=== PATIENT | male | born 1940 | race Caucasian/White ===

== ENCOUNTER 2019-12-24 17:42 | Inpatient (IN) | payer MEDICARE, SELFPAY ==
[2019-12-24] VITALS (7 sets, daily range): BP systolic 110–174; BP diastolic 66–102; PULSE 90–103; RESP 16–30; TEMP 36.8; O2SAT 87–97; BMI 25.2; BMI 25.9
--- NOTE | 2019-12-24 | CT_ITS ---
EXAMINATION: CT ANGIOGRAM OF THE CHEST WITH AND WITHOUT CONTRAST (CT PULMONARY ANGIOGRAM FOR PE) CLINICAL INFORMATION: Reason for Exam elevated ddimer, sob COMPARISON: Chest x-ray 12/24/2019 TECHNIQUE: Prior to contrast administration, noncontrast localization images were obtained. Subsequently, multidetector volumetric imaging was performed from the thoracic inlet to below the diaphragms following the administration of 61 mL Omnipaque 350 intravenous contrast. No contrast reaction reported Sagittal, coronal, and MIP oblique sagittal reformatted images were obtained on the CT workstation, uploaded to PACS, and reviewed. This CT examination was performed using dose optimization techniques as appropriate, variously including the following: *Automated exposure control *Adjustment of mA and/or kV according to patient size (this includes techniques or standardized protocols for targeted exams where dose is matched to indication/reason for exam; i.e. extremities or head) *Use of iterative reconstruction technique Total exam dose-length product 358 mGy-cm FINDINGS: QUALITY OF STUDY/CONTRAST BOLUS: Satisfactory. PULMONARY ARTERIES: There is a large volume of pulmonary emboli present. There is a saddle embolus crossing the midline. Thrombus is present extending through the right and left main pulmonary arteries into secondary, tertiary and more peripheral vessels. Largest volume of thrombus in the distal right main pulmonary artery and extending into the right lower lobe. All lobes are involved. THORACIC AORTA: No aneurysm or dissection. LUNG: No focal consolidation, nodules or masses. PLEURA: No pleural effusion or pneumothorax. MEDIASTINUM: Heart size mildly enlarged. No pericardial effusion. Large volume of coronary artery calcifications. Scattered vascular calcifications of the aorta . Small amount of contrast refluxing into the inferior vena cava. No septal bowing. CHEST WALL/AXILLA: No axillary or internal mammary lymphadenopathy. OSSEOUS STRUCTURES: Multiple level thoracoplasty is at the lower thoracic upper lumbar spine. UPPER ABDOMEN: Unremarkable. No reflux of contrast into the hepatic veins to suggest elevated right heart pressures. IMPRESSION: Large volume of bilateral pulmonary emboli. This includes saddle embolus. Small volume of contrast refluxing into the inferior vena cava suggesting mild right heart strain but there is no septal bowing. VTE: positive This critical result was discussed with Dr. Espinoza on 01/03/2020, 11:45 PM and it was ascertained that the content and urgency of the report was understood at the time of direct communication.
--- NOTE | 2019-12-24 | ECG_ITS ---
Test Reason : REPEAT Blood Pressure : / mmHG Vent. Rate : 096 BPM Atrial Rate : 096 BPM P-R Int : 134 ms QRS Dur : 140 ms QT Int : 372 ms P-R-T Axes : 002 -35 -22 degrees QTc Int : 469 ms Sinus rhythm with occasional Premature ventricular complexes Possible Left atrial enlargement Left axis deviation Right bundle branch block Abnormal ECG When compared with ECG of 24-DEC-2019 18:29, Premature ventricular complexes are now Present Referred By: César Espinoza Electronically Signed By:JESSICA BARRETO MD
--- NOTE | 2019-12-24 18:22 | XR_ITS ---
EXAMINATION: XR CHEST CLINICAL INFORMATION: Shortness of breath COMPARISON: PET/CT study 10/19/2016. CT chest 11/10/2014 TECHNIQUE: Frontal portable view of the chest was obtained. 6:49 PM FINDINGS: Asymmetric elevation of left diaphragm compared to right. Linear atelectasis present at the left lung base. No acute consolidating infiltrate. No pleural effusion or pneumothorax. The heart size is normal. There is no pulmonary vascular congestion. IMPRESSION: No acute abnormality of the chest.
--- NOTE | 2019-12-24 18:22 | ECG_ITS ---
Test Reason : SOB Blood Pressure : / mmHG Vent. Rate : 098 BPM Atrial Rate : 098 BPM P-R Int : 126 ms QRS Dur : 140 ms QT Int : 362 ms P-R-T Axes : -21 -33 -26 degrees QTc Int : 462 ms Sinus rhythm with Premature supraventricular complexes Left axis deviation Nonspecific T wave abnormality Right bundle branch block Abnormal ECG No previous ECGs available Referred By: Generic ED Physician Electronically Signed By:JESSICA BARRETO MD
--- NOTE | 2019-12-24 18:56 | PC.NURSE ---
PT ALERT AND ORIENTED X4. SKIN WPD. RESPIRATIONS LABORED; TACHYPNEIC AT APPROX 30-36 BREATHS/ MIN AND SPO2 LOW 80S UPON ARRIVAL TO ED. BREATHING LESS LABORED WITH REST. PLACED ON 3L VIA NC; SPO2 INCREASED TO 94%. LUNGS CTA. PT REPORTS 1.5 WEEKS BLACK STOOL. ALSO REPORTS RECENTLY STARTED TAKING IRON SUPPLEMENTS. ABD SOFT, NON TENDER. DENIES N/V/D. SINUS RHYTHM ON MONITOR. VSS. IV ACCESS OBTAINED. LABS SENT.
[2019-12-24 19:01] LABS: Hemoglobin 12.5 g/dl (14.0-18.0); MANUAL DIFF FLAG SCAN; Mean Corpuscular Hemoglobin 22.4 pg (27.0-33.0); Red Blood Count 5.57 X10*6/uL (4.60-5.80); SCAN SMEAR FLAG 1
[2019-12-24 19:03] LABS: Basophils Percent Auto 0.3 % (0-2); Eosinophils Percent Auto 0.3 % (0-4); Hematocrit 42.4 % (42-52); Imm Gran Abs Auto 0.08 X10*3/uL (0.00-0.03); Imm Gran Pct Auto 0.8 % (0.0-0.4); Mean Corpuscular HGB Conc 29.5 g/dl (31.0-36.0); Mean Corpuscular Volume 76.1 fL (80-98); Mean Platelet Volume 8.9 fL (9.4-12.4); Monocytes Absolute Auto 0.5 X10*3/uL (0.1-1.2); Monocytes Percent Auto 4.6 % (2-11); NRBC Pct Auto 0.2 /100WBC (0.0-0.2); Neutrophils Absolute Auto 8.5 X10*3/uL (2.0-8.3); Platelet Count 242 X10*3/uL (160-400); Red Cell Distribution Width 33.1 % (11.0-16.0); White Blood Count 10.1 X10*3/uL (4.8-10.8)
--- NOTE | 2019-12-24 19:07 | ED.SOB ---
HPI - SOB/Dyspnea General Chief Complaint: Dyspnea Stated Complaint: SOB Time Seen by Provider: 12/24/19 18:37 Source: patient Mode of arrival: EMS History of Present Illness HPI Narrative: 79-year-old male with chief complaint of shortness of breath. Patient states has been shortness of breath for 1-2 days. No chest pain. However has dyspnea on exertion. No nausea no vomiting no diaphoresis. Patient does stay of dark red stools for the past several days. Denies dizziness or syncope no recent cough no recent fevers MD elicited complaint: shortness of breath Exacerbating factors: lying flat and exertion Related Data Home oxygen amount: none Home Medications Medication Instructions Recorded Confirmed azathioprine 1 tab PO BID 12/25/19 12/25/19 famotidine 1 tab PO BID 12/25/19 12/25/19 finasteride 1 tab PO DAILY 12/25/19 12/25/19 glipizide 1 tab PO DAILY 12/25/19 12/25/19 levothyroxine 1 tab PO QAM 12/25/19 12/25/19 lisinopril 1 tab PO DAILY 12/25/19 12/25/19 prednisone 3 tab PO DAILY 12/25/19 12/25/19 pyridostigmine bromide 2 tab PO TID 12/25/19 12/25/19 Allergies Allergy/AdvReac Type Severity Reaction Status Date / Time No Known Allergies Allergy Verified 12/24/19 18:21 [No Known Allergies*] Review of Systems Review of Systems: Yes all other systems are reviewed and are negative Constitutional: Comments: Constitutional : No Weight loss, No Fever, No Chills, No Night Sweats, No Fatigue, No Malaise ENT/Mouth : No Hearing loss, No Ear Pain, No Nasal Congestion, No Sinus Pain, No Hoarseness, No sore throat, No Rhinorrhea, No Swallowing Difficulty Eyes: No Eye Pain, No Swelling, No Redness, No Foreign Body, No Discharge, No Vision Changes Cardiovascular : No Chest Pain, No SOB, No Dyspnea on Exertion, No Orthopnea, No Edema, No Palpitations Respiratory : No Cough, No Sputum, No Wheezing, No Smoke Exposure, positive Dyspnea Gastrointestinal : No Nausea, No Vomiting, No Diarrhea, No Constipation, No abdominal Pain, No Hematochezia, No Melena Genitourinary : no irregular bleeding, No Dysuria, No Urinary Frequency, No Hematuria, No Urinary Incontinence, No Urgency, No Flank Pain, No Urinary Flow Changes, No Hesitancy Musculoskeletal : No joint pain, No Myalgias, No Joint Swelling Skin : No Skin Lesions, No rash Neuro : No Weakness, No Numbness, No Paresthesias, No Loss of Consciousness, No Dizziness, No Headache Psych : No Anxiety/Panic, No Depression, No SI/HI/AH/VH, No Social Issues, Heme/Lymph: No Bruising, No Bleeding,No Lymphadenopathy Endocrine : No Polyuria, No Polydipsia, No Temperature Intolerance [facility] Past Medical History Attestation statement: The following information was validated with the patient. Medical History (Updated 12/25/19 @ 01:44 by Tanisha Butt MD) Anemia Diabetes Hyperlipidemia Hypertension Melanoma Surgical History History of back surgery Previous back surgery Social History Social History Alcohol intake: current Alcohol intake frequency: holidays/special occasions only Smoking Status: Former smoker Smoked in Last 30 Days: No Use of substances other than those prescribed or required for medical reasons: No Advance Directives: No Advance Directives Information Provided: Yes Physical Exam Vital Signs and I&O and Narrative: Vital Signs and I&O: Vital Signs Temp 98.3 F 12/24/19 23:42 Pulse 91 12/24/19 23:42 Resp 16 12/24/19 23:42 BP 165/102 H 12/24/19 23:42 Pulse Ox 95 12/24/19 23:42 Intake & Output 12/24/19 12/24/19 12/25/19 06:59 18:59 06:59 Intake Total 1000 / 1000 Balance 1000 / 1000 Weight 73.028 kg 75 kg Intake: Intake, IV Amoun t 1000 / 1000 0.9 % Sodium C hloride 1,000 ml 1000 / 1000 @ 999 mls/hr I VCONT .Q1H1M [facility] Rx#:[id number] Body Mass Index 25.9 reviewed Const: Other: Appearance: Alert. Oriented X3. No acute distress. Eyes: Pupils equal, round and reactive to light. ENT: Pharynx normal. Neck: Normal inspection. Neck supple. CVS: Normal heart rate and rhythm. Pulses normal. Respiratory: No respiratory distress. Breath sounds normal. no wheezing no rales Abdomen: Soft and nontender. Skin: Skin warm and dry. Normal skin color. Normal skin turgor. Extremities: No lower extremity edema. No lower extremity edema. Neuro: Oriented X 3. No motor deficit. No sensory deficit. rectal: dark black stool, rectum sensation intact rectal tone intact no lacerations Course Course Course Narrative: differential diagnosis includes pulmonary embolism. Acute coronary syndrome, anemia Reevaluation(s) Reevaluation #1: patient was laying down sleeping and pulse ox came down to 88% however as aroused and placed oxygen and patient now at 97% with oxygen nasal cannula Time: 21:02 Time: 22:58 Reevaluation #3: patient re-evaluated in which patient does not have chest pain. However patient does qualify for NSTEMI will start heparin drip pending CTA for PE Time: 23:48 Additional Reevaluation(s): I spoke with radiologist now. Patient with saddle embolism with large burden bilateral possibly mild heart strain I re-evaluated the patient in which maintained his pulse ox while sitting up. Denies chest pain mild shortness of breath at baseline I spoke with the ICU doctor Dr. anderson, new large discussion in regards to tPA. At this point we agreed to give heparin only and no tPA. Patient's vital signs were within normal limits and patient recently had a hospital admission was diagnosed with a diverticulitis with perforation and esophagitis with gastric ulcers. Patient looks well has a coppola mild shortness of breath at baseline these were some of the components of our decision to not give tPA at this point. also recommends to admit patient to intermediate care IMC at 00:[address] Flowers for admission to the floor multiple re-examine were done by me on the patient has been on the floor. Patient was given IV heparin and IV bolus of heparin MDM - SOB/Dyspnea MDM Narrative Medical decision making narrative: 79-year-old diagnosed with saddle embolism. nstemi. Shortness of breath and hypoxia. with a history pulmonary embolism with 3 months of Eliquis recently stopped. Started on IV heparin in conjunction with ICU consultation admitted to the floor Lab Data Attestation: I reviewed the patient's lab results. Result diagrams: 12/24/19 18:27 12/24/19 22:05 Labs: Lab Results 12/24/19 12/24/19 12/24/19 Range/Units 18:27 18:27 18:27 WBC 10.1 (4.8-10.8) X10*3/uL RBC 5.57 (4.60-5.80) X10*6/uL Hgb 12.5 L (14.0-18.0) g/dl Hct 42.4 (42-52) % MCV 76.1 L (80-98) fL MCH 22.4 L (27.0-33.0) pg MCHC 29.5 L (31.0-36.0) g/dl RDW 33.1 H (11.0-16.0) % Plt Count 242 (160-400) X10*3/uL MPV 8.9 L (9.4-12.4) fL Immature Gran % (Auto) 0.8 H (0.0-0.4) % Neut % (Auto) 84.0 H (45-73) % Lymph % (Auto) 10.0 L (20-40) % [place] % (Auto) 4.6 (2-11) % Eos % (Auto) 0.3 (0-4) % Baso % (Auto) 0.3 (0-2) % Lymph # (Auto) 1.0 L (1.2-4.9) X10*3/uL [place] # (Auto) 0.5 (0.1-1.2) X10*3/uL Eos # (Auto) 0.0 (0.0-0.4) X10*3/uL Baso # (Auto) 0.0 (0.0-0.2) X10*3/uL Abs Immat Gran (auto) 0.08 H (0.00-0.03) X10*3/uL Absolute Neuts (auto) 8.5 H (2.0-8.3) X10*3/uL Absolute Nucleated RBC 0.020 H (0.0-0.012) X10*3/uL Nucleated RBC % (auto) 0.2 (0.0-0.2) /100WBC Smear Tech's Comments VERIFIED PT 10.7 L (10.8-13.0) SEC INR 0.9 (0.9-1.1) APTT 29.5 (24.1-38.0) SEC D-Dimer 3384 NG/ML Hold Blue Top SEE NOTE Sodium Cancelled Potassium Cancelled Chloride Cancelled Carbon Dioxide Cancelled Anion Gap Cancelled BUN Cancelled Creatinine Cancelled Estim Creat Clear Calc Cancelled Estimated GFR Cancelled POC Glucose (60-115) mg/dL Random Glucose Cancelled Calcium Cancelled Total Bilirubin Cancelled Direct Bilirubin Cancelled AST Cancelled ALT Cancelled Alkaline Phosphatase Cancelled Troponin I High Sens (<3.5-35.0) ng/L B-Natriuretic Peptide (<100) pg/mL Total Protein Cancelled Albumin Cancelled Lipase Cancelled Urine Color Urine Appearance Urine pH (5.0-8.0) Ur Specific [place] (1.005-1.025) Urine Protein (NEG-TRACE) MG/DL Urine Glucose (UA) (NEG) MG/DL Urine Ketones (NEG) MG/DL Urine Blood (NEG) Urine Nitrite (NEG) Ur Leukocyte Esterase (NEG) Stool Occult Blood (NEG) 12/24/19 12/24/19 12/24/19 Range/Units 18:27 18:53 22:05 WBC (4.8-10.8) X10*3/uL RBC (4.60-5.80) X10*6/uL Hgb (14.0-18.0) g/dl Hct (42-52) % MCV (80-98) fL MCH (27.0-33.0) pg MCHC (31.0-36.0) g/dl RDW (11.0-16.0) % Plt Count (160-400) X10*3/uL MPV (9.4-12.4) fL Immature Gran % (Auto) (0.0-0.4) % Neut % (Auto) (45-73) % Lymph % (Auto) (20-40) % [place] % (Auto) (2-11) % Eos % (Auto) (0-4) % Baso % (Auto) (0-2) % Lymph # (Auto) (1.2-4.9) X10*3/uL [place] # (Auto) (0.1-1.2) X10*3/uL Eos # (Auto) (0.0-0.4) X10*3/uL Baso # (Auto) (0.0-0.2) X10*3/uL Abs Immat Gran (auto) (0.00-0.03) X10*3/uL Absolute Neuts (auto) (2.0-8.3) X10*3/uL Absolute Nucleated RBC (0.0-0.012) X10*3/uL Nucleated RBC % (auto) (0.0-0.2) /100WBC Smear Tech's Comments PT (10.8-13.0) SEC INR (0.9-1.1) APTT (24.1-38.0) SEC D-Dimer NG/ML Hold Blue Top Sodium 141 Potassium 5.3 H Chloride 108 Carbon Dioxide 24 Anion Gap 14 BUN 16 Creatinine 1.10 Estim Creat Clear Calc 50.0 Estimated GFR > 60 POC Glucose (60-115) mg/dL Random Glucose 243 H Calcium 8.5 Total Bilirubin 0.4 Direct Bilirubin 0.2 AST 17 ALT 21 Alkaline Phosphatase 75 Troponin I High Sens 158.0 H (<3.5-35.0) ng/L B-Natriuretic Peptide 1301 H (<100) pg/mL Total Protein 5.4 L Albumin 3.3 L Lipase 14 Urine Color Urine Appearance Urine pH (5.0-8.0) Ur Specific [place] (1.005-1.025) Urine Protein (NEG-TRACE) MG/DL Urine Glucose (UA) (NEG) MG/DL Urine Ketones (NEG) MG/DL Urine Blood (NEG) Urine Nitrite (NEG) Ur Leukocyte Esterase (NEG) Stool Occult Blood NEG (NEG) 12/24/19 12/24/19 12/24/19 Range/Units 22:05 22:08 23:38 WBC (4.8-10.8) X10*3/uL RBC (4.60-5.80) X10*6/uL Hgb (14.0-18.0) g/dl Hct (42-52) % MCV (80-98) fL MCH (27.0-33.0) pg MCHC (31.0-36.0) g/dl RDW (11.0-16.0) % Plt Count (160-400) X10*3/uL MPV (9.4-12.4) fL Immature Gran % (Auto) (0.0-0.4) % Neut % (Auto) (45-73) % Lymph % (Auto) (20-40) % [place] % (Auto) (2-11) % Eos % (Auto) (0-4) % Baso % (Auto) (0-2) % Lymph # (Auto) (1.2-4.9) X10*3/uL [place] # (Auto) (0.1-1.2) X10*3/uL Eos # (Auto) (0.0-0.4) X10*3/uL Baso # (Auto) (0.0-0.2) X10*3/uL Abs Immat Gran (auto) (0.00-0.03) X10*3/uL Absolute Neuts (auto) (2.0-8.3) X10*3/uL Absolute Nucleated RBC (0.0-0.012) X10*3/uL Nucleated RBC % (auto) (0.0-0.2) /100WBC Smear Tech's Comments PT (10.8-13.0) SEC INR (0.9-1.1) APTT (24.1-38.0) SEC D-Dimer NG/ML Hold Blue Top Sodium Potassium Chloride Carbon Dioxide Anion Gap BUN Creatinine Estim Creat Clear Calc Estimated GFR POC Glucose 249 H (60-115) mg/dL Random Glucose Calcium Total Bilirubin Direct Bilirubin AST ALT Alkaline Phosphatase Troponin I High Sens 133.7 H (<3.5-35.0) ng/L B-Natriuretic Peptide (<100) pg/mL Total Protein Albumin Lipase Urine Color YELLOW Urine Appearance CLEAR Urine pH 5.5 (5.0-8.0) Ur Specific [place] >= 1.030 H (1.005-1.025) Urine Protein TRACE (NEG-TRACE) MG/DL Urine Glucose (UA) 500 H (NEG) MG/DL Urine Ketones 15 (NEG) MG/DL Urine Blood NEG (NEG) Urine Nitrite NEG (NEG) Ur Leukocyte Esterase NEG (NEG) Stool Occult Blood (NEG) ECG Data Attestation: I personally reviewed and interpreted this ECG as follows: Interpretation: Rate at 97. Right-sided access. Right bundle branch block. normal p.r. segments 2nd EKG at 19:34. Right bundle branch block. Normal NM intervals. Rate of 96. No STEMI Critical Care Time Critical Care Time Critical Care Time: Yes Total Critical Care Time: 35 Attestation: I tested critical care time spent. patient with hypoxia with less than 90% pulse ox immediately placed patient on oxygen which improved Discharge Plan Discharge Clinical Impression: Hypoxia, Acute saddle pulmonary embolism, Non-ST elevation [place] (NSTEMI) Patient Disposition: Admitted As Inpatient Interventions: Admission Worksheet (ED) Last Done: 12/25/19 02:08 Discharge Date/Time: 12/25/19 02:30
[2019-12-24 19:19] LABS: PLT ABN DIST 1
[2019-12-24 19:28] LABS: INTERNATIONAL NORM RATIO 0.9 (0.9-1.1); Prothrombin Time 10.7 SEC (10.8-13.0)
[2019-12-24 19:29] LABS: B Type Natriuretic Peptide 1301 pg/mL (<100)
[2019-12-24 19:31] LABS: Partial Thromboplastin Time 29.5 SEC (24.1-38.0)
[2019-12-24 19:33] LABS: SLIDE REVIEW VERIFIED
[2019-12-24 19:46] LABS: D Dimer 3384 NG/ML
[2019-12-24 19:50] LABS: OBS Int Ctl Valid YES; OBS1 NEG (NEG)
--- NOTE | 2019-12-24 20:02 | PC.NURSE ---
PATIENT RESTING AND SINUS RHYTHM ON MONITOR WITH OCCASIONAL PVC. TROPONIN ELEVATED AND MD AWARE.
[2019-12-24] MEDS: 0.9 % Sodium Chloride 1,000 ML 999 ML IVCONT (21:03)
[2019-12-24 22:16] LABS: Appearance Urine CLEAR; Color Urine YELLOW; Glucose Urine UA 500 MG/DL (NEG); Leukocyte Esterase Urine NEG (NEG); Nitrite Urine NEG (NEG); PH 5.5 (5.0-8.0); Specific Gravity - Urine >= 1.030 (1.005-1.025); Urine Blood NEG (NEG); Urine Ketones 15 MG/DL (NEG); Urine Protein TRACE MG/DL (NEG-TRACE)
[2019-12-24 22:46] LABS: Alanine Aminotransferase 21 U/L (0-40); Albumin Level 3.3 g/dL (3.5-5.0); Alkaline Phosphatase 75 U/L (39-117); Anion Gap 14 (12-20); Aspartate Amino Transferase 17 U/L (5-37); Bilirubin Direct 0.2 mg/dL (0.0-0.5); Bilirubin Total 0.4 mg/dL (0.0-1.0); Blood Urea Nitrogen 16 mg/dL (9-16); Calcium 8.5 mg/dL (8.4-10.2); Carbon Dioxide 24 mmol/L (22-29); Chloride 108 mmol/L (96-108); Estimated Glomerular Filt Rate > 60; Glucose Random 243 mg/dL (60-115); Lipase 14 U/L (8-78); Potassium 5.3 mmol/l (3.3-5.1); Sodium 141 mmol/L (135-145); Total Protein 5.4 g/dL (6.5-8.0)
[2019-12-24 22:54] LABS: Troponin-I High Sensitivity 133.7 ng/L (<3.5-35.0)
[2019-12-24 23:48] LABS: Glucose, Whole Blood 249 mg/dL (60-115)
[2019-12-24] MEDS: Heparin Sodium,Porcine 5,000 UNIT/ML VIAL 5000 UNIT IVPUSH (23:49)
[2019-12-25] VITALS (11 sets, daily range): BP systolic 136–178; BP diastolic 77–97; PULSE 76–96; RESP 16–22; TEMP 35.9–36.9; O2SAT 90–97
[2019-12-25] MEDS: Heparin Sodium,Porcine/1/2NS 25,000 UNIT/250 ML IV.SOLN 10.22 UNIT IVCONT (00:27)
--- NOTE | 2019-12-25 00:30 | PC.NURSE ---
PATIENT MEDICATED PER EMAR NOTED. HEPARIN DRIP STARTED AND WITNESSED BY MIKE CHAIDEZ RN. PLAN FOR ADMISSION TO HOSPITAL
--- NOTE | 2019-12-25 01:07 | PC.NURSE ---
HOSPITALIST AT BEDSIDE FOR EVALUATION
--- NOTE | 2019-12-25 01:08 | P.HPIM_ITS ---
History of Present Illness Date of Service: 12/25/19 Chief Complaint: SOB 79 y/o male with significant hx of provoked PE in the past, presents today due to worsening SOB for the past 3 weeks. Patient reports that 3 weeks ago started experiencing difficulty breathing which was on and off but since yesterday his condition worsened and now is constant. Patient denies any chest pain, nausea, vomiting, dizziness or fever. Records were reviewed from a previous hospitalization of the patient in [facility] for diverticulitis with perforation which was managed medically and gastritis with an ulcer. During that admission on June of the current year, patient was found to have an incidental PE which was managed with heparin followed with eliquis for a total course of 3 months which patiemt completed successfully. Upon presentaiton now his vitals are found to be stable, 110/66 with mild tachycardia of 103 which now resolved and the BP is 165/90 mmHg currently. Saturating well on nasal cannula 2 liters which drops to 87% when laying flat on bed without O2 supplement but remains stable with the nasal cannula. Troponin of 158 which dropped to 133. BNP of 1301. CTA positive for bilateral PE with saddle embolus and evidence of rigth heart strain without bowing septum. Case was discussed by ED with Chemical Plant Manager environmental field services technician Dr Sutton who recommends to continue with current full dose anticoagulation (Heparin drip) but patient is deemed to be stable to go to medical floors. Decision for admission given. Patient seen and examined at the bedside, laying down in bed in no acute distress. BP stable. saturating well. ROS as above otherwise negative. Physical exam positive for +1 pitting edema of bilateral LE, otherwise negative. PMHX: Hx of provoked PE, gastric ulcer, diverticulitis with perforation, BPH, HTN, Hypothyroidism, Myasthenia gravis? PSx: none Toxic habitsw: NO hx of alcohol abuse, smoking or IVDA Review of Systems Cardiovascular: Cardiovascular: Reports dyspnea Respiratory: Respiratory: Reports dyspnea PMFSH Medical History Anemia Diabetes Hyperlipidemia Hypertension Melanoma Functional capacity: independent ambulation Family history: reviewed and not pertinent Surgical History History of back surgery Previous back surgery Social History Alcohol intake: current Alcohol intake frequency: holidays/special occasions only Smoking Status: Former smoker Smoked in Last 30 Days: No Use of substances other than those prescribed or required for medical reasons: No Advance Directives: No Advance Directives Information Provided: Yes Meds Allergies Allergy/AdvReac Type Severity Reaction Status Date / Time No Known Allergies Allergy Verified 12/24/19 18:21 [No Known Allergies*] Home Medications Medication Instructions Recorded Confirmed Type azathioprine 1 tab PO BID 12/25/19 12/25/19 History famotidine 1 tab PO BID 12/25/19 12/25/19 History finasteride 1 tab PO DAILY 12/25/19 12/25/19 History glipizide 1 tab PO DAILY 12/25/19 12/25/19 History levothyroxine 1 tab PO QAM 12/25/19 12/25/19 History lisinopril 1 tab PO DAILY 12/25/19 12/25/19 History prednisone 3 tab PO DAILY 12/25/19 12/25/19 History pyridostigmine bromide 2 tab PO TID 12/25/19 12/25/19 History Physical Exam Vital Signs and Narrative: Vital Signs: Last Vital Signs Temp 98.3 F 12/24/19 23:42 Pulse 91 12/24/19 23:42 Resp 16 12/24/19 23:42 BP 165/102 H 12/24/19 23:42 Pulse Ox 95 12/24/19 23:42 Body Mass Index 25.9 Const: General: cooperative, healthy appearing and comfortable HENMT: Head: Yes normal to inspection Eyes: General: appearance normal, both eyes and all related structures Neck: Yes normal visual inspection Chest: Chest palpation & inspection: normal inspection of the chest Resp: Effort & Inspection: normal respiratory effort Cardio: Jugular venous distension: no JVD Rate: regular rate Heart sounds: S1 normal heart sound present and S2 normal heart sound present GI: Inspection: Yes normal to inspection Skin: General skin exam: no rashes or lesions noted Extrem: General: Yes edema (+1) Psych: Appearance: grossly normal Results Labs Labs: Laboratory Tests 12/24/19 12/24/19 12/24/19 18:27 18:27 18:27 WBC 10.1 RBC 5.57 Hgb 12.5 L Hct 42.4 MCV 76.1 L MCH 22.4 L MCHC 29.5 L RDW 33.1 H Plt Count 242 MPV 8.9 L Immature Gran % (Auto) 0.8 H Neut % (Auto) 84.0 H Lymph % (Auto) 10.0 L [place] % (Auto) 4.6 Eos % (Auto) 0.3 Baso % (Auto) 0.3 Lymph # (Auto) 1.0 L [place] # (Auto) 0.5 Eos # (Auto) 0.0 Baso # (Auto) 0.0 Abs Immat Gran (auto) 0.08 H Absolute Neuts (auto) 8.5 H Absolute Nucleated RBC 0.020 H Nucleated RBC % (auto) 0.2 Smear Tech's Comments VERIFIED PT 10.7 L INR 0.9 APTT 29.5 D-Dimer 3384 Hold Blue Top SEE NOTE Sodium Cancelled Potassium Cancelled Chloride Cancelled Carbon Dioxide Cancelled Anion Gap Cancelled BUN Cancelled Creatinine Cancelled Estim Creat Clear Calc Cancelled Estimated GFR Cancelled POC Glucose Random Glucose Cancelled Calcium Cancelled Total Bilirubin Cancelled Direct Bilirubin Cancelled AST Cancelled ALT Cancelled Alkaline Phosphatase Cancelled Troponin I High Sens B-Natriuretic Peptide Total Protein Cancelled Albumin Cancelled Lipase Cancelled Urine Color Urine Appearance Urine pH Ur Specific [place] Urine Protein Urine Glucose (UA) Urine Ketones Urine Blood Urine Nitrite Ur Leukocyte Esterase Stool Occult Blood 12/24/19 12/24/19 12/24/19 18:27 18:53 22:05 WBC RBC Hgb Hct MCV MCH MCHC RDW Plt Count MPV Immature Gran % (Auto) Neut % (Auto) Lymph % (Auto) [place] % (Auto) Eos % (Auto) Baso % (Auto) Lymph # (Auto) [place] # (Auto) Eos # (Auto) Baso # (Auto) Abs Immat Gran (auto) Absolute Neuts (auto) Absolute Nucleated RBC Nucleated RBC % (auto) Smear Tech's Comments PT INR APTT D-Dimer Hold Blue Top Sodium 141 Potassium 5.3 H Chloride 108 Carbon Dioxide 24 Anion Gap 14 BUN 16 Creatinine 1.10 Estim Creat Clear Calc 50.0 Estimated GFR > 60 POC Glucose Random Glucose 243 H Calcium 8.5 Total Bilirubin 0.4 Direct Bilirubin 0.2 AST 17 ALT 21 Alkaline Phosphatase 75 Troponin I High Sens 158.0 H B-Natriuretic Peptide 1301 H Total Protein 5.4 L Albumin 3.3 L Lipase 14 Urine Color Urine Appearance Urine pH Ur Specific [place] Urine Protein Urine Glucose (UA) Urine Ketones Urine Blood Urine Nitrite Ur Leukocyte Esterase Stool Occult Blood NEG 12/24/19 12/24/19 12/24/19 22:05 22:08 23:38 WBC RBC Hgb Hct MCV MCH MCHC RDW Plt Count MPV Immature Gran % (Auto) Neut % (Auto) Lymph % (Auto) [place] % (Auto) Eos % (Auto) Baso % (Auto) Lymph # (Auto) [place] # (Auto) Eos # (Auto) Baso # (Auto) Abs Immat Gran (auto) Absolute Neuts (auto) Absolute Nucleated RBC Nucleated RBC % (auto) Smear Tech's Comments PT INR APTT D-Dimer Hold Blue Top Sodium Potassium Chloride Carbon Dioxide Anion Gap BUN Creatinine Estim Creat Clear Calc Estimated GFR POC Glucose 249 H Random Glucose Calcium Total Bilirubin Direct Bilirubin AST ALT Alkaline Phosphatase Troponin I High Sens 133.7 H B-Natriuretic Peptide Total Protein Albumin Lipase Urine Color YELLOW Urine Appearance CLEAR Urine pH 5.5 Ur Specific [place] >= 1.030 H Urine Protein TRACE Urine Glucose (UA) 500 H Urine Ketones 15 Urine Blood NEG Urine Nitrite NEG Ur Leukocyte Esterase NEG Stool Occult Blood Assessment and Plan (1) Acute saddle pulmonary embolism: Status: Acute Hemodynamically stable at present CTA chest shows previously mentioned findings EKG showing RBBB. Evidence of right heart strain without bowing of the septum Continue with Heparin drip traffic monitor specialist IMC Oxygen therapy as needed Follow up 2D Echo in the am Cardiology consult in the am Pulmonology consult in the am Hematology/Oncology consult in the am (2) Non-ST elevation GA (NSTEMI): Status: Acute Elevated troponin likely secondary to demand ischemia given right sided heart strain Troponin decreased from 158-->133. On full dose Heparin traffic monitor specialist Echo in the am Cardiology evaluation in the am (3) Hypertension: Status: Acute Continue with current home BP med as ordered (4) Diabetes: Status: Acute Hold PO hypoglycemic med Insulin as ordered (5) BPH (benign prostatic hyperplasia): Status: Acute continue with finasteride home dose (6) Hypothyroidism: Status: Acute continue with levothyroxine home dose (7) Hyperkalemia: Status: Acute K of 5.3 s/p insulin therapy Follow up BMP for electrolytes in the am (8) Myasthenia gravis: Status: Acute continue with pyridostigmine home dose continue with prednisone home dose (Patient on azathiopine but unknown reason. RA? to confirm in am with PCP)
--- NOTE | 2019-12-25 01:39 | PC.NURSE ---
CALL FLOOR FOR 2ND TIME TO GIVE REPORT AND TOLD BY [employer] OPERATIONS MANAGER, GARY THAT NURSES WERE IN ROOMS. SHE WOULD HAVE THEM CONTACT ME
--- NOTE | 2019-12-25 02:55 | PC.NURSE ---
PT TRANSPORTED TO THE UNIT VIA STRETCHER AND ON HEPARIN DRIP. HEPARIN DRIP RUNNING AT 14U/KG/HR. PT IS ALERT AND ORIENTED X 3, HR IN THE 80'S, SR ON THE MONITOR, RR IS REGULAR BUT HAS GARCIA AND CAME WITH HIS CANE. PT AMBULATED FROM THE STRETCHER TO THE BED AND WAS SOB ON 2L OF O2 VIA NC AND DOES NOT USE O2 AT HOME. PT IS IN BED RESTING, CALL BED PROVIDED, SAFETY EXPLAINED, HIGH FALL RISK PROTOCOL IN PLACE . VSS.
[2019-12-25 04:30] LABS: Glucose, Whole Blood 192 mg/dL (60-115)
[2019-12-25 06:54] LABS: Hemoglobin 11.5 g/dl (14.0-18.0)
[2019-12-25 06:56] LABS: Hematocrit 38.2 % (42-52); Mean Corpuscular HGB Conc 30.1 g/dl (31.0-36.0); Mean Corpuscular Hemoglobin 22.8 pg (27.0-33.0); Mean Corpuscular Volume 75.8 fL (80-98); Platelet Count 218 X10*3/uL (160-400); Red Blood Count 5.04 X10*6/uL (4.60-5.80); White Blood Count 7.2 X10*3/uL (4.8-10.8)
[2019-12-25 07:14] LABS: PTT Heparin Drip 86.8 SEC (53-77.9)
[2019-12-25 07:48] LABS: Anion Gap 15 (12-20); Blood Urea Nitrogen 14 mg/dL (9-16); Calcium 8.5 mg/dL (8.4-10.2); Carbon Dioxide 22 mmol/L (22-29); Chloride 108 mmol/L (96-108); Creatinine Clr Calc Pharmacy 56.2; Estimated Glomerular Filt Rate > 60; Glucose Random 219 mg/dL (60-115); Potassium 4.1 mmol/l (3.3-5.1); Sodium 141 mmol/L (135-145)
[2019-12-25] MEDS: Finasteride 5 MG TABLET PO (07:54)
[2019-12-25] MEDS: predniSONE 5 MG TABLET 15 MG PO (07:54)
[2019-12-25] MEDS: azaTHIOprine 50 MG TABLET PO ×2 (07:54→21:51)
[2019-12-25] MEDS: Levothyroxine Sodium 75 MCG TABLET PO (07:54)
[2019-12-25] MEDS: Famotidine 20 MG TABLET PO ×2 (07:54→21:51)
[2019-12-25 07:59] LABS: Glucose, Whole Blood 214 mg/dL (60-115)
--- NOTE | 2019-12-25 08:36 | P.CONPL_ITS ---
History of Present Illness History of Present Illness Chief complaint: SOB PMF Past Medical History Medical History (Updated 12/27/19 @ 08:59 by Elissa Hall MD) Anemia Diabetes Hyperlipidemia Hypertension Melanoma Myasthenia gravis Functional capacity: independent ambulation Family History Family history: reviewed and not pertinent Surgical History Surgical History (Updated 12/26/19 @ 15:26 by Katie Sams MD) History of back surgery Previous back surgery Social History Social History Household Members: None Housing: House Do you presently have visiting nurse or other home services: No Alcohol intake: current Alcohol intake frequency: holidays/special occasions only Smoking Status: Former smoker Smoked in Last 30 Days: No Patient Interested in Nicotine Replacement: No Patient Given Instructions on How to Stop Smoking: No Second Hand Smoke Exposure: No Use of substances other than those prescribed or required for medical reasons: No Currently Displaying Signs/Symptoms of Drug Intoxication Withdrawal: No Have you been hit, kicked, punched, or otherwise hurt by someone within the past year? If so, by whom?: No Do you feel safe in your current relationship?: No Current Relationship Is there a partner from a previous relationship who is making you feel unsafe now?: No Are you made to feel afraid or neglected: No J[facility] Healthcare Practices: religious Advance Directives: No Advance Directives Information Provided: Yes Do you have thoughts of harming others: None Do you have a plan to hurt others: No Plan Recently lost weight without trying: Unsure service: No Meds Allergies Allergy/AdvReac Type Severity Reaction Status Date / Time No Known Allergies Allergy Verified 12/24/19 18:21 [No Known Allergies*] Home Medications Medication Instructions Recorded Confirmed Type azathioprine 1 tab PO BID 12/25/19 12/25/19 History famotidine 1 tab PO BID 12/25/19 12/25/19 History finasteride 1 tab PO DAILY 12/25/19 12/25/19 History glipizide 1 tab PO DAILY 12/25/19 12/25/19 History levothyroxine 1 tab PO QAM 12/25/19 12/25/19 History lisinopril 1 tab PO DAILY 12/25/19 12/25/19 History prednisone 3 tab PO DAILY 12/25/19 12/25/19 History pyridostigmine bromide 2 tab PO TID 12/25/19 12/25/19 History Physical Exam Vital Signs and I&O and Narrative: Vital Signs and I&O: Vital Signs Temp 97.8 F 12/25/19 08:00 Pulse 94 12/25/19 08:00 Resp 18 12/25/19 08:00 BP 152/90 H 12/25/19 08:00 Pulse Ox 90 L 12/25/19 08:00 Intake & Output 12/24/19 12/25/19 12/25/19 18:59 06:59 18:59 Intake Total 1026.742 / 1026.74 2 42.754 / 42.754 Output Total 0 / 0 Balance 1026.742 / 1026.74 2 42.754 / 42.754 Urine Output (Aver age ml/kg/hr) 0.00 0.00 Weight 161 lb 165 lb 5.547 oz Intake: Intake, Oral [place] unt 0 / 0 Intake, IV Amoun t 1026.742 / 1026.74 2 42.754 / 42.754 0.9 % Sodium C hloride 1,000 ml 1000 / 1000 @ 999 mls/hr I VCONT .Q1H1M [facility] Rx#:[id number] Heparin Sodium ,Porcine/1/2NS 25 26.742 / 26.742 42.754 / 42.754 ,000 unit In 2 50 ml @ Per Protocol IVCON T .Q0M [facility] Rx#: [id number] Output: Output, Urine Am ount 0 / 0 Body Mass Index 25.9 Results Laboratory Findings CBC and BMP: 12/27/19 06:32 12/26/19 05:49 ABG, PT/INR, D-dimer: PT/INR, D-dimer PT 10.7 SEC (10.8-13.0) L 12/24/19 18:27 INR 0.9 (0.9-1.1) 12/24/19 18:27 D-Dimer 3384 NG/ML 12/24/19 18:27 Abnormal lab findings: Abnormal Labs 12/24/19 12/24/19 12/24/19 18:27 18:27 18:27 Hgb 12.5 L Hct MCV 76.1 L MCH 22.4 L MCHC 29.5 L RDW 33.1 H MPV 8.9 L Immature Gran % (Auto) 0.8 H Neut % (Auto) 84.0 H Lymph % (Auto) 10.0 L Lymph # (Auto) 1.0 L Abs Immat Gran (auto) 0.08 H Absolute Neuts (auto) 8.5 H Absolute Nucleated RBC 0.020 H PT 10.7 L PTT (Heparin Protocol) Potassium POC Glucose Random Glucose Troponin I High Sens 158.0 H B-Natriuretic Peptide 1301 H Total Protein Albumin Ur Specific [place] Urine Glucose (UA) 12/24/19 12/24/19 12/24/19 22:05 22:05 22:08 Hgb Hct MCV MCH MCHC RDW MPV Immature Gran % (Auto) Neut % (Auto) Lymph % (Auto) Lymph # (Auto) Abs Immat Gran (auto) Absolute Neuts (auto) Absolute Nucleated RBC PT PTT (Heparin Protocol) Potassium 5.3 H POC Glucose Random Glucose 243 H Troponin I High Sens 133.7 H B-Natriuretic Peptide Total Protein 5.4 L Albumin 3.3 L Ur Specific [place] >= 1.030 H Urine Glucose (UA) 500 H 12/24/19 12/25/19 12/25/19 23:38 04:27 05:47 Hgb 11.5 L Hct 38.2 L MCV 75.8 L MCH 22.8 L MCHC 30.1 L RDW 33.0 H MPV Immature Gran % (Auto) Neut % (Auto) Lymph % (Auto) Lymph # (Auto) Abs Immat Gran (auto) Absolute Neuts (auto) Absolute Nucleated RBC PT PTT (Heparin Protocol) Potassium POC Glucose 249 H 192 H Random Glucose Troponin I High Sens B-Natriuretic Peptide Total Protein Albumin Ur Specific [place] Urine Glucose (UA) 12/25/19 12/25/19 12/25/19 05:47 06:41 07:52 Hgb Hct MCV MCH MCHC RDW MPV Immature Gran % (Auto) Neut % (Auto) Lymph % (Auto) Lymph # (Auto) Abs Immat Gran (auto) Absolute Neuts (auto) Absolute Nucleated RBC PT PTT (Heparin Protocol) 86.8 H Potassium POC Glucose 214 H Random Glucose 219 H Troponin I High Sens B-Natriuretic Peptide Total Protein Albumin Ur Specific [place] Urine Glucose (UA)
--- NOTE | 2019-12-25 09:59 | PM.EVENT ---
Event Note Event Note: this 79 years old very pleasant gentleman was seen by me this morning for pulmonary consult. history reviewed and patient examined. he is still short of breath but comfortable at rest and does not seem to be in any distress. A: Ac. Pulmonary Embolism , Central, Saddle type. Improving on anticoagulation , with IV Heparin . Hemdynemically and Respiratory multani , he is stable , P: cont. Anticogulation with IV Heparin . Cont. O2 2-3 L/mt , to keep O2 sat. above 92 % cont. his regular Meds , complete note is dictated.
--- NOTE | 2019-12-25 10:03 | P.CONPL_ITS ---
History of Present Illness History of Present Illness Consult date: 12/25/19 Chief complaint: SOB Narrative: This 79 years old gentleman very pleasant has had increasing shortness of breath for the last 2-3 weeks. He has felt some pressure in the chest but no definite chest pain. He has had no fever or chills. No cough or expectoration and no wheezing. It started with increased shortness of breath on walking around and yesterday he was short of breath even at rest show presented to the emergency room. Work up in the emergency room included CTA of the chest, which has shown a mass pat central saddle shaped thrombosis in the pulmonary arteries. Patient was hypoxemic which improved with oxygen. hemodynamically he was felt to be stable so he is being managed on the intermediate medical care unit. Of note is the fact that, he has chronic myasthenia gravis and is on prednisone 5 mg 3 tablets a day. In June of this year he was treated at [facility] for acute dive rticulitis and during that admission he had DVT in the lower extremities. He was treated with anticoagulant agent ( Eliquis ) for 3 months and then it was stopped. Past medical history: Patient does not have any pre-existing pulmonary disease. He is being treated for myasthenia gravis for the past many years, hypothyroidism, hypertension, diverticulosis of the colon. He is nonsmoker. Review of Systems Constitutional: Constitutional: Reports as per HPI Eyes: Eyes: Reports no additional eye complaints ENT: Comments: no specific complaints. Cardiovascular: Cardiovascular: Reports no additional cardiovascular complaints Respiratory: Respiratory: Reports as per HPI Gastrointestinal: Gastrointestinal: Reports no additional gastrointestinal complaints Musculoskeletal: Comments: general muscular weakness due to his chronic myasthenia gravis but denies any pain or ache in the extremities. Neurologic: Reports system reviewed and no additional complaints, except as documented Psychiatric: Psychiatric: Reports no additional psychiatric complaints [facility] Past Medical History Medical History (Updated 12/25/19 @ 10:19 by Elissa Hall MD) Anemia Diabetes Hyperlipidemia Hypertension Melanoma Cognitive capacity: reviewed and listed above in HPI Functional capacity: independent ambulation Family History Family history: reviewed and not pertinent Surgical History Surgical History History of back surgery Previous back surgery Social History Social History Alcohol intake: current Alcohol intake frequency: holidays/special occasions only Smoking Status: Former smoker Smoked in Last 30 Days: No Use of substances other than those prescribed or required for medical reasons: No Advance Directives: No Advance Directives Information Provided: Yes Do you have thoughts of harming others: None Do you have a plan to hurt others: No Plan Recently lost weight without trying: No Meds Allergies Allergy/AdvReac Type Severity Reaction Status Date / Time No Known Allergies Allergy Verified 12/24/19 18:21 [No Known Allergies*] Home Medications Medication Instructions Recorded Confirmed Type azathioprine 1 tab PO BID 12/25/19 12/25/19 History famotidine 1 tab PO BID 12/25/19 12/25/19 History finasteride 1 tab PO DAILY 12/25/19 12/25/19 History glipizide 1 tab PO DAILY 12/25/19 12/25/19 History levothyroxine 1 tab PO QAM 12/25/19 12/25/19 History lisinopril 1 tab PO DAILY 12/25/19 12/25/19 History prednisone 3 tab PO DAILY 12/25/19 12/25/19 History pyridostigmine bromide 2 tab PO TID 12/25/19 12/25/19 History Physical Exam Vital Signs and I&O and Narrative: Vital Signs and I&O: Vital Signs Temp 97.8 F 12/25/19 08:00 Pulse 94 12/25/19 08:00 Resp 18 12/25/19 08:00 BP 152/90 H 12/25/19 08:00 Pulse Ox 90 L 12/25/19 08:00 Intake & Output 12/24/19 12/25/19 12/25/19 18:59 06:59 18:59 Intake Total 1026.742 / 1026.74 2 282.754 / 282.754 Output Total 0 / 0 Balance 1026.742 / 1026.74 2 282.754 / 282.754 Urine Output (Aver age ml/kg/hr) 0.00 0.00 Weight 161 lb 165 lb 5.547 oz Intake: Intake, Oral [place] unt 0 / 0 240 / 240 Intake, IV Amoun t 1026.742 / 1026.74 2 42.754 / 42.754 0.9 % Sodium C hloride 1,000 ml 1000 / 1000 @ 999 mls/hr I VCONT .Q1H1M [facility] Rx#:[id number] Heparin Sodium ,Porcine/1/2NS 25 26.742 / 26.742 42.754 / 42.754 ,000 unit In 2 50 ml @ Per Protocol IVCON T .Q0M [facility] Rx#: [id number] Output: Output, Urine Am ount 0 / 0 Other: Breakfast % Eate n 100% Body Mass Index 25.9 Const: Other: he has somewhat puffy face, secondary to chronic steroid use. Not in any acute distress at this time General: cooperative and well developed HENMT: Other: nose and throat normal no acute infection noted. Eyes: General: appearance normal, both eyes and all related structures Neck: Neck: Yes normal visual inspection, Yes no lymphadenopathy, Yes trachea midline and Yes supple Thyroid: Thyroid normal Chest: Chest palpation & inspection: normal inspection of the chest Resp: Effort & Inspection: normal respiratory effort Auscultation: clear to auscultation bilaterally Cardio: Jugular venous distension: no JVD Palpation: normal PMI Rate: regular rate Rhythm: regular rhythm Heart sounds: S1 normal heart sound present and S2 normal heart sound present GI: Other: flat and soft, no palpable mass, no tenderness Back/Spine/Pelvis: Other: normal, no tenderness Skin: General skin exam: no rashes or lesions noted Extrem: Other: there is no pitting edema, no cough tenderness, peripheral pulses normal Psych: Appearance: grossly normal Results Laboratory Findings CBC and BMP: 12/25/19 05:47 12/25/19 05:47 ABG, PT/INR, D-dimer: PT/INR, D-dimer PT 10.7 SEC (10.8-13.0) L 12/24/19 18:27 INR 0.9 (0.9-1.1) 12/24/19 18:27 D-Dimer 3384 NG/ML 12/24/19 18:27 Abnormal lab findings: Abnormal Labs 12/24/19 12/24/19 12/24/19 18:27 18:27 18:27 Hgb 12.5 L Hct MCV 76.1 L MCH 22.4 L MCHC 29.5 L RDW 33.1 H MPV 8.9 L Immature Gran % (Auto) 0.8 H Neut % (Auto) 84.0 H Lymph % (Auto) 10.0 L Lymph # (Auto) 1.0 L Abs Immat Gran (auto) 0.08 H Absolute Neuts (auto) 8.5 H Absolute Nucleated RBC 0.020 H PT 10.7 L PTT (Heparin Protocol) Potassium POC Glucose Random Glucose Troponin I High Sens 158.0 H B-Natriuretic Peptide 1301 H Total Protein Albumin Ur Specific [place] Urine Glucose (UA) 12/24/19 12/24/19 12/24/19 22:05 22:05 22:08 Hgb Hct MCV MCH MCHC RDW MPV Immature Gran % (Auto) Neut % (Auto) Lymph % (Auto) Lymph # (Auto) Abs Immat Gran (auto) Absolute Neuts (auto) Absolute Nucleated RBC PT PTT (Heparin Protocol) Potassium 5.3 H POC Glucose Random Glucose 243 H Troponin I High Sens 133.7 H B-Natriuretic Peptide Total Protein 5.4 L Albumin 3.3 L Ur Specific [place] >= 1.030 H Urine Glucose (UA) 500 H 12/24/19 12/25/19 12/25/19 23:38 04:27 05:47 Hgb 11.5 L Hct 38.2 L MCV 75.8 L MCH 22.8 L MCHC 30.1 L RDW 33.0 H MPV Immature Gran % (Auto) Neut % (Auto) Lymph % (Auto) Lymph # (Auto) Abs Immat Gran (auto) Absolute Neuts (auto) Absolute Nucleated RBC PT PTT (Heparin Protocol) Potassium POC Glucose 249 H 192 H Random Glucose Troponin I High Sens B-Natriuretic Peptide Total Protein Albumin Ur Specific [place] Urine Glucose (UA) 12/25/19 12/25/19 12/25/19 05:47 06:41 07:52 Hgb Hct MCV MCH MCHC RDW MPV Immature Gran % (Auto) Neut % (Auto) Lymph % (Auto) Lymph # (Auto) Abs Immat Gran (auto) Absolute Neuts (auto) Absolute Nucleated RBC PT PTT (Heparin Protocol) 86.8 H Potassium POC Glucose 214 H Random Glucose 219 H Troponin I High Sens B-Natriuretic Peptide Total Protein Albumin Ur Specific [place] Urine Glucose (UA) Assessment and Plan (1) Acute saddle pulmonary embolism: Problem details: patient is hemodynamically and respiratory multani stable at this time. he is oxygenating well with 2 L/minute. plan is to continue active anticoagulation with IV heparin drip. Status: Acute (2) Myasthenia gravis: Problem details: continue his regular medications Status: Acute (3) Hypoxia: Problem details: oxygen 2-3 L/minute to keep O2 sat above 92% Status: Acute
--- NOTE | 2019-12-25 10:06 | P.CDIC_ITS ---
CDI Concurrent Query Service Date: 12/25/19 Documentation Clarification: Please clarify if you are treating a proba ble/suspected/likely or confirmed: Acute saddle pulmonary embolism with acute cor pulmonale Acute saddle pulmonary embolism-yes Please specify if known Provider Response: Other Other Diagnosis: Acute hypoxemic respiratory failure secondary to acute saddle pulmonary embolism. PLEASE DO NOT DELETE/MODIFY EXISTING CONTENT Additional information is needed in order to code to the highest accuracy and appropriate Severity of Illness (SOI). Please clarify the information noted below in your progress notes and discharge summary. Risk Factors/Clinical Indicators/Treatments bilateral pulmonary embolism with saddle embolus evidence of right heart strain. History of PE RR 30 HR 103 pulse ox went down to 88% placed on oxygen now at 97% w oxygen nc. Hypoxia, short of breath, difficulty breathing NSTEMI CDS: Beatriz Steel CCS, CDIS Contact Number: [phone] Please Review the information above and exercise your independent professional judgment in responding to the query. If you concur, pleas document in the PROGRESS NOTES and DISCHARGE SUMMARY. If you do not agree with the query, please document in the query above. THIS QUERY IS PART OF THE PERMANENT MEDICAL RECORD
--- NOTE | 2019-12-25 11:14 | PM.CNCAR ---
History of Present Illness History of Present Illness Date of Consult: December 25, 2019 Requesting physician: Tanisha Butt Chief complaint: SOB Narrative: this is a cardiology consultation regarding pulmonary embolism. It appears that patient has a history of provoked pulmonary embolism in the past. He has a history of hospitalization to [facility] earlier this year with diverticulitis and perforation. That was medically managed. During that admission, he was found to have incidental pulmonary embolism that was treated by IV heparin followed by Eliquis for a course of 3 months or so. Now patient is admitted with complaints of shortness of breath. In this context, he was found to have bilateral pulmonary embolism. Case was apparently discussed with the financial sales manager to recommended full-dose anticoagulation but otherwise stable to be admitted to the medical floor. Patient at this time is not actively short of breath. No anginal-type complaints. Otherwise no prior history of any coronary disease Or myocardial infarction or any othercardiac issues according to him. Review of Systems Review of Systems: cardiac-positive for shortness of breath. Negative for angina. Negative for palpitations, dizzy spells or syncopal episodes. Remainder of the 10 system review is negative. ON LICENSE OF [facility] Past Medical History Medical History Anemia Diabetes Hyperlipidemia Hypertension Melanoma Functional capacity: independent ambulation Family History Family history: reviewed and not pertinent Surgical History Surgical History History of back surgery Previous back surgery Social History Social History Alcohol intake: current Alcohol intake frequency: holidays/special occasions only Smoking Status: Former smoker Smoked in Last 30 Days: No Use of substances other than those prescribed or required for medical reasons: No Advance Directives: No Advance Directives Information Provided: Yes Do you have thoughts of harming others: None Do you have a plan to hurt others: No Plan Recently lost weight without trying: No service: No Meds Allergies Allergy/AdvReac Type Severity Reaction Status Date / Time No Known Allergies Allergy Verified 12/24/19 18:21 [No Known Allergies*] Home Medications Medication Instructions Recorded Confirmed Type azathioprine 1 tab PO BID 12/25/19 12/25/19 History famotidine 1 tab PO BID 12/25/19 12/25/19 History finasteride 1 tab PO DAILY 12/25/19 12/25/19 History glipizide 1 tab PO DAILY 12/25/19 12/25/19 History levothyroxine 1 tab PO QAM 12/25/19 12/25/19 History lisinopril 1 tab PO DAILY 12/25/19 12/25/19 History prednisone 3 tab PO DAILY 12/25/19 12/25/19 History pyridostigmine bromide 2 tab PO TID 12/25/19 12/25/19 History Physical Exam Vital Signs and I&O and Narrative: Vital Signs and I&O: Last Vital Signs Temp 97.8 F 12/25/19 08:00 Pulse 94 12/25/19 08:00 Resp 18 12/25/19 08:00 BP 152/90 H 12/25/19 08:00 Pulse Ox 90 L 12/25/19 08:00 Comfortable, no distress No pallor, icterus or cyanosis HEENT -unremarkable JVD- normal Cardiac- normal heart sounds, no murmurs, gallops or rubs, normal PMI Respiratory-normal breath sounds bilaterally, no crackles, no wheeze Abdomen- soft, nontender Neuro- alert and oriented Lower extremities- no significant edema, warm well perfused Results Labs and Meds Result diagrams: 12/25/19 05:47 12/25/19 05:47 Lab results: Laboratory Tests 12/24/19 12/24/19 12/25/19 18:27 22:05 05:47 Creatinine 0.98 Troponin I High Sens 133.7 H B-Natriuretic Peptide 1301 H Cardiology Testing Echo: pending EKG Interpretation Telemetry: sinus rhythm EKG Comments: EKG with sinus rhythm at 98/Min with right bundle-branch block pattern. Assessment and Plan (1) Acute saddle pulmonary embolism: Status: Acute (2) Non-ST elevation PA (NSTEMI): Status: Acute Based on CT scan, he has large volume pulmonary embolism including a saddle pulmonary embolism. However, hemodynamically appears stable. Continue IV heparin. We will need to put him back on his Eliquis that he was on in the past. Echocardiogram for RV function assessment. Troponin elevation is related to the pulmonary embolism itself And probably RV strain. We will follow up with you.
--- NOTE | 2019-12-25 11:19 | MHC.CM.PN ---
met with pt who lives alone pt states that he has no servceis is still driving home no servceis is dc plan
[2019-12-25 11:37] LABS: Glucose, Whole Blood 288 mg/dL (60-115)
--- NOTE | 2019-12-25 16:26 | P.PNIM_ITS ---
Subjective Subjective Date of Service: 12/25/19 Interval History: admitted with pulmonary embolism -still short of breath. Review of Systems patient still shortness of breath, denies any chest pain or abdominal pain or fever or chills. Physical Exam Vital Signs and I&O and Narrative: Vital Signs and I&O: Vital Signs Temp 97.8 F 12/25/19 15:26 Pulse 91 12/25/19 15:26 Resp 22 H 12/25/19 15:26 BP 144/86 H 12/25/19 15:26 Pulse Ox 91 L 12/25/19 15:26 Intake & Output 12/24/19 12/25/19 12/25/19 18:59 06:59 18:59 Intake Total 1026.742 / 1026.74 2 522.754 / 522.754 Output Total 0 / 0 Balance 1026.742 / 1026.74 2 522.754 / 522.754 Urine Output (Aver age ml/kg/hr) 0.00 0.00 Weight 73.028 kg 75 kg Intake: Intake, Oral Dilley unt 0 / 0 480 / 480 Intake, IV Amoun t 1026.742 / 1026.74 2 42.754 / 42.754 0.9 % Sodium C hloride 1,000 ml 1000 / 1000 @ 999 mls/hr I VCONT .Q1H1M [facility] Rx#:[id number] Heparin Sodium ,Porcine/1/2NS 25 26.742 / 26.742 42.754 / 42.754 ,000 unit In 2 50 ml @ Per Protocol IVCON T .Q0M [facility] Rx#: [id number] Output: Output, Urine Am ount 0 / 0 Other: Breakfast % Eate n 100% Lunch % Eaten 100% Last Bowel Movem ent 12/25/19 Stool Bathroom Stool Color Brown Stool Consistenc y Formed Body Mass Index 25.9 Physical exam: cvs: rrr, [id number] , no murmur res: grossly good air entry, slightly diminshed at bases ,no rhonchii or wheezing abd: no rebound or guarding ,nt, bs present. ext pulses present , no cyanosis neuro: axo3 , nonfocal. Objective Data Current Medications Generic Name Dose Route Start Last Admin Trade Name Freq PRN Reason Stop Dose Admin Azathioprine 50 mg 12/25/19 09:00 12/25/19 07:54 Azathioprine 50 Mg Tablet PO 50 mg BID GOVIND Administration Famotidine 20 mg 12/25/19 09:00 12/25/19 07:54 Famotidine 20 Mg Tablet PO 20 mg BID GOVIND Administration Finasteride 5 mg 12/25/19 09:00 12/25/19 07:54 Finasteride 5 Mg Tablet PO 5 mg DAILY GOVIND Administration Heparin Sodium/Sodium Chloride 25,000 unit in 250 mls @ 0 mls/hr 12/24/19 23:00 12/25/19 07:15 IVCONT 12 units/kg/hr .Q0M [facility] 8.76 mls/hr Titration Protocol Per Protocol Insulin Human Lispro 0 unit 12/25/19 16:30 Insulin Lispro 100 Unit/Ml 3 Ml Vial SUBCUT QIDACHS [facility] Protocol Levothyroxine Sodium 75 mcg 12/25/19 06:30 12/25/19 07:54 Levothyroxine Sodium 75 Mcg Tablet PO 75 mcg DAILY@0630 [facility] Administration Lisinopril 30 mg 12/25/19 09:00 Lisinopril 10 Mg Tablet PO DAILY [facility] Protocol Prednisone 15 mg 12/25/19 09:00 12/25/19 07:54 Prednisone 5 Mg Tablet PO 15 mg DAILY [facility] Administration Pyridostigmine [place] 120 mg 12/25/19 09:00 12/25/19 15:57 Pyridostigmine [place] 60 Mg Tablet PO 120 mg TID [facility] Administration Sodium Chloride 2 ml 12/25/19 08:00 12/25/19 16:14 0.9 % Sodium Chloride Flush 3 Ml Syringe IVFLUSH Not Given QSHIFT [facility] Labs CBC & Chem 7: 12/25/19 05:47 12/25/19 05:47 Labs: Laboratory Results - last 24 hr 12/24/19 12/24/19 12/24/19 18:27 18:27 18:27 MCV 76.1 L MCH 22.4 L MCHC 29.5 L RDW 33.1 H Plt Count 242 MPV 8.9 L Immature Gran % (Auto) 0.8 H Neut % (Auto) 84.0 H Lymph % (Auto) 10.0 L [place] % (Auto) 4.6 Eos % (Auto) 0.3 Baso % (Auto) 0.3 Lymph # (Auto) 1.0 L [place] # (Auto) 0.5 Eos # (Auto) 0.0 Baso # (Auto) 0.0 Abs Immat Gran (auto) 0.08 H Absolute Neuts (auto) 8.5 H Absolute Nucleated RBC 0.020 H Nucleated RBC % (auto) 0.2 Smear Tech's Comments VERIFIED PT 10.7 L INR 0.9 APTT 29.5 PTT (Heparin Protocol) D-Dimer 3384 Hold Blue Top SEE NOTE Anion Gap Cancelled Estim Creat Clear Calc Cancelled Estimated GFR Cancelled POC Glucose Random Glucose Cancelled Calcium Cancelled Total Bilirubin Cancelled Direct Bilirubin Cancelled AST Cancelled ALT Cancelled Alkaline Phosphatase Cancelled Troponin I High Sens B-Natriuretic Peptide Total Protein Cancelled Albumin Cancelled Lipase Cancelled Urine Color Urine Appearance Urine pH Ur Specific [place] Urine Protein Urine Glucose (UA) Urine Ketones Urine Blood Urine Nitrite Ur Leukocyte Esterase Stool Occult Blood 12/24/19 12/24/19 12/24/19 18:27 18:53 22:05 MCV MCH MCHC RDW Plt Count MPV Immature Gran % (Auto) Neut % (Auto) Lymph % (Auto) [place] % (Auto) Eos % (Auto) Baso % (Auto) Lymph # (Auto) [place] # (Auto) Eos # (Auto) Baso # (Auto) Abs Immat Gran (auto) Absolute Neuts (auto) Absolute Nucleated RBC Nucleated RBC % (auto) Smear Tech's Comments PT INR APTT PTT (Heparin Protocol) D-Dimer Hold Blue Top Anion Gap 14 Estim Creat Clear Calc 50.0 Estimated GFR > 60 POC Glucose Random Glucose 243 H Calcium 8.5 Total Bilirubin 0.4 Direct Bilirubin 0.2 AST 17 ALT 21 Alkaline Phosphatase 75 Troponin I High Sens 158.0 H B-Natriuretic Peptide 1301 H Total Protein 5.4 L Albumin 3.3 L Lipase 14 Urine Color Urine Appearance Urine pH Ur Specific [place] Urine Protein Urine Glucose (UA) Urine Ketones Urine Blood Urine Nitrite Ur Leukocyte Esterase Stool Occult Blood NEG 12/24/19 12/24/19 12/24/19 22:05 22:08 23:38 MCV MCH MCHC RDW Plt Count MPV Immature Gran % (Auto) Neut % (Auto) Lymph % (Auto) [place] % (Auto) Eos % (Auto) Baso % (Auto) Lymph # (Auto) [place] # (Auto) Eos # (Auto) Baso # (Auto) Abs Immat Gran (auto) Absolute Neuts (auto) Absolute Nucleated RBC Nucleated RBC % (auto) Smear Tech's Comments PT INR APTT PTT (Heparin Protocol) D-Dimer Hold Blue Top Anion Gap Estim Creat Clear Calc Estimated GFR POC Glucose 249 H Random Glucose Calcium Total Bilirubin Direct Bilirubin AST ALT Alkaline Phosphatase Troponin I High Sens 133.7 H B-Natriuretic Peptide Total Protein Albumin Lipase Urine Color YELLOW Urine Appearance CLEAR Urine pH 5.5 Ur Specific [place] >= 1.030 H Urine Protein TRACE Urine Glucose (UA) 500 H Urine Ketones 15 Urine Blood NEG Urine Nitrite NEG Ur Leukocyte Esterase NEG Stool Occult Blood 12/25/19 12/25/19 12/25/19 04:27 05:47 05:47 MCV 75.8 L MCH 22.8 L MCHC 30.1 L RDW 33.0 H Plt Count 218 MPV Not Reportable Immature Gran % (Auto) Neut % (Auto) Lymph % (Auto) [place] % (Auto) Eos % (Auto) Baso % (Auto) Lymph # (Auto) [place] # (Auto) Eos # (Auto) Baso # (Auto) Abs Immat Gran (auto) Absolute Neuts (auto) Absolute Nucleated RBC 0.000 Nucleated RBC % (auto) 0.0 Smear Tech's Comments PT INR APTT PTT (Heparin Protocol) D-Dimer Hold Blue Top Anion Gap 15 Estim Creat Clear Calc 56.2 Estimated GFR > 60 POC Glucose 192 H Random Glucose 219 H Calcium 8.5 Total Bilirubin Direct Bilirubin AST ALT Alkaline Phosphatase Troponin I High Sens B-Natriuretic Peptide Total Protein Albumin Lipase Urine Color Urine Appearance Urine pH Ur Specific [place] Urine Protein Urine Glucose (UA) Urine Ketones Urine Blood Urine Nitrite Ur Leukocyte Esterase Stool Occult Blood 12/25/19 12/25/19 12/25/19 06:41 07:52 11:31 MCV MCH MCHC RDW Plt Count MPV Immature Gran % (Auto) Neut % (Auto) Lymph % (Auto) [place] % (Auto) Eos % (Auto) Baso % (Auto) Lymph # (Auto) [place] # (Auto) Eos # (Auto) Baso # (Auto) Abs Immat Gran (auto) Absolute Neuts (auto) Absolute Nucleated RBC Nucleated RBC % (auto) Smear Tech's Comments PT INR APTT PTT (Heparin Protocol) 86.8 H D-Dimer Hold Blue Top Anion Gap Estim Creat Clear Calc Estimated GFR POC Glucose 214 H 288 H Random Glucose Calcium Total Bilirubin Direct Bilirubin AST ALT Alkaline Phosphatase Troponin I High Sens B-Natriuretic Peptide Total Protein Albumin Lipase Urine Color Urine Appearance Urine pH Ur Specific [place] Urine Protein Urine Glucose (UA) Urine Ketones Urine Blood Urine Nitrite Ur Leukocyte Esterase Stool Occult Blood 12/25/19 13:30 MCV MCH MCHC RDW Plt Count MPV Immature Gran % (Auto) Neut % (Auto) Lymph % (Auto) [place] % (Auto) Eos % (Auto) Baso % (Auto) Lymph # (Auto) [place] # (Auto) Eos # (Auto) Baso # (Auto) Abs Immat Gran (auto) Absolute Neuts (auto) Absolute Nucleated RBC Nucleated RBC % (auto) Smear Tech's Comments PT INR APTT PTT (Heparin Protocol) 67.0 D D-Dimer Hold Blue Top Anion Gap Estim Creat Clear Calc Estimated GFR POC Glucose Random Glucose Calcium Total Bilirubin Direct Bilirubin AST ALT Alkaline Phosphatase Troponin I High Sens B-Natriuretic Peptide Total Protein Albumin Lipase Urine Color Urine Appearance Urine pH Ur Specific [place] Urine Protein Urine Glucose (UA) Urine Ketones Urine Blood Urine Nitrite Ur Leukocyte Esterase Stool Occult Blood Progress Note: A&P (1) Acute saddle pulmonary embolism: Status: Acute (2) Hypoxia: Problem details: oxygen 2-3 L/minute to keep O2 sat above 92% Status: Acute (3) Diabetes: Status: Acute (4) Hypertension: Status: Acute Assessment and Plan: 1. Acute hypoxemic respiratory failure due to acute saddle pulmonary embolism. Evidence of right heart strain without bowing of the septum ?elevated troponin probably related to above. patient says shortness of breath is slightly better than before. 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 Patient was seen by Cardiology and Pulmonary - recommended to continue above management. Hematology evaluation pending. 2. Hypertension:accepatble range,Continue with lisinopril. 3. Diabetes:: seems in 200's range Hold PO hypoglycemic med, fs with adjusted coverage. 4.BPH (benign prostatic hyperplasia): continue with finasteride. 5.Hypothyroidism: continue with levothyroxine home dose 6. Hyperkalemia:K of 5.3 s/p insulin therapy, resolved . Follow up BMP for electrolytes in the am 7. Myasthenia gravis: stable ,continue pyridostigmine home dose continue with prednisone home dose (5) Hyperkalemia: Problem details: as above . Status: Acute
[2019-12-25 17:06] LABS: Glucose, Whole Blood 284 mg/dL (60-115)
[2019-12-25] MEDS: Insulin Lispro 100 UNIT/ML 3 ML VIAL SUBCUT ×2 (17:31→21:56)
[2019-12-25] MEDS: Flu Vacc QS2020-21(6mos up)/PF 0.5 ML SYRINGE IM (17:36)
[2019-12-25 20:12] LABS: PTT Heparin Drip 62.8 SEC (53-77.9)
[2019-12-25 20:38] LABS: Glucose, Whole Blood 208 mg/dL (60-115)
[2019-12-26] VITALS (14 sets, daily range): BP systolic 130–185; BP diastolic 72–101; PULSE 79–96; RESP 16–22; TEMP 36–36.8; O2SAT 85–100
--- NOTE | 2019-12-26 | US_ITS ---
EXAMINATION: US LOWER EXTREMITY VENOUS, BILATERAL CLINICAL INFORMATION: Pulmonary emboli COMPARISON: None. TECHNIQUE: Doppler spectral analysis and color flow Doppler imaging was performed of both lower extremities. Compression and augmentation maneuvers were performed. FINDINGS: Bilaterally, the common femoral, femoral, popliteal and calf veins were well-identified and normal. They demonstrate normal compressibility and color fill-in. IMPRESSION: No evidence for a lower extremity deep vein thrombosis.
--- NOTE | 2019-12-26 | XR_ITS ---
EXAMINATION: XR CHEST CLINICAL INFORMATION: Shortness of breath COMPARISON: CT angiogram chest 12/24/2019 and chest radiograph 12/24/2019 TECHNIQUE: Frontal view of the chest was obtained. FINDINGS: Heart size is normal. There is no evidence of CHF. The left hemidiaphragm remains mildly elevated with left basilar atelectasis, slightly worse when compared to the prior study. No lung masses or definite pleural effusions are seen. IMPRESSION: Elevated right hemidiaphragm with worsening left basilar atelectasis.
[2019-12-26] MEDS: Morphine Sulfate 2 MG/ML CARTRIDGE 1 MG IVPUSH (01:32)
[2019-12-26] MEDS: 0.9 % Sodium Chloride Flush 3 ML SYRINGE 2 ML IVFLUSH ×2 (02:30→23:57)
--- NOTE | 2019-12-26 02:43 | CA_ITS ---
Transthoracic Echocardiogram Patient (Last, First, Middle): Daren Perez, Gender: Male Date of : 1940 Age: 79 Procedure Date: 12/26/2019 Procedure Type: Transthoracic Echocardiogram Location: [facility] Height: 170.18 cm Weight: 75.01 kg BSA: 1.87 m2 Heart Rate: bpm BP: 170 / 90 mmHg Booth Supervisor: Referring MD: Tanisha Butt MD Symptoms: ELEVATED TROPONIN Study Quality: Technically Difficult ECG Rhythm: Sinus Conclusions: - The left ventricular systolic function is normal. The visually estimated ejection fraction is between 60-65%. - The right ventricle was not well visualized. On selected images, the right ventricle appears moderately dilated. - There is mild to moderate tricuspid valve regurgitation. - The right ventricular systolic pressure is 65 mmHg. Severe pulmonary hypertension is present. Findings Procedure Information Contrast agent, definity, is being given per protocol without apparent complications. Left Ventricle Normal left ventricular cavity size. There is mildly increased left ventricular wall thickness. The left ventricular systolic function is normal. The visually estimated ejection fraction is between 60-65%. Regional wall motion abnormalities can not be excluded due to suboptimal endocardial definition. Diastolic function is indeterminate on the basis of available data. Right Ventricle The right ventricle was not well visualized. On selected images, the right ventricle appears moderately dilated. Atria The left atrium is mildly dilated. The right atrium is normal in size. Aortic Valve The aortic valve was not well visualized. There is no aortic valve stenosis. There is no aortic valve regurgitation. Mitral Valve There is mild mitral annular calcification. There is trace mitral valve regurgitation. There is no mitral valve stenosis. Pulmonic Valve The pulmonic valve was not well visualized. Tricuspid Valve Normal tricuspid valve structure. There is mild to moderate tricuspid valve regurgitation. The right ventricular systolic pressure is 65 mmHg. Severe pulmonary hypertension is present. Great Vessels The aortic annulus, sinuses of valsalva, and asc aorta are normal in size. Venous The inferior vena cava is mildly dilated and collapses greater than 50% with inspiration. Pericardium/Pleural There is no evidence of pericardial effusion. Prior Study Comparison No prior study available for comparison. Measurements 2D Linear Measurements IVSd: 1.33 0.6-0.9/0.6-1.0 cm LVIDd: 4.16 3.9-5.3/4.2-5.9 cm LVIDd Index: 2.22 2.4-3.2/2.2-3.1 cm/m2 LVIDs: 2.62 2.0-3.6 cm LVPWd: 1.34 0.7-1.1 cm Ao Root: 3.40 2.1-3.5 cm LA Diam: 3.90 2.7-3.8/3.0-4.0 cm LAIDs Index: 2.09 1.5-2.3 cm/m2 LV Mass: 256.49 67-162/88-224 g LV Mass Index: 137.16 43-95/49-115 g/m2 LVOT Diam: 2.10 3.0+(-)1.3 cm Mitral Valve MV Pk E: 0.51 MV PK A: 1.04 MV Decel Time: 134.00 E/A: 0.50 PHT: 39.00 MVA PHT: 5.64 Decel [place]: 3.81 Aortic Valve AoV Pk Emery: 1.12 AoV Mn Emery: 0.73 AoV VTI: 0.16 AoV Pk Grad: 5.00 Aov Mn Grad: 3.00 MINOO Cont.VTI: 3.59 LVOT LVOT Pk Emery: 0.77 LVOT Mn Emery: 0.50 LVOT VTI: 0.16 LVOT Pk Grad: 2.00 LVOT Mn Grad: 1.00 LVOT Diam: 2.10 LVOT Area: 3.46 Diastolic Function MV Pk E: 0.51 MV Pk A: 1.04 E/A: 0.50 Tricuspid Valve TR Pk Emery: 3.77 TR Pk Grad: 57.00 RA Press: 15.00 RVSP: 65.00 Great Vessels Aorta Ao Root-2D: 3.40 2.0-3.7 cm Pulmonary Valve PV Pk Emery: 0.67 Peak PV Grad: 2.00 Updated in Other Vendor System with Status of Final Carlos Bobo MD electronically signed on 12/26/2019 5:30:51 PM with status of Final
[2019-12-26] MEDS: Heparin Sodium,Porcine/1/2NS 25,000 UNIT/250 ML IV.SOLN 8.76 UNIT IVCONT (03:52)
[2019-12-26] MEDS: Levothyroxine Sodium 75 MCG TABLET PO (06:46)
[2019-12-26 06:49] LABS: Hemoglobin 11.5 g/dl (14.0-18.0)
[2019-12-26 06:51] LABS: Hematocrit 39.2 % (42-52)
[2019-12-26 07:33] LABS: Anion Gap 13 (12-20); Blood Urea Nitrogen 16 mg/dL (9-16); Calcium 8.7 mg/dL (8.4-10.2); Carbon Dioxide 26 mmol/L (22-29); Chloride 107 mmol/L (96-108); Creatinine Clr Calc Pharmacy 58.5; Estimated Glomerular Filt Rate > 60; Glucose Random 98 mg/dL (60-115); Potassium 4.1 mmol/l (3.3-5.1); Sodium 142 mmol/L (135-145)
[2019-12-26 08:05] LABS: Glucose, Whole Blood 155 mg/dL (60-115)
[2019-12-26] MEDS: azaTHIOprine 50 MG TABLET PO ×2 (08:15→21:35)
[2019-12-26] MEDS: Insulin Lispro 100 UNIT/ML 3 ML VIAL SUBCUT ×4 (08:15→21:34)
[2019-12-26] MEDS: predniSONE 5 MG TABLET 15 MG PO (08:15)
[2019-12-26] MEDS: Finasteride 5 MG TABLET PO (08:15)
[2019-12-26] MEDS: Famotidine 20 MG TABLET PO ×2 (08:15→21:34)
[2019-12-26 08:48] LABS: PTT Heparin Drip 62.6 SEC (53-77.9)
--- NOTE | 2019-12-26 09:44 | P.PNPL_ITS ---
Subjective Subjective Principal diagnosis: patient is feeling better but still remains short of breath. Interval history: admitted with pulmonary embolism -still short of breath. Objective Data Labs CBC & Chem 7: 12/27/19 06:32 12/26/19 05:49 Labs: Laboratory Results - last 24 hr 12/25/19 12/25/19 12/25/19 11:31 13:30 16:56 Hgb Hct PTT (Heparin Protocol) 67.0 D Sodium Potassium Chloride Carbon Dioxide Anion Gap BUN Creatinine Estim Creat Clear Calc Estimated GFR POC Glucose 288 H 284 H Random Glucose Calcium 12/25/19 12/25/19 12/26/19 19:55 20:35 05:49 Hgb 11.5 L Hct 39.2 L PTT (Heparin Protocol) 62.8 Sodium Potassium Chloride Carbon Dioxide Anion Gap BUN Creatinine Estim Creat Clear Calc Estimated GFR POC Glucose 208 H Random Glucose Calcium 12/26/19 12/26/19 12/26/19 05:49 07:51 08:12 Hgb Hct PTT (Heparin Protocol) 62.6 Sodium 142 Potassium 4.1 Chloride 107 Carbon Dioxide 26 Anion Gap 13 BUN 16 Creatinine 0.94 Estim Creat Clear Calc 58.5 Estimated GFR > 60 POC Glucose 155 H Random Glucose 98 D Calcium 8.7 Physical Exam Vital Signs and I&O and Narrative: Vital Signs and I&O: Vital Signs Temp 97.5 F 12/26/19 07:41 Pulse 80 12/26/19 07:41 Resp 22 H 12/26/19 07:41 BP 170/90 H 12/26/19 07:41 Pulse Ox 93 12/26/19 07:41 Intake & Output 12/25/19 12/26/19 12/26/19 18:59 06:59 18:59 Intake Total 522.754 / 823.258 300.504 / 823.258 440 / 440 Output Total 200 / 200 Balance 522.754 / 823.258 300.504 / 823.258 240 / 240 Urine Output (Aver age ml/kg/hr) 0.22 Intake: Intake, Oral Josselin unt 480 / 600 120 / 600 440 / 440 Intake, IV Amoun t 42.754 / 223.258 180.504 / 223.258 Heparin Sodium ,Porcine/1/2NS 25 42.754 / 223.258 180.504 / 223.258 ,000 unit In 2 50 ml @ Per Protocol IVCON T .Q0M [facility] Rx#: [id number] Output: Output, Urine Am ount 200 / 200 Other: Breakfast % Eate n 100% 75% Lunch % Eaten 100% Number of Bowel Movements 1 Last Bowel Movem ent 12/25/19 Stool Bathroom Stool Color Brown Stool Consistenc y Formed Body Mass Index 25.9 Const: Other: appears comfortable, not in any distress he is alert and orientated. HENMT: Other: no nasal congestion and no pharyngitis. Neck: Neck: Yes normal visual inspection, Yes no lymphadenopathy and Yes t rachea midline Thyroid: Thyroid normal Chest: Chest palpation & inspection: normal inspection of the chest Resp: Other: breath sounds are equal on both sides slightly diminished over the lower right base both lungs are clear, no wheezes or rhonchi are hea.rd Cardio: Jugular venous distension: no JVD Palpation: normal PMI Rate: regular rate Rhythm: regular rhythm Extrem: Other: No pitting edema or varicosities No tenderness.
[2019-12-26] MEDS: amLODIPine Besylate 2.5 MG TABLET PO (10:07)
--- NOTE | 2019-12-26 10:36 | PM.PNCARD ---
Subjective Subjective Principal diagnosis: patient is feeling better but still remains short of breath. Interval history: admitted with pulmonary embolism -still short of breath. Review of Systems Review of Systems Cardiac-positive for shortness of breath. No angina. No palpitations, dizzy spells or syncopal episodes. Remainder of the 10 system review is negative. Physical Exam Vital Signs and I&O: Vital Signs Temp Pulse Resp BP Pulse Ox 12/26/19 10:07 79 153/85 H 12/26/19 07:41 97.5 F 80 22 H 170/90 H 93 12/26/19 04:13 96.8 F 80 16 132/78 91 L 12/26/19 04:00 92 12/26/19 00:00 92 12/25/19 23:53 96.6 F L 76 16 136/83 97 12/25/19 20:00 95 12/25/19 19:26 96.9 F 91 19 176/97 H 90 L 12/25/19 16:00 91 L 12/25/19 15:26 97.8 F 91 22 H 144/86 H 91 L 12/25/19 12:00 94 12/25/19 11:38 98.4 F 96 18 162/77 H 94 Comfortable, no distress No pallor, icterus or cyanosis HEENT -unremarkable JVD- normal Cardiac- normal heart sounds, no murmurs, gallops or rubs, normal PMI Respiratory-normal breath sounds bilaterally, no crackles, no wheeze Abdomen- soft, nontender Neuro- alert and oriented Lower extremities- no significant edema, warm well perfused Progress Note: A&P Assessment and plan (1) Acute saddle pulmonary embolism: Status: Acute (2) Non-ST elevation [place] (NSTEMI): Status: Acute Assessment and Plan: Based on CT scan, he has large volume pulmonary embolism including a saddle pulmonary embolism. However, hemodynamically appears stable. Continue IV heparin. We will need to put him back on his Eliquis that he was on in the past. Echocardiogram for RV function assessment. Troponin elevation is related to the pulmonary embolism itself And probably RV strain. We will follow up with you. Fall Risk Details Current Medications: Current Medications Generic Name Dose Route Start Last Admin Trade Name Freq PRN Reason Stop Dose Admin Amlodipine Besylate 2.5 mg 12/26/19 09:30 12/26/19 10:07 Amlodipine Besylate 2.5 Mg Tablet PO 2.5 mg DAILY GOVIND Administration Protocol Azathioprine 50 mg 12/25/19 09:00 12/26/19 08:15 Azathioprine 50 Mg Tablet PO 50 mg BID GOVIND Administration Famotidine 20 mg 12/25/19 09:00 12/26/19 08:15 Famotidine 20 Mg Tablet PO 20 mg BID GOVIND Administration Finasteride 5 mg 12/25/19 09:00 12/26/19 08:15 Finasteride 5 Mg Tablet PO 5 mg DAILY GOVIND Administration Heparin Sodium/Sodium Chloride 25,000 unit in 250 mls @ 0 mls/hr 12/24/19 23:00 12/26/19 03:52 IVCONT 12 units/kg/hr .Q0M GOVIND 8.76 mls/hr Administration Protocol Per Protocol Insulin Human Lispro 0 unit 12/25/19 16:30 12/26/19 08:15 Insulin Lispro 100 Unit/Ml 3 Ml Vial SUBCUT 2 unit QIDACHS [facility] Administration Protocol Levothyroxine Sodium 75 mcg 12/25/19 06:30 12/26/19 06:46 Levothyroxine Sodium 75 Mcg Tablet PO 75 mcg DAILY@0630 GOVIND Administration Lisinopril 30 mg 12/25/19 09:00 Lisinopril 10 Mg Tablet PO DAILY [facility] Protocol Prednisone 15 mg 12/25/19 09:00 12/26/19 08:15 Prednisone 5 Mg Tablet PO 15 mg DAILY GOVIND Administration Pyridostigmine [place] 120 mg 12/25/19 09:00 12/26/19 08:15 Pyridostigmine [place] 60 Mg Tablet PO 120 mg TID GOVIND Administration Sodium Chloride 2 ml 12/25/19 08:00 12/26/19 08:17 0.9 % Sodium Chloride Flush 3 Ml Syringe IVFLUSH Not Given QSHIFT [facility] Time Spent With Patient Time: Total time spent is greater than 50% in coordination of care (as documented) at patient's floor/unit and/or counseling patient: Time with patient: 15 - 24 minutes
[2019-12-26 11:40] LABS: Glucose, Whole Blood 185 mg/dL (60-115)
--- NOTE | 2019-12-26 12:49 | MHC.CM.PN ---
DP Home no services son abena will provide transportation. Anticipate DC Sunday.
--- NOTE | 2019-12-26 15:24 | PM.HEMONCCN ---
Subjective - Subjective Chief complaint: Consult for saddle PE. Patient: new to practice Primary Care Provider: Cornelius Phillips MD HPI - Consult Narrative Reason for consult: saddle PE Narrative: Daren Perez is a pleasant 79 year old gentleman, Review of Systems - Neurologic Reports system reviewed and no additional complaints, except as documented PMF Medical History: Medical History (Last Reviewed 12/25/19 @ 11:17 by Carlos Bobo MD) Anemia Diabetes Hyperlipidemia Hypertension Melanoma Functional capacity: independent ambulation Family history: reviewed and not pertinent Surgical History: Surgical History (Last Reviewed 12/25/19 @ 11:17 by Carlos Bobo MD) History of back surgery Previous back surgery Smoking status: Former smoker Home Medications and Allergies Current Medications: Current Medications Generic Name Dose Route Start Last Admin Trade Name Freq PRN Reason Stop Dose Admin Amlodipine Besylate 2.5 mg 12/26/19 09:30 12/26/19 10:07 Amlodipine Besylate 2.5 Mg Tablet PO 2.5 mg DAILY GOVIND Administration Protocol Azathioprine 50 mg 12/25/19 09:00 12/26/19 08:15 Azathioprine 50 Mg Tablet PO 50 mg BID GOVIND Administration Famotidine 20 mg 12/25/19 09:00 12/26/19 08:15 Famotidine 20 Mg Tablet PO 20 mg BID GOVIND Administration Finasteride 5 mg 12/25/19 09:00 12/26/19 08:15 Finasteride 5 Mg Tablet PO 5 mg DAILY GOVIND Administration Heparin Sodium/Sodium Chloride 25,000 unit in 250 mls @ 0 mls/hr 12/24/19 23:00 12/26/19 03:52 IVCONT 12 units/kg/hr .Q0M GOVIND 8.76 mls/hr Administration Protocol Per Protocol Insulin Human Lispro 0 unit 12/25/19 16:30 12/26/19 12:16 Insulin Lispro 100 Unit/Ml 3 Ml Vial SUBCUT 2 unit QIDACHS GOVIND Administration Protocol Levothyroxine Sodium 75 mcg 12/25/19 06:30 12/26/19 06:46 Levothyroxine Sodium 75 Mcg Tablet PO 75 mcg DAILY@0630 GOVIND Administration Lisinopril 30 mg 12/25/19 09:00 Lisinopril 10 Mg Tablet PO DAILY GOVIND Protocol Prednisone 15 mg 12/25/19 09:00 12/26/19 08:15 Prednisone 5 Mg Tablet PO 15 mg DAILY GOVIND Administration Pyridostigmine [place] 120 mg 12/25/19 09:00 12/26/19 08:15 Pyridostigmine [place] 60 Mg Tablet PO 120 mg TID [facility] Administration Sodium Chloride 2 ml 12/25/19 08:00 12/26/19 08:17 0.9 % Sodium Chloride Flush 3 Ml Syringe IVFLUSH Not Given QSHIFT [facility] Home Medications Medication Instructions Recorded Confirmed Type azathioprine 1 tab PO BID 12/25/19 12/25/19 History famotidine 1 tab PO BID 12/25/19 12/25/19 History finasteride 1 tab PO DAILY 12/25/19 12/25/19 History glipizide 1 tab PO DAILY 12/25/19 12/25/19 History levothyroxine 1 tab PO QAM 12/25/19 12/25/19 History lisinopril 1 tab PO DAILY 12/25/19 12/25/19 History prednisone 3 tab PO DAILY 12/25/19 12/25/19 History pyridostigmine bromide 2 tab PO TID 12/25/19 12/25/19 History Allergies Allergy/AdvReac Type Severity Reaction Status Date / Time No Known Allergies Allergy Verified 12/24/19 18:21 [No Known Allergies*] Physical Exam Vital signs: Vital Signs Temp 98 F 12/26/19 11:45 Pulse 83 12/26/19 11:45 Resp 22 H 12/26/19 11:45 BP 130/72 12/26/19 11:45 Pulse Ox 97 12/26/19 12:00 Intake & Output 12/25/19 12/26/19 12/26/19 18:59 06:59 18:59 Intake Total 522.754 / 823.258 300.504 / 211.705 4357 / 1440 Output Total 800 / 800 Balance 522.754 / 823.258 300.504 / 823.258 640 / 640 Urine Output (Average ml/kg/hr) 0.89 Intake: Intake, Oral Amount 480 / 600 120 / 600 1240 / 1240 Intake, Intraperitoneal Amount 200 / 200 Intake, IV Amount 42.754 / 223.258 180.504 / 223.258 Heparin Sodium,Porcine/1/2NS 25 42.754 / 223.258 180.504 / 223.258 ,000 unit In 250 ml @ Per Protocol IVCONT .Q0M [facility] Rx#: [id number] Output: Output, Urine Amount 800 / 800 Other: Breakfast % Eaten 100% 50% Lunch % Eaten 100% Dinner % Eaten 75% Number of Bowel Movements 1 Last Bowel Movement 12/25/19 Stool Bathroom Stool Color Brown Stool Consistency Formed Weight 75 kg Hem/Onc Consult Result - Labs CBC & Chem 7: 12/26/19 05:49 12/26/19 05:49 Labs: Short CBC 12/26/19 Range/Units 05:49 Hgb 11.5 L (14.0-18.0) g/dl Hct 39.2 L (42-52) % BMP 12/26/19 05:49 Sodium 142 Potassium 4.1 Chloride 107 Carbon Dioxide 26 BUN 16 Creatinine 0.94 Calcium 8.7 Assessment and Plan (1) Acute saddle pulmonary embolism Status: Acute This is a pleasant 79-year-old gentleman who has presented with: (1) Acute saddle pulmonary embolism: Status: Acute (2) Hypoxia: Problem details: oxygen 2-3 L/minute to keep O2 sat above 92% Status: Acute (3) Diabetes: Status: Acute (4) Hypertension: Status: Acute Assessment and Plan: 1. Acute hypoxemic respiratory failure due to acute saddle pulmonary embolism. Evidence of right heart strain without bowing of the septum ?elevated troponin probably related to above. His shortness of breath is slightly better than before. PLAN: 2D echo pending patient monitor Continue with Heparin drip, oxygen, monitor clinically. Patient was seen by Cardiology and Pulmonary - recommended to continue above management.
--- NOTE | 2019-12-26 15:27 | PM.HEMONCCN ---
Subjective - Subjective Primary Care Provider: Cornelius Phillips MD HPI - Consult Narrative Narrative: Daren Perez is a pleasant 79 year old gentleman, with significant hx of provoked PE in the past. He presented yesterday due to worsening SOB for the past 3 weeks. Patient reported that 3 weeks ago started experiencing difficulty breathing. this was intermittent however, over past couple of days, his condition worsened and now is constant. Patient denies any chest pain, nausea, vomiting, dizziness or fever. Patient was previously at [facility] for diverticulitis with perforation which was managed medically and gastritis with an ulcer. During that admission on June of the current year, patient was found to have an incidental PE which was managed with heparin followed with Eliquis for a total course of 3 months which patient completed successfully. Upon presentation now his vitals are found to be stable, 110/66 with mild tachycardia of 103 which now resolved and the BP is 165/90 mmHg currently. He was Saturating well on nasal cannula 2 liters which drops to 87% when laying flat on bed without O2 supplement but remains stable with the nasal cannula. Troponin of 158 which dropped to 133. BNP of 1301. CTA positive for bilateral PE with saddle embolus and evidence of right heart strain without bowing septum. The ICU attending recommended full dose anticoagulation (Heparin drip) but patient was deemed to be stable to go to medical floors. He is actually feeling better. His breathing has improved. Review of Systems - Constitutional Reports fatigue - Eyes Denies double vision - ENT Reports system reviewed and no additional complaints, except as documented - Cardiovascular Reports chest pain, Reports shortness of breath with activity, Reports shortness of breath when lying down - Respiratory Reports cough - Gastrointestinal Denies abdominal pain, Denies diarrhea - Musculoskeletal Denies stiffness - Integumentary/Breasts Skin/Breast: Denies breast swelling, Denies change in skin color - Neurologic Reports system reviewed and no additional complaints, except as documented - Psychiatric Denies abnormal sleep pattern - Endocrine Denies cold intolerance - Hematologic/Lymphatic Denies easy bleeding PMFSH Medical History: Medical History (Last Reviewed 12/27/19 @ 17:59 by Juan Sutton MD) Anemia BPH (benign prostatic hyperplasia) Diabetes Hyperkalemia Hyperlipidemia Hypertension Hypothyroidism Melanoma Myasthenia gravis Myasthenia gravis Functional capacity: independent ambulation Family history: reviewed and not pertinent Surgical History: Surgical History (Last Reviewed 12/27/19 @ 17:59 by Juan Sutton MD) History of back surgery Previous back surgery Smoking status: Former smoker Home Medications and Allergies Current Medications: Current Medications Generic Name Dose Route Start Last Admin Trade Name [place] PRN Reason Stop Dose Admin Amlodipine Besylate 2.5 mg 12/26/19 09:30 12/26/19 10:07 Amlodipine Besylate 2.5 Mg Tablet PO 2.5 mg DAILY GOVIND Administration Protocol Azathioprine 50 mg 12/25/19 09:00 12/26/19 08:15 Azathioprine 50 Mg Tablet PO 50 mg BID GOVIND Administration Famotidine 20 mg 12/25/19 09:00 12/26/19 08:15 Famotidine 20 Mg Tablet PO 20 mg BID GOVIND Administration Finasteride 5 mg 12/25/19 09:00 12/26/19 08:15 Finasteride 5 Mg Tablet PO 5 mg DAILY GOVIND Administration Heparin Sodium/Sodium Chloride 25,000 unit in 250 mls @ 0 mls/hr 12/24/19 23:00 12/26/19 03:52 IVCONT 12 units/kg/hr .Q0M GOVIND 8.76 mls/hr Administration Protocol Per Protocol Insulin Human Lispro 0 unit 12/25/19 16:30 12/26/19 12:16 Insulin Lispro 100 Unit/Ml 3 Ml Vial SUBCUT 2 unit QIDACHS [facility] Administration Protocol Levothyroxine Sodium 75 mcg 12/25/19 06:30 12/26/19 06:46 Levothyroxine Sodium 75 Mcg Tablet PO 75 mcg DAILY@0630 GOVIND Administration Lisinopril 30 mg 12/25/19 09:00 Lisinopril 10 Mg Tablet PO DAILY [facility] Protocol Prednisone 15 mg 12/25/19 09:00 12/26/19 08:15 Prednisone 5 Mg Tablet PO 15 mg DAILY GOVIND Administration Pyridostigmine [place] 120 mg 12/25/19 09:00 12/26/19 08:15 Pyridostigmine [place] 60 Mg Tablet PO 120 mg TID GOVIND Administration Sodium Chloride 2 ml 12/25/19 08:00 12/26/19 08:17 0.9 % Sodium Chloride Flush 3 Ml Syringe IVFLUSH Not Given QSHIFT [facility] Home Medications Medication Instructions Recorded Confirmed Type azathioprine 1 tab PO BID 12/25/19 12/25/19 History famotidine 1 tab PO BID 12/25/19 12/25/19 History finasteride 1 tab PO DAILY 12/25/19 12/25/19 History glipizide 1 tab PO DAILY 12/25/19 12/25/19 History levothyroxine 1 tab PO QAM 12/25/19 12/25/19 History lisinopril 1 tab PO DAILY 12/25/19 12/25/19 History prednisone 3 tab PO DAILY 12/25/19 12/25/19 History pyridostigmine bromide 2 tab PO TID 12/25/19 12/25/19 History Allergies Allergy/AdvReac Type Severity Reaction Status Date / Time No Known Allergies Allergy Verified 12/24/19 18:21 [No Known Allergies*] Physical Exam Vital signs: Vital Signs Temp 98 F 12/26/19 11:45 Pulse 83 12/26/19 11:45 Resp 22 H 12/26/19 11:45 BP 130/72 12/26/19 11:45 Pulse Ox 97 12/26/19 12:00 Intake & Output 12/25/19 12/26/19 12/26/19 18:59 06:59 18:59 Intake Total 522.754 / 823.258 300.504 / 156.594 6589 / 1440 Output Total 800 / 800 Balance 522.754 / 823.258 300.504 / 823.258 640 / 640 Urine Output (Average ml/kg/hr) 0.89 Intake: Intake, Oral Amount 480 / 600 120 / 600 1240 / 1240 Intake, Intraperitoneal Amount 200 / 200 Intake, IV Amount 42.754 / 223.258 180.504 / 223.258 Heparin Sodium,Porcine/1/2NS 25 42.754 / 223.258 180.504 / 223.258 ,000 unit In 250 ml @ Per Protocol IVCONT .Q0M [facility] Rx#: [id number] Output: Output, Urine Amount 800 / 800 Other: Breakfast % Eaten 100% 50% Lunch % Eaten 100% Dinner % Eaten 75% Number of Bowel Movements 1 Last Bowel Movement 12/25/19 Stool Bathroom Stool Color Brown Stool Consistency Formed Weight 75 kg - Constitutional Present: mild distress - Routine HEENT Exam Head: Present: normocephalic ENT: Present: mucous membranes moist, mucous membranes dry - Routine Neck Exam Present: supple. Absent: meningismus - Routine Respiratory Exam Present: decreased breath sounds - Routine Cardiovascular Exam Cardiovascular: Present: RRR, S1, S2 - Routine Abdominal Exam Present: soft, nontender - Routine Rectal Exam Patient deferred: digital exam - Routine Extremities Exam Present: nontender - Routine Back/Spine/Pelvis Exam Back/Spine: Present: full ROM - Routine Psychiatric Exam Present: normal mood Hem/Onc Consult Result - Labs CBC & Chem 7: 12/27/19 06:32 12/27/19 18:10 Labs: Short CBC 12/26/19 Range/Units 05:49 Hgb 11.5 L (14.0-18.0) g/dl Hct 39.2 L (42-52) % BMP 12/26/19 05:49 Sodium 142 Potassium 4.1 Chloride 107 Carbon Dioxide 26 BUN 16 Creatinine 0.94 Calcium 8.7 Assessment and Plan (1) Acute saddle pulmonary embolism Status: Acute (2) Acute saddle pulmonary embolism Status: Acute This is a pleasant 79-year-old gentleman with recent diagnosis of a saddle PE. He actually has a previous history of a pulmonary embolism, for which he was on Eliquis. He is now maintained on IV heparin. His breathing is better and so is his O2 sat. PLAN: Would continue on the IV heparin over the next 24-48 hours. Once he stabilizes will switch him over to the Eliquis. Will check an ultrasound of his lower extremities to look for the source of a PE. thank you for this consult, CC:
[2019-12-26 16:43] LABS: Glucose, Whole Blood 228 mg/dL (60-115)
--- NOTE | 2019-12-26 16:44 | PM.IMPN ---
Subjective Subjective Date of Service: 12/26/19 Interval History: Acute respiratory failure secondary to acute pulm embolism Physical Exam Vital Signs and I&O and Narrative: Vital Signs and I&O: Vital Signs Temp 98 F 12/26/19 11:45 Pulse 85 12/26/19 15:43 Resp 20 12/26/19 15:43 BP 179/101 H 12/26/19 15:43 Pulse Ox 97 12/26/19 15:43 Intake & Output 12/25/19 12/26/19 12/26/19 18:59 06:59 18:59 Intake Total 522.754 / 823.258 300.504 / 526.739 3208 / 1440 Output Total 800 / 800 Balance 522.754 / 823.258 300.504 / 823.258 640 / 640 Urine Output (Aver age ml/kg/hr) 0.89 Intake: Intake, Oral [place] unt 480 / 600 120 / 600 1240 / 1240 Intake, Intraper itoneal Amount 200 / 200 Intake, IV Amoun t 42.754 / 223.258 180.504 / 223.258 Heparin Sodium ,Porcine/1/2NS 25 42.754 / 223.258 180.504 / 223.258 ,000 unit In 2 50 ml @ Per Protocol IVCON T .Q0M [facility] Rx#: [id number] Output: Output, Urine Am ount 800 / 800 Other: Breakfast % Eate n 100% 50% Lunch % Eaten 100% Dinner % Eaten 75% Number of Bowel Movements 1 Last Bowel Movem ent 12/25/19 Stool Bathroom Stool Color Brown Stool Consistenc y Formed Body Mass Index 25.9 Objective Data Current Medications Generic Name Dose Route Start Last Admin Trade Name Freq PRN Reason Stop Dose Admin Amlodipine Besylate 2.5 mg 12/26/19 09:30 12/26/19 10:07 Amlodipine Besylate 2.5 Mg Tablet PO 2.5 mg DAILY GOVIND Administration Protocol Azathioprine 50 mg 12/25/19 09:00 12/26/19 08:15 Azathioprine 50 Mg Tablet PO 50 mg BID GOVIND Administration Famotidine 20 mg 12/25/19 09:00 12/26/19 08:15 Famotidine 20 Mg Tablet PO 20 mg BID GOVIND Administration Finasteride 5 mg 12/25/19 09:00 12/26/19 08:15 Finasteride 5 Mg Tablet PO 5 mg DAILY [facility] Administration Heparin Sodium/Sodium Chloride 25,000 unit in 250 mls @ 0 mls/hr 12/24/19 23:00 12/26/19 03:52 IVCONT 12 units/kg/hr .Q0M GOVIND 8.76 mls/hr Administration Protocol Per Protocol Insulin Human Lispro 0 unit 12/25/19 16:30 12/26/19 12:16 Insulin Lispro 100 Unit/Ml 3 Ml Vial SUBCUT 2 unit QIDACHS [facility] Administration Protocol Levothyroxine Sodium 75 mcg 12/25/19 06:30 12/26/19 06:46 Levothyroxine Sodium 75 Mcg Tablet PO 75 mcg DAILY@0630 [facility] Administration Lisinopril 30 mg 12/25/19 09:00 Lisinopril 10 Mg Tablet PO DAILY [facility] Protocol Prednisone 15 mg 12/25/19 09:00 12/26/19 08:15 Prednisone 5 Mg Tablet PO 15 mg DAILY [facility] Administration Pyridostigmine [place] 120 mg 12/25/19 09:00 12/26/19 08:15 Pyridostigmine [place] 60 Mg Tablet PO 120 mg TID [facility] Administration Sodium Chloride 2 ml 12/25/19 08:00 12/26/19 08:17 0.9 % Sodium Chloride Flush 3 Ml Syringe IVFLUSH Not Given QSHIFT [facility] Labs CBC & Chem 7: 12/26/19 05:49 12/26/19 05:49 Labs: Laboratory Results - last 24 hr 12/25/19 12/25/19 12/25/19 16:56 19:55 20:35 PTT (Heparin Protocol) 62.8 Anion Gap Estim Creat Clear Calc Estimated GFR POC Glucose 284 H 208 H Random Glucose Calcium 12/26/19 12/26/19 12/26/19 05:49 07:51 08:12 PTT (Heparin Protocol) 62.6 Anion Gap 13 Estim Creat Clear Calc 58.5 Estimated GFR > 60 POC Glucose 155 H Random Glucose 98 D Calcium 8.7 12/26/19 12/26/19 11:26 16:38 PTT (Heparin Protocol) Anion Gap Estim Creat Clear Calc Estimated GFR POC Glucose 185 H 228 H Random Glucose Calcium Progress Note: A&P (1) Acute saddle pulmonary embolism: Status: Acute (2) Hypoxia: Status: Acute (3) Myasthenia gravis: Problem details: continue his regular medications Status: Acute (4) Acute saddle pulmonary embolism: Status: Acute (5) Diabetes: Status: Acute (6) Hypertension: Status: Acute (7) Hyperkalemia: Problem details: as above . Status: Acute Assessment and Plan: 1. Acute hypoxemic respiratory failure due to acute saddle pulmonary embolism. Evidence of right heart strain without bowing of the septum ?elevated troponin probably related to above. patient says shortness of breath is slightly better than before. Plan: 2D echo pending, venous dupplex added gambling monitor Continue with Heparin drip, oxygen, monitor clinically. Patient was seen by Cardiology and Pulmonary - recommended to continue above management. Hematology evaluation pending. 2. Hypertension:accepatble range,Continue with lisinopril. 3. Diabetes:: seems in 200's range Hold PO hypoglycemic med, fs with adjusted coverage. 4.BPH (benign prostatic hyperplasia): continue with finasteride. 5.Hypothyroidism: continue with levothyroxine home dose 6. Hyperkalemia:K of 5.3 s/p insulin therapy, resolved . Follow up BMP for electrolytes in the am 7. Myasthenia gravis: stable ,continue pyridostigmine home dose continue with prednisone home dose
[2019-12-26 17:15] LABS: Pt Ventilation O2% 100%
[2019-12-26 17:23] LABS: ABG PCO2 47 mmhg (32-45); pH ABG 7.33 (7.35-7.45)
[2019-12-26 17:24] LABS: Blood Gas Serial # 5396; HCO3 ABG 24 mmol/l (22-26); Oxygen Saturation ABG 98.6 %; PO2 ABG 145 mmhg (83-108)
--- NOTE | 2019-12-26 18:06 | P.CONCC_ITS ---
History of Present Illness Data of Consult Service Date: 12/26/19 Requesting physician: Silvia Allan Primary Care Provider: Cornelius Phillips MD HPI Reason for consult: status post saddle emboli/ worsening hypoxia 79-year-old former smoker 40 years ago presents with shortness of breath noted on CT scan to have large bilateral mainstem pulmonary emboli but with normal blood pressure and hemodynamics and elected therefore for heparin and today noted that he had increased work of breathing oxygen saturations dropped placed on 100% non-rebreather and blood gas is indicating a pCO2 of 47 and a PO2 of 145 and is not in distress but it he is somewhat tachypneic not yet using accessory muscles has no visible neck vein distension has adequate bilateral carotid upstrokes with systolic pressure of 170 no adventitious sounds and bedside echocardiogram demonstrating mild concentric left ventricular hypertrophy with normal left ventricular ejection fraction but right ventricular dilatation but there is preserved right ventricular contractility of the free wall and tricuspid regurgitant velocity is less than 3 m so were not dealing with significant pulmonary hypertension background history of myasthenia gravis and he is on maintenance prednisone and Imuran but no fever and no significant white count or left shift he is not neutropenic etc. And chest x-ray just shows left lower lobe atelectasis with some volume loss on the left side and a relatively unchanged compared to 24 hours earlier and I changed him to a nasal high-flow so beginning at 40 liters/minute to ease some of the work of breathing and will get a repeat blood gas in 2 hours and I a spoke with him about notifying if his work of breathing seem to increase and we placed him on continuous pulse oximetry background myasthenia gravis on pyridostigmine at 120 mg 3 times a day along with his immunosuppressive therapy and with a pCO2 of 47 if his work of breathing were to increase he abdomen think he would meet the work demand because of the myasthenia so the next step of course would have to be intubation and he would then need to be transferred down to the ICU as long as he maintains his hemodynamics at this point I would rather not switch him from the heparin on which he is therapeutic but certainly if if we come to the necessity for invasive ventilatory support we probably would have to make the decision to hold his heparin allow his PTT at least to fall below 40-45 seconds before initiating tPA Review of Systems Review of Systems: he was claiming that he did not feel the work of breathing being excessive and was denying chest discomfort or a sense of near syncope and for all intents and purposes 10 point review of systems otherwise was negative Neurologic: Reports system reviewed and no additional complaints, except as documented PMFSH Past Medical History Medical History Anemia Diabetes Hyperlipidemia Hypertension Melanoma Myasthenia gravis Functional capacity: independent ambulation Family History Family history: reviewed and not pertinent Surgical History Surgical History History of back surgery Previous back surgery Social History Social History Household Members: None Housing: House Do you presently have visiting nurse or other home services: No Alcohol intake: current Alcohol intake frequency: holidays/special occasions only Smoking Status: Former smoker Smoked in Last 30 Days: No Patient Interested in Nicotine Replacement: No Patient Given Instructions on How to Stop Smoking: No Second Hand Smoke Exposure: No Use of substances other than those prescribed or required for medical reasons: No Currently Displaying Signs/Symptoms of Drug Intoxication Withdrawal: No Have you been hit, kicked, punched, or otherwise hurt by someone within the past year? If so, by whom?: No Do you feel safe in your current relationship?: No Current Relationship Is there a partner from a previous relationship who is making you feel unsafe now?: No Are you made to feel afraid or neglected: No [facility] Practices: nondenominational Advance Directives: No Advance Directives Information Provided: Yes Do you have thoughts of harming others: None Do you have a plan to hurt others: No Plan Recently lost weight without trying: Unsure service: No Meds Allergies Allergy/AdvReac Type Severity Reaction Status Date / Time No Known Allergies Allergy Verified 12/24/19 18:21 [No Known Allergies*] Home Medications Medication Instructions Recorded Confirmed Type azathioprine 1 tab PO BID 12/25/19 12/25/19 History famotidine 1 tab PO BID 12/25/19 12/25/19 History finasteride 1 tab PO DAILY 12/25/19 12/25/19 History glipizide 1 tab PO DAILY 12/25/19 12/25/19 History levothyroxine 1 tab PO QAM 12/25/19 12/25/19 History lisinopril 1 tab PO DAILY 12/25/19 12/25/19 History prednisone 3 tab PO DAILY 12/25/19 12/25/19 History pyridostigmine bromide 2 tab PO TID 12/25/19 12/25/19 History Physical Exam Vital Signs and I&O and Narrative: Vital Signs and I&O: Vital Signs Temp 98 F 12/26/19 11:45 Pulse 85 12/26/19 15:43 Resp 20 12/26/19 17:50 BP 179/101 H 12/26/19 15:43 Pulse Ox 97 12/26/19 15:43 Intake & Output 12/25/19 12/26/19 12/26/19 18:59 06:59 18:59 Intake Total 522.754 / 823.258 300.504 / 555.261 5180 / 1440 Output Total 800 / 800 Balance 522.754 / 823.258 300.504 / 823.258 640 / 640 Urine Output (Aver age ml/kg/hr) 0.89 Intake: Intake, Oral Josselin unt 480 / 600 120 / 600 1240 / 1240 Intake, Intraper itoneal Amount 200 / 200 Intake, IV Amoun t 42.754 / 223.258 180.504 / 223.258 Heparin Sodium ,Porcine/1/2NS 25 42.754 / 223.258 180.504 / 223.258 ,000 unit In 2 50 ml @ Per Protocol IVCON T .Q0M [facility] Rx#: [id number] Output: Output, Urine Am ount 800 / 800 Other: Breakfast % Eate n 100% 50% Lunch % Eaten 100% Dinner % Eaten 75% Number of Bowel Movements 1 Last Bowel Movem ent 12/25/19 Stool Bathroom Stool Color Brown Stool Consistenc y Formed Body Mass Index 25.9 by physical exam he was awake alert and oriented and was just mildly tachypneic but on 100% non-rebreather he was not using accessory muscles but the there was some evidence of increased work bedside echo showed dilated right ventricle but there was right ventricular anterior or free wall function and there was no evidence of a reverse Bernheim affect in other words no evidence of compression of the interventricular septum and his LV function showed mild concentric hypertrophy but otherwise normal and no primary valve or pericardial disease he has good blood pressures and anywhere between 140 and 170 systolic with good bilateral carotid upstrokes abdominal exam was benign and he had good peripheral color with no cyanosis no livedo no edema EKG with right bundle branch block reflecting the acute right heartburn Results Labs CBC & Chem 7: 12/27/19 06:32 12/26/19 05:49 Labs: Short CBC 12/26/19 Range/Units 05:49 Hgb 11.5 L (14.0-18.0) g/dl Hct 39.2 L (42-52) % BMP 12/26/19 05:49 Sodium 142 Potassium 4.1 Chloride 107 Carbon Dioxide 26 BUN 16 Creatinine 0.94 Calcium 8.7 Assessment and Plan (1) Pulmonary hypertension: Status: Acute (2) Hypoxia: Problem details: O2 by nasal canula, use High Flow, as needed to keep O2 sat above 92 % Status: Acute (3) Acute saddle pulmonary embolism: Status: Acute he was changed to high-flow nasal cannula at 40 liters/minute which made his work of breathing seem even easier with decreased respiratory rate and an effort and subjective improvement in comfort and his venous blood gas and oxygen saturations were excellent implying good cardiac output and his pCO2 is in the high 40s remained at baseline and they were to be followed every 2 hours through the night to assure that he did not fatigue the plan is if pCO2 were to climb or respiratory effort increase the concern was the ability to meet the work demand of breathing because of myasthenia in which case we would bring him down probably for intubation by but at which time we probably would change our therapy to thrombolytics therapy with tPA and and stopping the heparin 1st but as long as he remains comfortable and hopefully will progress in the right direction he will remain on the heparin (4) BPH (benign prostatic hyperplasia): Status: Acute (5) Hypothyroidism: Status: Acute (6) Hyperkalemia: Problem details: as above . Status: Acute (7) Acute saddle pulmonary embolism: Status: Acute (8) Diabetes: Status: Acute (9) Hypertension: Status: Acute
--- NOTE | 2019-12-26 18:08 | PM.IMPN ---
Subjective Subjective Date of Service: 12/26/19 Interval History: acute respiratory failure secondary to saddle pulmonary embolism. Review of Systems Patient was maintaining saturation on 4-5liters until today late afternoon started to desaturate on in 5 L oxygen and subsequently put on non-rebreather mask, patient says he was having short of breath. denies any chest pain or abdominal pain or cough or phlegm or any blurry vision or leg pains . Physical Exam Vital Signs and I&O and Narrative: Vital Signs and I&O: Vital Signs Temp 98 F 12/26/19 11:45 Pulse 85 12/26/19 15:43 Resp 20 12/26/19 17:50 BP 179/101 H 12/26/19 15:43 Pulse Ox 97 12/26/19 15:43 Intake & Output 12/25/19 12/26/19 12/26/19 18:59 06:59 18:59 Intake Total 522.754 / 823.258 300.504 / 738.950 3891 / 1440 Output Total 800 / 800 Balance 522.754 / 823.258 300.504 / 823.258 640 / 640 Urine Output (Aver age ml/kg/hr) 0.89 Intake: Intake, Oral Mcdaniel unt 480 / 600 120 / 600 1240 / 1240 Intake, Intraper itoneal Amount 200 / 200 Intake, IV Amoun t 42.754 / 223.258 180.504 / 223.258 Heparin Sodium ,Porcine/1/2NS 25 42.754 / 223.258 180.504 / 223.258 ,000 unit In 2 50 ml @ Per Protocol IVCON T .Q0M [facility] Rx#: [id number] Output: Output, Urine Am ount 800 / 800 Other: Breakfast % Eate n 100% 50% Lunch % Eaten 100% Dinner % Eaten 75% Number of Bowel Movements 1 Last Bowel Movem ent 12/25/19 Stool Bathroom Stool Color Brown Stool Consistenc y Formed Body Mass Index 25.9 Physio: Heent : neck supple. cvs: rrr, [id number] , no murmur res: grossly fair entry, slightly diminished on left side, no rales or wheezing abd: no rebound or guarding ,nt, bs present. ext :pulses present , no cyanosis neuro: axo3 , nonfocal. Objective Data Current Medications Generic Name Dose Route Start Last Admin Trade Name Airam PRN Reason Stop Dose Admin Amlodipine Besylate 2.5 mg 12/26/19 09:30 12/26/19 10:07 Amlodipine Besylate 2.5 Mg Tablet PO 2.5 mg DAILY [facility] Administration Protocol Azathioprine 50 mg 12/25/19 09:00 12/26/19 08:15 Azathioprine 50 Mg Tablet PO 50 mg BID GOVIND Administration Famotidine 20 mg 12/25/19 09:00 12/26/19 08:15 Famotidine 20 Mg Tablet PO 20 mg BID GOVIND Administration Finasteride 5 mg 12/25/19 09:00 12/26/19 08:15 Finasteride 5 Mg Tablet PO 5 mg DAILY [facility] Administration Heparin Sodium/Sodium Chloride 25,000 unit in 250 mls @ 0 mls/hr 12/24/19 23:00 12/26/19 03:52 IVCONT 12 units/kg/hr .Q0M GOVIND 8.76 mls/hr Administration Protocol Per Protocol Insulin Human Lispro 0 unit 12/25/19 16:30 12/26/19 17:50 Insulin Lispro 100 Unit/Ml 3 Ml Vial SUBCUT 4 unit QIDACHS [facility] Administration Protocol Levothyroxine Sodium 75 mcg 12/25/19 06:30 12/26/19 06:46 Levothyroxine Sodium 75 Mcg Tablet PO 75 mcg DAILY@0630 [facility] Administration Lisinopril 30 mg 12/25/19 09:00 Lisinopril 10 Mg Tablet PO DAILY [facility] Protocol Pantoprazole Sodium 40 mg 12/26/19 18:00 Pantoprazole Sodium 40 Mg/10 Ml Vial IVPUSH DAILY@0630 [facility] Prednisone 15 mg 12/25/19 09:00 12/26/19 08:15 Prednisone 5 Mg Tablet PO 15 mg DAILY [facility] Administration Pyridostigmine [place] 120 mg 12/25/19 09:00 12/26/19 17:40 Pyridostigmine [place] 60 Mg Tablet PO 120 mg TID [facility] Administration Sodium Chloride 2 ml 12/25/19 08:00 12/26/19 17:44 0.9 % Sodium Chloride Flush 3 Ml Syringe IVFLUSH Not Given QSHIFT [facility] Labs CBC & Chem 7: 12/26/19 05:49 12/26/19 05:49 Labs: Laboratory Results - last 24 hr 12/25/19 12/25/19 12/26/19 19:55 20:35 05:49 PTT (Heparin Protocol) 62.8 ABG pH ABG pCO2 ABG pO2 ABG HCO3 ABG O2 Saturation ABG Base Excess Oxygen Given Anion Gap 13 Estim Creat Clear Calc 58.5 Estimated GFR > 60 POC Glucose 208 H Random Glucose 98 D Calcium 8.7 12/26/19 12/26/19 12/26/19 07:51 08:12 11:26 PTT (Heparin Protocol) 62.6 ABG pH ABG pCO2 ABG pO2 ABG HCO3 ABG O2 Saturation ABG Base Excess Oxygen Given Anion Gap Estim Creat Clear Calc Estimated GFR POC Glucose 155 H 185 H Random Glucose Calcium 12/26/19 12/26/19 16:38 17:05 PTT (Heparin Protocol) ABG pH 7.33 L ABG pCO2 47 H ABG pO2 145 H ABG HCO3 24 ABG O2 Saturation 98.6 ABG Base Excess -2.0 Oxygen Given 100% Anion Gap Estim Creat Clear Calc Estimated GFR POC Glucose 228 H Random Glucose Calcium Progress Note: A&P (1) Acute saddle pulmonary embolism: Status: Acute (2) Myasthenia gravis: Problem details: continue his regular medications Status: Acute (3) Acute saddle pulmonary embolism: Status: Acute (4) Hypoxia: Status: Acute (5) Diabetes: Status: Acute (6) Hypertension: Status: Acute (7) Hyperkalemia: Problem details: as above . Status: Acute Assessment and Plan: 1. Acute hypoxemic respiratory failure due to acute saddle pulmonary embolism. Evidence of right heart strain without bowing of the septum ?elevated troponin probably related to above. patient says shortness of breath progressively getting worse, patient was placed on non-rebreather now. Plan: 2D echo pending , also venous duplex added monitor and storage bin tender discussed with Cardiology, Pulmonary : initially this morning plan was to continue oxygen, IV heparin drip, subsequently in the afternoon patient was becoming more hypoxic and ICU has seen the patient and ABG chest x-ray and COVID added. In addition bedside echo was done by the ICU: As per the ICU physician - does not found significant right-sided strain heart at bedside echo. above labs were reviewed with ICU- currently ICU is recommending continue monitoring patient on the telemetry res since his oxygen saturations are maintained non-rebreather as well as patient is slightly better shortness of breath multani. in addition ICU also recommended to give 1 time dose of dexamethasone since patient is on chronically steroids therapy because of myasthenia gravis. 2. Hypertension:accepatble range,Continue with lisinopril. 3. Diabetes:: seems slightly improving Hold PO hypoglycemic med, fs with adjusted coverage. 4.BPH (benign prostatic hyperplasia): continue with finasteride. 5.Hypothyroidism: continue with levothyroxine. 6. Hyperkalemia:K of 5.3 s/p insulin therapy, resolved . Follow up BMP for electrolytes in the am. 7. Myasthenia gravis: stable ,continue pyridostigmine home dose continue with prednisone. 8. Gi Prophylaxis/ hx of gastric ulcer : Added PPI. as per ICU they will continue to monitor the patient on the floor if further desaturation patient will be transferred to ICU for further management. Also ICU did not recommend patient transfer at present neither to ICU nor to outside facility.
[2019-12-26] MEDS: dexAMETHasone sod phosphate 4 MG/ML VIAL 6 MG IVPUSH (18:26)
[2019-12-26] MEDS: Pantoprazole Sodium 40 MG/10 ML VIAL IVPUSH (18:26)
[2019-12-26 18:57] LABS: SARS COV2 PCR INHOUSE NEGATIVE (Negative)
[2019-12-26 20:53] LABS: Pt Ventilation O2% 70%
[2019-12-26 20:54] LABS: Glucose, Whole Blood 237 mg/dL (60-115)
[2019-12-26 20:57] LABS: ABG PCO2 51 mmhg (32-45); Base Excess ABG 1.1; HCO3 ABG 27 mmol/l (22-26); Oxygen Saturation ABG 98.3 %; PO2 ABG 130 mmhg (83-108); pH ABG 7.35 (7.35-7.45)
--- NOTE | 2019-12-26 22:58 | PC.NURSE ---
today afternoon pt required oxygen supply via nonrebrether. pt was evaluated by senior network security engineer . Oxygen supply via high flow 70% /40 liters. pt is tolerating high flow well. ABG gases done 2 x since 1700 . Pt is benig f/u by senior network security engineer. Next abg gases at 23:00
[2019-12-26 23:25] LABS: PCO2 VBG 48 mmhg; pH VBG 7.37 (7.32-7.43)
[2019-12-26 23:26] LABS: Base Excess VBG 1.6 mmol/L; HCO3 VBG 27 mmol/L; Oxygen Saturation VBG 96.9 %; PO2 VBG 93 mmhg
[2019-12-26 23:27] LABS: Blood Gas Serial # 5396
[2019-12-27] VITALS (11 sets, daily range): BP systolic 146–158; BP diastolic 77–94; PULSE 75–92; RESP 18–22; TEMP 36.6–36.8; O2SAT 96–99
[2019-12-27 02:27] LABS: pH VBG 7.37 (7.32-7.43)
[2019-12-27 02:28] LABS: Base Excess VBG 0.5 mmol/L; HCO3 VBG 26 mmol/L; PCO2 VBG 47 mmhg; PO2 VBG 126 mmhg
[2019-12-27 02:29] LABS: Oxygen Saturation VBG 98.2 %
[2019-12-27] MEDS: Heparin Sodium,Porcine/1/2NS 25,000 UNIT/250 ML IV.SOLN 8.76 UNIT IVCONT (02:41)
--- NOTE | 2019-12-27 03:31 | PC.NURSE ---
Blood transfusion not needed for this patient at this time. It was verified with DR Allan. Blood bank was called and notified that RBS's are not needed for this patient.
[2019-12-27] MEDS: Pantoprazole Sodium 40 MG/10 ML VIAL IVPUSH (05:51)
[2019-12-27] MEDS: Levothyroxine Sodium 75 MCG TABLET PO (05:51)
[2019-12-27 07:29] LABS: Glucose, Whole Blood 149 mg/dL (60-115)
[2019-12-27 07:32] LABS: Hematocrit 35.4 % (42-52); Hemoglobin 10.5 g/dl (14.0-18.0)
[2019-12-27] MEDS: 0.9 % Sodium Chloride Flush 3 ML SYRINGE 2 ML IVFLUSH ×2 (07:44→16:56)
[2019-12-27 07:48] LABS: PTT Heparin Drip 55.3 SEC (53-77.9)
[2019-12-27] MEDS: Famotidine 20 MG TABLET PO (09:56)
[2019-12-27] MEDS: amLODIPine Besylate 2.5 MG TABLET PO (09:56)
[2019-12-27] MEDS: predniSONE 5 MG TABLET 15 MG PO (09:57)
[2019-12-27] MEDS: azaTHIOprine 50 MG TABLET PO (09:58)
[2019-12-27] MEDS: Finasteride 5 MG TABLET PO (09:58)
--- NOTE | 2019-12-27 10:18 | PM.PNPUL ---
Subjective Subjective Principal diagnosis: Pulmonary Embolism Interval history: this gentleman admitted to with acute pulmonary embolism with massive load, and saddle embolus. has been on IV heparin oxygen supplementation was quite stable up until yesterday and felt to be improving slowly. since yesterday his oxygen requirement has increased requiring high-flow O2 administration. he still does not complain of any chest pain except for mild pressure on taking a deep breath. 10 point review of systems indicates that most of his symptoms are related to shortness of breath and oxygen requirement. he denies any other significant problems at this time except for general weakness as usual, which is mainly due to his chronic myasthenia gravis. Objective Data Labs CBC & Chem 7: 12/27/19 06:32 12/26/19 05:49 Labs: Laboratory Results - last 24 hr 12/26/19 12/26/19 12/26/19 11:26 16:38 17:05 Hgb Hct PTT (Heparin Protocol) ABG pH 7.33 L ABG pCO2 47 H ABG pO2 145 H ABG HCO3 24 ABG O2 Saturation 98.6 ABG Base Excess -2.0 VBG pH VBG pCO2 VBG Oxygen Liters/Min VBG pO2 VBG HCO3 VBG O2 Saturation VBG Base Excess Oxygen Given 100% POC Glucose 185 H 228 H Coronavirus (PCR) Blood Type Antibody Screen Antibody Identification Antigen Identification Crossmatch 12/26/19 12/26/19 12/26/19 17:15 17:33 20:24 Hgb Hct PTT (Heparin Protocol) ABG pH 7.35 ABG pCO2 51 H ABG pO2 130 H ABG HCO3 27 H ABG O2 Saturation 98.3 ABG Base Excess 1.1 VBG pH VBG pCO2 VBG Oxygen Liters/Min VBG pO2 VBG HCO3 VBG O2 Saturation VBG Base Excess Oxygen Given 70% POC Glucose Coronavirus (PCR) NEGATIVE Blood Type O Positive Antibody Screen POSITIVE Antibody Identification Anti-K Antigen Identification K Antigen - NEGATIVE Crossmatch See Detail 12/26/19 12/26/19 12/27/19 20:50 23:14 02:14 Hgb Hct PTT (Heparin Protocol) ABG pH ABG pCO2 ABG pO2 ABG HCO3 ABG O2 Saturation ABG Base Excess VBG pH 7.37 7.37 VBG pCO2 48 47 VBG Oxygen Liters/Min Not Reportable TNP VBG pO2 93 126 VBG HCO3 27 26 VBG O2 Saturation 96.9 98.2 VBG Base Excess 1.6 0.5 Oxygen Given POC Glucose 237 H Coronavirus (PCR) Blood Type Antibody Screen Antibody Identification Antigen Identification Crossmatch 12/27/19 12/27/19 12/27/19 06:27 06:32 06:32 Hgb 10.5 L Hct 35.4 L PTT (Heparin Protocol) 55.3 ABG pH ABG pCO2 ABG pO2 ABG HCO3 ABG O2 Saturation ABG Base Excess VBG pH Cancelled VBG pCO2 Cancelled VBG Oxygen Liters/Min Cancelled VBG pO2 Cancelled VBG HCO3 Cancelled VBG O2 Saturation Cancelled VBG Base Excess Cancelled Oxygen Given POC Glucose Coronavirus (PCR) Blood Type Antibody Screen Antibody Identification Antigen Identification Crossmatch 12/27/19 07:19 Hgb Hct PTT (Heparin Protocol) ABG pH ABG pCO2 ABG pO2 ABG HCO3 ABG O2 Saturation ABG Base Excess VBG pH VBG pCO2 VBG Oxygen Liters/Min VBG pO2 VBG HCO3 VBG O2 Saturation VBG Base Excess Oxygen Given POC Glucose 149 H Coronavirus (PCR) Blood Type Antibody Screen Antibody Identification Antigen Identification Crossmatch Physical Exam Vital Signs: Vital Signs: Vital Signs Temp Pulse Resp BP Pulse Ox 12/27/19 07:09 98 F 75 20 150/87 H 98 12/27/19 03:56 98.2 F 78 19 146/91 H 12/27/19 03:48 18 12/27/19 00:18 20 12/26/19 23:49 98.0 F 79 20 146/99 H 98 12/26/19 20:16 20 12/26/19 19:35 98.2 F 89 22 H 185/99 H 100 12/26/19 17:50 20 12/26/19 15:43 85 20 179/101 H 97 12/26/19 12:00 97 12/26/19 11:45 98 F 83 22 H 130/72 97 Body Mass Index 25.9 Const: Other: patient is conscious alert and conversing well, he has his chronic puffiness due to steroids,. he is aware of the fact that his oxygen requirement is gone up. he is aware of the fact that he may need to be transferred to a tertiary care center for embolectomy. HENMT: Other: not remarkable Neck: Neck: Yes normal visual inspection, Yes no lymphadenopathy and Yes trachea midline Chest: Other: he has slightly increased AP diameter, no chest wall deformity no tenderness. Resp: Other: has equal breath sounds on both sides, slightly diminished over the basilar areas. no crepitations or wheezes are heard Cardio: Jugular venous distension: no JVD Rate: regular rate Rhythm: regular rhythm Heart sounds: S1 normal heart sound present and S2 normal heart sound present GI: Other: flat soft nontender no palpable mass. Extrem: Other: no edema or varicosities peripheral pulses normal
[2019-12-27 11:53] LABS: Glucose, Whole Blood 270 mg/dL (60-115)
--- NOTE | 2019-12-27 11:58 | P.PNCA_ITS ---
Subjective Subjective Principal diagnosis: Pulmonary Embolism Interval history: Seen regarding pulmonary embolism and shortness of breath. He states that he still feeling short of breath. No anginal-type symptoms. Review of Systems Review of Systems Cardiac positive for shortness of breath. No angina. No palpitations, leg swelling or syncopal episodes. Respiratory positive for shortness of breath. R emainder of the 10 system review is negative. Physical Exam Vital Signs: Vital Signs Temp Pulse Resp BP Pulse Ox 12/27/19 11:32 20 12/27/19 11:15 97.9 F 88 20 150/94 H 98 12/27/19 07:09 98 F 75 20 150/87 H 98 12/27/19 03:56 98.2 F 78 19 146/91 H 12/27/19 03:48 18 12/27/19 00:18 20 12/26/19 23:49 98.0 F 79 20 146/99 H 98 12/26/19 20:16 20 12/26/19 19:35 98.2 F 89 22 H 185/99 H 100 12/26/19 17:50 20 12/26/19 15:43 85 20 179/101 H 97 12/26/19 12:00 97 Comfortable, not in acute distress No pallor, icterus or cyanosis HEENT -unremarkable JVD- normal Cardiac- normal heart sounds, no murmurs, gallops or rubs, normal PMI Respiratory-normal breath sounds bilaterally, no crackles, no wheeze Abdomen- soft, nontender Neuro- alert and oriented Lower extremities- no significant edema, warm well perfused Progress Note: A&P Assessment and plan (1) Acute saddle pulmonary embolism: Status: Acute (2) Non-ST elevation PA (NSTEMI): Status: Acute Assessment and Plan: Based on CT scan, he has large volume pulmonary embolism including a saddle pulmonary embolism. He has continuing shortness of breath and increasing oxygen requirements. Consider transfer to a tertiary care center for further management including possibly mechanical thrombectomy. Fall Risk Details Current Medications: Current Medications Generic Name Dose Route Start Last Admin Trade Name Freq PRN Reason Stop Dose Admin Amlodipine Besylate 2.5 mg 12/26/19 09:30 12/27/19 09:56 Amlodipine Besylate 2.5 Mg Tablet PO 2.5 mg DAILY GOVIND Administration Protocol Azathioprine 50 mg 12/25/19 09:00 12/27/19 09:58 Azathioprine 50 Mg Tablet PO 50 mg BID GOVIND Administration Famotidine 20 mg 12/25/19 09:00 12/27/19 09:56 Famotidine 20 Mg Tablet PO 20 mg BID GOVIND Administration Finasteride 5 mg 12/25/19 09:00 12/27/19 09:58 Finasteride 5 Mg Tablet PO 5 mg DAILY GOVIND Administration Heparin Sodium/Sodium Chloride 25,000 unit in 250 mls @ 0 mls/hr 12/24/19 23:00 12/27/19 02:41 IVCONT 12 units/kg/hr .Q0M GOVIND 8.76 mls/hr Administration Protocol Per Protocol Insulin Human Lispro 0 unit 12/25/19 16:30 12/27/19 07:44 Insulin Lispro 100 Unit/Ml 3 Ml Vial SUBCUT Not Given QIDACHS [facility] Protocol Levothyroxine Sodium 75 mcg 12/25/19 06:30 12/27/19 05:51 Levothyroxine Sodium 75 Mcg Tablet PO 75 mcg DAILY@0630 GOVIND Administration Lisinopril 30 mg 12/25/19 09:00 Lisinopril 10 Mg Tablet PO DAILY [facility] Protocol Pantoprazole Sodium 40 mg 12/26/19 18:00 12/27/19 05:51 Pantoprazole Sodium 40 Mg/10 Ml Vial IVPUSH 40 mg DAILY@0630 GOVIND Administration Prednisone 15 mg 12/25/19 09:00 12/27/19 09:57 Prednisone 5 Mg Tablet PO 15 mg DAILY GOVIND Administration Pyridostigmine [place] 120 mg 12/25/19 09:00 12/27/19 09:58 Pyridostigmine [place] 60 Mg Tablet PO 120 mg TID GOVIND Administration Sodium Chloride 2 ml 12/25/19 08:00 12/27/19 07:44 0.9 % Sodium Chloride Flush 3 Ml Syringe IVFLUSH 2 ml QSHIFT [facility] Administration Time Spent With Patient Time: Total time spent is greater than 50% in coordination of care (as docu mented) at patient's floor/unit and/or counseling patient: Time with patient: 25 - 35 minutes
[2019-12-27] MEDS: Insulin Lispro 100 UNIT/ML 3 ML VIAL SUBCUT ×2 (12:01→16:56)
--- NOTE | 2019-12-27 12:59 | PM.IMPN ---
Subjective Subjective Date of Service: 12/27/19 Interval History: acute hypoxemic respiratory failure secondary to saddle pulmonary embolism Review of Systems patient denies any chest pain, still short of breath but says that with high-flow is feeling more ease, denies any abdominal pain or nausea or vomiting or weakness or numbness or fever. Physical Exam Vital Signs: Vital Signs: Vital Signs Temp Pulse Resp BP Pulse Ox 12/27/19 11:32 20 12/27/19 11:15 97.9 F 88 20 150/94 H 98 12/27/19 07:09 98 F 75 20 150/87 H 98 12/27/19 03:56 98.2 F 78 19 146/91 H 12/27/19 03:48 18 12/27/19 00:18 20 12/26/19 23:49 98.0 F 79 20 146/99 H 98 12/26/19 20:16 20 12/26/19 19:35 98.2 F 89 22 H 185/99 H 100 12/26/19 17:50 20 12/26/19 15:43 85 20 179/101 H 97 Body Mass Index 25.9 Physio: Seems short of breath but slightly better than yesterday Heent : neck supple. no JVD cvs: [id number], [id number] res: grossly fair entry, slightly diminished on left side, no rales or wheezing abd: no rebound or guarding ,nt, bs present. ext :pulses present , no cyanosis neuro: axo3 , nonfocal. Objective Data Current Medications Generic Name Dose Route Start Last Admin Trade Name Airam PRN Reason Stop Dose Admin Amlodipine Besylate 2.5 mg 12/26/19 09:30 12/27/19 09:56 Amlodipine Besylate 2.5 Mg Tablet PO 2.5 mg DAILY GOVIND Administration Protocol Azathioprine 50 mg 12/25/19 09:00 12/27/19 09:58 Azathioprine 50 Mg Tablet PO 50 mg BID GOVIND Administration Famotidine 20 mg 12/25/19 09:00 12/27/19 09:56 Famotidine 20 Mg Tablet PO 20 mg BID GOVIND Administration Finasteride 5 mg 12/25/19 09:00 12/27/19 09:58 Finasteride 5 Mg Tablet PO 5 mg DAILY GOVIND Administration Heparin Sodium/Sodium Chloride 25,000 unit in 250 mls @ 0 mls/hr 12/24/19 23:00 12/27/19 02:41 IVCONT 12 units/kg/hr .Q0M GOVIND 8.76 mls/hr Administration Protocol Per Protocol Insulin Human Lispro 0 unit 12/25/19 16:30 12/27/19 12:01 Insulin Lispro 100 Unit/Ml 3 Ml Vial SUBCUT 6 unit QIDACHS [facility] Administration Protocol Levothyroxine Sodium 75 mcg 12/25/19 06:30 12/27/19 05:51 Levothyroxine Sodium 75 Mcg Tablet PO 75 mcg DAILY@0630 [facility] Administration Lisinopril 30 mg 12/25/19 09:00 Lisinopril 10 Mg Tablet PO DAILY [facility] Protocol Pantoprazole Sodium 40 mg 12/26/19 18:00 12/27/19 05:51 Pantoprazole Sodium 40 Mg/10 Ml Vial IVPUSH 40 mg DAILY@0630 [facility] Administration Prednisone 15 mg 12/25/19 09:00 12/27/19 09:57 Prednisone 5 Mg Tablet PO 15 mg DAILY [facility] Administration Pyridostigmine Palisade 120 mg 12/25/19 09:00 12/27/19 09:58 Pyridostigmine Palisade 60 Mg Tablet PO 120 mg TID [facility] Administration Sodium Chloride 2 ml 12/25/19 08:00 12/27/19 07:44 0.9 % Sodium Chloride Flush 3 Ml Syringe IVFLUSH 2 ml QSHIFT [facility] Administration Labs CBC & Chem 7: 12/27/19 06:32 12/26/19 05:49 Labs: Laboratory Results - last 24 hr 12/26/19 12/26/19 12/26/19 16:38 17:05 17:15 PTT (Heparin Protocol) ABG pH 7.33 L ABG pCO2 47 H ABG pO2 145 H ABG HCO3 24 ABG O2 Saturation 98.6 ABG Base Excess -2.0 VBG pH VBG pCO2 VBG Oxygen Liters/Min VBG pO2 VBG HCO3 VBG O2 Saturation VBG Base Excess Oxygen Given 100% POC Glucose 228 H Coronavirus (PCR) NEGATIVE Blood Type Antibody Screen Antibody Identification Antigen Identification Crossmatch 12/26/19 12/26/19 12/26/19 17:33 20:24 20:50 PTT (Heparin Protocol) ABG pH 7.35 ABG pCO2 51 H ABG pO2 130 H ABG HCO3 27 H ABG O2 Saturation 98.3 ABG Base Excess 1.1 VBG pH VBG pCO2 VBG Oxygen Liters/Min VBG pO2 VBG HCO3 VBG O2 Saturation VBG Base Excess Oxygen Given 70% POC Glucose 237 H Coronavirus (PCR) Blood Type O Positive Antibody Screen POSITIVE Antibody Identification Anti-K Antigen Identification K Antigen - NEGATIVE Crossmatch See Detail 12/26/19 12/27/19 12/27/19 23:14 02:14 06:27 PTT (Heparin Protocol) ABG pH ABG pCO2 ABG pO2 ABG HCO3 ABG O2 Saturation ABG Base Excess VBG pH 7.37 7.37 Cancelled VBG pCO2 48 47 Cancelled VBG Oxygen Liters/Min Not Reportable TNP Cancelled VBG pO2 93 126 Cancelled VBG HCO3 27 26 Cancelled VBG O2 Saturation 96.9 98.2 Cancelled VBG Base Excess 1.6 0.5 Cancelled Oxygen Given POC Glucose Coronavirus (PCR) Blood Type Antibody Screen Antibody Identification Antigen Identification Crossmatch 12/27/19 12/27/19 12/27/19 06:32 07:19 11:45 PTT (Heparin Protocol) 55.3 ABG pH ABG pCO2 ABG pO2 ABG HCO3 ABG O2 Saturation ABG Base Excess VBG pH VBG pCO2 VBG Oxygen Liters/Min VBG pO2 VBG HCO3 VBG O2 Saturation VBG Base Excess Oxygen Given POC Glucose 149 H 270 H Coronavirus (PCR) Blood Type Antibody Screen Antibody Identification Antigen Identification Crossmatch Progress Note: A&P (1) Hypoxia: Problem details: O2 by nasal canula, use High Flow, as needed to keep O2 sat above 92 % Status: Acute (2) Acute saddle pulmonary embolism: Status: Acute (3) Myasthenia gravis: Problem details: continue his regular medications Status: Acute (4) Acute saddle pulmonary embolism: Status: Acute (5) Diabetes: Status: Acute (6) Hypertension: Status: Acute (7) Hyperkalemia: Problem details: as above . Status: Acute Assessment and Plan: 1. Acute hypoxemic respiratory failure due to acute saddle pulmonary embolism. Evidence of right heart strain without bowing of the septum ?elevated troponin probably related to above. patient says shortness of breath progressively getting worse, patient was placed on non-rebreather now. Plan: 2D echo : - The left ventricular systolic function is normal. The visually estimated ejection fraction is between 60-65%. - The right ventricle was not well visualized. On selected images, the right ventricle appears moderately dilated. - There is mild to moderate tricuspid valve regurgitation. - The right ventricular systolic pressure is 65 mmHg. Severe pulmonary hypertension is present. venous duplex b/l ext neg case discussed with ICU, Cardiology , pulm: if patient condition worsen patient is to go to ICU as well as we will plan if patient able to transfer to [facility] , called placed for both hospital -[facility] acacepted the patient they will call back for transfer -they are waiting for bed availability , call placed to ICU unit of [facility]. 2. Hypertension:accepatble range,Continue with lisinopril. 3. Diabetes:: seems slightly improving Hold PO hypoglycemic med, fs with adjusted coverage. 4.BPH (benign prostatic hyperplasia): continue with finasteride. 5.Hypothyroidism: continue with levothyroxine. 6. Hyperkalemia:K of 5.3 s/p insulin therapy, resolved . Follow up BMP for electrolytes in the am. 7. Myasthenia gravis: stable ,continue pyridostigmine home dose continue with prednisone. 8. Gi Prophylaxis/ hx of gastric ulcer : Added PPI. as per ICU they will continue to monitor the patient on the floor if further desaturation patient will be transferred to ICU for further management. Also ICU did not recommend patient transfer at present neither to ICU nor to outside facility.
[2019-12-27 16:27] LABS: Glucose, Whole Blood 356 mg/dL (60-115)
[2019-12-27 17:03] LABS: HCO3 VBG 29 mmol/L; PCO2 VBG 54 mmhg; PO2 VBG 32 mmhg; pH VBG 7.35 (7.32-7.43)
[2019-12-27 17:04] LABS: Base Excess VBG 2.5 mmol/L; Blood Gas Serial # 5414
--- NOTE | 2019-12-27 18:23 | P.PNCC_ITS ---
Critical Care Event Note Summary Code activated: Yes Narrative: This I followed up on 2 or 3 occasions today and ordered a venous blood gas to be done when I saw him the 2nd time because in the morning he looked very comfortable no tachypnea and all his numbers through the night were excellent with stable pCO2 in the high 40s unchanged with excellent venous oxygen saturation implying preserved cardiac output on the monitor he had 1 short nonsustained run of V-tach he claimed he was fe eling comfortable but slightly more tachypneic and repeat gas showed a drop in his venous oxygen saturation albeit from a peripheral blood at 60% implying a drop in cardiac output which concerned me and the pCO2 climbed to 54 at potentially indicating worsened space and that could mean that were not accomplishing with the heparin what we need and therefore spoke with the hospitalist and he made some calls and apparently patient was accepted to 2 tertiary care centers bed availability was established I spoke to the transfer center myself patient has preserve blood pressure in the 140s preserved oxygen saturation and as well and as stable as he can be on heparin and will be transported tonight case had a high probability of a clinically significant, sudden, or life threatening deterioration of this patient's condition which required my full and direct attention, intervention and personal management. Critical Care Time (minutes): 30
--- NOTE | 2019-12-27 18:33 | P.DS_ITS ---
DS: Providers Provider Date of admission: 12/25/19 01:51 Primary care physician: Cornelius Phillips MD Consults: 12/25/19 02:43 Consult to Hematology / Oncology Routine Consulting Provider: [facility] Oncology/Hematology Reason for consultation: umprovoked PE Has provider been notified: No Consult to Physician Routine Consulting Provider: [facility] Cardiovascular Services Reason for consultation: PE Has provider been notified: No Consult to Pulmonology Routine Consulting Provider: [facility] Pulmonology Services Reason for consultation: unprovoked PE Has provider been notified: No 12/26/19 17:41 Consult to Critical Care Stat Consulting Provider: Juan Sutton Reason for consultation: acute respiratory failure /saddle pulm embolism Has provider been notified: Yes DS: Diagnosis Discharge Diagnosis (1) Hypoxia: Status: Acute Problem details: O2 by nasal canula, use High Flow, as needed to keep O2 sat above 92 % (2) Acute saddle pulmonary embolism: Status: Acute (3) Myasthenia gravis: Status: Acute Problem details: continue his regular medications (4) Acute saddle pulmonary embolism: Status: Acute (5) Diabetes: Status: Acute (6) Hypertension: Status: Acute (7) Hyperkalemia: Status: Acute Problem details: as above . DS: Summary Hospital Course Hospital Course: HPI:79 y/o male with significant hx of provoked PE in the past, presents today due to worsening SOB for the past 3 weeks. Patient reports that 3 weeks ago started experiencing difficulty breathing which was on and off but since yesterday his condition worsened and now is constant. Patient denies any chest pain, nausea, vomiting, dizziness or fever. Records were reviewed from a previous hospitalization of the patient in [facility] for diverticulitis with perforation which was managed medically and gastritis with an ulcer. During that admission on June of the current year, patient was found to have an incidental PE which was managed with heparin followed with eliquis for a total course of 3 months which patiemt completed successfully. Upon presentaiton now his vitals are found to be stable, 110/66 with mild tachycardia of 103 which now resolved and the BP is 165/90 mmHg currently. Saturating well o n nasal cannula 2 liters which drops to 87% when laying flat on bed without O2 supplement but remains stable with the nasal cannula. Troponin of 158 which dropped to 133. BNP of 1301. CTA positive for bilateral PE with saddle embolus and evidence of rigth heart strain without bowing septum. Case was discussed by ED with [employer] operations coordinator Dr Sutton who recommends to continue with current full dose anticoagulation (Heparin drip) but patient is deemed to be stable to go to medical floors. Decision for admission given. Patient seen and examined at the bedside, laying down in bed in no acute d istress. BP stable. saturating well. ROS as above otherwise negative. Physical exam positive for +1 pitting edema of bilateral LE, otherwise negative. 1. Acute hypoxemic respiratory failure due to acute saddle pulmonary embolism. Evidence of right heart strain without bowing of the septum ?elevated troponin probably related to above. patient says shortness of breath progressively getting worse, patient was placed on non-rebreather now. Plan: 2D echo : - The left ventricular systolic function is normal. The visually estimated ejection fraction is between 60-65%. - The right ventricle was not well visualized. On selected images, the right ventricle appears moderately dilated. - There is mild to moderate tricuspid valve regurgitation. - The right ventricular systolic pressure is 65 mmHg. Severe pulmonary hypertension is present. venous duplex b/l ext neg Patient initially started with supportive care -IV heparin, oxygen -subsequen tly patient started to desaturate last evening and placed on 50% oxygen and high-flow 35 L -patient says that he slightly he has that short of breath multani but still has short of breath- subsequently case was discussed with ICU, Cardiology and Pulmonary -recommended to transfer the patient for further catheter-related thrombolysis. case discussed with Dr. donnelly from [facility]: patient accepted there and subsequently plan to transfer patient there. 2. Hypertension: continue amlodipine, hold lisinopril for now . 3. Diabetes:: seems slightly improving in 200 -300's range. Hold PO hypoglycemic med, fs with adjusted coverage. 4.BPH (benign prostatic hyperplasia): continue with finasteride. 5.Hypothyroidism: continue with levothyroxine. 6. Hyperkalemia:K of 5.3 s/p insulin therapy, resolved . Follow up BMP for electrolytes in the am. 7. Myasthenia gravis: stable ,continue pyridostigmine home dose continue with prednisone. Time Spent with Patient Time attestation: Total time spent providing and/or coordinating discharge services: Physical Exam Vital Signs: Vital Signs: Vital Signs Temp Pulse Resp BP Pulse Ox 12/27/19 16:09 22 H 12/27/19 16:00 22 H 12/27/19 15:27 97.9 F 82 20 147/77 H 98 12/27/19 11:32 20 12/27/19 11:15 97.9 F 88 20 150/94 H 98 12/27/19 07:09 98 F 75 20 150/87 H 98 12/27/19 03:56 98.2 F 78 19 146/91 H 12/27/19 03:48 18 12/27/19 00:18 20 12/26/19 23:49 98.0 F 79 20 146/99 H 98 12/26/19 20:16 20 12/26/19 19:35 98.2 F 89 22 H 185/99 H 100 Body Mass Index 25.9 Physio: Seems short of breath but slightly better than yesterday Heent : neck supple. no JVD cvs: rrr, [id number] res: grossly fair entry, slightly diminished on left side, no rales or wheezing abd: no rebound or guarding ,nt, bs present. ext :pulses present , no cyanosis neuro: axo3 , nonfocal. DS: Data Data Completed and Pending Labs on day of discharge: Labs from last 24 hours 12/27/19 12/27/19 12/27/19 18:10 16:52 16:21 Hgb Hct PTT (Heparin Protocol) ABG pH ABG pCO2 ABG pO2 ABG HCO3 ABG O2 Saturation ABG Base Excess VBG pH 7.35 VBG pCO2 54 VBG Oxygen Liters/Min TNP VBG pO2 32 VBG HCO3 29 VBG O2 Saturation 60.0 VBG Base Excess 2.5 Oxygen Given Sodium Pending Potassium Pending Chloride Pending Carbon Dioxide Pending Anion Gap Pending BUN Pending Creatinine Pending Estim Creat Clear Calc Pending Estimated GFR Pending POC Glucose 356 H* Random Glucose Pending Calcium Pending Coronavirus (PCR) Blood Type Antibody Screen Antibody Identification Antigen Identification Crossmatch 12/27/19 12/27/19 12/27/19 11:45 07:19 06:32 Hgb 10.5 L Hct 35.4 L PTT (Heparin Protocol) ABG pH ABG pCO2 ABG pO2 ABG HCO3 ABG O2 Saturation ABG Base Excess VBG pH VBG pCO2 VBG Oxygen Liters/Min VBG pO2 VBG HCO3 VBG O2 Saturation VBG Base Excess Oxygen Given Sodium Potassium Chloride Carbon Dioxide Anion Gap BUN Creatinine Estim Creat Clear Calc Estimated GFR POC Glucose 270 H 149 H Random Glucose Calcium Coronavirus (PCR) Blood Type Antibody Screen Antibody Identification Antigen Identification Crossmatch 12/27/19 12/27/19 12/27/19 06:32 06:27 02:14 Hgb Hct PTT (Heparin Protocol) 55.3 ABG pH ABG pCO2 ABG pO2 ABG HCO3 ABG O2 Saturation ABG Base Excess VBG pH Cancelled 7.37 VBG pCO2 Cancelled 47 VBG Oxygen Liters/Min Cancelled TNP VBG pO2 Cancelled 126 VBG HCO3 Cancelled 26 VBG O2 Saturation Cancelled 98.2 VBG Base Excess Cancelled 0.5 Oxygen Given Sodium Potassium Chloride Carbon Dioxide Anion Gap BUN Creatinine Estim Creat Clear Calc Estimated GFR POC Glucose Random Glucose Calcium Coronavirus (PCR) Blood Type Antibody Screen Antibody Identification Antigen Identification Crossmatch 12/26/19 12/26/19 12/26/19 23:14 20:50 20:24 Hgb Hct PTT (Heparin Protocol) ABG pH 7.35 ABG pCO2 51 H ABG pO2 130 H ABG HCO3 27 H ABG O2 Saturation 98.3 ABG Base Excess 1.1 VBG pH 7.37 VBG pCO2 48 VBG Oxygen Liters/Min Not Reportable VBG pO2 93 VBG HCO3 27 VBG O2 Saturation 96.9 VBG Base Excess 1.6 Oxygen Given 70% Sodium Potassium Chloride Carbon Dioxide Anion Gap BUN Creatinine Estim Creat Clear Calc Estimated GFR POC Glucose 237 H Random Glucose Calcium Coronavirus (PCR) Blood Type Antibody Screen Antibody Identification Antigen Identification Crossmatch 12/26/19 12/26/19 17:33 17:15 Hgb Hct PTT (Heparin Protocol) ABG pH ABG pCO2 ABG pO2 ABG HCO3 ABG O2 Saturation ABG Base Excess VBG pH VBG pCO2 VBG Oxygen Liters/Min VBG pO2 VBG HCO3 VBG O2 Saturation VBG Base Excess Oxygen Given Sodium Potassium Chloride Carbon Dioxide Anion Gap BUN Creatinine Estim Creat Clear Calc Estimated GFR POC Glucose Random Glucose Calcium Coronavirus (PCR) NEGATIVE Blood Type O Positive Antibody Screen POSITIVE Antibody Identification Anti-K Antigen Identification K Antigen - NEGATIVE Crossmatch See Detail Discharge Plan Discharge Patient Disposition: Xfer [facility] Referrals: Cornelius Phillips MD [Primary Care Provider] - Discharge Medications: New amlodipine 2.5 mg Tablet 2.5 mg PO DAILY Qty: 0 RF: 0 heparin(porcine) in 0.45% NaCl 25,000 unit/250 mL Parenteral Solution 25,000 unit continuous IV infusion .Q0M Qty: 0 RF: 0 insulin lispro [Humalog U-100 Insulin] 100 unit/mL Solution See Protocol unit subcut QIDACHS Qty: 0 RF: 0 Continued glipizide 10 mg tablet extended release 24hr 1 tab PO DAILY RF: 0 prednisone 5 mg tablet 3 tab PO DAILY RF: 0 azathioprine 50 mg tablet 1 tab PO BID RF: 0 levothyroxine 75 mcg tablet 1 tab PO QAM RF: 0 famotidine 20 mg tablet 1 tab PO BID RF: 0 pyridostigmine bromide 60 mg tablet 2 tab PO TID RF: 0 finasteride 5 mg tablet 1 tab PO DAILY RF: 0 Held lisinopril 30 mg tablet 1 tab PO DAILY RF: 0 Hold Instructions: Resume on 12/29/19. Discharge Orders: Discharge Order (Routine); Ordered 12/27/19 Ordered By: Silvia Allan Diet: advance to your usual diet and diabetic diet Activity on Discharge: As tolerated Visit Report Forms: Patient Portal Discharge page Care Plan Goals: patient has pulmonary embolism with acute hypoxemic respiratory failure patient will need catheter related thrombolysis for that reason getting transferred to [facility] Health Concerns: as above. Plan of Treatment: As above.
[2019-12-27 19:01] LABS: Base Excess VBG 0.8 mmol/L; HCO3 VBG 29 mmol/L; Oxygen Saturation VBG 59.9 %; PCO2 VBG 63 mmhg; PO2 VBG 35 mmhg; pH VBG 7.28 (7.32-7.43)
[2019-12-27 19:02] LABS: Blood Gas Serial # 5414
[2019-12-27 19:16] LABS: Anion Gap 11 (12-20); Blood Urea Nitrogen 14 mg/dL (9-16); Calcium 8.6 mg/dL (8.4-10.2); Carbon Dioxide 28 mmol/L (22-29); Chloride 103 mmol/L (96-108); Creatinine Clr Calc Pharmacy 49.1; Estimated Glomerular Filt Rate > 60; Glucose Random 304 mg/dL (60-115); Potassium 4.4 mmol/l (3.3-5.1); Sodium 138 mmol/L (135-145)
== END 2019-12-27 20:30 | disposition short-term general hospital (02) | DRG 175 ==
LOC: HO.ED 12-25 00:40 → HO.IMC 12-25 01:57
PROVIDERS: Internal Medicine; Physician Assistant; Admitting Provider Internal Medicine; Emergency Provider Emergency Medicine; PCP Internal Medicine; Visit Provider Internal Medicine Cardiovascular Disease
DX: I26.92 Saddle embolus of pulmonary artery without acute cor pulmonale (principal); I21.4 Non-ST elevation (NSTEMI) myocardial infarction; Z86.711 Personal history of pulmonary embolism; E11.9 Type 2 diabetes mellitus without complications; E78.5 Hyperlipidemia, unspecified; I10 Essential (primary) hypertension; D64.9 Anemia, unspecified; N40.0 Benign prostatic hyperplasia without lower urinary tract symptoms; G70.00 Myasthenia gravis without (acute) exacerbation; E03.9 Hypothyroidism, unspecified; Z20.828 Contact with and (suspected) exposure to other viral communicable diseases; Z87.891 Personal history of nicotine dependence; Z79.52 Long term (current) use of systemic steroids; Z79.84 Long term (current) use of oral hypoglycemic drugs; Z79.890 Hormone replacement therapy; Z79.899 Other long term (current) drug therapy
CPT/HCPCS: 11104; 36415; 36600; 71045; 71275; 80048; 80076; 81003; 82272; 82803; 82947; 83690; 83880; 84484; 85014; 85018; 85025; 85027; 85379; 85610; 85730; 86850; 86870; 86900; 86901; 86902; 86905; 86920; 86922; 87635; 90686; 93005; 93306; 93970; 96361; 96374; 99285; 99291; J1100; J2270; Q9957

== ENCOUNTER 2020-01-28 07:28 | Outpatient (REF) | payer MEDICARE, SELFPAY | END 2020-01-28 07:29 | disposition home or self-care (01) | LOC: HO.MDS 07:28 | PROVIDERS: PCP Internal Medicine; Visit Provider Psychiatry & Neurology Neurology | DX: G70.00 Myasthenia gravis without (acute) exacerbation (principal) | CPT/HCPCS: 96365; 96366; J1572 ==

== ENCOUNTER 2020-03-18 07:55 | Outpatient (REF) | payer MEDICARE, SELFPAY | END 2020-03-18 07:56 | disposition home or self-care (01) | LOC: HO.MDS 07:55 | PROVIDERS: PCP Internal Medicine; Visit Provider Psychiatry & Neurology Neurology | DX: G70.00 Myasthenia gravis without (acute) exacerbation (principal) | CPT/HCPCS: 96365; 96366; J1572 ==

== ENCOUNTER 2020-04-06 08:46 | Outpatient (REF) | payer MEDICARE, SELFPAY ==
[2020-04-06 10:08] LABS: MANUAL DIFF FLAG NO
[2020-04-06 10:15] LABS: Basophils Percent Auto 0.5 % (0-2); Eosinophils Percent Auto 0.3 % (0-4); Hematocrit 41.6 % (42-52); Hemoglobin 12.8 g/dl (14.0-18.0); Imm Gran Abs Auto 0.02 X10*3/uL (0.00-0.03); Imm Gran Pct Auto 0.3 % (0.0-0.4); Lymphocytes Absolute Auto 1.1 X10*3/uL (1.2-4.9); Lymphocytes Percent Auto 16.6 % (20-40); Mean Corpuscular HGB Conc 30.8 g/dl (31.0-36.0); Mean Corpuscular Volume 94.3 fL (80-98); Mean Platelet Volume 9.7 fL (9.4-12.4); Monocytes Absolute Auto 0.7 X10*3/uL (0.1-1.2); Monocytes Percent Auto 11.5 % (2-11); Neutrophils Absolute Auto 4.6 X10*3/uL (2.0-8.3); Neutrophils Percent Auto 70.8 % (45-73); Platelet Count 249 X10*3/uL (160-400); Red Blood Count 4.41 X10*6/uL (4.60-5.80); Red Cell Distribution Width 18.4 % (11.0-16.0); White Blood Count 6.5 X10*3/uL (4.8-10.8)
[2020-04-06 10:37] LABS: Estimated Average Glucose 140 mg/dL; Hemoglobin A1c % 6.5 %
[2020-04-06 10:43] LABS: Glucose Urine UA NEG (NEG); Leukocyte Esterase Urine NEG (NEG); Nitrite Urine NEG (NEG); PH 5.5 (5.0-8.0); Specific Gravity - Urine >= 1.030 (1.005-1.025); Urine Blood NEG (NEG); Urine Ketones 5 MG/DL (NEG); Urine Protein NEG (NEG-TRACE)
[2020-04-06 10:46] LABS: Appearance Urine HAZY; Color Urine YELLOW
[2020-04-06 10:54] LABS: Creatinine Urine 251.94 mg/dL; Microalbum/Creatinine Ratio Ur 14.2 ug/mg cr
[2020-04-06 11:01] LABS: Alanine Aminotransferase 11 U/L (0-40); Albumin Level 3.8 g/dL (3.5-5.0); Alkaline Phosphatase 63 U/L (39-117); Anion Gap 14 (12-20); Aspartate Amino Transferase 16 U/L (5-37); Bilirubin Total 0.7 mg/dL (0.0-1.0); Blood Urea Nitrogen 16 mg/dL (9-16); Calcium 9.6 mg/dL (8.4-10.2); Carbon Dioxide 29 mmol/L (22-29); Chloride 102 mmol/L (96-108); Cholesterol 140 mg/dL; Estimated Glomerular Filt Rate > 60; Glucose Fasting 77 mg/dL (60-99); HDL Cholesterol 68 mg/dL; Iron 35 mcg/dL (45-160); LDL Cholesterol Calculated 62 mg/dl; Percent Iron Saturation 10 % (15-50); Potassium 4.5 mmol/l (3.3-5.1); Sodium 140 mmol/L (135-145); Total Iron Binding Capacity 338 mcg/dL (228-428); Total Protein 6.7 g/dL (6.5-8.0); Triglycerides 51 mg/dL; Unsaturated Iron Binding 303 ug/dL
[2020-04-06 11:06] LABS: WBC Urine 0 /HPF (0-4)
[2020-04-06 11:07] LABS: RBC Urine 0 /HPF (0); Squamous Epithelial Cell Urine TRACE /LPF
[2020-04-06 11:22] LABS: Free T4 (Free Thyroxine) 1.23 ng/dL (0.71-1.85); Thyroid Stimulating Hormone 4.77 uIU/mL (0.32-4.0); Vitamin D 25-OH Total 63.4 ng/mL (>30)
[2020-04-06 11:35] LABS: Folate > 20.0 ng/mL (> or = 4.0); Vitamin B12 262 pg/mL (200-900)
== END 2020-04-06 08:47 | disposition home or self-care (01) ==
LOC: HO.10HDL 08:46
PROVIDERS: Visit Provider Internal Medicine
DX: I10 Essential (primary) hypertension (principal); E11.9 Type 2 diabetes mellitus without complications; E78.5 Hyperlipidemia, unspecified; E03.9 Hypothyroidism, unspecified; D64.9 Anemia, unspecified; G70.00 Myasthenia gravis without (acute) exacerbation; K92.1 Melena; N40.1 Benign prostatic hyperplasia with lower urinary tract symptoms; R35.0 Frequency of micturition; E55.9 Vitamin D deficiency, unspecified
CPT/HCPCS: 36415; 80053; 80061; 81001; 82043; 82306; 82607; 82746; 83036; 83540; 84439; 84443; 85025

== ENCOUNTER → 2020-04-26 13:29 | Outpatient (BNVA) | payer MEDICARE, SELFPAY | PROVIDERS: PCP Internal Medicine; Visit Provider Hospitalist | DX: I26.02 Saddle embolus of pulmonary artery with acute cor pulmonale (principal); R06.00 Dyspnea, unspecified | CPT/HCPCS: 99202 ==

== ENCOUNTER 2020-05-26 08:38 | Outpatient (REF) | payer MEDICARE, SELFPAY | END 2020-05-26 08:39 | disposition home or self-care (01) | LOC: HO.MDS 08:38 | PROVIDERS: PCP Internal Medicine; Visit Provider Psychiatry & Neurology Neurology | DX: G70.00 Myasthenia gravis without (acute) exacerbation (principal) | CPT/HCPCS: 96365; 96366; J1572 ==

== ENCOUNTER 2020-07-06 08:14 | Outpatient (REF) | payer MEDICARE, SELFPAY ==
[2020-07-06 10:12] LABS: MANUAL DIFF FLAG NO
[2020-07-06 10:20] LABS: Basophils Absolute Auto 0.1 X10*3/uL (0.0-0.2); Basophils Percent Auto 0.8 % (0-2); Eosinophils Percent Auto 0.5 % (0-4); Hemoglobin 13.7 g/dl (14.0-18.0); Imm Gran Abs Auto 0.03 X10*3/uL (0.00-0.03); Imm Gran Pct Auto 0.5 % (0.0-0.4); Lymphocytes Absolute Auto 1.2 X10*3/uL (1.2-4.9); Lymphocytes Percent Auto 19.5 % (20-40); Mean Corpuscular HGB Conc 31.1 g/dl (31.0-36.0); Mean Corpuscular Hemoglobin 30.8 pg (27.0-33.0); Mean Corpuscular Volume 98.9 fL (80-98); Mean Platelet Volume 9.8 fL (9.4-12.4); Monocytes Absolute Auto 0.7 X10*3/uL (0.1-1.2); Neutrophils Absolute Auto 4.1 X10*3/uL (2.0-8.3); Neutrophils Percent Auto 67.7 % (45-73); Platelet Count 290 X10*3/uL (160-400); Red Blood Count 4.45 X10*6/uL (4.60-5.80); Red Cell Distribution Width 16.6 % (11.0-16.0)
[2020-07-06 10:21] LABS: Glucose Urine UA NEG (NEG); Leukocyte Esterase Urine NEG (NEG); Nitrite Urine NEG (NEG); Specific Gravity - Urine 1.025 (1.005-1.025); Urine Blood NEG (NEG); Urine Ketones NEG (NEG); Urine Protein NEG (NEG-TRACE)
[2020-07-06 10:23] LABS: Appearance Urine CLEAR; Color Urine YELLOW
[2020-07-06 10:37] LABS: Alanine Aminotransferase 16 U/L (0-40); Albumin Level 4.1 g/dL (3.5-5.0); Alkaline Phosphatase 59 U/L (39-117); Anion Gap 14 (12-20); Aspartate Amino Transferase 19 U/L (5-37); Bilirubin Total 0.9 mg/dL (0.0-1.0); Blood Urea Nitrogen 18 mg/dL (9-16); Calcium 9.8 mg/dL (8.4-10.2); Carbon Dioxide 31 mmol/L (22-29); Chloride 103 mmol/L (96-108); Cholesterol 153 mg/dL; Estimated Glomerular Filt Rate > 60; Glucose Fasting 88 mg/dL (60-99); HDL Cholesterol 73 mg/dL; LDL Cholesterol Calculated 61 mg/dl; Potassium 4.5 mmol/L (3.3-5.1); Sodium 143 mmol/L (135-145); Total Protein 6.6 g/dL (6.5-8.0); Triglycerides 97 mg/dL
[2020-07-06 11:00] LABS: Free T4 (Free Thyroxine) 1.04 ng/dL (0.71-1.85); Thyroid Stimulating Hormone 4.74 uIU/mL (0.32-4.0)
[2020-07-06 12:26] LABS: Creatinine Urine 157.64 mg/dL; Microalbum/Creatinine Ratio Ur 13.3 ug/mg cr
== END 2020-07-06 08:15 | disposition home or self-care (01) ==
LOC: HO.10HDL 08:14
PROVIDERS: Visit Provider Internal Medicine
DX: E03.9 Hypothyroidism, unspecified (principal); E78.00 Pure hypercholesterolemia, unspecified; E55.9 Vitamin D deficiency, unspecified; E11.9 Type 2 diabetes mellitus without complications; I10 Essential (primary) hypertension; D64.9 Anemia, unspecified
CPT/HCPCS: 36415; 80053; 80061; 81003; 82043; 82306; 84439; 84443; 85025

== ENCOUNTER 2020-08-26 07:38 | Outpatient (REF) | payer MEDICARE, SELFPAY | END 2020-08-26 07:39 | disposition home or self-care (01) | LOC: HO.MDS 07:38 | PROVIDERS: PCP Internal Medicine; Visit Provider Psychiatry & Neurology Neurology | DX: G70.00 Myasthenia gravis without (acute) exacerbation (principal) | CPT/HCPCS: 96365; 96366; J1572 ==

== ENCOUNTER 2020-10-12 11:14 | Outpatient (REF) | payer MEDICARE, SELFPAY ==
--- NOTE | 2020-10-12 11:19 | ECG_ITS ---
Test Reason : PREOP Blood Pressure : / mmHG Vent. Rate : 077 BPM Atrial Rate : 077 BPM P-R Int : 134 ms QRS Dur : 148 ms QT Int : 410 ms P-R-T Axes : -05 -30 024 degrees QTc Int : 463 ms Normal sinus rhythm with sinus arrhythmia Left axis deviation Right bundle branch block Abnormal ECG When compared with ECG of 24-DEC-2019 19:34, T wave inversion no longer evident in Inferior leads T wave inversion no longer evident in Anterior leads Referred By: Cornelius Phillips Electronically Signed By:JUAN MIGUEL SIMMONS
[2020-10-12 12:09] LABS: MANUAL DIFF FLAG NO
[2020-10-12 12:11] LABS: Basophils Absolute Auto 0.1 X10*3/uL (0.0-0.2); Basophils Percent Auto 0.6 % (0-2); Eosinophils Percent Auto 0.5 % (0-4); Hematocrit 43.8 % (42-52); Hemoglobin 13.9 g/dl (14.0-18.0); Imm Gran Abs Auto 0.03 X10*3/uL (0.00-0.03); Imm Gran Pct Auto 0.4 % (0.0-0.4); Lymphocytes Absolute Auto 0.9 X10*3/uL (1.2-4.9); Mean Corpuscular HGB Conc 31.7 g/dl (31.0-36.0); Mean Corpuscular Hemoglobin 31.7 pg (27.0-33.0); Mean Corpuscular Volume 99.8 fL (80-98); Mean Platelet Volume 9.5 fL (9.4-12.4); Monocytes Absolute Auto 0.6 X10*3/uL (0.1-1.2); Monocytes Percent Auto 7.5 % (2-11); Neutrophils Absolute Auto 6.9 X10*3/uL (2.0-8.3); Platelet Count 284 X10*3/uL (160-400); Red Blood Count 4.39 X10*6/uL (4.60-5.80); Red Cell Distribution Width 14.6 % (11.0-16.0); White Blood Count 8.5 X10*3/uL (4.8-10.8)
[2020-10-12 12:29] LABS: Estimated Average Glucose 134 mg/dL; Hemoglobin A1c % 6.3 %
[2020-10-12 12:31] LABS: Alanine Aminotransferase 14 U/L (0-40); Albumin Level 4.2 g/dL (3.5-5.0); Alkaline Phosphatase 94 U/L (39-117); Anion Gap 13 (12-20); Aspartate Amino Transferase 18 U/L (5-37); Bilirubin Total 0.4 mg/dL (0.0-1.0); Blood Urea Nitrogen 16 mg/dL (9-16); Calcium 10.3 mg/dL (8.4-10.2); Carbon Dioxide 31 mmol/L (22-29); Chloride 105 mmol/L (96-108); Estimated Glomerular Filt Rate 59; Glucose Random 133 mg/dL (60-115); Potassium 5.1 mmol/L (3.3-5.1); Sodium 144 mmol/L (135-145); Total Protein 6.9 g/dL (6.5-8.0)
[2020-10-12 12:53] LABS: Free T4 (Free Thyroxine) 1.25 ng/dL (0.71-1.85); Thyroid Stimulating Hormone 2.87 uIU/mL (0.32-4.0)
[2020-10-12 12:58] LABS: Glucose Urine UA NEG (NEG); Leukocyte Esterase Urine NEG (NEG); Nitrite Urine NEG (NEG); Specific Gravity - Urine >= 1.030 (1.005-1.025); Urine Blood NEG (NEG); Urine Ketones 5 MG/DL (NEG); Urine Protein NEG (NEG-TRACE)
[2020-10-12 13:01] LABS: Appearance Urine CLEAR; Color Urine YELLOW
[2020-10-12 13:35] LABS: Creatinine Urine 172.41 mg/dL; Microalbum/Creatinine Ratio Ur 16.8 ug/mg cr
== END 2020-10-12 11:15 | disposition home or self-care (01) ==
LOC: HO.LAB 11:14
PROVIDERS: PCP Internal Medicine; Visit Provider Internal Medicine
DX: Z01.818 Encounter for other preprocedural examination (principal); I26.02 Saddle embolus of pulmonary artery with acute cor pulmonale; I21.4 Non-ST elevation (NSTEMI) myocardial infarction; I10 Essential (primary) hypertension; E03.9 Hypothyroidism, unspecified; E78.00 Pure hypercholesterolemia, unspecified; E11.9 Type 2 diabetes mellitus without complications; E55.9 Vitamin D deficiency, unspecified
CPT/HCPCS: 36415; 80053; 81003; 82043; 82306; 83036; 84439; 84443; 85025; 93005

== ENCOUNTER 2021-01-31 08:22 | Outpatient (REF) | payer MEDICARE, SELFPAY ==
[2021-01-31 10:21] LABS: MANUAL DIFF FLAG NO
[2021-01-31 10:26] LABS: Basophils Percent Auto 0.6 % (0-2); Eosinophils Percent Auto 0.2 % (0-4); Hematocrit 41.5 % (42.0-52.0); Hemoglobin 13.2 g/dl (14.0-18.0); Imm Gran Abs Auto 0.08 X10*3/uL (0.00-0.03); Imm Gran Pct Auto 1.6 % (0.0-0.4); Lymphocytes Percent Auto 19.1 % (20-40); Mean Corpuscular HGB Conc 31.8 g/dl (31.0-36.0); Mean Corpuscular Hemoglobin 31.4 pg (27.0-33.0); Mean Corpuscular Volume 98.8 fL (80.0-98.0); Mean Platelet Volume 9.6 fL (9.4-12.4); Monocytes Absolute Auto 0.5 X10*3/uL (0.1-1.2); Monocytes Percent Auto 9.1 % (2-11); Neutrophils Absolute Auto 3.5 x10*3/uL (2.0-8.3); Neutrophils Percent Auto 69.4 % (45-73); Platelet Count 293 X10*3/uL (160-400); Red Cell Distribution Width 15.9 % (11.0-16.0); White Blood Count 5.1 X10*3/uL (4.8-10.8)
[2021-01-31 11:14] LABS: Alanine Aminotransferase 16 U/L (0-40); Albumin Level 3.5 g/dL (3.5-5.0); Alkaline Phosphatase 87 U/L (39-117); Anion Gap 10 (12-20); Aspartate Amino Transferase 14 U/L (5-37); Bilirubin Total 0.4 mg/dL (0.0-1.0); Blood Urea Nitrogen 13 mg/dL (9-16); Carbon Dioxide 30 mmol/L (22-29); Chloride 107 mmol/L (96-108); Cholesterol 178 mg/dL; Estimated Glomerular Filt Rate > 60; Glucose Fasting 175 mg/dL (60-99); HDL Cholesterol 68 mg/dL; LDL Cholesterol Calculated 97 mg/dl; Potassium 4.8 mmol/L (3.3-5.1); Sodium 142 mmol/L (135-145); Total Protein 5.6 g/dL (6.5-8.0); Triglycerides 68 mg/dL
== END 2021-01-31 08:23 | disposition home or self-care (01) ==
LOC: HO.10HDL 08:22
PROVIDERS: Visit Provider Internal Medicine
DX: I10 Essential (primary) hypertension (principal); D64.9 Anemia, unspecified; E11.9 Type 2 diabetes mellitus without complications; E78.00 Pure hypercholesterolemia, unspecified
CPT/HCPCS: 36415; 80053; 80061; 85025

== ENCOUNTER 2021-05-16 08:15 | Outpatient (REF) | payer MEDICARE, SELFPAY ==
[2021-05-16 10:06] LABS: MANUAL DIFF FLAG NO
[2021-05-16 10:14] LABS: Appearance Urine CLEAR; Color Urine YELLOW; Glucose Urine UA NEG (NEG); Leukocyte Esterase Urine NEG (NEG); Nitrite Urine NEG (NEG); PH 5.5 (5.0-8.0); Urine Blood NEG (NEG); Urine Ketones NEG (NEG); Urine Protein NEG (NEG-TRACE)
[2021-05-16 10:15] LABS: Basophils Percent Auto 0.8 % (0-2); Eosinophils Percent Auto 0.6 % (0-4); Hematocrit 43.6 % (42.0-52.0); Hemoglobin 13.7 g/dl (14.0-18.0); Imm Gran Abs Auto 0.02 X10*3/uL (0.00-0.03); Imm Gran Pct Auto 0.4 % (0.0-0.4); Lymphocytes Absolute Auto 1.2 X10*3/uL (1.2-4.9); Lymphocytes Percent Auto 22.4 % (20-40); Mean Corpuscular HGB Conc 31.4 g/dl (31.0-36.0); Mean Corpuscular Hemoglobin 31.6 pg (27.0-33.0); Mean Corpuscular Volume 100.5 fL (80.0-98.0); Mean Platelet Volume 10.4 fL (9.4-12.4); Monocytes Absolute Auto 0.6 X10*3/uL (0.1-1.2); Monocytes Percent Auto 11.9 % (2-11); Neutrophils Absolute Auto 3.4 x10*3/uL (2.0-8.3); Neutrophils Percent Auto 63.9 % (45-73); Platelet Count 251 X10*3/uL (160-400); Red Blood Count 4.34 X10*6/uL (4.60-5.80); White Blood Count 5.3 X10*3/uL (4.8-10.8)
[2021-05-16 10:29] LABS: Alanine Aminotransferase 13 U/L (0-40); Albumin Level 4.1 g/dL (3.5-5.0); Alkaline Phosphatase 61 U/L (39-117); Anion Gap 11 (12-20); Aspartate Amino Transferase 17 U/L (5-37); Bilirubin Total 0.5 mg/dL (0.0-1.0); Blood Urea Nitrogen 15 mg/dL (9-16); Carbon Dioxide 29 mmol/L (22-29); Chloride 105 mmol/L (96-108); Cholesterol 161 mg/dL; Estimated Glomerular Filt Rate > 60; Glucose Fasting 113 mg/dL (60-99); HDL Cholesterol 66 mg/dL; LDL Cholesterol Calculated 77 mg/dl; Potassium 4.8 mmol/L (3.3-5.1); Sodium 140 mmol/L (135-145); Total Protein 6.5 g/dL (6.5-8.0); Triglycerides 90 mg/dL
[2021-05-16 10:49] LABS: TSH reflex Free T4 7.53 uIU/mL (0.32-4.0); Vitamin D 25-OH Total 66.3 ng/mL (>30)
[2021-05-16 11:00] LABS: Creatinine Urine 50.97 mg/dL; Microalbum/Creatinine Ratio Ur 13.7 ug/mg cr
[2021-05-16 11:11] LABS: Estimated Average Glucose 146 mg/dL; Hemoglobin A1c % 6.7 %
[2021-05-16 11:59] LABS: Free T4 (Free Thyroxine) 1.04 ng/dL (0.71-1.85)
== END 2021-05-16 08:16 | disposition home or self-care (01) ==
LOC: HO.10HDL 08:15
PROVIDERS: Visit Provider Internal Medicine
DX: I10 Essential (primary) hypertension (principal); E78.00 Pure hypercholesterolemia, unspecified; E55.9 Vitamin D deficiency, unspecified; E11.9 Type 2 diabetes mellitus without complications
CPT/HCPCS: 36415; 80053; 80061; 81003; 82043; 82306; 83036; 84439; 84443; 85025

== ENCOUNTER 2021-09-05 08:35 | Outpatient (REF) | payer MEDICARE, SELFPAY ==
[2021-09-05 10:18] LABS: MANUAL DIFF FLAG NO
[2021-09-05 10:39] LABS: Basophils Absolute Auto 0.1 X10*3/uL (0.0-0.2); Eosinophils Absolute Auto 0.1 X10*3/uL (0.0-0.4); Eosinophils Percent Auto 1.9 % (0-4); Hematocrit 43.2 % (42.0-52.0); Hemoglobin 13.6 g/dl (14.0-18.0); Imm Gran Abs Auto 0.02 X10*3/uL (0.00-0.03); Imm Gran Pct Auto 0.4 % (0.0-0.4); Lymphocytes Absolute Auto 1.3 X10*3/uL (1.2-4.9); Lymphocytes Percent Auto 23.8 % (20-40); Mean Corpuscular HGB Conc 31.5 g/dl (31.0-36.0); Mean Corpuscular Hemoglobin 31.7 pg (27.0-33.0); Mean Corpuscular Volume 100.7 fL (80.0-98.0); Mean Platelet Volume 10.6 fL (9.4-12.4); Monocytes Absolute Auto 0.6 X10*3/uL (0.1-1.2); Monocytes Percent Auto 11.2 % (2-11); Neutrophils Absolute Auto 3.2 x10*3/uL (2.0-8.3); Neutrophils Percent Auto 61.7 % (45-73); Platelet Count 246 X10*3/uL (160-400); Red Blood Count 4.29 X10*6/uL (4.60-5.80); Red Cell Distribution Width 14.6 % (11.0-16.0); White Blood Count 5.3 X10*3/uL (4.8-10.8)
[2021-09-05 10:42] LABS: Estimated Average Glucose 123 mg/dL; Hemoglobin A1c % 5.9 %
[2021-09-05 10:55] LABS: Alanine Aminotransferase 11 U/L (0-40); Albumin Level 4.3 g/dL (3.5-5.0); Alkaline Phosphatase 66 U/L (39-117); Anion Gap 11 (12-20); Aspartate Amino Transferase 17 U/L (5-37); Bilirubin Total 0.7 mg/dL (0.0-1.0); Blood Urea Nitrogen 13 mg/dL (9-16); Calcium 9.6 mg/dL (8.4-10.2); Carbon Dioxide 29 mmol/L (22-29); Chloride 106 mmol/L (96-108); Cholesterol 145 mg/dL; Estimated Glomerular Filt Rate > 60; Glucose Fasting 107 mg/dL (60-99); HDL Cholesterol 69 mg/dL; LDL Cholesterol Calculated 61 mg/dl; Potassium 4.9 mmol/L (3.3-5.1); Sodium 141 mmol/L (135-145); Total Protein 6.7 g/dL (6.5-8.0); Triglycerides 78 mg/dL
[2021-09-05 11:23] LABS: Creatinine Urine 96.61 mg/dL; Microalbum/Creatinine Ratio Ur 23.8 ug/mg cr
[2021-09-05 11:24] LABS: Free T4 (Free Thyroxine) 1.13 ng/dL (0.71-1.85); Vitamin D 25-OH Total 76.1 ng/mL (>30)
[2021-09-05 11:45] LABS: Folate 19.5 ng/mL (> or = 4.0); Vitamin B12 646 pg/mL (200-900)
== END 2021-09-05 08:36 | disposition home or self-care (01) ==
LOC: HO.10HDL 08:35
PROVIDERS: Visit Provider Internal Medicine
DX: I10 Essential (primary) hypertension (principal); E11.9 Type 2 diabetes mellitus without complications; E55.9 Vitamin D deficiency, unspecified; E53.8 Deficiency of other specified B group vitamins; E03.9 Hypothyroidism, unspecified; E78.00 Pure hypercholesterolemia, unspecified
CPT/HCPCS: 36415; 80053; 80061; 82043; 82306; 82607; 82746; 83036; 84439; 84443; 85025

== ENCOUNTER 2022-01-09 08:37 | Outpatient (REF) | payer MEDICARE, SELFPAY ==
[2022-01-09 10:33] LABS: MANUAL DIFF FLAG NO
[2022-01-09 10:50] LABS: Basophils Percent Auto 0.6 % (0-2); Eosinophils Absolute Auto 0.1 X10*3/uL (0.0-0.4); Hematocrit 43.8 % (42.0-52.0); Hemoglobin 14.1 g/dl (14.0-18.0); Imm Gran Abs Auto 0.03 X10*3/uL (0.00-0.03); Imm Gran Pct Auto 0.4 % (0.0-0.4); Lymphocytes Percent Auto 14.3 % (20-40); Mean Corpuscular HGB Conc 32.2 g/dl (31.0-36.0); Mean Corpuscular Hemoglobin 32.6 pg (27.0-33.0); Mean Corpuscular Volume 101.4 fL (80.0-98.0); Mean Platelet Volume 10.5 fL (9.4-12.4); Monocytes Percent Auto 13.6 % (2-11); Neutrophils Absolute Auto 5.1 x10*3/uL (2.0-8.3); Neutrophils Percent Auto 70.1 % (45-73); Platelet Count 240 X10*3/uL (160-400); Red Blood Count 4.32 X10*6/uL (4.60-5.80); Red Cell Distribution Width 15.5 % (11.0-16.0); White Blood Count 7.2 X10*3/uL (4.8-10.8)
[2022-01-09 10:53] LABS: Appearance Urine Clear; Color Urine Yellow; Glucose Urine UA Negative (Negative); Leukocyte Esterase Urine Negative (Negative); Nitrite Urine Negative (Negative); Specific Gravity - Urine 1.015 (1.005-1.025); Urine Blood Negative (Negative); Urine Ketones Negative (Negative); Urine Protein Negative (Neg-Trace)
[2022-01-09 11:05] LABS: Estimated Average Glucose 120 mg/dL; Hemoglobin A1c % 5.8 %
[2022-01-09 11:20] LABS: Alanine Aminotransferase 10 U/L (0-40); Albumin Level 4.1 g/dL (3.5-5.0); Alkaline Phosphatase 59 U/L (39-117); Anion Gap 15 (12-20); Aspartate Amino Transferase 16 U/L (5-37); Bilirubin Total 1.1 mg/dL (0.0-1.0); Blood Urea Nitrogen 12 mg/dL (9-16); Calcium 9.9 mg/dL (8.4-10.2); Carbon Dioxide 30 mmol/L (22-29); Chloride 101 mmol/L (96-108); Cholesterol 147 mg/dL; Estimated Glomerular Filt Rate > 60; Glucose Fasting 116 mg/dL (60-99); HDL Cholesterol 67 mg/dL; LDL Cholesterol Calculated 66 mg/dl; Potassium 4.9 mmol/L (3.3-5.1); Sodium 141 mmol/L (135-145); Total Protein 6.6 g/dL (6.5-8.0); Triglycerides 70 mg/dL
[2022-01-09 11:25] LABS: Free T4 (Free Thyroxine) 1.14 ng/dL (0.71-1.85); Thyroid Stimulating Hormone 4.77 uIU/mL (0.32-4.0); Vitamin D 25-OH Total 60.6 ng/mL (>30)
[2022-01-09 12:26] LABS: Creatinine Urine 85.61 mg/dL; Microalbum/Creatinine Ratio Ur 24.5 ug/mg cr
[2022-01-09 14:46] LABS: Folate 14.2 ng/mL (> or = 4.0); Vitamin B12 424 pg/mL (200-900)
== END 2022-01-09 08:38 | disposition home or self-care (01) ==
LOC: HO.10HDL 08:37
PROVIDERS: Visit Provider Internal Medicine
DX: I10 Essential (primary) hypertension (principal); E78.00 Pure hypercholesterolemia, unspecified; E53.8 Deficiency of other specified B group vitamins; E03.9 Hypothyroidism, unspecified; E55.9 Vitamin D deficiency, unspecified; E11.9 Type 2 diabetes mellitus without complications
CPT/HCPCS: 36415; 80053; 80061; 81003; 82043; 82306; 82607; 82746; 83036; 84439; 84443; 85025

== ENCOUNTER 2022-05-16 09:40 | Outpatient (REF) | payer MEDICARE, SELFPAY ==
[2022-05-16 11:26] LABS: MANUAL DIFF FLAG NO
[2022-05-16 11:39] LABS: Basophils Absolute Auto 0.1 X10*3/uL (0.0-0.2); Basophils Percent Auto 0.7 % (0-2); Eosinophils Absolute Auto 0.1 X10*3/uL (0.0-0.4); Eosinophils Percent Auto 1.2 % (0-4); Hematocrit 45.3 % (42.0-52.0); Hemoglobin 14.3 g/dl (14.0-18.0); Imm Gran Abs Auto 0.02 X10*3/uL (0.00-0.03); Imm Gran Pct Auto 0.3 % (0.0-0.4); Lymphocytes Absolute Auto 1.2 X10*3/uL (1.2-4.9); Lymphocytes Percent Auto 18.2 % (20-40); Mean Corpuscular HGB Conc 31.6 g/dl (31.0-36.0); Mean Corpuscular Hemoglobin 31.2 pg (27.0-33.0); Mean Corpuscular Volume 98.7 fL (80.0-98.0); Monocytes Absolute Auto 0.7 X10*3/uL (0.1-1.2); Monocytes Percent Auto 9.9 % (2-11); Neutrophils Absolute Auto 4.7 x10*3/uL (2.0-8.3); Neutrophils Percent Auto 69.7 % (45-73); Platelet Count 240 X10*3/uL (160-400); Red Blood Count 4.59 X10*6/uL (4.60-5.80); Red Cell Distribution Width 14.6 % (11.0-16.0); White Blood Count 6.8 X10*3/uL (4.8-10.8)
[2022-05-16 12:20] LABS: Estimated Average Glucose 123 mg/dL; Hemoglobin A1C 150.7858 umol/L; Hemoglobin A1c % 5.9 %
[2022-05-16 13:25] LABS: Alanine Aminotransferase 12 U/L (0-40); Albumin Level 4.1 g/dL (3.5-5.0); Alkaline Phosphatase 67 U/L (39-117); Anion Gap 15 (12-20); Aspartate Amino Transferase 18 U/L (5-37); Bilirubin Total 0.8 mg/dL (0.0-1.0); Blood Urea Nitrogen 15 mg/dL (9-16); Calcium 9.6 mg/dL (8.4-10.2); Carbon Dioxide 28 mmol/L (22-29); Chloride 103 mmol/L (96-108); Cholesterol 165 mg/dL; Estimated Glomerular Filt Rate > 60; Glucose Fasting 87 mg/dL (60-99); HDL Cholesterol 69 mg/dL; LDL Cholesterol Calculated 77 mg/dl; Potassium 4.4 mmol/L (3.3-5.1); Sodium 142 mmol/L (135-145); Total Protein 6.7 g/dL (6.5-8.0); Triglycerides 98 mg/dL
[2022-05-16 13:32] LABS: Appearance Urine Clear; Color Urine Yellow; Glucose Urine UA Negative (Negative); Leukocyte Esterase Urine Negative (Negative); Nitrite Urine Negative (Negative); PH 5.5 (5.0-9.0); Urine Blood Negative (Negative); Urine Ketones Trace mg/dL (Negative); Urine Protein Negative (Neg-Trace)
[2022-05-16 13:40] LABS: Free T4 (Free Thyroxine) 1.22 ng/dL (0.71-1.85)
[2022-05-16 14:05] LABS: Creatinine Urine 174.96 mg/dL; Microalbum/Creatinine Ratio Ur 26.2 ug/mg cr
== END 2022-05-16 09:41 | disposition home or self-care (01) ==
LOC: HO.10HDL 09:40
PROVIDERS: Visit Provider Internal Medicine
DX: E11.9 Type 2 diabetes mellitus without complications (principal); I10 Essential (primary) hypertension; E78.00 Pure hypercholesterolemia, unspecified; E03.9 Hypothyroidism, unspecified; R30.0 Dysuria
CPT/HCPCS: 36415; 80053; 80061; 81003; 82043; 83036; 84439; 84443; 85025

== ENCOUNTER 2022-05-25 16:00 | Emergency (ER) | payer MEDICARE, SELFPAY ==
[2022-05-25 16:15] VITALS: BP 178/83; PULSE 73; RESP 18; TEMP 36.7; O2SAT 95; BMI 29.2
--- NOTE | 2022-05-25 16:16 | ED_ITS ---
HPI - Dental/Oral General Chief complaint: Dental/Oral <Telma Elaine CNP - Last Filed: 05/25/22 16:20> Stated complaint: dental ext 3/2 bleeding today on blood thinners <Telma Elaine CNP - Last Filed: 05/25/22 16:20> Time Seen by Provider: 05/25/22 20:05 <Telma Elaine CNP - Last Filed: 05/25/22 16:20> Related Data Home medications: Home Medications Medication Instructions Recorded Confirmed azathioprine 50 mg tablet 1 tab PO BID 12/25/19 05/17/22 prednisone 5 mg tablet 1 tab PO BID 12/25/19 05/17/22 cyanocobalamin (vitamin B-12) 100 100 mcg PO DAILY 02/23/21 05/17/22 mcg tablet ferrous sulfate 325 mg (65 mg 325 mg PO DAILY 02/23/21 05/17/22 iron) tablet Previous Rx's Medication Instructions Recorded flash glucose scanning reader #1 ea 01/27/20 ([employer] Hollie [address] [place]) blood-glucose meter (Accu-Chek #1 ea 02/10/20 Kezia Plus Meter) lancets (Accu-Chek Fastclix Lancet #100 ea 02/10/20 Drum) apixaban 5 mg tablet (Eliquis) 5 mg PO BID #180 tabs 11/01/21 sitagliptin phosphate 100 mg 100 mg PO DAILY #90 tabs 01/27/22 tablet (Januvia) metformin 500 mg tablet,extended 1,000 mg PO BID #2 tabs 02/01/22 release 24 hr glipizide 10 mg tablet, extended 10 mg PO DAILY #90 tabs 02/10/22 release 24 hr blood sugar diagnostic (Accu-Chek 1 strip miscellaneous DAILY #50 02/23/22 Kezia Plus test strips) strips famotidine 20 mg tablet 20 mg PO DAILY 90 days #90 tabs 02/23/22 lisinopril 30 mg tablet 30 mg PO DAILY #90 tabs 02/23/22 metformin 500 mg tablet,extended 2,000 mg PO DAILY 90 days #360 tabs 04/27/22 release 24 hr blood sugar diagnostic (Contour #100 ea 05/01/22 Next Test Strips) levothyroxine 75 mcg tablet 75 mcg PO QAM #90 tabs 05/05/22 simvastatin 10 mg tablet 10 mg PO BEDTIME #90 tabs 05/05/22 <Telma Elaine CNP - Last Filed: 05/25/22 16:20> Allergies/adverse reactions: Allergies Allergy/AdvReac Type Severity Reaction Status Date / Time No Known Allergies Allergy Verified 05/17/22 11:12 [No Known Allergies*] <Telma Elaine CNP - Last Filed: 05/25/22 16:20> [facility] Past Medical History Attestation statement: The following information was validated with the patient. <TRISTAN Zhu - Last Filed: 05/25/22 21:54> Source: old records reviewed and nursing notes reviewed <TRISTAN Zhu - Last Filed: 05/25/22 21:54> Medical History: Medical History Acute massive pulmonary embolism Acute respiratory failure with hypoxia Anemia Benign essential hypertension Benign prostatic hyperplasia with urinary frequency BPH (benign prostatic hyperplasia) Compression fracture of L5 vertebra Diabetes mellitus Dyspnea Hyperkalemia Hypothyroidism Lumbar degenerative disc disease Melanoma Myasthenia gravis Ocular myasthenia gravis Pulmonary emboli Pure hypercholesterolemia Rib fracture Vitamin D deficiency <Telma Elaine CNP - Last Filed: 05/25/22 16:20> Surgical History: Surgical History History of back surgery History of colonoscopy History of kyphoplasty Hx of decompressive lumbar laminectomy Previous back surgery Status post surgical removal of malignant neoplasm of skin <Telma Elaine CNP - Last Filed: 05/25/22 16:20> Family History Family History: Family History Father Medical history unknown Mother Cancer <Telma Elaine CNP - Last Filed: 05/25/22 16:20> Social History Social History: Social History Household Members: None Housing: House Do you presently have visiting nurse or other home services: No Alcohol intake: current Alcohol intake frequency: holidays/special occasions only Patient Tobacco Use Status: Former Tobacco user e-Cigarette/Vaping Use: Never Used Second Hand Smoke Exposure: Yes Advance Directives: No Advance Directives Information Provided: No service: No Current occupational status: retired Cognitive needs: No Hearing needs: No Vision needs: Yes <Telma ElaineJIM - Last Filed: 05/25/22 16:20> Physical Exam Vital Signs: Vital Signs: Last Vital Signs Temp 98.1 F 05/25/22 16:15 Pulse 73 05/25/22 16:15 Resp 18 05/25/22 16:15 BP 178/83 H 05/25/22 16:15 Pulse Ox 95 05/25/22 16:15 O2 Del Method 05/25/22 16:15 BMI result Body Mass Index 29.2 <Telma ElaineJIM - Last Filed: 05/25/22 16:20> Vital Signs: Last Vital Signs Temp 98.1 F 05/25/22 16:15 Pulse 73 05/25/22 16:15 Resp 18 05/25/22 16:15 BP 178/83 H 05/25/22 16:15 Pulse Ox 95 05/25/22 16:15 O2 Del Method 05/25/22 16:15 BMI result Body Mass Index 29.2 vss <TRISTAN Zhu - Last Filed: 05/25/22 21:54> Appearance: Alert.? Oriented X3.? No acute distress.? Patient is speaking in full sentences controlling secretions well Head: Normocephalic, atraumatic, no step-offs or deformities Eyes: Pupils equal, round and reactive to light.? ENT: Pharynx normal.? Poor dentition throughout. Left upper gum where premolar would be with dry blood however no active bleeding. Neck: Normal inspection.? Neck supple.? CVS: Normal heart rate and rhythm.? Pulses normal.? Respiratory: No respiratory distress.? Breath sounds normal.? Abdomen: Soft and nontender.? Skin: Skin warm and dry.? Normal skin color.? Normal skin turgor.? Extremities: No lower extremity edema.? No calf ttp. 5/5 strength to bilateral upper and lower extremities Back: No midline tenderness, no C-spine tenderness, full range of motion, no CVA tenderness bilaterally Neuro: Oriented X 3.? No motor deficit.? No sensory deficit. CN 2-12 intact <TRISTAN Zhu - Last Filed: 05/25/22 21:54> Course Course Course Narrative: This is an RME: Additional HPI, ROS, PE not included below will be de ferred to primary provider. Patient underwent dental extraction left upper molar on 05/18/2022. Reports 1300 today, began experiencing bleeding today, states he is anticoagulated with Eliquis due to history of PE. Previously was not having any issues with bleeding. Reports some associated pain. He placed tea bags to the extraction site without any coagulation. Plan: labs, placed gauze to site. placed back in waiting room pending bed availability <Telma Elaine CNP - Last Filed: 05/25/22 16:20> Reevaluation(s) Reevaluation #1: CBC with no acute findings. Chemistry with elevated potassium 5.6, Lokelma ordered, repeat BMP also ordered. There is no dental bleeding no need to give TXA any other medications at this time. Advised to apply T-max of the area, discussed this case with my attending tells me to apply warm tea bags and to skip dose of Eliquis for tonight. After repeat BMP with down trending potassium patient can be discharged home Patient denies any chest pain or shortness of breath at this time. <TRISTAN Zhu - Last Filed: 05/25/22 21:54> Time: 21:25 <TRISTAN Zhu - Last Filed: 05/25/22 21:54> Reevaluation #2: Patient was given low, however he is refusing repeat laboratory studies. Advised him to follow-up with his PCP. Educated patient on diagnosis and treatment plan, answered all question, patient verbalizes understanding. At this time patient will be discharged home, advised to return with new or worsening symptoms. Educated on worrisome signs and symptoms and when to return. At this time I feel comfortable discharge home. <TRISTAN Zhu Last Filed: 05/25/22 21:54> Time: 21:52 <TRISTAN Zhu - Last Filed: 05/25/22 21:54> Medications Administered Discontinued Medications Generic Name Dose Route Start Last Admin Trade Name Freq PRN Reason Stop Dose Admin Sodium Zirconium Cyclosilicate 10 gm 05/25/22 20:06 05/25/22 20:38 Sodium Zirconium Cyclosilicate 10 Gm Powd.Pack PO 05/25/22 20:07 10 gm ONCE ONE Administration <Telma Tripp JIM Elaine - Last Filed: 05/25/22 16:20> Medications Administered Discontinued Medications Generic Name Dose Route Start Last Admin Trade Name Freq PRN Reason Stop Dose Admin Sodium Zirconium Cyclosilicate 10 gm 05/25/22 20:06 05/25/22 20:38 Sodium Zirconium Cyclosilicate 10 Gm Powd.Pack PO 05/25/22 20:07 10 gm ONCE ONE Administration <TRISTAN Zhu - Last Filed: 05/25/22 21:54> Medical Decision Making Medical Decision Making [facility] Narrative: 2100 82-year-old male presents with bleeding left upper gum a status post tooth extraction a week ago, on Eliquis. Tells me bleeding has stopped since he has been here however still wants it evaluated. Physical exam with Pharynx normal.? Poor dentition throughout. Left upper gum where premolar would be with dry blood however no active bleeding. Patient hemodynamically stable Likely bleeding from gums status post tooth excision due to trauma from eating. No signs of acute bleeding at this time. Unlikely acute blood loss anemia. Plan at this time basic labs. <TRISTAN Zhu - Last Filed: 05/25/22 21:54> Differential Diagnosis Differential Diagnoses: The differential diagnosis associated with the presentation includes <TRISTAN Zhu - Last Filed: 05/25/22 21:54> Likely bleeding from gums status post tooth excision due to trauma from eating. No signs of acute bleeding at this time. Unlikely acute blood loss anemia. <TRISTAN Zhu - Last Filed: 05/25/22 21:54> Admission/Observation Consideration of admission/observation: Escalation of care including admission/observation considered <TRISTAN Zhu Last Filed: 05/25/22 21:54> Unlikely <TRISTAN Zhu Last Filed: 05/25/22 21:54> Lab Data [facility] Lab Attestation statement: I reviewed the patient's lab results. <Aubree Bermudez PA - Last Filed: 05/25/22 21:54> Result Diagrams: 05/25/22 17:23 05/25/22 18:39 <Telma Elaine CNP - Last Filed: 05/25/22 16:20> Labs: Lab Results 05/25/22 05/25/22 05/25/22 Range/Units 17:23 17:23 18:39 WBC 8.1 (4.8-10.8) X10*3/uL RBC 4.45 L (4.60-5.80) X10*6/uL Hgb 14.1 (14.0-18.0) g/dl Hct 44.5 (42.0-52.0) % MCV 100.0 H (80.0-98.0) fL MCH 31.7 (27.0-33.0) pg MCHC 31.7 (31.0-36.0) g/dl RDW 14.5 (11.0-16.0) % Plt Count 235 (160-400) X10*3/uL MPV 9.9 (9.4-12.4) fL Immature Gran % (Auto) 0.4 (0.0-0.4) % Neut % (Auto) 80.8 H (45-73) % Lymph % (Auto) 11.9 L (20-40) % [place] % (Auto) 6.3 (2-11) % Eos % (Auto) 0.1 (0-4) % Baso % (Auto) 0.5 (0-2) % Lymph # (Auto) 1.0 L (1.2-4.9) X10*3/uL [place] # (Auto) 0.5 (0.1-1.2) X10*3/uL Eos # (Auto) 0.0 (0.0-0.4) X10*3/uL Baso # (Auto) 0.0 (0.0-0.2) X10*3/uL Abs Immat Gran (auto) 0.03 (0.00-0.03) X10*3/uL Absolute Neuts (auto) 6.5 (2.0-8.3) x10*3/uL Absolute Nucleated RBC 0.000 (0.0-0.012) X10*3/uL Nucleated RBC % (auto) 0.0 (0.0-0.2) /100WBC PT 12.7 (10.0-13.1) SEC INR 1.1 (0.9-1.1) Sodium 143 (135-145) mmol/L Potassium 5.6 H D (3.3-5.1) mmol/L Chloride 106 (96-108) mmol/L Carbon Dioxide 29 (22-29) mmol/L Anion Gap 19 (12-20) BUN 17 H (9-16) mg/dL Creatinine 1.03 (0.5-1.4) mg/dL Estim Creat Clear Calc 51.0 Estimated GFR > 60 Random Glucose 113 (60-115) mg/dL Calcium 10.0 (8.4-10.2) mg/dL Total Bilirubin 0.6 (0.0-1.0) mg/dL AST 16 (5-37) U/L ALT 10 (0-40) U/L Alkaline Phosphatase 68 (39-117) U/L Total Protein 6.4 L (6.5-8.0) g/dL Albumin 4.1 (3.5-5.0) g/dL <Telma Elaine CNP - Last Filed: 05/25/22 16:20> Lab Results 05/25/22 05/25/22 05/25/22 Range/Units 17:23 17:23 18:39 WBC 8.1 (4.8-10.8) X10*3/uL RBC 4.45 L (4.60-5.80) X10*6/uL Hgb 14.1 (14.0-18.0) g/dl Hct 44.5 (42.0-52.0) % MCV 100.0 H (80.0-98.0) fL MCH 31.7 (27.0-33.0) pg MCHC 31.7 (31.0-36.0) g/dl RDW 14.5 (11.0-16.0) % Plt Count 235 (160-400) X10*3/uL MPV 9.9 (9.4-12.4) fL Immature Gran % (Auto) 0.4 (0.0-0.4) % Neut % (Auto) 80.8 H (45-73) % Lymph % (Auto) 11.9 L (20-40) % [place] % (Auto) 6.3 (2-11) % Eos % (Auto) 0.1 (0-4) % Baso % (Auto) 0.5 (0-2) % Lymph # (Auto) 1.0 L (1.2-4.9) X10*3/uL [place] # (Auto) 0.5 (0.1-1.2) X10*3/uL Eos # (Auto) 0.0 (0.0-0.4) X10*3/uL Baso # (Auto) 0.0 (0.0-0.2) X10*3/uL Abs Immat Gran (auto) 0.03 (0.00-0.03) X10*3/uL Absolute Neuts (auto) 6.5 (2.0-8.3) x10*3/uL Absolute Nucleated RBC 0.000 (0.0-0.012) X10*3/uL Nucleated RBC % (auto) 0.0 (0.0-0.2) /100WBC PT 12.7 (10.0-13.1) SEC INR 1.1 (0.9-1.1) Sodium 143 (135-145) mmol/L Potassium 5.6 H D (3.3-5.1) mmol/L Chloride 106 (96-108) mmol/L Carbon Dioxide 29 (22-29) mmol/L Anion Gap 19 (12-20) BUN 17 H (9-16) mg/dL Creatinine 1.03 (0.5-1.4) mg/dL Estim Creat Clear Calc 51.0 Estimated GFR > 60 Random Glucose 113 (60-115) mg/dL Calcium 10.0 (8.4-10.2) mg/dL Total Bilirubin 0.6 (0.0-1.0) mg/dL AST 16 (5-37) U/L ALT 10 (0-40) U/L Alkaline Phosphatase 68 (39-117) U/L Total Protein 6.4 L (6.5-8.0) g/dL Albumin 4.1 (3.5-5.0) g/dL <Susanita Bermudez, PA - Last Filed: 05/25/22 21:54> Core Measures AMI core measures followed: Yes <TRISTAN Zhu - Last Filed: 05/25/22 21:54> Measure exclusions: not indicated <TRISTAN Zhu - Last Filed: 05/25/22 21:54> Critical Care Time Critical Care Time Critical Care Time: No <TRISTAN Zhu - Last Filed: 05/25/22 21:54> Discharge Plan Discharge Clinical Impression: Bleeding gums, Acute hyperkalemia <Telma Elaine CNP - Last Filed: 05/25/22 16:20> Patient Disposition: Elopement <Telma Elaine CNP - Last Filed: 05/25/22 16:20> Additional Instructions: Take your medications as prescribed. If you were prescribed antibiotics today, it is important that you take your medication to their entirety, do not skip any doses, do not finish them early. Follow-up with your primary care provider this week. Return to the emergency department with new or worsening symptoms. Such as fevers, chills, chest pain, shortness of breath, nausea, vomiting, dizziness, headache, vision changes, lethargy In case of emergency call 911 Please skip your Eliquis dose for tonight. Apply warm tea bags to the affected area. If bleeding starts up again and you cannot get it under control please report to the emergency department immediately. Your potassium was noted to be elevated here in the department you were given a medication called eLo, please follow-up with your PCP for repeat potassium within the next day or 2. <Telma Elaine CNP - Last Filed: 05/25/22 16:20> Prescriptions: No Action (DME) [employer] Hollie 2 [place] Misc See Rx Instructions .ROUTE .MEDSUPPLY Qty: 1 0RF Rx Instructions: As directed (DME) blood-glucose meter [Accu-Chek Kezia Plus Meter] Misc See Rx Instructions .ROUTE .MEDSUPPLY Qty: 1 0RF Rx Instructions: to check blood sugars twice a day - Dx Code: E11.9 (DME) lancets [Accu-Chek Fastclix Lancet Drum] [facility] See Rx Instructions .ROUTE .MEDSUPPLY Qty: 100 12RF Rx Instructions: to check blood sugars twice a day - Dx Code: E11.9 Eliquis 5 mg tablet 5 mg PO BID Qty: 180 1RF Januvia 100 mg tablet 100 mg PO DAILY Qty: 90 5RF metformin 500 mg tablet extended release 24 hr 1,000 mg PO BID Qty: 2 0RF glipizide 10 mg tablet extended release 24hr 10 mg PO DAILY Qty: 90 3RF famotidine 20 mg tablet 20 mg PO DAILY 90 Days Qty: 90 1RF lisinopril 30 mg tablet 30 mg PO DAILY Qty: 90 3RF Accu-Chek Kezia Plus test strp Strip 1 strip miscellaneous DAILY Qty: 50 12RF metformin 500 mg tablet extended release 24 hr 2,000 mg PO DAILY 90 Days Qty: 360 3RF (DME) Contour Next Test Strips Strip See Rx Instructions .Route Qty: 100 5RF Rx Instructions: As directed once a day levothyroxine 75 mcg tablet 75 mcg PO QAM Qty: 90 0RF simvastatin 10 mg tablet 10 mg PO BEDTIME Qty: 90 0RF prednisone 5 mg tablet 1 tab PO BID azathioprine 50 mg tablet 1 tab PO BID cyanocobalamin (vitamin B-12) 100 mcg Tablet 100 mcg PO DAILY ferrous sulfate 325 mg (65 mg iron) Tablet 325 mg PO DAILY <Telma Elaine CNP - Last Filed: 05/25/22 16:20> Referrals: Cornelius Phillips MD [Primary Care Provider] - 2 days <Telma Elaine CNP - Last Filed: 05/25/22 16:20> Stand Alone Forms: Work/School Release <Telma Elaine CNP - Last Filed: 05/25/22 16:20> Interventions: ED Discharge Assessment Last Done: 05/25/22 21:42 <Telma Elaine CNP - Last Filed: 05/25/22 16:20>
[2022-05-25 17:28] LABS: MANUAL DIFF FLAG NO
[2022-05-25 17:33] LABS: Basophils Percent Auto 0.5 % (0-2); Eosinophils Percent Auto 0.1 % (0-4); Hematocrit 44.5 % (42.0-52.0); Hemoglobin 14.1 g/dl (14.0-18.0); Imm Gran Abs Auto 0.03 X10*3/uL (0.00-0.03); Imm Gran Pct Auto 0.4 % (0.0-0.4); Lymphocytes Percent Auto 11.9 % (20-40); Mean Corpuscular HGB Conc 31.7 g/dl (31.0-36.0); Mean Corpuscular Hemoglobin 31.7 pg (27.0-33.0); Mean Platelet Volume 9.9 fL (9.4-12.4); Monocytes Absolute Auto 0.5 X10*3/uL (0.1-1.2); Monocytes Percent Auto 6.3 % (2-11); Neutrophils Absolute Auto 6.5 x10*3/uL (2.0-8.3); Neutrophils Percent Auto 80.8 % (45-73); Platelet Count 235 X10*3/uL (160-400); Red Blood Count 4.45 X10*6/uL (4.60-5.80); Red Cell Distribution Width 14.5 % (11.0-16.0); White Blood Count 8.1 X10*3/uL (4.8-10.8)
[2022-05-25 17:36] LABS: INTERNATIONAL NORM RATIO 1.1 (0.9-1.1); Prothrombin Time 12.7 SEC (10.0-13.1)
[2022-05-25 18:47] LABS: Anion Gap 19 (12-20)
[2022-05-25 19:11] LABS: Alanine Aminotransferase 10 U/L (0-40); Albumin Level 4.1 g/dL (3.5-5.0); Alkaline Phosphatase 68 U/L (39-117); Aspartate Amino Transferase 16 U/L (5-37); Bilirubin Total 0.6 mg/dL (0.0-1.0); Blood Urea Nitrogen 17 mg/dL (9-16); Carbon Dioxide 29 mmol/L (22-29); Chloride 106 mmol/L (96-108); Estimated Glomerular Filt Rate > 60; Glucose Random 113 mg/dL (60-115); Potassium 5.6 mmol/L (3.3-5.1); Sodium 143 mmol/L (135-145); Total Protein 6.4 g/dL (6.5-8.0)
[2022-05-25] MEDS: Sodium Zirconium Cyclosilicate 10 GM POWD.PACK PO (20:38)
--- NOTE | 2022-05-25 21:41 | PC.NURSE ---
refusing to have labs done states he is not staying went to talk with provider when returned pt had eloped
== END 2022-05-25 21:50 | disposition left against medical advice (07) ==
PROVIDERS: Nurse Practitioner Family; Emergency Provider Internal Medicine; PCP Internal Medicine
DX: E23.2 Diabetes insipidus (principal); K06.8 Other specified disorders of gingiva and edentulous alveolar ridge; Z87.891 Personal history of nicotine dependence; Z79.84 Long term (current) use of oral hypoglycemic drugs; Z79.899 Other long term (current) drug therapy
CPT/HCPCS: 36415; 80053; 85025; 85610; 99282; 99283

== ENCOUNTER → 2022-06-14 11:08 | Outpatient (BNVA) | payer MEDICARE, SELFPAY | PROVIDERS: PCP Internal Medicine; Visit Provider Urology | DX: N40.1 Benign prostatic hyperplasia with lower urinary tract symptoms (principal); R35.0 Frequency of micturition; R31.29 Other microscopic hematuria | CPT/HCPCS: 51798; 99202 ==

== ENCOUNTER 2022-07-13 10:31 | Outpatient (REF) | payer MEDICARE, SELFPAY ==
--- NOTE | ~2022-07-13 | US_ITS ---
EXAMINATION: US RETROPERITONEAL LIMITED (RENAL ONLY) CLINICAL INFORMATION: Benign prostatic hypertrophy. Microscopic hematuria. COMPARISON: None available. TECHNIQUE: Real-time imaging of the kidneys. FINDINGS: RIGHT KIDNEY: 11.4 x 5.3 x 5.1 cm (SAG x AP x TRV). The kidney is normal in size, contour, and echogenicity. Renal cortical thickness is normal. No calculi or focal parenchymal lesions. No hydronephrosis. LEFT KIDNEY: 12.2 x 6.0 x 4.6 cm (SAG x AP x TRV). The kidney is normal in size, contour, and echogenicity. Renal cortical thickness is normal. No renal calculi or hydronephrosis. Upper pole benign appearing 1.4 cm cyst. US/US renal BI IMPRESSION: Benign-appearing left renal cyst. Followup imaging is not routinely recommended for benign appearing cysts.
== END 2022-07-13 10:32 | disposition home or self-care (01) ==
LOC: HO.HMGCX 10:31
PROVIDERS: PCP Internal Medicine; Visit Provider Urology
DX: R31.29 Other microscopic hematuria (principal); R35.0 Frequency of micturition; N40.0 Benign prostatic hyperplasia without lower urinary tract symptoms
CPT/HCPCS: 76775

== ENCOUNTER 2022-07-24 08:29 | Outpatient (REF) | payer MEDICARE, SELFPAY ==
[2022-07-28 19:02] LABS: PSA, Ultra Sensitive 2.76 ng/mL
== END 2022-07-24 08:30 | disposition home or self-care (01) ==
LOC: HO.10HDL 08:29
PROVIDERS: Visit Provider Urology
DX: Z12.5 Encounter for screening for malignant neoplasm of prostate (principal); N40.0 Benign prostatic hyperplasia without lower urinary tract symptoms
CPT/HCPCS: 36415; 84153

== ENCOUNTER → 2022-07-27 13:32 | Outpatient (BNVA) | payer MEDICARE, SELFPAY | PROVIDERS: PCP Internal Medicine; Visit Provider Urology | DX: N40.1 Benign prostatic hyperplasia with lower urinary tract symptoms (principal); R35.0 Frequency of micturition; R31.29 Other microscopic hematuria; N32.81 Overactive bladder | CPT/HCPCS: 52000; 99212 ==

== ENCOUNTER 2022-09-27 15:33 | Outpatient (AMB) | payer MEDICARE, SELFPAY ==
--- NOTE | 2022-09-27 13:00 | A.OFFVIS_ITS ---
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 09/27/22-- Co-morbidity: Diabetes mellitus. AUA symptom score: 12. Prostate exam 06/14/22: moderately enlarged. The patient was seen on follow up on 07/27/22. He had w/u for microscopic hematuria. Cystoscopy findings from 07/27/22--bladder wall thickening with moderate trabeculation and cellule changes, enlargement of prostate. No suspicious bladder lesions visualized. He was started on Toviaz 4 mg for OAB symptoms. States improvement in nocturia symptoms with Toviaz 4 mg. Renal US results reviewed--07/13/22-- noting left kidney simple cyst and no renal calculi. Evaluation today UA: blood: trace, leukocytes: negative. Bladder scan PVR: 64 mL. Plan: Continue Toviaz 4 mg. Follow-up after 6 months. [facility] Medical History Acute massive pulmonary embolism Acute respiratory failure with hypoxia Anemia Benign essential hypertension Benign prostatic hyperplasia with urinary frequency BPH (benign prostatic hyperplasia) Compression fracture of L5 vertebra Diabetes mellitus Dyspnea Hyperkalemia Hypothyroidism Lumbar degenerative disc disease Melanoma Myasthenia gravis Ocular myasthenia gravis Pulmonary emboli Pure hypercholesterolemia Rib fracture Vitamin D deficiency Surgical History History of back surgery History of colonoscopy History of kyphoplasty Hx of decompressive lumbar laminectomy Previous back surgery Status post surgical removal of malignant neoplasm of skin Family History Father Medical history unknown Mother Cancer Social History Household Members: None Housing: House Do you presently have visiting nurse or other home services: No Alcohol intake: current Alcohol intake frequency: holidays/special occasions only Patient Tobacco Use Status: Former Tobacco user e-Cigarette/Vaping Use: Never Used Second Hand Smoke Exposure: Yes service: No Current occupational status: retired Cognitive needs: No Hearing needs: No Vision needs: Yes Review of Systems Const Reports no additional complaints Eyes Reports no additional complaints ENT Denies neck pain Card Denies leg edema Resp Denies cough GI Denies constipation Musc Reports no additional complaints and Denies neck pain Skin/Breast Denies rash and Denies unusual bruising Neuro Reports no additional complaints Psych Reports no additional complaints Endo Reports no additional complaints Kush/Lymph Reports no additional complaints Aller/Immun Reports no additional complaints Physical Exam Const General: healthy appearing, no acute distress and well developed Orientation/consciousness: patient oriented x3 HEENT Head: Yes normocephalic and Yes atraumatic Eyes Conjunctivae: conjunctivae normal Neck Neck: Yes normal visual inspection Chest Chest palpation & inspection: normal inspection of the chest Resp Effort & Inspection: normal respiratory effort Cardio Rate: regular rate GI Inspection: Yes normal to inspection Skin General skin exam: no rashes or lesions noted Neuro General: patient oriented x3 Psych Appearance: grossly normal Affect: normal affect Office Procedures Post Void Residual Post Residual Void Post Void Residual (PVR): 64 [id number]-Xfaw Void Residual by ultrasound Results AMB Urinalysis, Automated UA Leukoctes 0 Aditya/uL Last Edit by QIANA Bob on 09/27/22 15:52 UA Nitrite Negative Last Edit by QIANA Bob on 09/27/22 15:52 UA Urobilinogen 0.2 mg/dL Last Edit by QIANA Bob on 09/27/22 15:5 2 UA Protein 0 mg/dL Last Edit by QIANA Bob on 09/27/22 15:52 UA pH 6.0 Last Edit by QIANA Bob on 09/27/22 15:52 UA Blood 10 Chuck/uL Last Edit by Yuliana Jimenez QIANA on 09/27/22 15:52 UA Specific Concepcion 1.025 Last Edit by Yuliana Jimenez GREGORIOA on 09/27/22 15: 52 UA Ketone Negative Last Edit by Yuliana Jimenez GREGORIOA on 09/27/22 15:52 UA Bilirubin 0 mg/dL Last Edit by Yuliana ValdezGREGORIO coyleA on 09/27/22 15:52 UA Glucose 0 mg/dL Last Edit by Yuliana Adanapril GREGORIOA on 09/27/22 15:52 Results Reviewed Results Reviewed: Laboratory Last Values Urine pH (Auto) 6.0 09/27/22 15:51 Specific Concepcion (Auto) 1.025 09/27/22 15:51 Urine Protein (Auto) 0 mg/dL 09/27/22 15:51 Glucose (UA)(Auto) 0 mg/dL 09/27/22 15:51 Urine Ketones (Auto) Negative 09/27/22 15:51 Urine Blood (Auto) 10 Chcuk/uL 09/27/22 15:51 Urine Nitrite (Auto) Negative 09/27/22 15:51 Urine Bilirubin (Auto) 0 mg/dL 09/27/22 15:51 Urine Urobilinogen (Auto) 0.2 mg/dL 09/27/22 15:51 Leukocyte Esterase (Auto) 0 Aditya/uL 09/27/22 15:51 Date of Service: 07/13/22 EXAMINATION: US RETROPERITONEAL LIMITED (RENAL ONLY) CLINICAL INFORMATION: Benign prostatic hypertrophy. Microscopic hematuria. COMPARISON: None available. TECHNIQUE: Real-time imaging of the kidneys. FINDINGS: RIGHT KIDNEY: 11.4 x 5.3 x 5.1 cm (SAG x AP x TRV). The kidney is normal in size, contour, and echogenicity. Renal cortical thickness is normal. No calculi or focal parenchymal lesions. No hydronephrosis. LEFT KIDNEY: 12.2 x 6.0 x 4.6 cm (SAG x AP x TRV). The kidney is normal in size, contour, and echogenicity. Renal cortical thickness is normal. No renal calculi or hydronephrosis. Upper pole benign appearing 1.4 cm cyst. IMPRESSION: Benign-appearing left renal cyst. Followup imaging is not routinely recommended for benign appearing cysts. Assessment & Plan Assessment & Plan (1) Benign prostatic hyperplasia with urinary frequency: Code(s): N40.1 - Benign prostatic hyperplasia with lower urinary tract symptoms; R35.0 - Frequency of micturition (2) Microscopic hematuria: Code(s): R31.29 - Other microscopic hematuria (3) BPH (benign prostatic hyperplasia): Code(s): N40.0 - Benign prostatic hyperplasia without lower urinary tract symptoms (4) OAB (overactive bladder): Code(s): N32.81 - Overactive bladder Plan Continue Toviaz 4 mg. Follow-up after 6 months. Orders: Orders AMB Urinalysis Automated Today Z13.9 - Encounter for screening, unspecified AMB Post Void Residual by ultrasound Today N39.8 - Other specified disorders of urinary system Patient Instructions: The patient had an opportunity to ask questions regarding treatment plan. All questions were answered. Imaging, Laboratory studies and physical exam results were discussed and reviewed in detail. No major barriers to understanding were identified. The patient expressed understanding and agreement with the above treatment plan. The patient is aware they should contact our office by phone for worsening of their current condition or the appearance of new symptoms. Compliance is encouraged with any medications and followup testing that is ordered. It is a privilege to be allowed the opportunity to participate in the urologic care of your patient. If you have any questions or concerns regarding treatment for the above conditions please do not hesitate to contact me. The office telephone contact is [phone]. This note is constructed in part using voice recognition software. While every effort has been made to ensure accuracy detail maker and fitter errors may have been included. Yours sincerely, Litzy Feldman MD Coding Level of Care Code Est Pt Level 3 (09620) Diagnoses Benign prostatic hyperplasia with urinary frequency N40.1; R35.0 Microscopic hematuria R31.29 BPH (benign prostatic hyperplasia) N40.0 OAB (overactive bladder) N32.81 CPT Codes Post Residual Void - PVR CPT Code: 84278-Enrb Void Residual by ultrasound ([id number])
== END 2022-09-27 15:59 | disposition home or self-care (01) ==
PROVIDERS: Visit Provider Urology
DX: N40.1 Benign prostatic hyperplasia with lower urinary tract symptoms (principal); R35.0 Frequency of micturition; R31.29 Other microscopic hematuria; N40.0 Benign prostatic hyperplasia without lower urinary tract symptoms; N32.81 Overactive bladder
CPT/HCPCS: 99213

== ENCOUNTER → 2022-09-27 15:33 | Outpatient (BNVA) | payer MEDICARE, SELFPAY | PROVIDERS: Visit Provider Urology | DX: N40.1 Benign prostatic hyperplasia with lower urinary tract symptoms (principal); R35.0 Frequency of micturition; R31.29 Other microscopic hematuria; N32.81 Overactive bladder | CPT/HCPCS: 51798; 99212 ==

== ENCOUNTER 2023-01-23 08:52 | Outpatient (REF) | payer MEDICARE, SELFPAY ==
[2023-01-23 10:40] LABS: MANUAL DIFF FLAG NO
[2023-01-23 10:52] LABS: Basophils Absolute Auto 0.1 X10*3/uL (0.0-0.2); Basophils Percent Auto 1.6 % (0-2); Eosinophils Absolute Auto 0.1 X10*3/uL (0.0-0.4); Eosinophils Percent Auto 1.6 % (0-4); Imm Gran Abs Auto 0.01 X10*3/uL (0.00-0.03); Imm Gran Pct Auto 0.2 % (0.0-0.4); Lymphocytes Percent Auto 20.5 % (20-40); Mean Corpuscular HGB Conc 31.8 g/dl (31.0-36.0); Mean Corpuscular Hemoglobin 31.7 pg (27.0-33.0); Mean Corpuscular Volume 99.5 fL (80.0-98.0); Mean Platelet Volume 10.6 fL (9.4-12.4); Monocytes Absolute Auto 0.6 X10*3/uL (0.1-1.2); Monocytes Percent Auto 11.8 % (2-11); Neutrophils Absolute Auto 3.3 x10*3/uL (2.0-8.3); Neutrophils Percent Auto 64.3 % (45-73); Platelet Count 209 X10*3/uL (160-400); Red Blood Count 4.42 X10*6/uL (4.60-5.80); Red Cell Distribution Width 13.7 % (11.0-16.0); White Blood Count 5.1 X10*3/uL (4.8-10.8)
[2023-01-23 10:54] LABS: Appearance Urine Clear; Color Urine Yellow; Glucose Urine UA Negative (Negative); Leukocyte Esterase Urine Negative (Negative); Nitrite Urine Negative (Negative); PH 5.5 (5.0-9.0); Specific Gravity - Urine 1.015 (1.005-1.025); Urine Blood Negative (Negative); Urine Ketones Negative (Negative); Urine Protein Negative (Neg-Trace)
[2023-01-23 11:01] LABS: Estimated Average Glucose 103 mg/dL; Hemoglobin A1c % 5.2 % (<6.0)
[2023-01-23 11:07] LABS: Alanine Aminotransferase 9 U/L (0-40); Alkaline Phosphatase 56 U/L (39-117); Anion Gap 11 (12-20); Aspartate Amino Transferase 16 U/L (5-37); Bilirubin Total 0.6 mg/dL (0.0-1.0); Blood Urea Nitrogen 14 mg/dL (9-16); Calcium 9.5 mg/dL (8.4-10.2); Carbon Dioxide 28 mmol/L (22-29); Chloride 107 mmol/L (96-108); Cholesterol 117 mg/dL (<200); Estimated Glomerular Filt Rate > 60; Glucose Fasting 82 mg/dL (60-99); HDL Cholesterol 55 mg/dL (>40); LDL Cholesterol Calculated 52 mg/dL (<100); Potassium 4.3 mmol/L (3.3-5.1); Sodium 142 mmol/L (135-145); Total Protein 6.5 g/dL (6.5-8.0); Triglycerides 52 mg/dL (<150)
[2023-01-23 11:25] LABS: Free T4 (Free Thyroxine) 1.03 ng/dL (0.71-1.85); Thyroid Stimulating Hormone 5.52 uIU/mL (0.32-4.0); Vitamin D 25-OH Total 54.4 ng/mL (>30)
[2023-01-23 12:09] LABS: Creatinine Urine 87.83 mg/dL; Microalbum/Creatinine Ratio Ur 7.9 ug/mg cr (<30)
== END 2023-01-23 08:53 | disposition home or self-care (01) ==
LOC: HO.10HDL 08:52
PROVIDERS: Visit Provider Internal Medicine
DX: E78.00 Pure hypercholesterolemia, unspecified (principal); E11.9 Type 2 diabetes mellitus without complications; E03.9 Hypothyroidism, unspecified; E55.9 Vitamin D deficiency, unspecified; I10 Essential (primary) hypertension; R30.0 Dysuria
CPT/HCPCS: 36415; 80053; 80061; 81003; 82043; 82306; 82570; 83036; 84439; 84443; 85025

== ENCOUNTER 2023-01-25 11:41 | Outpatient (AMB) | payer MEDICARE, SELFPAY ==
[2023-01-25 11:43] VITALS: BP 132/68; PULSE 82; O2SAT 95; BMI 27.8
--- NOTE | 2023-01-25 11:43 | MHC.PC.OV ---
Vital Signs 01/25/23 11:43 Height 5 ft 5 in Weight 167 lb BMI 27.8 BP 132/68 Blood Pressure Location Lt brachial Position Sitting Pulse 82 Pulse Source Pulse Oximeter Pulse Oximetry (%) 95 Oxygen Delivery Method Room Air Intake Visit Reasons: F/U saddle embolism, CAD, hyperlipidemia, DM, Newspaper Subscription Solicitor Required: No Accompanied by: Self / Same As Patient Allergies No Known Allergies [No Known Allergies*] Allergy (Verified 01/25/23 12:13) Medication List - Last Reconciled 01/25/23 by Corneluis Phillips MD apixaban (Eliquis) 5 mg PO BID azathioprine 1 tab PO BID blood sugar diagnostic (Accu-Chek Kezia Plus test strips) 1 strip miscellaneous DAILY blood sugar diagnostic (Contour Next Test Strips) As directed once a day blood-glucose meter (Accu-Chek Kezia Plus Meter) to check blood sugars twice a day - Dx Code: E11.9 cyanocobalamin (vitamin B-12) 100 mcg PO DAILY famotidine 20 mg PO DAILY 90 days ferrous sulfate 325 mg PO DAILY fesoterodine ER 4 mg PO DAILY flash glucose scanning reader (Evident.ioyle Hollie 2 Mullan) As directed glipizide ER 10 mg PO DAILY lancets (Accu-Chek Fastclix Lancet Drum) to check blood sugars twice a day - Dx Code: E11.9 levothyroxine 75 mcg PO QAM lisinopril 30 mg PO DAILY metformin ER 2,000 mg (4 x 500 mg) PO DAILY 90 days prednisone 7.5 mg PO DAILY pyridostigmine bromide mg PO simvastatin 10 mg PO BEDTIME sitagliptin phosphate (Januvia) 100 mg PO DAILY Tobacco use date assessed: 01/25/23 Fall risk assessment: No Falls in past year Last assessed Fall Risk: 01/25/23 Dental Screening Dental Screen Date: 01/25/23 Did you have a dental visit in the last 12 months?: Yes Did you have a dental problem in the last 6 months where you did not have access to dental care?: No Was dental information given to patient?: Patient has dentist HPI F/U saddle embolism, CAD, hyperlipidemia, DM, HPI Details Patient comes in today for his follow up visit States that he feels okay He denies any headaches or dizziness Denies any chest pains, no SOB No nausea/vomiting, no abdominal pain States that he still has stool incontinence at times and these often occur when he is urinating; also has stool urgency and he has to parikh to the bathroom whenever he feels the urge to go or he will not make it in time He has urinary incontinence as well - states that he often just leaks and sometimes is not even aware that he is leaking or urinating Has been wearing adult diapers for the past couple of years now as a result due to his frequent accidents Adds that he's had a recurrent rash over his left inguinal area lately; states that the rash is not itchy or painful but would like to get something to help clear this up Had his follow up labs done a couple of days ago - to discuss his results [facility] Medical History Compression fracture of L5 vertebra Rib fracture Dyspnea Pulmonary emboli Benign prostatic hyperplasia with urinary frequency Lumbar degenerative disc disease Ocular myasthenia gravis Diabetes mellitus Benign essential hypertension Vitamin D deficiency Pure hypercholesterolemia Acute respiratory failure with hypoxia Acute massive pulmonary embolism Myasthenia gravis Hyperkalemia Hypothyroidism BPH (benign prostatic hyperplasia) Anemia Melanoma Surgical History History of colonoscopy Status post surgical removal of malignant neoplasm of skin History of kyphoplasty Hx of decompressive lumbar laminectomy History of back surgery Previous back surgery Family History Father Medical history unknown Mother Cancer Social History Household Members: None Housing: House Do you presently have visiting nurse or other home services: No Alcohol intake: current Alcohol intake frequency: holidays/special occasions only Patient Tobacco Use Status: Former Tobacco user e-Cigarette/Vaping Use: Never Used Second Hand Smoke Exposure: Yes service: No Current occupational status: retired Cognitive needs: No Hearing needs: No Vision needs: Yes Questionnaire PHQ-9 Over the last 2 weeks, how often have you been bothered by any of the following problems? 1. Little interest or pleasure in doing things: not at all 2. Feeling down, depressed, or hopeless: not at all 3. Trouble falling or staying asleep, or sleeping too much: not at all 4. Feeling tired or having little energy: not at all 5. Poor appetite or overeating: not at all 6. Feeling bad about yourself - or that you are a failure or have let yourself or your family down: not at all 7. Trouble concentrating on things, such as reading the newspaper or watching television: not at all 8. Moving or speaking so slowly that other people could have noticed. Or the opposite - being so fidgety or restless that you have been moving around a lot more than usual: not at all 9. Thoughts that you would be better off or of hurting yourself in some way: not at all Total score: 0 Depression Screening Interpretation: Negative Depression Screening Done: Yes [id number] - PHQ-9 Billing: Yes Source: Developed by Drs. Fredi Miranda, Ayaka Villeda, Andrea Hurley and colleagues, with an educational ten from [employer]. Thrive Questionnaire Date Thrive assessed: 01/25/23 I am a: Patient What is your living situation today?: I have a steady place to live Within the past 12 months, did the food you bought not last and you didn't have the money to get more?: Never true Within the past 12 months, did you worry whether your food would run out before you got money to buy more?: Never true Do you have trouble paying for medicines?: No Do you have trouble getting transportation to medical appointments?: No Do you have trouble paying your heating and electricity bill?: No Do you have trouble taking care of your child, family member or friend?: No Do you have trouble with day-to-day activities such as bathing, preparing meals, shopping, managing finances, etc.?: No Are you currently unemployed and looking for a job?: No Are you interested in more education?: No Please select the resources that you would like help with: None Currently or been in a relationship where the following occur: no concerns reported AUDIT C Alcohol Use Questionnaire (AUDIT-C) 1. How often do you have a drink containing alcohol?: Never 3. How often do you have six or more drinks on one occasion?: Never Total Score: 0 Score Reviewed/Action Taken: Yes SHAWN-7 AMB Questionnaire SHAWN-7 Date SHAWN - 7 assessed: 01/25/23 Feeling nervous, anxious, or on edge: 0 = Not at all Not being able to stop or control worryin = Not at all Worrying too much about different things: 0 = Not at all Trouble relaxin = Not at all Being so restless that it is hard to sit still: 0 = Not at all Becoming easily annoyed or irritable: 0 = Not at all Feeling afraid as if something awful might happen: 0 = Not at all Total SHAWN-7 score (0-4 normal; 5-9 mild; 10-14 moderate; 15-21 severe): 0 Source: Developed by Drs. Fredi Miranda, Ayaka Villeda, Andrea Hurley and colleagues, with an educational ten from [employer]. Review of Systems Const Denies chills, Reports fatigue, Denies fever(s) and Denies headache(s) ENT Denies dysphagia, Denies dizziness, Denies otalgia, Denies headache(s), Denies odynophagia and Denies sore throat Card Denies chest pain, Denies palpitations and Denies dyspnea Resp Denies cough and Denies dyspnea GI Denies abdominal pain, Denies constipation, Denies dysphagia, Denies heartburn, Reports fecal incontinence (at times, usually occurs when he is urinating), Denies diarrhea, Denies nausea, Denies odynophagia and Denies vomiting Denies dysuria, Denies nocturia and Reports urinary incontinence (see HPI) Musc Reports back pain (over the lower back - chronic) Neuro Denies dizziness and Denies headache(s) Endo Reports fatigue and Denies palpitations Physical exam (Primary Care) Vital Signs: Last Vital Signs Pulse 82 01/25/23 11:43 BP 132/68 01/25/23 11:43 Pulse Ox 95 01/25/23 11:43 Oxygen Delivery Method Room Air 01/25/23 11:43 BMI result Body Mass Index 27.8 Tobacco/Smoking Status: Tobacco use Status Tobacco use date assessed 01/25/23 01/25/23 11:46 Patient Tobacco Use Status Former Tobacco user 01/25/23 11:46 e-Cigarette/Vaping Use Never Used 01/25/23 11:46 PHQ-9: PHQ-9 Score PHQ-9: Total score 0 01/25/23 22:59 Depression Screening Interpretation: Negative Thrive Assessment: Date of Thrive Assessment Date Thrive assessed 01/25/23 01/25/23 11:46 Currently or been in a relationship where the following occur: no concerns reported Const General: no acute distress and alert HENMT Ears: TM's normal bilaterally and EAC's normal Throat: Yes posterior oropharynx normal and Yes tonsils normal (no TP congestion noted) Neck Neck: Yes no lymphadenopathy and Yes supple Resp Auscultation: clear to auscultation bilaterally, no rales and no wheezes Cardio Rate: regular rate Rhythm: regular rhythm Heart sounds: no murmurs GI Palpation (GI): Soft to palpation and nontender Auscultation: normal bowel sounds Back/Spine/Pelvis Thoracic/Lumbar Spine: lumbar spinal tenderness (chronic) Skin Other: (+) patchy erythematous rash over the left inguinal area Extrem General: Yes no clubbing, cyanosis or edema Results Reviewed Results Reviewed: Laboratory Tests 01/23/23 09:00 WBC 5.1 Hgb 14.0 Hct 44.0 Plt Count 209 Sodium 142 Potassium 4.3 D Creatinine 0.99 Estimated GFR > 60 Fasting Glucose 82 Hemoglobin A1c % 5.2 Calcium 9.5 AST 16 ALT 9 Triglycerides 52 Cholesterol 117 LDL Cholesterol, Calc 52 HDL Cholesterol 55 25-OH Vitamin D Total 54.4 TSH 5.52 H Free T4 1.03 Ur Specific [place] 1.015 Urine Protein Negative Urine Glucose (UA) Negative Urine Blood Negative Microalb/Creat Ratio 7.9 Assessment and Plan Assessment & Plan (1) Non-ST elevation [place] (NSTEMI): Code(s): I21.4 - Non-ST elevation (NSTEMI) myocardial infarction Plan: NSTEMI occurred mostly in conjunction with his pulmonary embolism and hypoxia about 2 to 3 years ago; has NO prior Hx of CAD Patient has not had any chest pains or increased SOB since Continue Apixaban 5 mg BID Follow up with cardiology as scheduled (2) Pulmonary emboli: Comment: Chest CT done in December 2019 revealed a large volume of bilateral pulmonary emboli, including saddle embolus Patient also had a subacute PE of the right lower lobe that was seen on routine chest CT back in June 2019 Code(s): I26.99 - Other pulmonary embolism without acute cor pulmonale Qualifiers: Acute cor pulmonale presence: with acute cor pulmonale Chronicity: chronic Pulmonary embolism type: saddle Qualified Code(s): I26.02 - Saddle embolus of pulmonary artery with acute cor pulmonale Plan: Continue Eliquis 5 mg BID - patient will require lifelong anticoagulation Follow up with hematology as scheduled (3) Pure hypercholesterolemia: Code(s): E78.00 - Pure hypercholesterolemia, unspecified Plan: Results of his labs done a couple of days ago reviewed and discussed with patient Reinforced low cholesterol diet Continue Simvastatin 10 mg QD Will recheck his labs and fasting lipids in 4 months for follow up (4) Diabetes mellitus: Code(s): E11.9 - Type 2 diabetes mellitus without complications Qualifiers: Diabetes mellitus complication status: without complication Diabetes mellitus penitentiary insulin use: without veterinarian poultry use Diabetes mellitus type: type 2 Qualified Code(s): E11.9 - Type 2 diabetes mellitus without complications Plan: HgbA1c was at 5.2% on his labs done a couple of days ago (was at 5.9% a few months ago) - goal is <7.0% Reinforced diabetic diet Continue Pioglitazone 30 mg once a day, Metformin ER 500 mg 4 tablets once a day, Januvia 100 mg once a day and Glipizide ER 10 mg once a day (5) Benign essential hypertension: Code(s): I10 - Essential (primary) hypertension Plan: Reinforced low sodium diet - goal is systolic BP of at least 140 to 150 mm or less Continue Lisinopril 30 mg QD (6) Hypothyroidism: Code(s): E03.9 - Hypothyroidism, unspecified Qualifiers: Hypothyroidism type: acquired Qualified Code(s): E03.9 - Hypothyroidism, unspecified Plan: TSH was again slightly elevated but free T4 level remains normal; patient remains clinically euthyroid Continue Levothyroxine 75 mcg QD Will continue to monitor his TFTs regularly (7) Compression fracture of L5 vertebra: Comment: S/P L5 kyphoplasty by Dr. Mark in October 2020 Code(s): S32.050A - Wedge compression fracture of fifth lumbar vertebra, initial encounter for closed fracture Qualifiers: Encounter type: sequela Qualified Code(s): S32.050S - Wedge compression fracture of fifth lumbar vertebra, sequela Plan: States that he has been doing well lately and has no significant issues with his lower back since his kyphoplasty in the summer Reinforced activity and weight-lifting restrictions (8) Lumbar degenerative disc disease: Code(s): M51.36 - Other intervertebral disc degeneration, lumbar region Plan: S/P left L4-L5 decompression by Dr. Mark in October 2020 Reinforced activity and weight lifting restrictions Continue Gabapentin 600 mg TID Follow up with neurosurgery as scheduled (9) Ocular myasthenia gravis: Code(s): G70.00 - Myasthenia gravis without (acute) exacerbation Plan: Continue Pyridostigmine 60 mg 2 tablets 3 times a day, Azathioprine 50 mg BID and Prednisone 5 mg 2 tablets once a day Follow-up with Neurology as scheduled (10) Vitamin D deficiency: Code(s): E55.9 - Vitamin D deficiency, unspecified Plan: Continue Vitamin D3 1000 units QD (11) Benign prostatic hyperplasia with urinary frequency: Code(s): N40.1 - Benign prostatic hyperplasia with lower urinary tract symptoms; R35.0 - Frequency of micturition Plan: Used to take Finasteride 5 mg QD and Tamsulosin 0.4 mg QD but patient self-discontinued these at some point and is now only taking OTC Super Beta Prostate daily Cystoscopy done back in July 2022 revealed (+) bladder wall thickening with moderate trabeculation and cellular changes and enlargement of prostate but no suspicious bladder lesions visualized Follow up with urology as scheduled (12) Urinary incontinence: Code(s): R32 - Unspecified urinary incontinence Qualifiers: Urinary Incontinence type: urinary incontinence without sensory awareness Qualified Code(s): N39.42 - Incontinence without sensory awareness Plan: Appears to have both stress and urge incontinence and also has no awareness of his incontinence at times Has been wearing adult diapers for a while now Was started on Toviaz 4 mg QD by urology a few months ago and this is reportedly helping somewhat with his symptoms Follow up with urology as scheduled (13) Intertrigo: Code(s): L30.4 - Erythema intertrigo Plan: Will start him on Nystatin powder [id number] units/gm TID (14) Overweight (BMI 25.0-29.9): Code(s): E66.3 - Overweight Plan: Reinforced diet; exercise and weight loss are unrealistic in this patient due to his multiple physical issues and comorbidities Plan Follow up in 4 months Orders: Orders Microalbumin, Random (w Creat) 4 Months E11.9 - Type 2 diabetes mellitus without complications Complete Blood Count Auto Diff 4 Months I10 - Essential (primary) hypertension Comprehensive [place]. Panel Fast 4 Months E78.00 - Pure hypercholesterolemia, unspecified Lipid Panel 4 Months E78.00 - Pure hypercholesterolemia, unspecified Hemoglobin A1c 4 Months E11.9 - Type 2 diabetes mellitus without complications UA CC w/rflx Micro + Cult 4 Months R30.0 - Dysuria Free T4 (Free Thyroxine) 4 Months E03.9 - Hypothyroidism, unspecified Thyroid Stimulating Hormone 4 Months E03.9 - Hypothyroidism, unspecified Vitamin D 25-OH Total 4 Months E55.9 - Vitamin D deficiency, unspecified Vitamin B12 and Folate 4 Months E53.8 - Deficiency of other specified B group vitamins Medications: New nystatin 1 appl topical TID 10 days 60 grams 3RF L30.4 - Erythema intertrigo Coding Level of Care Code Est Pt Level 4 (31620) Diagnoses Non-ST elevation [place] (NSTEMI) I21.4 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 I26.02 Acute cor pulmonale presence: with acute cor pulmonale Chronicity: chronic Pulmonary embolism type: saddle Pure hypercholesterolemia E78.00 Type 2 diabetes mellitus without complication, without long-term current use of insulin E11.9 Diabetes mellitus complication status: without complication Diabetes mellitus penitentiary insulin use: without veterinarian poultry use Diabetes mellitus type: type 2 Benign essential hypertension I10 Acquired hypothyroidism E03.9 Hypothyroidism type: acquired Compression fracture of L5 vertebra, sequela S32.050S Encounter type: sequela Lumbar degenerative disc disease M51.36 Ocular myasthenia gravis G70.00 Vitamin D deficiency E55.9 Benign prostatic hyperplasia with urinary frequency N40.1; R35.0 Urinary incontinence without sensory awareness N39.42 Urinary Incontinence type: urinary incontinence without sensory awareness Intertrigo L30.4 Overweight (BMI 25.0-29.9) E66.3
== END 2023-01-25 12:38 | disposition home or self-care (01) ==
PROVIDERS: PCP Internal Medicine; Visit Provider Internal Medicine
DX: E11.9 Type 2 diabetes mellitus without complications (principal); I26.02 Saddle embolus of pulmonary artery with acute cor pulmonale; G70.00 Myasthenia gravis without (acute) exacerbation; I25.2 Old myocardial infarction; E78.00 Pure hypercholesterolemia, unspecified; I10 Essential (primary) hypertension; E03.9 Hypothyroidism, unspecified; S32.050S Wedge compression fracture of fifth lumbar vertebra, sequela; M51.36 Other intervertebral disc degeneration, lumbar region; E55.9 Vitamin D deficiency, unspecified; N40.1 Benign prostatic hyperplasia with lower urinary tract symptoms; R35.0 Frequency of micturition
CPT/HCPCS: 99214

== ENCOUNTER 2023-05-19 10:09 | Outpatient (AMB) | payer MEDICARE, SELFPAY ==
[2023-05-19 10:16] VITALS: BP 150/70; PULSE 78; TEMP 37; O2SAT 97; BMI 28.2
--- NOTE | 2023-05-19 10:16 | MHC.OFFWIV ---
Intake Vital Signs 05/19/23 10:16 Height 5 ft 5 in Weight 169 lb 6 oz BMI 28.2 BP 150/70 H Blood Pressure Location Rt brachial Position Sitting Pulse 78 Pulse Source Pulse Oximeter Temp 98.6 F Temp Source Oral Pulse Oximetry (%) 97 Oxygen Delivery Method Room Air Intake Visit Reasons: EP Lump on groin Intake Note: Pt is here today for lump on groin area, pt noticed it a wk ago Patient Tobacco Use Status: Former Tobacco user Allergies No Known Allergies [No Known Allergies*] Allergy (Verified 05/19/23 10:16) Do you need a note to return to daycare/school/sports/work: No HPI HPI Comments History of Present Illness Details This is an 82-year-old male with a past medical history of hypertension, pulmonary emboli currently maintained on Eliquis, BPH, hypothyroidism and [id number] diabetes presenting for evaluation a hard lesion that he found in his groin when applying a topical medication for an inguinal rash. Patient states that he noted at no less than 1 week ago. Patient states the lesion is not itchy, painful and there is no discharge from the lesion. [facility] Medical History Compression fracture of L5 vertebra Rib fracture Dyspnea Pulmonary emboli Benign prostatic hyperplasia with urinary frequency Lumbar degenerative disc disease Ocular myasthenia gravis Diabetes mellitus Benign essential hypertension Vitamin D deficiency Pure hypercholesterolemia Acute respiratory failure with hypoxia Acute massive pulmonary embolism Myasthenia gravis Hyperkalemia Hypothyroidism BPH (benign prostatic hyperplasia) Anemia Melanoma Surgical History History of colonoscopy Status post surgical removal of malignant neoplasm of skin History of kyphoplasty Hx of decompressive lumbar laminectomy History of back surgery Previous back surgery Family History Father Medical history unknown Mother Cancer Social History Household Members: None Housing: House Do you presently have visiting nurse or other home services: No Alcohol intake: current Alcohol intake frequency: holidays/special occasions only Patient Tobacco Use Status: Former Tobacco user e-Cigarette/Vaping Use: Never Used Second Hand Smoke Exposure: Yes service: No Current occupational status: retired Cognitive needs: No Hearing needs: No Vision needs: Yes Review of Systems Const All systems reviewed & are unremarkable except as noted in HPI and below GI Reports no additional complaints Skin/Breast Reports lesions (left inguinal region) Neuro Reports no additional complaints Psych Reports no additional complaints Physical Exam Vital Signs: Last Vital Signs Temp 98.6 F 05/19/23 10:16 Pulse 78 05/19/23 10:16 BP 150/70 H 05/19/23 10:16 Pulse Ox 97 05/19/23 10:16 Oxygen Delivery Method Room Air 05/19/23 10:16 BMI result Body Mass Index 28.2 Const General: cooperative, healthy appearing, comfortable, no acute distress, well developed, alert and awake Nutritional Appearance: average body habitus Orientation/consciousness: patient oriented x3 Limitations: no limitations GI Inspection: Yes normal to inspection Palpation (GI): Soft to palpation, nontender, no guarding and Other GI palpation findings present (no evidence of inguinal hernia bilaterally) Male General Exam: Yes normal external exam, No inguinal lymphadenopathy and No tenderness Skin Other: there is a 1cm hard, fixed, flesh colored lesion in the left inguinal region without fluctuance, induration or discharge Lesions: lesion noted (adjacent to left aspect of the scrotum) Neuro General: patient oriented x3 Psych Appearance: grossly normal Mental Status: mental status grossly normal Insight: Good insight present (Psych) Judgement: Good judgement present (Psych) Assessment & Plan Assessment & Plan (1) Sebaceous cyst: Comment: This lesion is most likely consistent with a sebaceous cyst. There is no clinical indication for incision/excision at this time. A picture of the lesion was taken on the patient's cell phone and the patient will show this picture to his primary care provider who he sees in 2 weeks to see if the lesion has evolved. Patient will watch for any evolvement of this lesion or development of any pain. Code(s): L72.3 - Sebaceous cyst Plan: No further treatment is warranted at this time. Patient will follow up with his primary care provider as discussed. Coding Level of Care Code Est Pt Level 3 (11305) Diagnoses Sebaceous cyst L72.3 Time Spent (min) 20
== END 2023-05-19 11:40 | disposition home or self-care (01) ==
PROVIDERS: PCP Internal Medicine; Visit Provider Physician Assistant
DX: L72.3 Sebaceous cyst (principal)
CPT/HCPCS: 99213

== ENCOUNTER 2023-05-29 15:28 | Outpatient (AMB) | payer MEDICARE, SELFPAY ==
--- NOTE | 2023-05-29 15:47 | AM.OFFWIN_ITS ---
Intake Vital Signs 05/29/23 15:48 Height 5 ft 5 in BP 118/60 Blood Pressure Location Rt brachial Position Sitting Pulse 67 Pulse Source Pulse Oximeter Temp 98.5 F Temp Source Oral Pulse Oximetry (%) 99 Oxygen Delivery Method Room Air Intake Visit Reasons: EP groin cyst Intake Note: pt was seen on 05/19/23 for a cyst in his groin that has now burst and pt says it adames and is painful Patient Tobacco Use Status: Former Tobacco user Allergies No Known Allergies [No Known Allergies*] Allergy (Verified 05/29/23 16:25) Medication List - Last Reconciled 05/29/23 by Aolnzo Robert, PLASTIC FIXTURE BUILDER apixaban (Eliquis) 5 mg PO BID azathioprine 50 mg PO BID blood sugar diagnostic (Accu-Chek Kezia Plus test strips) 1 strip miscellaneous DAILY blood sugar diagnostic (Contour Next Test Strips) As directed once a day blood-glucose meter (Accu-Chek Kezia Plus Meter) to check blood sugars twice a day - Dx Code: E11.9 cyanocobalamin (vitamin B-12) 100 mcg PO DAILY doxycycline hyclate 100 mg PO BID famotidine 20 mg PO DAILY 90 days ferrous sulfate 325 mg PO DAILY fesoterodine ER 4 mg PO DAILY flash glucose scanning reader (FreeStyle Hollie 2 [place]) As directed glipizide ER 10 mg PO DAILY lancets (Accu-Chek Fastclix Lancet Drum) to check blood sugars twice a day - Dx Code: E11.9 levothyroxine 75 mcg PO QAM lisinopril 30 mg PO DAILY metformin ER 2,000 mg (4 x 500 mg) PO DAILY 90 days pyridostigmine bromide mg PO simvastatin 10 mg PO BEDTIME sitagliptin phosphate (Januvia) 100 mg PO DAILY HPI HPI Comments History of Present Illness Details Patient is an 83-year-old male in today for a sick visit. Patient states that he has a small cyst in his right groin area that ruptured earlier today, releasing drainage. Patient states that the area is tender. Denies fever, chest pain, shortness a breath, lethargy, numbness. On inspection patient has ruptured cyst of left groin on the upper scrotum. Some tenderness on palpations. Scant clear drainage. No erythema. Appears to be healing well. [facility] Medical History Compression fracture of L5 vertebra Rib fracture Dyspnea Pulmonary emboli Benign prostatic hyperplasia with urinary frequency Lumbar degenerative disc disease Ocular myasthenia gravis Diabetes mellitus Benign essential hypertension Vitamin D deficiency Pure hypercholesterolemia Acute respiratory failure with hypoxia Acute massive pulmonary embolism Myasthenia gravis Hyperkalemia Hypothyroidism BPH (benign prostatic hyperplasia) Anemia Melanoma Surgical History History of colonoscopy Status post surgical removal of malignant neoplasm of skin History of kyphoplasty Hx of decompressive lumbar laminectomy History of back surgery Previous back surgery Family History Father Medical history unknown Mother Cancer Social History Household Members: None Housing: House Do you presently have visiting nurse or other home services: No Alcohol intake: current Alcohol intake frequency: holidays/special occasions only Patient Tobacco Use Status: Former Tobacco user e-Cigarette/Vaping Use: Never Used Second Hand Smoke Exposure: Yes service: No Current occupational status: retired Cognitive needs: No Hearing needs: No Vision needs: Yes Review of Systems Const All systems reviewed & are unremarkable except as noted in HPI and below Musc Denies numbness Skin/Breast Reports other (Patient states he has cyst.) Neuro Denies numbness Physical Exam Vital Signs: Last Vital Signs Temp 98.5 F 05/29/23 15:48 Pulse 67 05/29/23 15:48 BP 118/60 05/29/23 15:48 Pulse Ox 99 05/29/23 15:48 Oxygen Delivery Method Room Air 05/29/23 15:48 Vital signs reviewed stable. Const Other: Appearance: Alert.? Oriented X3.? No acute distress.? Head: Normocephalic, atraumatic. CVS: Normal heart rate and rhythm.? Pulses normal.? Respiratory: No respiratory distress.? Breath sounds normal.? Skin: Ruptured cysts of left groin/scrotom. Likely sebaceous. Clear drainage. + tender on palpations. No erythema. Neuro: Oriented X 3.? No motor deficit.? No sensory deficit. CN 2-12 intact Cyst was cleaned in office. Assessment & Plan Assessment & Plan (1) Sebaceous cyst: Comment: Ruptured prior to appointment. Patient will be given doxycycline to be taken as directed. Patient has been educated on side effects of these medications. Code(s): L72.3 - Sebaceous cyst Plan: Take your medications as prescribed. If you were prescribed antibiotics today, it is important that you take your medication to their entirety, do not skip any doses, do not finish them early. Follow-up with your primary care provider this week. Return to the emergency department with new or worsening symptoms. Such as fevers, chills, chest pain, shortness of breath, nausea, vomiting, dizziness, headache, vision changes, lethargy In case of emergency call 911 Plan Follow-up with PCP Coding Level of Care Code Est Pt Level 3 (88748) Diagnoses Sebaceous cyst L72.3 Time Spent (min) 21
[2023-05-29 15:48] VITALS: BP 118/60; PULSE 67; TEMP 36.9; O2SAT 99
== END 2023-05-29 16:49 | disposition home or self-care (01) ==
PROVIDERS: PCP Internal Medicine; Visit Provider Nurse Practitioner Primary Care
DX: L72.3 Sebaceous cyst (principal)
CPT/HCPCS: 99213

== ENCOUNTER 2023-06-11 10:45 | Outpatient (REF) | payer MEDICARE, SELFPAY ==
[2023-06-11 13:53] LABS: Appearance Urine Clear; Color Urine Dark Yellow; Glucose Urine UA Negative (Negative); Leukocyte Esterase Urine Negative (Negative); Nitrite Urine Negative (Negative); Specific Gravity - Urine 1.025 (1.005-1.025); Urine Blood Negative (Negative); Urine Ketones Trace mg/dL (Negative); Urine Protein Trace mg/dL (Neg-Trace)
[2023-06-11 13:55] LABS: MANUAL DIFF FLAG NO
[2023-06-11 14:10] LABS: Basophils Absolute Auto 0.1 X10*3/uL (0.0-0.2); Basophils Percent Auto 0.8 % (0-2); Eosinophils Absolute Auto 0.1 X10*3/uL (0.0-0.4); Eosinophils Percent Auto 0.9 % (0-4); Hemoglobin 14.5 g/dl (14.0-18.0); Imm Gran Abs Auto 0.02 X10*3/uL (0.00-0.03); Imm Gran Pct Auto 0.3 % (0.0-0.4); Lymphocytes Absolute Auto 1.2 X10*3/uL (1.2-4.9); Lymphocytes Percent Auto 15.3 % (20-40); Mean Corpuscular HGB Conc 31.5 g/dl (31.0-36.0); Mean Corpuscular Hemoglobin 31.3 pg (27.0-33.0); Mean Corpuscular Volume 99.4 fL (80.0-98.0); Mean Platelet Volume 10.5 fL (9.4-12.4); Monocytes Absolute Auto 0.8 X10*3/uL (0.1-1.2); Monocytes Percent Auto 9.8 % (2-11); Neutrophils Absolute Auto 5.6 x10*3/uL (2.0-8.3); Neutrophils Percent Auto 72.9 % (45-73); Platelet Count 220 X10*3/uL (160-400); Red Blood Count 4.63 X10*6/uL (4.60-5.80); Red Cell Distribution Width 13.5 % (11.0-16.0); White Blood Count 7.7 X10*3/uL (4.8-10.8)
[2023-06-11 14:44] LABS: Creatinine Urine 234.19 mg/dL; Microalbum/Creatinine Ratio Ur 21.3 ug/mg cr (<30)
[2023-06-11 14:55] LABS: Estimated Average Glucose 105 mg/dL; Hemoglobin A1c % 5.3 % (<6.0)
[2023-06-11 14:57] LABS: Alanine Aminotransferase 10 U/L (0-40); Albumin Level 4.3 g/dL (3.5-5.0); Alkaline Phosphatase 63 U/L (39-117); Anion Gap 12 (12-20); Aspartate Amino Transferase 19 U/L (5-37); Bilirubin Total 0.6 mg/dL (0.0-1.0); Blood Urea Nitrogen 16 mg/dL (9-16); Calcium 9.9 mg/dL (8.4-10.2); Carbon Dioxide 28 mmol/L (22-29); Chloride 106 mmol/L (96-108); Cholesterol 144 mg/dL (<200); Estimated Glomerular Filt Rate > 60; Glucose Fasting 92 mg/dL (60-99); HDL Cholesterol 59 mg/dL (>40); LDL Cholesterol Calculated 69 mg/dL (<100); Potassium 4.4 mmol/L (3.3-5.1); Sodium 142 mmol/L (135-145); Triglycerides 81 mg/dL (<150)
[2023-06-11 15:01] LABS: Free T4 (Free Thyroxine) 1.14 ng/dL (0.71-1.85); Thyroid Stimulating Hormone 5.01 uIU/mL (0.32-4.0); Vitamin D 25-OH Total 53.8 ng/mL (>30)
[2023-06-11 15:18] LABS: Folate 14.4 ng/mL (> or = 4.0); Vitamin B12 750 pg/mL (200-900)
== END 2023-06-11 10:46 | disposition home or self-care (01) ==
LOC: HO.10HDL 10:45
PROVIDERS: Visit Provider Internal Medicine
DX: E11.9 Type 2 diabetes mellitus without complications (principal); E55.9 Vitamin D deficiency, unspecified; E53.8 Deficiency of other specified B group vitamins; R30.0 Dysuria; E03.9 Hypothyroidism, unspecified; E78.00 Pure hypercholesterolemia, unspecified; I10 Essential (primary) hypertension
CPT/HCPCS: 36415; 80053; 80061; 81003; 82043; 82306; 82570; 82607; 82746; 83036; 84439; 84443; 85025

== ENCOUNTER 2023-06-12 14:15 | Outpatient (AMB) | payer MEDICARE, SELFPAY ==
--- NOTE | 2023-06-12 14:16 | A.OFFPC_ITS ---
Vital Signs 06/12/23 14:18 Height 5 ft 4 in Weight 169 lb 6 oz BMI 29.1 BP 140/66 H Blood Pressure Location Lt brachial Position Sitting Pulse 79 Pulse Source Pulse Oximeter Pulse Oximetry (%) 96 Oxygen Delivery Method Room Air Intake Visit Reasons: walk in f/u Intake Note: Patient is here to follow up on Sebaceous cyst on groin area. High Density Finishing Operator Required: No Kitchen Operator: Present Accompanied by: Sister Allergies No Known Allergies [No Known Allergies*] Allergy (Verified 06/12/23 14:52) Medication List - Last Reconciled 06/12/23 by Cornelius Phillips MD apixaban (Eliquis) 5 mg PO BID azathioprine 50 mg PO BID blood sugar diagnostic (Accu-Chek Kezia Plus test strips) 1 strip miscellaneous DAILY blood sugar diagnostic (Contour Next Test Strips) As directed once a day blood-glucose meter (Accu-Chek Kezia Plus Meter) to check blood sugars twice a day - Dx Code: E11.9 cyanocobalamin (vitamin B-12) 100 mcg PO DAILY famotidine 20 mg PO DAILY 90 days ferrous sulfate 325 mg PO DAILY fesoterodine ER 4 mg PO DAILY flash glucose scanning reader (FreeStyle Hollie 2 [place]) As directed glipizide ER 10 mg PO DAILY lancets (Accu-Chek Fastclix Lancet Drum) to check blood sugars twice a day - Dx Code: E11.9 levothyroxine 75 mcg PO QAM lisinopril 30 mg PO DAILY metformin ER 2,000 mg (4 x 500 mg) PO DAILY 90 days pyridostigmine bromide mg PO simvastatin 10 mg PO BEDTIME sitagliptin phosphate (Januvia) 100 mg PO DAILY Tobacco use date assessed: 06/12/23 Fall risk assessment: No Falls in past year Last assessed Fall Risk: 06/12/23 Dental Screening Dental Screen Date: 06/12/23 Did you have a dental visit in the last 12 months?: No Did you have a dental problem in the last 6 months where you did not have access to dental care?: No Was dental information given to patient?: No HPI walk in f/u HPI Details Patient comes in today for his follow up visit States that he currently feels okay He went to the walk-in clinic a couple of weeks ago for a cyst in his groin area that he's had for a few weeks and it reportedly ruptured earlier that day, prompting him to go to the walk-in to get it checked He was started on oral Doxycycline and instructed to follow up with his PCP shortly Patient states that the ruptured cyst, which was likely a cutaneous abscess, has improved a lot with the oral Abx that he was prescribed and now only has minimal residual drainage - is wondering if he needs any more Abx at this time Adds that he's had a raised lesion at the middle of his back that has been present for a while now and thinks that he sees some blood from the lesion lately He denies any headaches or dizziness; denies any fever Denies any chest pains, no SOB No nausea/vomiting, no abdominal pain States that he still has stool incontinence at times and these tend to occur when he is urinating; he also has stool urgency and he has to parikh to the bathroom whenever he feels the urge to go or he will not make it in time He has urinary incontinence as well - states that he often just leaks and sometimes is not even aware that he is leaking or urinating Has been wearing adult diapers for the past couple of years now as a result due to his frequent accidents He has been seeing [facility] for his urinary issues but is now requesting for a referral to [facility] in [place] instead He had his follow up labs done yesterday - to discuss his results [facility] Medical History Compression fracture of L5 vertebra Rib fracture Dyspnea Pulmonary emboli Benign prostatic hyperplasia with urinary frequency Lumbar degenerative disc disease Ocular myasthenia gravis Diabetes mellitus Benign essential hypertension Vitamin D deficiency Pure hypercholesterolemia Acute respiratory failure with hypoxia Acute massive pulmonary embolism Myasthenia gravis Hyperkalemia Hypothyroidism BPH (benign prostatic hyperplasia) Anemia Melanoma Surgical History History of colonoscopy Status post surgical removal of malignant neoplasm of skin History of kyphoplasty Hx of decompressive lumbar laminectomy History of back surgery Previous back surgery Family History Father Medical history unknown Mother Cancer Social History Household Members: None Housing: House Do you presently have visiting nurse or other home services: No Alcohol intake: current Alcohol intake frequency: holidays/special occasions only Patient Tobacco Use Status: Former Tobacco user e-Cigarette/Vaping Use: Never Used Second Hand Smoke Exposure: Yes service: No Current occupational status: retired Cognitive needs: No Hearing needs: No Vision needs: Yes Questionnaire PHQ-9 Over the last 2 weeks, how often have you been bothered by any of the following problems? 1. Little interest or pleasure in doing things: not at all 2. Feeling down, depressed, or hopeless: not at all 3. Trouble falling or staying asleep, or sleeping too much: not at all 4. Feeling tired or having little energy: not at all 5. Poor appetite or overeating: not at all 6. Feeling bad about yourself - or that you are a failure or have let yourself or your family down: not at all 7. Trouble concentrating on things, such as reading the newspaper or watching television: not at all 8. Moving or speaking so slowly that other people could have noticed. Or the opposite - being so fidgety or restless that you have been moving around a lot more than usual: not at all 9. Thoughts that you would be better off or of hurting yourself in some way: not at all Total score: 0 Depression Screening Interpretation: Negative Depression Screening Done: Yes 15961 - PHQ-9 Billing: Yes Source: Developed by Drs. Fredi Miranda, Ayaka Villeda, Andrea Hurley and colleagues, with an educational ten from [employer]. Thrive Questionnaire Date Thrive assessed: 06/12/23 I am a: Patient What is your living situation today?: I have a steady place to live Within the past 12 months, did the food you bought not last and you didn't have the money to get more?: Never true Within the past 12 months, did you worry whether your food would run out before you got money to buy more?: Never true Do you have trouble paying for medicines?: No Do you have trouble getting transportation to medical appointments?: No Do you have trouble paying your heating and electricity bill?: No Do you have trouble taking care of your child, family member or friend?: No Do you have trouble with day-to-day activities such as bathing, preparing meals, shopping, managing finances, etc.?: No Are you currently unemployed and looking for a job?: No Are you interested in more education?: No Currently or been in a relationship where the following occur: no concerns reported THRIVE Score: 0 AUDIT C Alcohol Use Questionnaire (AUDIT-C) 1. How often do you have a drink containing alcohol?: Never 3. How often do you have six or more drinks on one occasion?: Never Total Score: 0 Score Reviewed/Action Taken: Yes SHAWN-7 AMB Questionnaire SHAWN-7 Date SHAWN - 7 assessed: 06/12/23 Feeling nervous, anxious, or on edge: 0 = Not at all Not being able to stop or control worryin = Not at all Worrying too much about different things: 0 = Not at all Trouble relaxin = Not at all Being so restless that it is hard to sit still: 0 = Not at all Becoming easily annoyed or irritable: 0 = Not at all Feeling afraid as if something awful might happen: 0 = Not at all Total SHAWN-7 score (0-4 normal; 5-9 mild; 10-14 moderate; 15-21 severe): 0 Source: Developed by Drs. Fredi Miranda, Ayaka Villeda, Andrea Hurley and colleagues, with an educational ten from [employer]. Review of Systems Const Denies chills, Reports fatigue, Denies fever(s) and Denies headache(s) ENT Denies dysphagia, Denies dizziness, Denies otalgia, Denies headache(s), Denies neck pain, Denies odynophagia and Denies sore throat Card Denies chest pain, Denies palpitations and Denies dyspnea Resp Denies cough and Denies dyspnea GI Denies abdominal pain, Denies constipation, Denies dysphagia, Denies heartburn, Reports fecal incontinence (at times, usually occurs when he is urinating), Denies diarrhea, Denies nausea, Denies odynophagia and Denies vomiting Denies dysuria, Denies nocturia, Denies urinary frequency and Reports urinary in continence (see HPI) Musc Reports back pain (over the lower back - chronic) and Denies neck pain Skin/Breast Details: (+) residual ruptured abscess over the right inguinal area; (+) slightly bleeding lesion on the back Denies rash Neuro Denies dizziness and Denies headache(s) Endo Reports fatigue and Denies palpitations Physical exam (Primary Care) Vital Signs: Last Vital Signs Pulse 79 06/12/23 14:18 BP 140/66 H 06/12/23 14:18 Pulse Ox 96 06/12/23 14:18 Oxygen Delivery Method Room Air 06/12/23 14:18 BMI result Body Mass Index 29.1 Tobacco/Smoking Status: Tobacco use Status Tobacco use date assessed 06/12/23 06/12/23 14:26 Patient Tobacco Use Status Former Tobacco user 06/12/23 14:26 e-Cigarette/Vaping Use Never Used 06/12/23 14:26 PHQ-9: PHQ-9 Score PHQ-9: Total score 0 06/12/23 14:52 Depression Screening Interpretation: Negative Thrive Assessment: Date of Thrive Assessment Date Thrive assessed 06/12/23 06/12/23 14:26 Currently or been in a relationship where the following occur: no concerns reported Const General: no acute distress and alert HENMT Ears: TM's normal bilaterally and EAC's normal Throat: Yes posterior oropharynx normal and Yes tonsils normal (no TP congestion noted) Neck Neck: Yes no lymphadenopathy and Yes supple Thyroid: Thyroid normal Resp Auscultation: clear to auscultation bilaterally, no rales and no wheezes Cardio Rate: regular rate Rhythm: regular rhythm Heart sounds: no murmurs GI Palpation (GI): Soft to palpation and nontender Auscultation: normal bowel sounds General: Yes no CVA tenderness Back/Spine/Pelvis Back: no CVA tenderness Thoracic/Lumbar Spine: lumbar spinal tenderness (chronic) Skin Other: (+) resolving ruptured abscess over the right inguinal area, with minimal residual serous drainage noted; (+) raised lesion on the middle of the back, with some bleeding noted from the edge of the lesion Extrem General: Yes no clubbing, cyanosis or edema Results Reviewed Results Reviewed: Laboratory Tests 06/11/23 10:50 WBC 7.7 Hgb 14.5 Hct 46.0 Plt Count 220 Sodium 142 Potassium 4.4 Creatinine 1.02 Estimated GFR > 60 Fasting Glucose 92 Hemoglobin A1c % 5.3 Calcium 9.9 AST 19 ALT 10 Triglycerides 81 Cholesterol 144 LDL Cholesterol, Calc 69 HDL Cholesterol 59 Vitamin B12 750 25-OH Vitamin D Total 53.8 TSH 5.01 H Free T4 1.14 Ur Specific [place] 1.025 Urine Protein Trace Urine Glucose (UA) Negative Urine Blood Negative Urine Nitrite Negative Ur Leukocyte Esterase Negative Microalb/Creat Ratio 21.3 Assessment and Plan Assessment & Plan (1) Non-ST elevation [place] (NSTEMI): Code(s): I21.4 - Non-ST elevation (NSTEMI) myocardial infarction Plan: NSTEMI occurred mostly in conjunction with his pulmonary embolism and hypoxia about 2 to 3 years ago; has NO prior Hx of CAD Patient has not had any chest pains or increased SOB since Continue Apixaban 5 mg BID Follow up with cardiology as scheduled (2) Pulmonary emboli: Comment: Chest CT done in December 2019 revealed a large volume of bilateral pulmonary emboli, including saddle embolus Patient also had a subacute PE of the right lower lobe that was seen on routine chest CT back in June 2019 Code(s): I26.99 - Other pulmonary embolism without acute cor pulmonale Qualifiers: Acute cor pulmonale presence: with acute cor pulmonale Chronicity: chronic Pulmonary embolism type: saddle Qualified Code(s): I26.02 - Saddle embolus of pulmonary artery with acute cor pulmonale Plan: Continue Eliquis 5 mg BID - patient will require lifelong anticoagulation Follow up with hematology as scheduled (3) Pure hypercholesterolemia: Code(s): E78.00 - Pure hypercholesterolemia, unspecified Plan: Results of his labs done yesterday reviewed and discussed with patient Reinforced low cholesterol diet Continue Simvastatin 10 mg QD Will recheck his labs and fasting lipids in 4 months for follow up (4) Diabetes mellitus: Code(s): E11.9 - Type 2 diabetes mellitus without complications Qualifiers: Diabetes mellitus complication status: without complication Diabetes mellitus termite renewal inspector insulin use: without custodial use Diabetes mellitus type: type 2 Qualified Code(s): E11.9 - Type 2 diabetes mellitus without complications Plan: HgbA1c was at 5.3% on his labs done yesterday (was at 5.2% a few months ago) - goal is <7.0% Reinforced diabetic diet Continue Pioglitazone 30 mg once a day, Metformin ER 500 mg 4 tablets once a day, Januvia 100 mg once a day and Glipizide ER 10 mg once a day Will consider stopping his Glipizide at his next visit if his HgbA1c remains unchanged in the low 5.0% range (5) Benign essential hypertension: Code(s): I10 - Essential (primary) hypertension Plan: Reinforced low sodium diet - goal is systolic BP of at least 140 to 150 mm or less Continue Lisinopril 30 mg QD (6) Hypothyroidism: Code(s): E03.9 - Hypothyroidism, unspecified Qualifiers: Hypothyroidism type: acquired Qualified Code(s): E03.9 - Hypothyroidism, unspecified Plan: TSH was again slightly elevated but free T4 level remains normal; patient remains clinically euthyroid Continue Levothyroxine 75 mcg QD Will continue to monitor his TFTs regularly (7) Cutaneous abscess of groin: Code(s): L02.214 - Cutaneous abscess of groin Plan: S/P Abx Tx - resolving Have advised patient to just continue with daily wound care until the lesion dries up completely Reassured him that he does not need any further Abx at this time (8) Skin lesion of back: Code(s): L98.9 - Disorder of the skin and subcutaneous tissue, unspecified Plan: Per request, will refer him to dermatology for further evaluation and management (9) Compression fracture of L5 vertebra: Comment: S/P L5 kyphoplasty by Dr. Mark in October 2020 Code(s): S32.050A - Wedge compression fracture of fifth lumbar vertebra, initial encounter for closed fracture Qualifiers: Encounter type: sequela Qualified Code(s): S32.050S - Wedge compression fracture of fifth lumbar vertebra, sequela Plan: States that he has been doing well lately and has no significant issues with his lower back since his kyphoplasty in the summer Reinforced activity and weight-lifting restrictions (10) Lumbar degenerative disc disease: Code(s): M51.36 - Other intervertebral disc degeneration, lumbar region Plan: S/P left L4-L5 decompression by Dr. Mark in October 2020 Reinforced activity and weight lifting restrictions Continue Gabapentin 600 mg TID Follow up with neurosurgery as scheduled (11) Ocular myasthenia gravis: Code(s): G70.00 - Myasthenia gravis without (acute) exacerbation Plan: Continue Pyridostigmine 60 mg 2 tablets 3 times a day, Azathioprine 50 mg BID and Prednisone 5 mg 2 tablets once a day Follow-up with Neurology as scheduled (12) Vitamin D deficiency: Code(s): E55.9 - Vitamin D deficiency, unspecified Plan: Continue Vitamin D3 1000 units QD (13) Benign prostatic hyperplasia with urinary frequency: Code(s): N40.1 - Benign prostatic hyperplasia with lower urinary tract symptoms; R35.0 - Frequency of micturition Plan: Used to take Finasteride 5 mg QD and Tamsulosin 0.4 mg QD but patient self- discontinued these at some point and is now only taking OTC Super Beta Prostate daily Cystoscopy done back in July 2022 revealed (+) bladder wall thickening with moderate trabeculation and cellular changes and enlargement of prostate but no suspicious bladder lesions visualized He was seeing urology here at [facility] but is now requesting for a referral to [facility] in [place] instead - referral done (14) Urinary incontinence: Code(s): R32 - Unspecified urinary incontinence Qualifiers: Urinary Incontinence type: urinary incontinence without sensory awareness Qualified Code(s): N39.42 - Incontinence without sensory awareness Plan: Appears to have both stress and urge incontinence and also has no awareness of his incontinence at times Has been wearing adult diapers for a while now Continue Toviaz 4 mg QD Follow up with urology as scheduled (15) Overweight (BMI 25.0-29.9): Code(s): E66.3 - Overweight Plan: Reinforced diet; exercise and weight loss are unrealistic in this patient due to his multiple physical issues and comorbidities Plan Follow up in 4 months Orders: Orders Complete Blood Count Auto Diff 4 Months D64.9 - Anemia, unspecified Comprehensive [place]. Panel Fast 4 Months E78.00 - Pure hypercholesterolemia, unspecified Hemoglobin A1c 4 Months E11.9 - Type 2 diabetes mellitus without complications TSH reflex Free T4 4 Months E78.00 - Pure hypercholesterolemia, unspecified UA CC w/rflx Micro + Cult 4 Months R30.0 - Dysuria Lipid Panel 4 Months E78.00 - Pure hypercholesterolemia, unspecified Microalbumin, Random (w Creat) 4 Months E11.9 - Type 2 diabetes mellitus without complications Vitamin D 25-OH Total 4 Months E55.9 - Vitamin D deficiency, unspecified Referrals Urology Referral R35.0 - Frequency of micturition, R32 - Unspecified urinary incontinence Dermatology Referral L98.9 - Disorder of the skin and subcutaneous tissue, unspecified Coding Level of Care Code Est Pt Level 4 (77986) Diagnoses Non-ST elevation [place] (NSTEMI) I21.4 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 I26.02 Acute cor pulmonale presence: with acute cor pulmonale Chronicity: chronic Pulmonary embolism type: saddle Pure hypercholesterolemia E78.00 Type 2 diabetes mellitus without complication, without long-term current use of insulin E11.9 Diabetes mellitus complication status: without complication Diabetes mellitus termite renewal inspector insulin use: without termite renewal inspector use Diabetes mellitus type: type 2 Benign essential hypertension I10 Acquired hypothyroidism E03.9 Hypothyroidism type: acquired Cutaneous abscess of groin L02.214 Skin lesion of back L98.9 Compression fracture of L5 vertebra, sequela S32.050S Encounter type: sequela Lumbar degenerative disc disease M51.36 Ocular myasthenia gravis G70.00 Vitamin D deficiency E55.9 Benign prostatic hyperplasia with urinary frequency N40.1; R35.0 Urinary incontinence without sensory awareness N39.42 Urinary Incontinence type: urinary incontinence without sensory awareness Overweight (BMI 25.0-29.9) E66.3
[2023-06-12 14:18] VITALS: BP 140/66; PULSE 79; O2SAT 96; BMI 29.1
== END 2023-06-12 15:19 | disposition home or self-care (01) ==
PROVIDERS: PCP Internal Medicine; Visit Provider Internal Medicine
DX: I25.2 Old myocardial infarction (principal); I26.02 Saddle embolus of pulmonary artery with acute cor pulmonale; E11.9 Type 2 diabetes mellitus without complications; G70.00 Myasthenia gravis without (acute) exacerbation; E78.00 Pure hypercholesterolemia, unspecified; I10 Essential (primary) hypertension; E03.9 Hypothyroidism, unspecified; L02.214 Cutaneous abscess of groin; L98.9 Disorder of the skin and subcutaneous tissue, unspecified; S32.050S Wedge compression fracture of fifth lumbar vertebra, sequela; M51.36 Other intervertebral disc degeneration, lumbar region; E55.9 Vitamin D deficiency, unspecified
CPT/HCPCS: 99214

== ENCOUNTER 2023-09-10 08:07 | Outpatient (REF) | payer MEDICARE, SELFPAY ==
[2023-09-10 11:07] LABS: Appearance Urine Clear; Color Urine Yellow; Glucose Urine UA Negative (Negative); Leukocyte Esterase Urine Negative (Negative); MANUAL DIFF FLAG NO; Nitrite Urine Negative (Negative); PH 5.5 (5.0-9.0); Urine Blood Negative (Negative); Urine Ketones Negative (Negative); Urine Protein Negative (Neg-Trace)
[2023-09-10 11:08] LABS: Basophils Absolute Auto 0.1 X10*3/uL (0.0-0.2); Basophils Percent Auto 1.1 % (0-2); Eosinophils Absolute Auto 0.1 X10*3/uL (0.0-0.4); Eosinophils Percent Auto 1.7 % (0-4); Hemoglobin 14.9 g/dl (14.0-18.0); Imm Gran Abs Auto 0.03 X10*3/uL (0.00-0.03); Imm Gran Pct Auto 0.4 % (0.0-0.4); Lymphocytes Absolute Auto 1.4 X10*3/uL (1.2-4.9); Lymphocytes Percent Auto 19.8 % (20-40); Mean Corpuscular HGB Conc 33.1 g/dl (31.0-36.0); Mean Corpuscular Hemoglobin 32.3 pg (27.0-33.0); Mean Corpuscular Volume 97.4 fL (80.0-98.0); Mean Platelet Volume 10.4 fL (9.4-12.4); Monocytes Absolute Auto 0.8 X10*3/uL (0.1-1.2); Neutrophils Absolute Auto 4.7 x10*3/uL (2.0-8.3); Platelet Count 205 X10*3/uL (160-400); Red Blood Count 4.62 X10*6/uL (4.60-5.80); Red Cell Distribution Width 13.9 % (11.0-16.0); White Blood Count 7.1 X10*3/uL (4.8-10.8)
[2023-09-10 11:22] LABS: Estimated Average Glucose 126 mg/dL
[2023-09-10 11:29] LABS: Alanine Aminotransferase 11 U/L (0-40); Albumin Level 4.2 g/dL (3.5-5.0); Alkaline Phosphatase 74 U/L (39-117); Anion Gap 15 (12-20); Aspartate Amino Transferase 17 U/L (5-37); Bilirubin Total 0.7 mg/dL (0.0-1.0); Blood Urea Nitrogen 17 mg/dL (9-16); Calcium 9.8 mg/dL (8.4-10.2); Carbon Dioxide 29 mmol/L (22-29); Chloride 103 mmol/L (96-108); Cholesterol 133 mg/dL (<200); Estimated Glomerular Filt Rate > 60; Glucose Fasting 144 mg/dL (60-99); HDL Cholesterol 63 mg/dL (>40); LDL Cholesterol Calculated 55 mg/dL (<100); Potassium 4.5 mmol/L (3.3-5.1); Sodium 142 mmol/L (135-145); Total Protein 6.9 g/dL (6.5-8.0); Triglycerides 75 mg/dL (<150)
[2023-09-10 11:46] LABS: TSH reflex Free T4 7.96 uIU/mL (0.32-4.0); Vitamin D 25-OH Total 67.6 ng/mL (>30)
[2023-09-10 11:49] LABS: Microalbum/Creatinine Ratio Ur 18.4 ug/mg cr (<30)
[2023-09-10 15:54] LABS: Free T4 (Free Thyroxine) 0.98 ng/dL (0.71-1.85)
== END 2023-09-10 08:08 | disposition home or self-care (01) ==
LOC: HO.10HDL 08:07
PROVIDERS: Visit Provider Internal Medicine
DX: D64.9 Anemia, unspecified (principal); E78.00 Pure hypercholesterolemia, unspecified; E11.9 Type 2 diabetes mellitus without complications; E55.9 Vitamin D deficiency, unspecified; R30.0 Dysuria
CPT/HCPCS: 36415; 80053; 80061; 81003; 82043; 82306; 82570; 83036; 84439; 84443; 85025

== ENCOUNTER 2023-10-09 15:01 | Outpatient (AMB) | payer MEDICARE, SELFPAY ==
[2023-10-09 15:02] VITALS: BP 140/68; PULSE 71; O2SAT 98; BMI 27.5
--- NOTE | 2023-10-09 15:02 | MHC.PC.OV ---
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: No Allergies No Known Allergies [No Known Allergies*] Allergy (Verified 10/09/23 15:24) Medication List - Last Reconciled 10/09/23 by Cornelius Phillips MD apixaban (Eliquis) 5 mg PO BID azathioprine 50 mg PO BID blood sugar diagnostic (Accu-Chek Kezia Plus test strips) 1 strip miscellaneous DAILY blood sugar diagnostic (Contour Next Test Strips) As directed once a day blood-glucose meter (Accu-Chek Kezia Plus Meter) to check blood sugars twice a day - Dx Code: E11.9 cyanocobalamin (vitamin B-12) 100 mcg PO DAILY famotidine 20 mg PO DAILY 90 days ferrous sulfate 325 mg PO DAILY fesoterodine ER 4 mg PO DAILY flash glucose scanning reader (Aunt Kitchen Hollie [address] [place]) As directed glipizide ER 10 mg PO DAILY lancets (Accu-Chek Fastclix Lancet Drum) to check blood sugars twice a day - Dx Code: E11.9 levothyroxine 75 mcg PO QAM lisinopril 30 mg PO DAILY metformin ER 2,000 mg (4 x 500 mg) PO DAILY 90 days pyridostigmine bromide mg PO simvastatin 10 mg PO BEDTIME sitagliptin phosphate (Januvia) 100 mg PO DAILY Tobacco use date assessed: 06/12/23 Fall risk assessment: No Falls in past year Last assessed Fall Risk: 10/09/23 Dental Screening Dental Screen Date: 06/12/23 HPI 4 Month F/U-see comments HPI Details Patient comes in today for his follow up visit States that he feels okay except for his increasing low back pain and right hip pain, which he states have gotten worse over the past couple of weeks He requested for an MRI of his lumbar spine to be ordered last week and is currently still waiting to get this scheduled He denies any recent injury or trauma to his lower back and right hip He denies any headaches or dizziness Denies any chest pains, no increased SOB No nausea/vomiting, no abdominal pain No change in bowel habits noted He had his follow up labs done last month - to discuss his results [facility] Medical History Compression fracture of L5 vertebra Rib fracture Dyspnea Pulmonary emboli Benign prostatic hyperplasia with urinary frequency Lumbar degenerative disc disease Ocular myasthenia gravis Diabetes mellitus Benign essential hypertension Vitamin D deficiency Pure hypercholesterolemia Acute respiratory failure with hypoxia Acute massive pulmonary embolism Myasthenia gravis Hyperkalemia Hypothyroidism BPH (benign prostatic hyperplasia) Anemia Melanoma Surgical History History of colonoscopy Status post surgical removal of malignant neoplasm of skin History of kyphoplasty Hx of decompressive lumbar laminectomy History of back surgery Previous back surgery Family History Father Medical history unknown Mother Cancer Social History Household Members: None Housing: House Do you presently have visiting nurse or other home services: No Alcohol intake: current Alcohol intake frequency: holidays/special occasions only Patient Tobacco Use Status: Former Tobacco user e-Cigarette/Vaping Use: Never Used Second Hand Smoke Exposure: Yes service: No Current occupational status: retired Cognitive needs: No Hearing needs: No Vision needs: Yes Questionnaire Thrive Questionnaire Date Thrive assessed: 06/12/23 AUDIT C Alcohol Use Questionnaire (AUDIT-C) 1. How often do you have a drink containing alcohol?: Never 3. How often do you have six or more drinks on one occasion?: Never Total Score: 0 Score Reviewed/Action Taken: Yes SHAWN-7 AMB Questionnaire SHAWN-7 Date SHAWN - 7 assessed: 06/12/23 Source: Developed by Drs. Fredi Miranda, Ayaka Villeda, Andrea Hurley and colleagues, with an educational ten from [employer]. Review of Systems Const Denies chills, Reports fatigue, Denies fever(s) and Denies headache(s) ENT Denies dysphagia, Denies dizziness, Denies otalgia, Denies headache(s), Denies neck pain, Denies odynophagia and Denies sore throat Card Denies chest pain, Denies palpitations and Denies dyspnea Resp Denies cough and Denies dyspnea GI Denies abdominal pain, Denies constipation, Denies dysphagia, Denies heartburn, Reports fecal incontinence (at times, usually occurs when he is urinating), Denies diarrhea, Denies nausea, Denies odynophagia and Denies vomiting Denies dysuria, Denies nocturia, Denies urinary frequency and Reports urinary incontinence (see HPI) Musc Reports back pain (over the lower back - chronic; increasing lately), Reports arthralgias (in the right hip) and Denies neck pain Skin/Breast Denies rash Neuro Denies dizziness and Denies headache(s) Endo Reports fatigue and Denies palpitations Physical exam (Primary Care) Vital Signs: Last Vital Signs Pulse 71 10/09/23 15:02 BP 140/68 H 10/09/23 15:02 Pulse Ox 98 10/09/23 15:02 Oxygen Delivery Method Room Air 10/09/23 15:02 BMI result Body Mass Index 27.5 Tobacco/Smoking Status: Tobacco use Status Tobacco use date assessed 06/12/23 10/09/23 15:03 Patient Tobacco Use Status Former Tobacco user 10/09/23 15:03 e-Cigarette/Vaping Use Never Used 10/09/23 15:03 Thrive Assessment: Date of Thrive Assessment Date Thrive assessed 06/12/23 10/09/23 15:03 Const General: no acute distress and alert HENMT Ears: TM's normal bilaterally and EAC's normal Throat: Yes posterior oropharynx normal and Yes tonsils normal (no TP congestion noted) Neck Neck: Yes no lymphadenopathy and Yes supple Thyroid: Thyroid normal Resp Auscultation: clear to auscultation bilaterally, no rales and no wheezes Cardio Rate: regular rate Rhythm: regular rhythm Heart sounds: no murmurs GI Palpation (GI): Soft to palpation and nontender Auscultation: normal bowel sounds General: Yes no CVA tenderness Back/Spine/Pelvis Back: no CVA tenderness Thoracic/Lumbar Spine: lumbar spinal tenderness (chronic) Skin Rashes: no rashes Extrem General: Yes no clubbing, cyanosis or edema Results Reviewed Results Reviewed: Laboratory Tests 09/10/23 08:10 WBC 7.1 Hgb 14.9 Hct 45.0 Plt Count 205 Sodium 142 Potassium 4.5 Creatinine 1.10 Estimated GFR > 60 Fasting Glucose 144 H Hemoglobin A1c % 6.0 Calcium 9.8 AST 17 ALT 11 Triglycerides 75 Cholesterol 133 LDL Cholesterol, Calc 55 HDL Cholesterol 63 25-OH Vitamin D Total 67.6 TSH 7.96 H Free T4 0.98 Ur Specific [place] 1.020 Urine Protein Negative Urine Glucose (UA) Negative Urine Blood Negative Urine Nitrite Negative Ur Leukocyte Esterase Negative Microalb/Creat Ratio 18.4 Assessment and Plan Assessment & Plan (1) Non-ST elevation GA (NSTEMI): Code(s): I21.4 - Non-ST elevation (NSTEMI) myocardial infarction Plan: NSTEMI occurred mostly in conjunction with his pulmonary embolism and hypoxia back in December 2019; he had NO prior Hx of CAD Patient has not had any chest pains or increased SOB since Continue Apixaban 5 mg BID Follow up with cardiology as scheduled (2) Pulmonary emboli: Comment: Chest CT done in December 2019 revealed a large volume of bilateral pulmonary emboli, including saddle embolus Patient also had a subacute PE of the right lower lobe that was seen on routine chest CT back in June 2019 Code(s): I26.99 - Other pulmonary embolism without acute cor pulmonale Qualifiers: Pulmonary embolism type: saddle Chronicity: chronic Acute cor pulmonale presence: with acute cor pulmonale Qualified Code(s): I26.02 - Saddle embolus of pulmonary artery with acute cor pulmonale Plan: Continue Eliquis 5 mg BID - patient will require lifelong anticoagulation Follow up with hematology as scheduled (3) Pure hypercholesterolemia: Code(s): E78.00 - Pure hypercholesterolemia, unspecified Plan: Results of his labs done last month reviewed and discussed with patient Reinforced low cholesterol diet Continue Simvastatin 10 mg QD Will recheck his labs and fasting lipids in 4 months for follow up (4) Diabetes mellitus: Code(s): E11.9 - Type 2 diabetes mellitus without complications Qualifiers: Diabetes mellitus type: type 2 Diabetes mellitus extermination inspector insulin use: without prison use Diabetes mellitus complication status: without complication Qualified Code(s): E11.9 - Type 2 diabetes mellitus without complications Plan: HgbA1c was at 6.0% on his labs done last month (was at 5.3% a few months ago) - goal is <7.0% Reinforced diabetic diet Continue Metformin ER 500 mg 4 tablets once a day, Januvia 100 mg once a day and Glipizide ER 10 mg QD (5) Benign essential hypertension: Code(s): I10 - Essential (primary) hypertension Plan: Reinforced low sodium diet - goal is systolic BP of at least 140 to 150 mm or less Continue Lisinopril 30 mg QD (6) Hypothyroidism: Code(s): E03.9 - Hypothyroidism, unspecified Qualifiers: Hypothyroidism type: acquired Qualified Code(s): E03.9 - Hypothyroidism, unspecified Plan: TSH was again elevated but free T4 level remains normal; patient remains clinically euthyroid Continue Levothyroxine 75 mcg QD Will continue to monitor his TFTs regularly (7) Compression fracture of L5 vertebra: Comment: S/P L5 kyphoplasty by Dr. Mark in October 2020 Code(s): S32.050A - Wedge compression fracture of fifth lumbar vertebra, initial encounter for closed fracture Qualifiers: Encounter type: sequela Qualified Code(s): S32.050S - Wedge compression fracture of fifth lumbar vertebra, sequela Plan: S/P kyphoplasty in the summer with Dr. Mark Reinforced activity and weight-lifting restrictions States that he has been experiencing increasing/worsening pain over his lower back lately A repeat MRI of the lumbar spine was ordered for further evaluation last week and he is currently still awaiting scheduling of his MRI Patient is advised that he may need to go back to see Dr. Mark but we will wait and see how his MRI comes out first (8) Lumbar degenerative disc disease: Code(s): M51.36 - Other intervertebral disc degeneration, lumbar region Plan: S/P left L4-L5 decompression by Dr. Mark in October 2020 Reinforced activity and weight lifting restrictions Continue Gabapentin 600 mg TID A repeat MRI of the lumbar spine was ordered for further evaluation last week and he is currently still awaiting scheduling of his MRI (9) Ocular myasthenia gravis: Code(s): G70.00 - Myasthenia gravis without (acute) exacerbation Plan: Continue Pyridostigmine 60 mg 2 tablets 3 times a day, Azathioprine 50 mg BID and Prednisone 5 mg 2 tablets once a day Follow-up with Neurology as scheduled (10) Vitamin D deficiency: Code(s): E55.9 - Vitamin D deficiency, unspecified Plan: Continue Vitamin D3 1000 units QD (11) Benign prostatic hyperplasia with urinary frequency: Code(s): N40.1 - Benign prostatic hyperplasia with lower urinary tract symptoms; R35.0 - Frequency of micturition Plan: Patient used to take Finasteride 5 mg QD and Tamsulosin 0.4 mg QD but he self-discontinued these at some point and is now only taking OTC Super Beta Prostate daily Cystoscopy done back in July 2022 revealed (+) bladder wall thickening with moderate trabeculation and cellular changes and enlargement of prostate but no suspicious bladder lesions visualized He was seeing urology here at [facility] but requested for a referral to [facility] in [place] at his last visit in May 2023 - he has not yet been seen by Urology (12) Urinary incontinence: Code(s): R32 - Unspecified urinary incontinence Qualifiers: Urinary Incontinence type: urinary incontinence without sensory awareness Qualified Code(s): N39.42 - Incontinence without sensory awareness Plan: Appears to have both stress and urge incontinence and also has no awareness of his incontinence at times Has been wearing adult diapers for a while now Continue Toviaz 4 mg QD Follow up with urology as scheduled (13) Overweight (BMI 25.0-29.9): Code(s): E66.3 - Overweight Plan: Reinforced diet; exercise and weight loss are unrealistic in this patient due to his multiple physical issues and comorbidities Plan Follow up in 4 months Orders: Orders Complete Blood Count Auto Diff 4 Months D64.9 - Anemia, unspecified Comprehensive [place]. Panel Fast 4 Months E78.00 - Pure hypercholesterolemia, unspecified Lipid Panel 4 Months E78.00 - Pure hypercholesterolemia, unspecified Thyroid Stimulating Hormone 4 Months E03.9 - Hypothyroidism, unspecified UA CC w/rflx Micro + Cult 02/09/24 R30.0 - Dysuria Vitamin D 25-OH Total 02/09/24 E55.9 - Vitamin D deficiency, unspecified Free T4 (Free Thyroxine) 4 Months E03.9 - Hypothyroidism, unspecified Hemoglobin A1c 02/09/24 E11.9 - Type 2 diabetes mellitus without complications Microalbumin, Random (w Creat) 02/09/24 E11.9 - Type 2 diabetes mellitus without complications Coding Level of Care Code Est Pt Level 4 (40159) Complex EM visit Add On G2211 Diagnoses Non-ST elevation GA (NSTEMI) I21.4 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 I26.02 Pulmonary embolism type: saddle Chronicity: chronic Acute cor pulmonale presence: with acute cor pulmonale Pure hypercholesterolemia E78.00 Type 2 diabetes mellitus without complication, without long-term current use of insulin E11.9 Diabetes mellitus type: type 2 Diabetes mellitus extermination inspector insulin use: without extermination inspector use Diabetes mellitus complication status: without complication Benign essential hypertension I10 Acquired hypothyroidism E03.9 Hypothyroidism type: acquired Compression fracture of L5 vertebra, sequela S32.050S Encounter type: sequela Lumbar degenerative disc disease M51.36 Ocular myasthenia gravis G70.00 Vitamin D deficiency E55.9 Benign prostatic hyperplasia with urinary frequency N40.1; R35.0 Urinary incontinence without sensory awareness N39.42 Urinary Incontinence type: urinary incontinence without sensory awareness Overweight (BMI 25.0-29.9) E66.3
== END 2023-10-09 15:40 | disposition home or self-care (01) ==
PROVIDERS: PCP Internal Medicine; Visit Provider Internal Medicine
DX: I25.2 Old myocardial infarction (principal); I26.02 Saddle embolus of pulmonary artery with acute cor pulmonale; G70.00 Myasthenia gravis without (acute) exacerbation; E11.9 Type 2 diabetes mellitus without complications; E78.00 Pure hypercholesterolemia, unspecified; I10 Essential (primary) hypertension; E03.9 Hypothyroidism, unspecified; S32.050S Wedge compression fracture of fifth lumbar vertebra, sequela; M51.36 Other intervertebral disc degeneration, lumbar region; E55.9 Vitamin D deficiency, unspecified; N40.1 Benign prostatic hyperplasia with lower urinary tract symptoms; R35.0 Frequency of micturition; N39.42 Incontinence without sensory awareness
CPT/HCPCS: 99214; G2211

== ENCOUNTER 2024-02-12 08:15 | Outpatient (REF) | payer MEDICARE, SELFPAY ==
[2024-02-12 10:46] LABS: Appearance Urine Clear; Color Urine Yellow; Glucose Urine UA Negative (Negative); Leukocyte Esterase Urine Negative (Negative); Nitrite Urine Negative (Negative); PH 5.5 (5.0-9.0); Specific Gravity - Urine >= 1.030 (1.005-1.025); Urine Blood Negative (Negative); Urine Ketones 15 mg/dL (Negative); Urine Protein Trace mg/dL (Neg-Trace)
[2024-02-12 10:49] LABS: MANUAL DIFF FLAG NO
[2024-02-12 10:53] LABS: Basophils Absolute Auto 0.1 X10*3/uL (0.0-0.2); Basophils Percent Auto 1.2 % (0-2); Eosinophils Absolute Auto 0.1 X10*3/uL (0.0-0.4); Eosinophils Percent Auto 1.8 % (0-4); Hematocrit 44.7 % (42.0-52.0); Hemoglobin 14.6 g/dl (14.0-18.0); Imm Gran Abs Auto 0.02 X10*3/uL (0.00-0.03); Imm Gran Pct Auto 0.3 % (0.0-0.4); Lymphocytes Absolute Auto 1.2 X10*3/uL (1.2-4.9); Lymphocytes Percent Auto 19.1 % (20-40); Mean Corpuscular HGB Conc 32.7 g/dl (31.0-36.0); Mean Corpuscular Hemoglobin 31.9 pg (27.0-33.0); Mean Corpuscular Volume 97.6 fL (80.0-98.0); Mean Platelet Volume 10.5 fL (9.4-12.4); Monocytes Absolute Auto 0.6 X10*3/uL (0.1-1.2); Monocytes Percent Auto 10.3 % (2-11); Neutrophils Percent Auto 67.3 % (45-73); Platelet Count 226 X10*3/uL (160-400); Red Blood Count 4.58 X10*6/uL (4.60-5.80); Red Cell Distribution Width 13.2 % (11.0-16.0)
[2024-02-12 11:03] LABS: Estimated Average Glucose 111 mg/dL; Hemoglobin A1C 135.2715 umol/L; Hemoglobin A1c % 5.5 % (<6.0); Total Hemoglobin (HGBA1C) 3662.5261 umol/L
[2024-02-12 11:20] LABS: Alanine Aminotransferase 14 U/L (0-40); Albumin Level 4.1 g/dL (3.5-5.0); Alkaline Phosphatase 71 U/L (39-117); Anion Gap 13 (12-20); Aspartate Amino Transferase 26 U/L (5-37); Bilirubin Total 0.6 mg/dL (0.0-1.0); Blood Urea Nitrogen 15 mg/dL (9-16); Calcium 9.8 mg/dL (8.4-10.2); Carbon Dioxide 26 mmol/L (22-29); Chloride 103 mmol/L (96-108); Cholesterol 119 mg/dL (<200); Estimated Glomerular Filt Rate 54; Glucose Fasting 79 mg/dL (60-99); HDL Cholesterol 55 mg/dL (>40); LDL Cholesterol Calculated 49 mg/dL (<100); Potassium 4.2 mmol/L (3.3-5.1); Sodium 138 mmol/L (135-145); Total Protein 6.8 g/dL (6.5-8.0); Triglycerides 79 mg/dL (<150)
[2024-02-12 11:26] LABS: Free T4 (Free Thyroxine) 1.22 ng/dL (0.71-1.85); Thyroid Stimulating Hormone 7.05 uIU/mL (0.32-4.0); Vitamin D 25-OH Total 62.7 ng/mL (>30)
[2024-02-12 12:02] LABS: Creatinine Urine 425.82 mg/dL
== END 2024-02-12 08:16 | disposition home or self-care (01) ==
LOC: HO.10HDL 08:15
PROVIDERS: Visit Provider Internal Medicine
DX: D64.9 Anemia, unspecified (principal); E55.9 Vitamin D deficiency, unspecified; E11.9 Type 2 diabetes mellitus without complications; E78.00 Pure hypercholesterolemia, unspecified; E03.9 Hypothyroidism, unspecified; R30.0 Dysuria
CPT/HCPCS: 36415; 80053; 80061; 81003; 82043; 82306; 82570; 83036; 84439; 84443; 85025

== ENCOUNTER 2024-02-13 11:04 | Outpatient (AMB) | payer MEDICARE, SELFPAY ==
[2024-02-13 11:06] VITALS: BP 110/64; PULSE 103; O2SAT 92; BMI 27.9
--- NOTE | 2024-02-13 11:06 | MHC.PC.OV ---
Vital Signs 02/13/24 11:06 Height 5 ft 4.5 in Weight 165 lb 2 oz BMI 27.9 BP 110/64 Blood Pressure Location Lt brachial Position Sitting Pulse 103 H Pulse Source Pulse Oximeter Pulse Oximetry (%) 92 Oxygen Delivery Method Room Air Intake Visit Reasons: 4 Month F/U Dish Up Person Required: No Accompanied by: Self / Same As Patient Allergies No Known Allergies [No Known Allergies*] Allergy (Verified 02/13/24 12:01) Medication List - Last Reconciled 02/13/24 by Cornelius Phillips MD apixaban (Eliquis) 5 mg PO BID azathioprine 50 mg PO BID blood sugar diagnostic (Accu-Chek Kezia Plus test strips) 1 strip miscellaneous DAILY blood sugar diagnostic (Contour Next Test Strips) As directed once a day blood-glucose meter (Accu-Chek Kezia Plus Meter) to check blood sugars twice a day - Dx Code: E11.9 cyanocobalamin (vitamin B-12) 100 mcg PO DAILY famotidine 20 mg PO DAILY 90 days ferrous sulfate 325 mg PO DAILY fesoterodine ER 4 mg PO DAILY flash glucose scanning reader (Orthopaedic Synergyyle Hollie 2 [place]) As directed glipizide ER 10 mg PO DAILY lancets (Accu-Chek Fastclix Lancet Drum) to check blood sugars twice a day - Dx Code: E11.9 levothyroxine 75 mcg PO QAM lidocaine 5% 1 patch topical DAILY lisinopril 30 mg PO DAILY metformin ER 2,000 mg (4 x 500 mg) PO DAILY 90 days pyridostigmine bromide mg PO simvastatin 10 mg PO BEDTIME sitagliptin phosphate (Januvia) 100 mg PO DAILY Tobacco use date assessed: 02/13/24 Fall risk assessment: 1 Fall in past year Last assessed Fall Risk: 02/13/24 Dental Screening Dental Screen Date: 02/13/24 Did you have a dental visit in the last 12 months?: No Did you have a dental problem in the last 6 months where you did not have access to dental care?: No Was dental information given to patient?: No HPI 4 Month F/U HPI Details Patient comes in today for his follow up visit States that he feels okay He denies any headaches or dizziness Denies any chest pains, no increased SOB No nausea/vomiting, no abdominal pain No change in bowel habits noted Still has increased low back pain but he states that this has subsided somewhat compared to a few months ago He was eventually seen by Dr. Anderson for neurosurgery consultation and he recommended against any surgical intervention due to his age and his comorbidities, which increase his surgical risks significantly He had his follow up labs done yesterday - to discuss his results [facility] Medical History Compression fracture of L5 vertebra Rib fracture Dyspnea Pulmonary emboli Benign prostatic hyperplasia with urinary frequency Lumbar degenerative disc disease Ocular myasthenia gravis Diabetes mellitus Benign essential hypertension Vitamin D deficiency Pure hypercholesterolemia Acute respiratory failure with hypoxia Acute massive pulmonary embolism Myasthenia gravis Hyperkalemia Hypothyroidism BPH (benign prostatic hyperplasia) Anemia Melanoma Surgical History History of colonoscopy Status post surgical removal of malignant neoplasm of skin History of kyphoplasty Hx of decompressive lumbar laminectomy History of back surgery Previous back surgery Family History Father Medical history unknown Mother Cancer Social History Household Members: None Housing: House Do you presently have visiting nurse or other home services: No Alcohol intake: current Alcohol intake frequency: holidays/special occasions only Patient Tobacco Use Status: Former Tobacco user e-Cigarette/Vaping Use: Never Used Second Hand Smoke Exposure: Yes service: No Current occupational status: retired Cognitive needs: No Hearing needs: No Vision needs: Yes Questionnaire PHQ-9 Over the last 2 weeks, how often have you been bothered by any of the following problems? 1. Little interest or pleasure in doing things: not at all 2. Feeling down, depressed, or hopeless: not at all 3. Trouble falling or staying asleep, or sleeping too much: not at all 4. Feeling tired or having little energy: not at all 5. Poor appetite or overeating: not at all 6. Feeling bad about yourself - or that you are a failure or have let yourself or your family down: not at all 7. Trouble concentrating on things, such as reading the newspaper or watching television: not at all 8. Moving or speaking so slowly that other people could have noticed. Or the opposite - being so fidgety or restless that you have been moving around a lot more than usual: not at all 9. Thoughts that you would be better off or of hurting yourself in some way: not at all Total score: 0 Depression Screening Interpretation: Negative Depression Screening Done: Yes 80030 - PHQ-9 Billing: Yes Source: Developed by Drs. Fredi Miranda, Ayaka Villeda, Andrea Hurley and colleagues, with an educational ten from [employer]. Thrive Questionnaire Date Thrive assessed: 02/13/24 I am a: Patient What is your living situation today?: I have a steady place to live Within the past 12 months, did the food you bought not last and you didn't have the money to get more?: Never true Within the past 12 months, did you worry whether your food would run out before you got money to buy more?: Never true Do you have trouble paying for medicines?: No Do you have trouble getting transportation to medical appointments?: No Do you have trouble paying your heating and electricity bill?: No Do you have trouble taking care of your child, family member or friend?: No Do you have trouble with day-to-day activities such as bathing, preparing meals, shopping, managing finances, etc.?: No Are you currently unemployed and looking for a job?: No Are you interested in more education?: No Please select the resources that you would like help with: None Currently or been in a relationship where the following occur: No concerns reported THRIVE Score: 0 AUDIT C Alcohol Use Questionnaire (AUDIT-C) 1. How often do you have a drink containing alcohol?: Never 3. How often do you have six or more drinks on one occasion?: Never Total Score: 0 Score Reviewed/Action Taken: Yes SHAWN-7 AMB Questionnaire SHAWN-7 Date SHAWN - 7 assessed: 02/13/24 Feeling nervous, anxious, or on edge: 0 = Not at all Not being able to stop or control worryin = Not at all Worrying too much about different things: 0 = Not at all Trouble relaxin = Not at all Being so restless that it is hard to sit still: 0 = Not at all Becoming easily annoyed or irritable: 0 = Not at all Feeling afraid as if something awful might happen: 0 = Not at all Total SHAWN-7 score (0-4 normal; 5-9 mild; 10-14 moderate; 15-21 severe): 0 Source: Developed by Drs. Fredi Miranda, Ayaka Villeda, Andrea Hurley and colleagues, with an educational ten from [employer]. Review of Systems Const Denies chills, Reports fatigue, Denies fever(s) and Denies headache(s) ENT Denies dysphagia, Denies dizziness, Denies otalgia, Denies headache(s), Denies neck pain, Denies odynophagia and Denies sore throat Card Denies chest pain, Denies palpitations and Denies dyspnea Resp Denies chest congestion, Denies cough and Denies dyspnea GI Denies abdominal pain, Denies constipation, Denies dysphagia, Denies heartburn, Reports fecal incontinence (at times, usually occurs when he is urinating), Denies diarrhea, Denies nausea, Denies odynophagia and Denies vomiting Denies dysuria, Denies nocturia, Denies urinary frequency and Reports urinary incontinence (at times) Musc Reports back pain (over the lower back - chronic; increasing lately), Reports arthralgias (in the right hip) and Denies neck pain Skin/Breast Denies rash Neuro Denies dizziness and Denies headache(s) Endo Reports fatigue and Denies palpitations Physical exam (Primary Care) Vital Signs: Last Vital Signs Pulse 103 H 02/13/24 11:06 BP 110/64 02/13/24 11:06 Pulse Ox 92 02/13/24 11:06 Oxygen Delivery Method Room Air 02/13/24 11:06 BMI result Body Mass Index 27.9 Tobacco/Smoking Status: Tobacco use Status Tobacco use date assessed 02/13/24 02/13/24 11:08 Patient Tobacco Use Status Former Tobacco user 02/13/24 11:08 e-Cigarette/Vaping Use Never Used 02/13/24 11:08 PHQ-9: PHQ-9 Score PHQ-9: Total score 0 02/13/24 12:20 Depression Screening Interpretation: Negative Thrive Assessment: Date of Thrive Assessment Date Thrive assessed 02/13/24 02/13/24 11:08 Currently or been in a relationship where the following occur: No concerns reported Const General: no acute distress and alert HENMT Ears: TM's normal bilaterally and EAC's normal Throat: Yes posterior oropharynx normal and Yes tonsils normal (no TP congestion noted) Neck Neck: Yes no lymphadenopathy and Yes supple Thyroid: Thyroid normal Resp Auscultation: clear to auscultation bilaterally, no rales and no wheezes Cardio Rate: regular rate Rhythm: regular rhythm Heart sounds: no murmurs GI Palpation (GI): Soft to palpation and nontender Auscultation: normal bowel sounds General: Yes no CVA tenderness Back/Spine/Pelvis Back: no CVA tenderness Thoracic/Lumbar Spine: lumbar spinal tenderness (chronic) Skin Rashes: no rashes Extrem General: Yes no clubbing, cyanosis or edema Immunizations Boostrix Tdap 2.5 Lf unit-8 mcg-5 Lf/0.5 mL intramuscular syringe Performing Provider: Cornelius Phillips MD [place] [facility] [place] [facility] Administered by: QIANA Serna on 02/13/24 12:19 Dose Route Admin Location Dispensed Lot Number Expiration Date NDC Clinical Nursing Instructor 0.5 mL IM Left Deltoid 0.5 mL [id number] 12/14/24 [id number] [employer] VIS Given Date VIS Provided VIS Publication Date 02/13/24 Single Vaccine 20 Eligibility Eligibility Date Funding Source Not [facility] Eligible 02/13/24 Private Results Reviewed Results Reviewed: Laboratory Tests 02/12/24 08:20 WBC 6.0 Hgb 14.6 Hct 44.7 Plt Count 226 Sodium 138 Potassium 4.2 Creatinine 1.28 Estimated GFR 54 Fasting Glucose 79 Hemoglobin A1c % 5.5 Calcium 9.8 AST 26 ALT 14 Triglycerides 79 Cholesterol 119 LDL Cholesterol, Calc 49 HDL Cholesterol 55 25-OH Vitamin D Total 62.7 TSH 7.05 H Free T4 1.22 Ur Specific [place] >= 1.030 H Urine Protein Trace Urine Glucose (UA) Negative Urine Blood Negative Urine Nitrite Negative Ur Leukocyte Esterase Negative Microalb/Creat Ratio 14.0 Coding Level of Care Code Est Pt Level 4 (78519) Complex EM visit Add On G2211 Diagnoses Non-ST elevation MD (NSTEMI) I21.4 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 I26.02 Acute cor pulmonale presence: with acute cor pulmonale Chronicity: chronic Pulmonary embolism type: saddle Pure hypercholesterolemia E78.00 Type 2 diabetes mellitus without complication, without long-term current use of insulin E11.9 Diabetes mellitus complication status: without complication Diabetes mellitus manager intermediate insulin use: without manager intermediate use Diabetes mellitus type: type 2 Benign essential hypertension I10 Acquired hypothyroidism E03.9 Hypothyroidism type: acquired Compression fracture of L5 vertebra, sequela S32.050S Encounter type: sequela Degeneration of intervertebral disc of lumbar region with discogenic back pain M51.360 Disc-related pain type: discogenic back pain only Ocular myasthenia gravis G70.00 Vitamin D deficiency E55.9 Benign prostatic hyperplasia with urinary frequency N40.1; R35.0 Urinary frequency R35.0 Overweight (BMI 25.0-29.9) E66.3 Additional Codes PHQ-9 - 51261 - PHQ-9 Billing: Yes ([id number]) Assessment & Plan Assessment & Plan (1) Non-ST elevation MD (NSTEMI): Code(s): I21.4 - Non-ST elevation (NSTEMI) myocardial infarction Category: Medical Plan: Patient's NSTEMI occurred mostly in conjunction with his pulmonary embolism and hypoxia back in December 2019; he had NO prior Hx of CAD Patient has not had any chest pains or increased SOB since Continue Apixaban 5 mg BID Follow up with cardiology as scheduled (2) Pulmonary emboli: Comment: Chest CT done in December 2019 revealed a large volume of bilateral pulmonary emboli, including saddle embolus Patient also had a subacute PE of the right lower lobe that was seen on routine chest CT back in June 2019 Code(s): I26.99 - Other pulmonary embolism without acute cor pulmonale Category: Medical Qualifiers: Acute cor pulmonale presence: with acute cor pulmonale Chronicity: chronic Pulmonary embolism type: saddle Qualified Code(s): I26.02 - Saddle embolus of pulmonary artery with acute cor pulmonale Plan: Continue Eliquis 5 mg BID - patient will require lifelong anticoagulation Follow up with hematology as scheduled (3) Pure hypercholesterolemia: Code(s): E78.00 - Pure hypercholesterolemia, unspecified Category: Medical Plan: Results of his labs done yesterday reviewed and discussed with patient Reinforced low cholesterol diet Continue Simvastatin 10 mg QD Will recheck his labs and fasting lipids in 4 months for follow up (4) Diabetes mellitus: Code(s): E11.9 - Type 2 diabetes mellitus without complications Category: Medical Qualifiers: Diabetes mellitus complication status: without complication Diabetes mellitus manager intermediate insulin use: without manager intermediate use Diabetes mellitus type: type 2 Qualified Code(s): E11.9 - Type 2 diabetes mellitus without complications Plan: HgbA1c was at 5.5% on his labs done yesterday (was at 6.0% a few months ago) - goal is <7.0% Reinforced diabetic diet Continue Metformin ER 500 mg 4 tablets (2000 mg) once a day, Januvia 100 mg once a day and Glipizide ER 10 mg QD (5) Benign essential hypertension: Code(s): I10 - Essential (primary) hypertension Category: Medical Plan: Reinforced low sodium diet - goal is systolic BP of at least 140 to 150 mm or less Continue Lisinopril 30 mg QD (6) Hypothyroidism: Code(s): E03.9 - Hypothyroidism, unspecified Category: Medical Qualifiers: Hypothyroidism type: acquired Qualified Code(s): E03.9 - Hypothyroidism, unspecified Plan: His TSH level was again elevated but free T4 level remains normal on his recent labs; patient remains clinically euthyroid Continue Levothyroxine 75 mcg QD Will continue to monitor his TFTs regularly (7) Compression fracture of L5 vertebra: Comment: S/P L5 kyphoplasty by Dr. Mark in October 2020 Code(s): S32.050A - Wedge compression fracture of fifth lumbar vertebra, initial encounter for closed fracture Category: Medical Qualifiers: Encounter type: sequela Qualified Code(s): S32.050S - Wedge compression fracture of fifth lumbar vertebra, sequela Plan: S/P kyphoplasty in the summer of [address] Mark Repeat MRI of the lumbar spine done back in September 2023 revealed (+) chronic compression fractures with vertebroplasty seen diffusely throughout the visualized lower thoracic and lumbar spine. Grade 1 anterolisthesis of L4 over L5 was noted. At L4-L5, a concentric disc bulge with moderate to severe canal stenosis and severe bilateral foraminal narrowing is noted. At the remaining levels, canal stenosis is mild/mild to moderate with concentric disc bulges and multilevel foraminal narrowing noted as well He was referred to and seen by Dr. Anderson for neurosurgery consultation and was advised againt surgery at all costs due to his increased risks and was recommended only conservative management (8) Lumbar degenerative disc disease: Code(s): M51.36 - Other intervertebral disc degeneration, lumbar region Category: Medical Qualifiers: Disc-related pain type: discogenic back pain only Qualified Code(s): M51.360 - Other intervertebral disc degeneration, lumbar region with discogenic back pain only Plan: S/P left L4-L5 decompression by Dr. Mark in October 2020 He was recently seen by Neurosurgery and was advised against surgical intervention and recommended to continue with conservative management alone Reinforced activity and weight lifting restrictions Continue Gabapentin 600 mg TID (9) Ocular myasthenia gravis: Code(s): G70.00 - Myasthenia gravis without (acute) exacerbation Category: Medical Plan: Continue Pyridostigmine 60 mg 2 tablets 3 times a day, Azathioprine 50 mg BID and Prednisone 5 mg 2 tablets once a day Follow-up with Neurology as scheduled (10) Vitamin D deficiency: Code(s): E55.9 - Vitamin D deficiency, unspecified Category: Medical Plan: Continue Vitamin D3 1000 units QD (11) Benign prostatic hyperplasia with urinary frequency: Code(s): N40.1 - Benign prostatic hyperplasia with lower urinary tract symptoms; R35.0 - Frequency of micturition Category: Medical Plan: Patient used to take Finasteride 5 mg QD and Tamsulosin 0.4 mg QD but he self-discontinued these at some point and is now only taking OTC Super Beta Prostate daily Cystoscopy done back in July 2022 revealed (+) bladder wall thickening with moderate trabeculation and cellular changes and enlargement of prostate but no suspicious bladder lesions visualized He [place] [facility] [place] for a referral to [facility] in [place] at his last visit in May 2023 - he is now seeing Urology regularly every few months (12) Urinary frequency: Code(s): R35.0 - Frequency of micturition Category: Medical Plan: He appears to have both stress and urge incontinence and also has no awareness of his incontinence at times Has been wearing adult diapers for a while now Continue Toviaz 4 mg QD Follow up with urology as scheduled (13) Overweight (BMI 25.0-29.9): Code(s): E66.3 - Overweight Category: Medical Plan: Reinforced diet; exercise and weight loss are unrealistic in this patient due to his multiple physical issues and unsteadiness and comorbidities Plan Tdap booster given today Patient is advised to check with his pharmacist about his other vaccines, including his high-dose flu vaccine, COVID booster, Prevnar-20, Shingrix and RSV vaccines Follow up in 4 months Orders: [facility] Panel Fast 4 Months E78.00 - Pure hypercholesterolemia, unspecified Free T4 (Free Thyroxine) 4 Months E03.9 - Hypothyroidism, unspecified Lipid Panel 4 Months E78.00 - Pure hypercholesterolemia, unspecified Hemoglobin A1c 4 Months E11.9 - Type 2 diabetes mellitus without complications Complete Blood Count Auto Diff 4 Months D64.9 - Anemia, unspecified Microalbumin, Random (w Creat) 4 Months E11.9 - Type 2 diabetes mellitus without complications Thyroid Stimulating Hormone 4 Months E03.9 - Hypothyroidism, unspecified UA CC w/rflx Micro + Cult 4 Months R30.0 - Dysuria Vitamin D 25-OH Total 4 Months E55.9 - Vitamin D deficiency, unspecified TDaP Immunization 02/13/24 Z23 - Encounter for immunization
== END 2024-02-13 12:18 | disposition home or self-care (01) ==
PROVIDERS: PCP Internal Medicine; Visit Provider Internal Medicine
DX: E11.9 Type 2 diabetes mellitus without complications (principal); I21.4 Non-ST elevation (NSTEMI) myocardial infarction; I26.02 Saddle embolus of pulmonary artery with acute cor pulmonale; G70.00 Myasthenia gravis without (acute) exacerbation; E78.00 Pure hypercholesterolemia, unspecified; I10 Essential (primary) hypertension; E03.9 Hypothyroidism, unspecified; S32.050S Wedge compression fracture of fifth lumbar vertebra, sequela; M51.360 Other intervertebral disc degeneration, lumbar region with discogenic back pain only; E55.9 Vitamin D deficiency, unspecified; N40.1 Benign prostatic hyperplasia with lower urinary tract symptoms; R35.0 Frequency of micturition

== ENCOUNTER → 2024-02-13 11:04 | Outpatient (BNVA) | payer MEDICARE, SELFPAY | PROVIDERS: PCP Internal Medicine; Visit Provider Internal Medicine | DX: I21.4 Non-ST elevation (NSTEMI) myocardial infarction (principal); Z23 Encounter for immunization; I26.02 Saddle embolus of pulmonary artery with acute cor pulmonale; E78.00 Pure hypercholesterolemia, unspecified; E11.9 Type 2 diabetes mellitus without complications; I10 Essential (primary) hypertension; E03.9 Hypothyroidism, unspecified; M51.360 Other intervertebral disc degeneration, lumbar region with discogenic back pain only; G47.00 Insomnia, unspecified; E55.9 Vitamin D deficiency, unspecified; N40.1 Benign prostatic hyperplasia with lower urinary tract symptoms; R35.0 Frequency of micturition; E66.3 Overweight; S32.050S Wedge compression fracture of fifth lumbar vertebra, sequela | CPT/HCPCS: 90471; 90715; 96127; 99212 ==

== ENCOUNTER 2024-06-16 08:17 | Outpatient (REF) | payer MEDICARE, SELFPAY ==
[2024-06-16 11:02] LABS: MANUAL DIFF FLAG NO
[2024-06-16 11:16] LABS: Basophils Percent Auto 0.5 % (0-2); Eosinophils Absolute Auto 0.1 X10*3/uL (0.0-0.4); Eosinophils Percent Auto 1.4 % (0-4); Hematocrit 41.6 % (42.0-52.0); Hemoglobin 13.2 g/dl (14.0-18.0); Imm Gran Abs Auto 0.02 X10*3/uL (0.00-0.03); Imm Gran Pct Auto 0.3 % (0.0-0.4); Lymphocytes Absolute Auto 1.3 X10*3/uL (1.2-4.9); Lymphocytes Percent Auto 16.1 % (20-40); Mean Corpuscular HGB Conc 31.7 g/dl (31.0-36.0); Mean Corpuscular Hemoglobin 30.8 pg (27.0-33.0); Mean Corpuscular Volume 97.2 fL (80.0-98.0); Mean Platelet Volume 10.4 fL (9.4-12.4); Monocytes Absolute Auto 0.8 X10*3/uL (0.1-1.2); Monocytes Percent Auto 10.1 % (2-11); Neutrophils Absolute Auto 5.7 x10*3/uL (2.0-8.3); Neutrophils Percent Auto 71.6 % (45-73); Platelet Count 209 X10*3/uL (160-400); Red Blood Count 4.28 X10*6/uL (4.60-5.80); Red Cell Distribution Width 15.1 % (11.0-16.0)
[2024-06-16 11:28] LABS: Appearance Urine Clear; Color Urine Yellow; Glucose Urine UA Negative (Negative); Leukocyte Esterase Urine Negative (Negative); Nitrite Urine Negative (Negative); PH 5.5 (5.0-9.0); Specific Gravity - Urine 1.015 (1.005-1.025); Urine Blood Negative (Negative); Urine Ketones Negative (Negative); Urine Protein Negative (Neg-Trace)
[2024-06-16 11:52] LABS: Alanine Aminotransferase 7 U/L (0-40); Albumin Level 3.9 g/dL (3.5-5.0); Alkaline Phosphatase 67 U/L (39-117); Anion Gap 12 (12-20); Aspartate Amino Transferase 19 U/L (5-37); Bilirubin Total 0.5 mg/dL (0.0-1.0); Blood Urea Nitrogen 19 mg/dL (9-16); Calcium 9.5 mg/dL (8.4-10.2); Carbon Dioxide 28 mmol/L (22-29); Chloride 106 mmol/L (96-108); Cholesterol 139 mg/dL (<200); Estimated Glomerular Filt Rate > 60; Free T4 (Free Thyroxine) 1.11 ng/dL (0.71-1.85); Glucose Fasting 64 mg/dL (60-99); HDL Cholesterol 56 mg/dL (>40); LDL Cholesterol Calculated 70 mg/dL (<100); Potassium 4.4 mmol/L (3.3-5.1); Sodium 142 mmol/L (135-145); Thyroid Stimulating Hormone 5.24 uIU/mL (0.32-4.0); Total Protein 6.6 g/dL (6.5-8.0); Triglycerides 68 mg/dL (<150); Vitamin D 25-OH Total 66.9 ng/mL (>30)
[2024-06-16 12:00] LABS: Estimated Average Glucose 117 mg/dL; Hemoglobin A1C 136.0057 umol/L; Hemoglobin A1c % 5.7 % (<6.0)
[2024-06-16 12:12] LABS: Creatinine Urine 63.57 mg/dL; Microalbum/Creatinine Ratio Ur 12.5 ug/mg cr (<30)
== END 2024-06-16 08:18 | disposition home or self-care (01) ==
LOC: HO.10HDL 08:17
PROVIDERS: Visit Provider Internal Medicine
DX: E78.00 Pure hypercholesterolemia, unspecified (principal); E11.9 Type 2 diabetes mellitus without complications; E03.9 Hypothyroidism, unspecified; E55.9 Vitamin D deficiency, unspecified; D64.9 Anemia, unspecified; R30.0 Dysuria
CPT/HCPCS: 36415; 80053; 80061; 81003; 82043; 82306; 82570; 83036; 84439; 84443; 85025

== ENCOUNTER 2024-06-18 10:01 | Outpatient (AMB) | payer MEDICARE, SELFPAY ==
[2024-06-18 10:02] VITALS: BP 110/62; PULSE 86; O2SAT 99; BMI 28.6
--- NOTE | 2024-06-18 10:02 | MHC.PC.OV ---
Vital Signs 06/18/24 10:02 Height 5 ft 4.5 in Weight 169 lb BMI 28.6 BP 110/62 Blood Pressure Location Lt brachial Position Sitting Pulse 86 Pulse Source Pulse Oximeter Pulse Oximetry (%) 99 Oxygen Delivery Method Room Air Intake Visit Reasons: CAD, hyperlipidemia, DM, HTN, hypothyroidism, OAB Ladle Operator Required: No Accompanied by: Self / Same As Patient Allergies No Known Allergies [No Known Allergies*] Allergy (Verified 06/18/24 10:30) Medication List - Last Reconciled 06/18/24 by Cornelius Phillips MD apixaban (Eliquis) 5 mg PO BID azathioprine 50 mg PO BID blood sugar diagnostic (Accu-Chek Kezia Plus test strips) 1 strip miscellaneous DAILY blood sugar diagnostic (Contour Next Test Strips) As directed once a day blood-glucose meter (Accu-Chek Kezia Plus Meter) to check blood sugars twice a day - Dx Code: E11.9 cyanocobalamin (vitamin B-12) 100 mcg PO DAILY famotidine 20 mg PO DAILY 90 days ferrous sulfate 325 mg PO DAILY fesoterodine ER 4 mg PO DAILY flash glucose scanning reader (Akohayle Hollie 2 Murdock) As directed glipizide ER 10 mg PO DAILY lancets (Accu-Chek Fastclix Lancet Drum) to check blood sugars twice a day - Dx Code: E11.9 levothyroxine 75 mcg PO QAM lidocaine 5% 1 patch topical DAILY lisinopril 30 mg PO DAILY metformin ER 2,000 mg (4 x 500 mg) PO DAILY 90 days pyridostigmine bromide mg PO simvastatin 10 mg PO BEDTIME sitagliptin phosphate (Januvia) 100 mg PO DAILY Tobacco use date assessed: 06/18/24 Fall risk assessment: No Falls in past year Last assessed Fall Risk: 06/18/24 Dental Screening Dental Screen Date: 06/18/24 Did you have a dental visit in the last 12 months?: No Did you have a dental problem in the last 6 months where you did not have access to dental care?: No Was dental information given to patient?: No HPI CAD, hyperlipidemia, DM, HTN, hypothyroidism, OAB HPI Details Patient comes in today for his follow up visit States that he feels okay He denies any headaches or dizziness Denies any chest pains, no increased SOB No nausea/vomiting, no abdominal pain No change in bowel habits noted He still has recurrent low back pain but he states that these have been manageable mostly lately He has been recommended against any surgical intervention by neurosurgery (Dr. Anderson) due to his age and his comorbidities He had his follow up labs done a few days ago - to discuss his results [facility] Medical History Compression fracture of L5 vertebra Rib fracture Dyspnea Pulmonary emboli Benign prostatic hyperplasia with urinary frequency Lumbar degenerative disc disease Ocular myasthenia gravis Diabetes mellitus Benign essential hypertension Vitamin D deficiency Pure hypercholesterolemia Acute respiratory failure with hypoxia Acute massive pulmonary embolism Myasthenia gravis Hyperkalemia Hypothyroidism BPH (benign prostatic hyperplasia) Anemia Melanoma Surgical History History of colonoscopy Status post surgical removal of malignant neoplasm of skin History of kyphoplasty Hx of decompressive lumbar laminectomy History of back surgery Previous back surgery Family History Father Medical history unknown Mother Cancer Social History Household Members: None Housing: House Do you presently have visiting nurse or other home services: No Alcohol intake: current Alcohol intake frequency: holidays/special occasions only Patient Tobacco Use Status: Former Tobacco user e-Cigarette/Vaping Use: Never Used Second Hand Smoke Exposure: Yes service: No Current occupational status: retired Cognitive needs: No Hearing needs: No Vision needs: Yes Questionnaire PHQ-9 Over the last 2 weeks, how often have you been bothered by any of the following problems? 1. Little interest or pleasure in doing things: not at all 2. Feeling down, depressed, or hopeless: not at all 3. Trouble falling or staying asleep, or sleeping too much: not at all 4. Feeling tired or having little energy: not at all 5. Poor appetite or overeating: not at all 6. Feeling bad about yourself - or that you are a failure or have let yourself or your family down: not at all 7. Trouble concentrating on things, such as reading the newspaper or watching television: not at all 8. Moving or speaking so slowly that other people could have noticed. Or the opposite - being so fidgety or restless that you have been moving around a lot more than usual: not at all 9. Thoughts that you would be better off or of hurting yourself in some way: not at all Total score: 0 Depression Screening Interpretation: Negative Depression Screening Done: Yes 74658 - PHQ-9 Billing: Yes Source: Developed by Drs. Fredi Miranda, Ayaka Villeda, Andrea Hurley and colleagues, with an educational ten from [employer]. Thrive Questionnaire Date Thrive assessed: 06/18/24 I am a: Patient What is your living situation today?: I have a steady place to live Within the past 12 months, did the food you bought not last and you didn't have the money to get more?: Never true Within the past 12 months, did you worry whether your food would run out before you got money to buy more?: Never true Do you have trouble paying for medicines?: No Do you have trouble getting transportation to medical appointments?: No Do you have trouble paying your heating and electricity bill?: No Do you have trouble taking care of your child, family member or friend?: No Do you have trouble with day-to-day activities such as bathing, preparing meals, shopping, managing finances, etc.?: No Are you currently unemployed and looking for a job?: No Are you interested in more education?: No Please select the resources that you would like help with: None Currently or been in a relationship where the following occur: No concerns reported THRIVE Score: 0 AUDIT C Alcohol Use Questionnaire (AUDIT-C) 1. How often do you have a drink containing alcohol?: Never 3. How often do you have six or more drinks on one occasion?: Never Total Score: 0 Score Reviewed/Action Taken: Yes SHAWN-7 AMB Questionnaire SHAWN-7 Date SHAWN - 7 assessed: 06/18/24 Feeling nervous, anxious, or on edge: 0 = Not at all Not being able to stop or control worryin = Not at all Worrying too much about different things: 0 = Not at all Trouble relaxin = Not at all Being so restless that it is hard to sit still: 0 = Not at all Becoming easily annoyed or irritable: 0 = Not at all Feeling afraid as if something awful might happen: 0 = Not at all Total SHAWN-7 score (0-4 normal; 5-9 mild; 10-14 moderate; 15-21 severe): 0 Source: Developed by Drs. Fredi Miranda, Ayaka Villeda, Andrea Hurley and colleagues, with an educational ten from [employer]. Review of Systems Const Denies chills, Reports fatigue, Denies fever(s) and Denies headache(s) ENT Denies dysphagia, Denies dizziness, Denies otalgia, Denies headache(s), Denies neck pain, Denies odynophagia and Denies sore throat Card Denies chest pain, Denies palpitations and Denies dyspnea Resp Denies chest congestion, Denies cough and Denies dyspnea GI Denies abdominal pain, Denies constipation, Denies dysphagia, Denies heartburn, Reports fecal incontinence (at times, usually occurs when he is urinating), Denies diarrhea, Denies nausea, Denies odynophagia and Denies vomiting Denies dysuria, Denies nocturia, Denies urinary frequency and Reports urinary incontinence (at times) Musc Reports back pain (over the lower back - chronic; increasing lately), Reports arthralgias (in the right hip) and Denies neck pain Skin/Breast Denies rash Neuro Denies dizziness and Denies headache(s) Endo Reports fatigue and Denies palpitations Physical exam (Primary Care) Vital Signs: Last Vital Signs Pulse 86 06/18/24 10:02 BP 110/62 06/18/24 10:02 Pulse Ox 99 06/18/24 10:02 Oxygen Delivery Method Room Air 06/18/24 10:02 BMI result Body Mass Index 28.6 Tobacco/Smoking Status: Tobacco use Status Tobacco use date assessed 06/18/24 06/18/24 10:11 Patient Tobacco Use Status Former Tobacco user 06/18/24 10:11 e-Cigarette/Vaping Use Never Used 06/18/24 10:11 PHQ-9: PHQ-9 Score PHQ-9: Total score 0 06/18/24 10:11 Depression Screening Interpretation: Negative Thrive Assessment: Date of Thrive Assessment Date Thrive assessed 06/18/24 06/18/24 10:11 Currently or been in a relationship where the following occur: No concerns reported Const General: no acute distress and alert HENMT Ears: TM's normal bilaterally and EAC's normal Throat: Yes posterior oropharynx normal and Yes tonsils normal (no TP congestion noted) Neck Neck: Yes supple and No lymphadenopathy Thyroid: Thyroid normal Resp Auscultation: clear to auscultation bilaterally, no rales and no wheezes Cardio Rate: regular rate Rhythm: regular rhythm Heart sounds: no murmurs GI Palpation (GI): Soft to palpation and nontender Auscultation: normal bowel sounds General: Yes no CVA tenderness Back/Spine/Pelvis Back: no CVA tenderness Thoracic/Lumbar Spine: lumbar spinal tenderness (chronic) Skin Rashes: no rashes Extrem General: Yes no clubbing, cyanosis or edema Results Reviewed Results Reviewed: Laboratory Tests 06/11/23 06/16/24 10:50 08:20 WBC 8.0 Hgb 13.2 L Hct 41.6 L Plt Count 209 Sodium 142 Potassium 4.4 Creatinine 1.06 Estimated GFR > 60 Fasting Glucose 64 Hemoglobin A1c % 5.7 Calcium 9.5 AST 19 ALT 7 Triglycerides 68 Cholesterol 139 LDL Cholesterol, Calc 70 HDL Cholesterol 56 Vitamin B12 750 Folate 14.4 25-OH Vitamin D Total 66.9 TSH 5.24 H Free T4 1.11 Ur Specific [place] 1.015 Urine Protein Negative Urine Glucose (UA) Negative Urine Blood Negative Urine Nitrite Negative Ur Leukocyte Esterase Negative Microalb/Creat Ratio 12.5 Coding Level of Care Code Est Pt Level 4 (56675) Complex EM visit Add On G2211 Diagnoses Non-ST elevation [place] (NSTEMI) I21.4 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 I26.02 Pulmonary embolism type: saddle Chronicity: chronic Acute cor pulmonale presence: with acute cor pulmonale Pure hypercholesterolemia E78.00 Type 2 diabetes mellitus without complication, without long-term current use of insulin E11.9 Diabetes mellitus type: type 2 Diabetes mellitus terminal gauger supervisor insulin use: without terminal gauger supervisor use Diabetes mellitus complication status: without complication Benign essential hypertension I10 Acquired hypothyroidism E03.9 Hypothyroidism type: acquired Compression fracture of L5 vertebra, sequela S32.050S Encounter type: sequela Degeneration of intervertebral disc of lumbar region with discogenic back pain M51.360 Disc-related pain type: discogenic back pain only Ocular myasthenia gravis G70.00 Vitamin D deficiency E55.9 Benign prostatic hyperplasia with urinary frequency N40.1; R35.0 Urinary frequency R35.0 Overweight (BMI 25.0-29.9) E66.3 Additional Codes PHQ-9 - 86846 - PHQ-9 Billing: Yes ([id number]) Assessment & Plan Assessment & Plan (1) Non-ST elevation [place] (NSTEMI): Code(s): I21.4 - Non-ST elevation (NSTEMI) myocardial infarction Category: Medical Plan: Patient's NSTEMI occurred mostly in conjunction with his pulmonary embolism and hypoxia back in December 2019; he had NO prior Hx of CAD Patient has not had any chest pains or increased SOB since Continue Apixaban 5 mg BID Echocardiogram done on 12/26/2019 revealed normal left ventricular systolic function, with the visually estimated ejection fraction between 60-65%. The right ventricle was not well visualized but appears moderately dilated on selected images. There is mild to moderate tricuspid valve regurgitation and the right ventricular systolic pressure is 65 mmHg. Severe pulmonary hypertension is present (2) Pulmonary emboli: Comment: Chest CT done in December 2019 revealed a large volume of bilateral pulmonary emboli, including saddle embolus Patient also had a subacute PE of the right lower lobe that was seen on routine chest CT back in June 2019 Code(s): I26.99 - Other pulmonary embolism without acute cor pulmonale Category: Medical Qualifiers: Pulmonary embolism type: saddle Chronicity: chronic Acute cor pulmonale presence: with acute cor pulmonale Qualified Code(s): I26.02 - Saddle embolus of pulmonary artery with acute cor pulmonale Plan: Continue Eliquis 5 mg BID - patient will require lifelong anticoagulation Follow up with hematology as scheduled (3) Pure hypercholesterolemia: Code(s): E78.00 - Pure hypercholesterolemia, unspecified Category: Medical Plan: Results of his labs done a few days ago reviewed and discussed with patient Reinforced low cholesterol diet Continue Simvastatin 10 mg QD Will recheck his labs and fasting lipids in 4 months for follow up (4) Diabetes mellitus: Code(s): E11.9 - Type 2 diabetes mellitus without complications Category: Medical Qualifiers: Diabetes mellitus type: type 2 Diabetes mellitus terminal gauger supervisor insulin use: without terminal gauger supervisor use Diabetes mellitus complication status: without complication Qualified Code(s): E11.9 - Type 2 diabetes mellitus without complications Plan: HgbA1c was at 5.7% on his labs done a few days ago (was at 5.5% a few months ago) - goal is <7.0% Reinforced diabetic diet Continue Metformin ER 500 mg 4 tablets (2000 mg) once a day, Januvia 100 mg once a day and Glipizide ER 10 mg QD (5) Benign essential hypertension: Code(s): I10 - Essential (primary) hypertension Category: Medical Plan: Reinforced low sodium diet - goal is systolic BP of at least 140 to 150 mm or less Continue Lisinopril 30 mg QD (6) Hypothyroidism: Code(s): E03.9 - Hypothyroidism, unspecified Category: Medical Qualifiers: Hypothyroidism type: acquired Qualified Code(s): E03.9 - Hypothyroidism, unspecified Plan: His TSH level was again slightly elevated but free T4 level remains normal on his recent labs; patient remains clinically euthyroid Continue Levothyroxine 75 mcg QD Will continue to monitor his TFTs regularly (7) Compression fracture of L5 vertebra: Comment: S/P L5 kyphoplasty by Dr. Mark in October 2020 Code(s): S32.050A - Wedge compression fracture of fifth lumbar vertebra, initial encounter for closed fracture Category: Medical Qualifiers: Encounter type: sequela Qualified Code(s): S32.050S - Wedge compression fracture of fifth lumbar vertebra, sequela Plan: S/P kyphoplasty in the summer of [address] Mark Repeat MRI of the lumbar spine done back in September 2023 revealed (+) chronic compression fractures with vertebroplasty seen diffusely throughout the visualized lower thoracic and lumbar spine. Grade 1 anterolisthesis of L4 over L5 was noted. At L4-L5, a concentric disc bulge with moderate to severe canal stenosis and severe bilateral foraminal narrowing is noted. At the remaining levels, canal stenosis is mild/mild to moderate with concentric disc bulges and multilevel foraminal narrowing noted as well He was referred to and seen by Dr. Anderson for neurosurgery consultation and was advised againt surgery at all costs due to his increased risks and was recommended to only pursue conservative management (8) Lumbar degenerative disc disease: Code(s): M51.36 - Other intervertebral disc degeneration, lumbar region Category: Medical Qualifiers: Disc-related pain type: discogenic back pain only Qualified Code(s): M51.360 - Other intervertebral disc degeneration, lumbar region with discogenic back pain only Plan: S/P left L4-L5 decompression by Dr. Mark in October 2020 He was recently seen by Neurosurgery and was advised against surgical intervention and recommended to continue with conservative management alone Reinforced activity and weight lifting restrictions Continue Gabapentin 600 mg TID (9) Ocular myasthenia gravis: Code(s): G70.00 - Myasthenia gravis without (acute) exacerbation Category: Medical Plan: Continue Pyridostigmine 60 mg 2 tablets 3 times a day, Azathioprine 50 mg BID and Prednisone 5 mg 2 tablets once a day Follow-up with Neurology as scheduled (10) Vitamin D deficiency: Code(s): E55.9 - Vitamin D deficiency, unspecified Category: Medical Plan: Continue Vitamin D3 1000 units QD (11) Benign prostatic hyperplasia with urinary frequency: Code(s): N40.1 - Benign prostatic hyperplasia with lower urinary tract symptoms; R35.0 - Frequency of micturition Category: Medical Plan: Patient used to take Finasteride 5 mg QD and Tamsulosin 0.4 mg QD but he self-discontinued these at some point and is now only taking OTC Super Beta Prostate daily Cystoscopy done back in July 2022 revealed (+) bladder wall thickening with moderate trabeculation and cellular changes and enlargement of prostate but no suspicious bladder lesions visualized He was seeing urology here at [facility] but requested for a referral to [facility] in [place] at his last visit in May 2023 - he is now seeing Urology regularly every few months (12) Urinary frequency: Code(s): R35.0 - Frequency of micturition Category: Medical Plan: He appears to have both stress and urge incontinence and also has no awareness of his incontinence at times Has been wearing adult diapers for a while now Continue Toviaz 4 mg QD Follow up with urology as scheduled (13) Overweight (BMI 25.0-29.9): Code(s): E66.3 - Overweight Category: Medical Plan: Reinforced diet; exercise and weight loss are unrealistic in this patient due to his multiple physical issues and unsteadiness and comorbidities Plan Follow up in 4 months Orders: Orders Thyroid Stimulating Hormone 4 Months E03.9 - Hypothyroidism, unspecified Free T4 (Free Thyroxine) 4 Months E03.9 - Hypothyroidism, unspecified Complete Blood Count Auto Diff 4 Months D64.9 - Anemia, unspecified Comprehensive [place]. Panel Fast 4 Months E78.00 - Pure hypercholesterolemia, unspecified Vitamin B12 and Folate 4 Months E53.8 - Deficiency of other specified B group vitamins Vitamin D 25-OH Total 4 Months E55.9 - Vitamin D deficiency, unspecified Lipid Panel 4 Months E78.00 - Pure hypercholesterolemia, unspecified Hemoglobin A1c 4 Months E11.9 - Type 2 diabetes mellitus without complications Microalbumin, Random (w Creat) 4 Months E11.9 - Type 2 diabetes mellitus without complications UA CC w/rflx Micro + Cult 4 Months R30.0 - Dysuria
--- OUTSIDE RECORDS SUMMARY | 2024-06-18 11:30 | XMS_ITS | Clinical Summary ---
Author Organization [facility] ity Address [address] [place] [address] Care Team Providers Care Salesperson Burial Plots Name Role Phone Cornelius Phillips MD Primary Care Provider Social History Tobacco Use Types Packs/Day Years Used Date Smoking Tobacco: Never Assessed Sex and Gender Information Value Date Recorded Sex Assigned at Not on file Legal Sex Male 1:27 AM EST Gender Identity Not on file Sexual Orientation Not on file Plan of Treatment Health Maintenance Due Date Last Done Comments DTaP,Tdap,and Td Vaccines (1 - Tdap) 05/23/1959 Pneumococcal Vaccine: 50+ Ye ars (1 of 1 - PCV) 05/23/1989 Zoster Vaccines (1 of 2) 05/23/1989 RSV Immunization Adult Patie nts (1 - 1-dose 75+ series) 05/23/2014 COVID-19 Vaccine (2023-2 5 season) 2023 Influenza Vaccine (Season Ended) 2024 HIB Vaccines Aged Out No longer eligi ble based on patient's age to complete this topic HPV Vaccines Aged Out No longer eligi ble based on patient's age to complete this topic Hepatitis A Vaccines Aged Out No long er eligible based on patient's age to complete this topic Hepatitis B Vaccines Aged Out No long er eligible based on patient's age to complete this topic IPV Vaccines Aged Out No longer eligi ble based on patient's age to complete this topic MMR Vaccines Aged Out No longer eligi ble based on patient's age to complete this topic Meningococcal ACWY Vaccine Aged Out N o longer eligible based on patient's age to complete this topic Meningococcal B Vacine Aged Out No lo nger eligible based on patient's age to complete this topic RSV Immunization Patients Un bentley 20 months Aged Out No longer eligible b ased on patient's age to complete this topic Varicella Vaccines Aged Out No longer eligible based on patient's age to complete this topic Advance Directives Documents on File Type Date Recorded Patient Cloth Mender Expl anation Health Care Decision (hx) 06/20/2017 AD ALEXANDER DIRECTIVE Health Care Decision (hx) 06/20/2017 AD ALEXANDER DIRECTIVE Health Care Decision (hx) 06/20/2017 AD ALEXANDER DIRECTIVE Health Care Decision (hx) 06/20/2017 AD ALEXANDER DIRECTIVE Health Care Decision (hx) 06/20/2017 AD ALEXANDER DIRECTIVE Health Care Decision (hx) 06/20/2017 AD ALEXANDER DIRECTIVE Health Care Decision (hx) 04/04/2013 AD ALEXANDER DIRECTIVE Health Care Decision (hx) 04/04/2013 AD ALEXANDER DIRECTIVE Health Care Decision (hx) 04/04/2013 AD ALEXANDER DIRECTIVE Health Care Decision (hx) 03/25/2013 AD ALEXANDER DIRECTIVE Health Care Decision (hx) 03/25/2013 AD ALEXANDER DIRECTIVE Health Care Decision (hx) 03/25/2013 AD ALEXANDER DIRECTIVE Care Teams Salesperson Burial Plots Relationship Specialty Start Date End Date Cornelius Phillips MD [address] [place] [address] [address] [place], [place] PCP - General Internal Medicine 11/29/16
== END 2024-06-18 10:51 | disposition home or self-care (01) ==
LOC: HO.HMCH 10:01
PROVIDERS: PCP Internal Medicine; Visit Provider Internal Medicine
DX: E11.9 Type 2 diabetes mellitus without complications (principal); I26.02 Saddle embolus of pulmonary artery with acute cor pulmonale; G70.00 Myasthenia gravis without (acute) exacerbation; I25.2 Old myocardial infarction; E78.00 Pure hypercholesterolemia, unspecified; I10 Essential (primary) hypertension; E03.9 Hypothyroidism, unspecified; S32.050S Wedge compression fracture of fifth lumbar vertebra, sequela; M51.360 Other intervertebral disc degeneration, lumbar region with discogenic back pain only; E55.9 Vitamin D deficiency, unspecified; N40.1 Benign prostatic hyperplasia with lower urinary tract symptoms; R35.0 Frequency of micturition

== ENCOUNTER → 2024-06-18 10:01 | Outpatient (BNVA) | payer MEDICARE, SELFPAY | PROVIDERS: PCP Internal Medicine; Visit Provider Internal Medicine | DX: I21.4 Non-ST elevation (NSTEMI) myocardial infarction (principal); I26.02 Saddle embolus of pulmonary artery with acute cor pulmonale; E78.00 Pure hypercholesterolemia, unspecified; E11.9 Type 2 diabetes mellitus without complications; E03.9 Hypothyroidism, unspecified; I10 Essential (primary) hypertension; S32.050S Wedge compression fracture of fifth lumbar vertebra, sequela; M51.360 Other intervertebral disc degeneration, lumbar region with discogenic back pain only; G47.00 Insomnia, unspecified; E55.9 Vitamin D deficiency, unspecified; N40.1 Benign prostatic hyperplasia with lower urinary tract symptoms; R35.0 Frequency of micturition; E66.3 Overweight; Z68.28 Body mass index [BMI] 28.0-28.9, adult; Z71.3 Dietary counseling and surveillance | CPT/HCPCS: 96127; 99212 ==

== ENCOUNTER 2024-10-22 08:13 | Outpatient (REF) | payer MEDICARE, SELFPAY ==
[2024-10-22 11:15] LABS: MANUAL DIFF FLAG NO
[2024-10-22 11:29] LABS: Appearance Urine Clear; Glucose Urine UA Negative (Negative); PH 5.0 (5.0-9.0); Specific Gravity - Urine 1.020 (1.005-1.025)
[2024-10-22 11:30] LABS: Hematocrit 41.4 % (42.0-52.0); Hemoglobin 13.4 g/dl (14.0-18.0); Imm Gran Abs Auto 0.03 X10*3/uL (0.00-0.03); Imm Gran Pct Auto 0.4 % (0.0-0.4); Lymphocytes Absolute Auto 1.0 X10*3/uL (1.2-4.9); Mean Corpuscular HGB Conc 32.4 g/dl (31.0-36.0); Mean Corpuscular Hemoglobin 31.3 pg (27.0-33.0); Mean Corpuscular Volume 96.7 fL (80.0-98.0); NRBC Abs Auto 0.000 X10*3/uL (0.0-0.012); NRBC Pct Auto 0.0 /100WBC (0.0-0.2); Platelet Count 220 X10*3/uL (160-400); Red Blood Count 4.28 X10*6/uL (4.60-5.80); White Blood Count 6.7 X10*3/uL (4.8-10.8)
[2024-10-22 11:36] LABS: Hemoglobin A1C 133.3960 umol/L; Total Hemoglobin (HGBA1C) 3507.2336 umol/L
[2024-10-22 12:12] LABS: Alanine Aminotransferase 13 U/L (0-40); Albumin Level 4.2 g/dL (3.5-5.0); Alkaline Phosphatase 64 U/L (39-117); Anion Gap 9 (12-20); Aspartate Amino Transferase 21 U/L (5-37); Blood Urea Nitrogen 18 mg/dL (9-16); Calcium 9.8 mg/dL (8.4-10.2); Carbon Dioxide 29 mmol/L (22-29); Chloride 109 mmol/L (96-108); Cholesterol 136 mg/dL (<200); Estimated Glomerular Filt Rate 60; HDL Cholesterol 54 mg/dL (>40); Potassium 4.5 mmol/L (3.3-5.1); Sodium 142 mmol/L (135-145); Total Protein 6.8 g/dL (6.5-8.0); Triglycerides 87 mg/dL (<150)
[2024-10-22 12:14] LABS: Free T4 (Free Thyroxine) 1.03 ng/dL (0.71-1.85); Thyroid Stimulating Hormone 5.26 uIU/mL (0.32-4.0)
[2024-10-22 12:27] LABS: Microalbum/Creatinine Ratio Ur 8.8 ug/mg cr (<30)
[2024-10-22 12:37] LABS: Folate 14.3 ng/mL (> or = 4.0); Vitamin B12 487 pg/mL (200-900)
== END 2024-10-22 08:14 | disposition home or self-care (01) ==
LOC: HO.10HDL 08:13
PROVIDERS: Visit Provider Internal Medicine
DX: E53.8 Deficiency of other specified B group vitamins (principal); E11.9 Type 2 diabetes mellitus without complications; E03.8 Other specified hypothyroidism; R30.0 Dysuria; E78.00 Pure hypercholesterolemia, unspecified; E55.9 Vitamin D deficiency, unspecified; D64.9 Anemia, unspecified
CPT/HCPCS: 36415; 80053; 80061; 81003; 82043; 82306; 82570; 82607; 82746; 83036; 84439; 84443; 85025

== ENCOUNTER 2024-10-23 11:30 | Outpatient (AMB) | payer MEDICARE, SELFPAY ==
--- NOTE | 2024-10-23 11:32 | MHC.PC.OV ---
Vital Signs 10/23/24 11:35 Height 5 ft 4.5 in Weight 166 lb 4 oz BMI 28.1 BP 100/60 Blood Pressure Location Lt brachial Position Sitting Pulse 84 Pulse Source Pulse Oximeter Temp 97.1 F Temp Source Temporal Artery Scan Pulse Oximetry (%) 98 Oxygen Delivery Method Room Air Intake Visit Reasons: 4mth f/u Intake Note: Patient is here to follow up on DM, HTN, Hypothyroidism. Battery Vent Plug Inserter Required: No Cream Separator Operator: Not Required per policy Accompanied by: Self / Same As Patient Allergies No Known Allergies (No Known Allergies*) Allergy (Verified 10/23/24 12:03) Medication List - Last Reconciled 10/23/24 by Cornelius Phillips MD apixaban (Eliquis) 5 mg PO BID azathioprine 50 mg PO BID blood sugar diagnostic (Accu-Chek Kezia Plus test strips) 1 strip miscellaneous DAILY blood sugar diagnostic (Contour Next Test Strips) As directed once a day blood-glucose meter (Accu-Chek Kezia Plus Meter) to check blood sugars twice a day - Dx Code: E11.9 cyanocobalamin (vitamin B-12) 100 mcg PO DAILY famotidine 20 mg PO DAILY 90 days ferrous sulfate 325 mg PO DAILY fesoterodine ER 4 mg PO DAILY flash glucose scanning reader (Cover Hollie 2 [place]) As directed glipizide ER 10 mg PO DAILY lancets (Accu-Chek Fastclix Lancet Drum) to check blood sugars twice a day - Dx Code: E11.9 levothyroxine 75 mcg PO QAM lidocaine 5% 1 patch topical DAILY lisinopril 30 mg PO DAILY metformin ER 2,000 mg (4 x 500 mg) PO DAILY 90 days pyridostigmine bromide mg PO simvastatin 10 mg PO BEDTIME sitagliptin phosphate (Januvia) 100 mg PO DAILY Tobacco use date assessed: 10/23/24 Fall risk assessment: No Falls in past year Last assessed Fall Risk: 10/23/24 Dental Screening Dental Screen Date: 06/18/24 HPI 4mth f/u HPI Details Patient comes in today for his follow-up visit States that he feels okay He denies any headaches or dizziness Denies any chest pains, no increased shortness of breath No nausea/vomiting, no abdominal pain No change in bowel habits noted He had his follow-up labs done yesterday - to discuss his results [facility] Medical History Compression fracture of L5 vertebra Rib fracture Dyspnea Pulmonary emboli Benign prostatic hyperplasia with urinary frequency Lumbar degenerative disc disease Ocular myasthenia gravis Diabetes mellitus Benign essential hypertension Vitamin D deficiency Pure hypercholesterolemia Acute respiratory failure with hypoxia Acute massive pulmonary embolism Myasthenia gravis Hyperkalemia Hypothyroidism BPH (benign prostatic hyperplasia) Anemia Melanoma Surgical History History of colonoscopy Status post surgical removal of malignant neoplasm of skin History of kyphoplasty Hx of decompressive lumbar laminectomy History of back surgery Previous back surgery Family History Father Medical history unknown Mother Cancer Social History Household Members: None Housing: House Do you presently have visiting nurse or other home services: No Alcohol intake: current Alcohol intake frequency: holidays/special occasions only Patient Tobacco Use Status: Former Tobacco user e-Cigarette/Vaping Use: Never Used Second Hand Smoke Exposure: Yes service: No Current occupational status: retired Cognitive needs: No Hearing needs: No Vision needs: Yes Questionnaire PHQ-9 Over the last 2 weeks, how often have you been bothered by any of the following problems? 1. Little interest or pleasure in doing things: not at all 2. Feeling down, depressed, or hopeless: not at all 3. Trouble falling or staying asleep, or sleeping too much: not at all 4. Feeling tired or having little energy: several days 5. Poor appetite or overeating: several days 6. Feeling bad about yourself - or that you are a failure or have let yourself or your family down: several days 7. Trouble concentrating on things, such as reading the newspaper or watching television: not at all 8. Moving or speaking so slowly that other people could have noticed. Or the opposite - being so fidgety or restless that you have been moving around a lot more than usual: not at all 9. Thoughts that you would be better off or of hurting yourself in some way: not at all Total score: 3 Depression Screening Interpretation: Positive Depression Screening Follow-up: Follow-up Visit Requested Depression Screening Done: Yes [id number] - PHQ-9 Billing: Yes Source: Developed by Drs. Fredi Miranda, Ayaka Villeda, Andrea Hurley and colleagues, with an educational ten from [employer]. Thrive Questionnaire Date Thrive assessed: 06/18/24 I am a: Patient What is your living situation today?: I have a steady place to live Within the past 12 months, did the food you bought not last and you didn't have the money to get more?: Never true Within the past 12 months, did you worry whether your food would run out before you got money to buy more?: Never true Do you have trouble paying for medicines?: No Do you have trouble getting transportation to medical appointments?: No Do you have trouble paying your heating and electricity bill?: No Do you have trouble taking care of your child, family member or friend?: No Do you have trouble with day-to-day activities such as bathing, preparing meals, shopping, managing finances, etc.?: Yes Are you currently unemployed and looking for a job?: Yes Are you interested in more education?: No Please select the resources that you would like help with: None Currently or been in a relationship where the following occur: No concerns reported THRIVE Score: 0 AUDIT C Alcohol Use Questionnaire (AUDIT-C) 1. How often do you have a drink containing alcohol?: Never Total Score: 0 Score Reviewed/Action Taken: Yes SHAWN-7 AMB Questionnaire SHAWN-7 Date SHAWN - 7 assessed: 06/18/24 Feeling nervous, anxious, or on edge: 0 = Not at all Not being able to stop or control worryin = Not at all Worrying too much about different things: 0 = Not at all Trouble relaxin = Not at all Being so restless that it is hard to sit still: 0 = Not at all Becoming easily annoyed or irritable: 0 = Not at all Feeling afraid as if something awful might happen: 0 = Not at all Total SHAWN-7 score (0-4 normal; 5-9 mild; 10-14 moderate; 15-21 severe): 0 Source: Developed by Ayaka Scruggs Kurt Kroenke and colleagues, with an educational ten from [employer]. Review of Systems Const Denies chills, Reports fatigue, Denies fever(s) and Denies headache(s) ENT Denies dysphagia, Denies dizziness, Denies otalgia, Denies headache(s), Denies neck pain, Denies odynophagia and Denies sore throat Card Denies chest pain, Denies palpitations and Denies dyspnea Resp Denies chest congestion, Denies cough and Denies dyspnea GI Denies abdominal pain, Denies constipation, Denies dysphagia, Denies heartburn, Reports fecal incontinence (at times, usually occurs when he is urinating), Denies diarrhea, Denies nausea, Denies odynophagia and Denies vomiting Denies difficulty urinating, Denies dysuria, Denies nocturia, Denies urinary frequency and Reports urinary incontinence (at times) Musc Reports back pain (over the lower back - chronic; increasing lately), Reports arthralgias (in the right hip) and Denies neck pain Skin/Breast Denies rash Neuro Denies dizziness and Denies headache(s) Endo Reports fatigue and Denies palpitations Physical exam (Primary Care) Vital Signs: Last Vital Signs Temp 97.1 F 10/23/24 11:35 Pulse 84 10/23/24 11:35 BP 100/60 10/23/24 11:35 Pulse Ox 98 10/23/24 11:35 Oxygen Delivery Method Room Air 10/23/24 11:35 BMI result Body Mass Index 28.1 Tobacco/Smoking Status: Tobacco use Status Tobacco use date assessed 10/23/24 10/23/24 11:40 Patient Tobacco Use Status Former Tobacco user 10/23/24 11:40 e-Cigarette/Vaping Use Never Used 10/23/24 11:40 PHQ-9: PHQ-9 Score PHQ-9: Total score 3 10/23/24 12:07 Depression Screening Interpretation: Positive Depression Screening Follow-up: Follow-up Visit Requested Thrive Assessment: Date of Thrive Assessment Date Thrive assessed 06/18/24 10/23/24 11:40 Currently or been in a relationship where the following occur: No concerns reported Const General: no acute distress and alert HENMT Ears: TM's normal bilaterally and EAC's normal Throat: Yes posterior oropharynx normal and Yes tonsils normal (no TP congestion noted) Neck Neck: Yes supple and No lymphadenopathy Thyroid: Thyroid normal Resp Auscultation: clear to auscultation bilaterally, no rales and no wheezes Cardio Rate: regular rate Rhythm: regular rhythm Heart sounds: no murmurs GI Palpation (GI): Soft to palpation and nontender Auscultation: normal bowel sounds General: Yes no CVA tenderness Back/Spine/Pelvis Back: no CVA tenderness Thoracic/Lumbar Spine: lumbar spinal tenderness (chronic) Skin Rashes: no rashes Extrem General: Yes no clubbing, cyanosis or edema Results Reviewed Results Reviewed: Laboratory Tests 10/22/24 08:17 WBC 6.7 Hgb 13.4 L Hct 41.4 L Plt Count 220 Sodium 142 Potassium 4.5 Creatinine 1.16 Estimated GFR 60 Fasting Glucose 75 Hemoglobin A1c % 5.6 Calcium 9.8 AST 21 ALT 13 Triglycerides 87 Cholesterol 136 LDL Cholesterol, Calc 65 HDL Cholesterol 54 Vitamin B12 487 25-OH Vitamin D Total 63.9 TSH 5.26 H Free T4 1.03 Ur Specific [place] 1.020 Urine Protein Negative Urine Glucose (UA) Negative Urine Blood Negative Urine Nitrite Negative Ur Leukocyte Esterase Negative Microalb/Creat Ratio 8.8 Coding Level of Care Code Est Pt Level 4 (43474) Diagnoses Non-ST elevation CA (NSTEMI) I21.4 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 I26.02 Acute cor pulmonale presence: with acute cor pulmonale Chronicity: chronic Pulmonary embolism type: saddle Pure hypercholesterolemia E78.00 Type 2 diabetes mellitus without complication, without long-term current use of insulin E11.9 Diabetes mellitus complication status: without complication Diabetes mellitus custodial insulin use: without custodial use Diabetes mellitus type: type 2 Benign essential hypertension I10 Acquired hypothyroidism E03.9 Hypothyroidism type: acquired Compression fracture of L5 vertebra, sequela S32.050S Encounter type: sequela Degeneration of intervertebral disc of lumbar region with discogenic back pain M51.360 Disc-related pain type: discogenic back pain only Ocular myasthenia gravis G70.00 Vitamin D deficiency E55.9 Benign prostatic hyperplasia with urinary frequency N40.1; R35.0 Urinary frequency R35.0 Overweight (BMI 25.0-29.9) E66.3 Additional Codes PHQ-9 - 37935 - PHQ-9 Billing: Yes ([id number]) Assessment & Plan Assessment & Plan (1) Non-ST elevation CA (NSTEMI): Code(s): I21.4 - Non-ST elevation (NSTEMI) myocardial infarction Category: Medical Plan: Patient's NSTEMI occurred mostly in conjunction with his pulmonary embolism and hypoxia back in December 2019; he had NO prior Hx of CAD Patient has not had any chest pains or increased SOB since Continue Apixaban 5 mg BID Echocardiogram done on 12/26/2019 revealed normal left ventricular systolic function, with the visually estimated ejection fraction between 60-65%. The right ventricle was not well visualized but appears moderately dilated on selected images. There is mild to moderate tricuspid valve regurgitation and the right ventricular systolic pressure is 65 mmHg. Severe pulmonary hypertension is present (2) Pulmonary emboli: Comment: Chest CT done in December 2019 revealed a large volume of bilateral pulmonary emboli, including saddle embolus Patient also had a subacute PE of the right lower lobe that was seen on routine chest CT back in June 2019 Code(s): I26.99 - Other pulmonary embolism without acute cor pulmonale Category: Medical Qualifiers: Acute cor pulmonale presence: with acute cor pulmonale Chronicity: chronic Pulmonary embolism type: saddle Qualified Code(s): I26.02 - Saddle embolus of pulmonary artery with acute cor pulmonale Plan: Continue Eliquis 5 mg BID - patient will require lifelong anticoagulation Follow up with hematology as scheduled (3) Pure hypercholesterolemia: Code(s): E78.00 - Pure hypercholesterolemia, unspecified Category: Medical Plan: Results of his labs done yesterday reviewed and discussed with patient Reinforced low cholesterol diet Continue Simvastatin 10 mg QD Will recheck his labs and fasting lipids in 4 months for follow up (4) Diabetes mellitus: Code(s): E11.9 - Type 2 diabetes mellitus without complications Category: Medical Qualifiers: Diabetes mellitus complication status: without complication Diabetes mellitus custodial insulin use: without intermodal dispatcher use Diabetes mellitus type: type 2 Qualified Code(s): E11.9 - Type 2 diabetes mellitus without complications Plan: His HgbA1c was at 5.6% on his labs done yesterday (was previously at 5.7% a few months ago) - goal is <7.0% Reinforced diabetic diet Continue Metformin ER 500 mg 4 tablets (2000 mg) once a day, Januvia 100 mg once a day and Glipizide ER 10 mg QD (5) Benign essential hypertension: Code(s): I10 - Essential (primary) hypertension Category: Medical Plan: Reinforced low sodium diet - goal is systolic BP of at least 140 to 150 mm or less Continue Lisinopril 30 mg QD (6) Hypothyroidism: Code(s): E03.9 - Hypothyroidism, unspecified Category: Medical Qualifiers: Hypothyroidism type: acquired Qualified Code(s): E03.9 - Hypothyroidism, unspecified Plan: His TSH level was again slightly elevated but free T4 level remains normal on his recent labs; patient remains clinically euthyroid Continue Levothyroxine 75 mcg QD Will continue to monitor his TFTs regularly (7) Compression fracture of L5 vertebra: Comment: S/P L5 kyphoplasty by Dr. Mark in October 2020 Code(s): S32.050A - Wedge compression fracture of fifth lumbar vertebra, initial encounter for closed fracture Category: Medical Qualifiers: Encounter type: sequela Qualified Code(s): S32.050S - Wedge compression fracture of fifth lumbar vertebra, sequela Plan: S/P kyphoplasty in the summer of [address] Mark Repeat MRI of the lumbar spine done back in September 2023 revealed (+) chronic compression fractures with vertebroplasty seen diffusely throughout the visualized lower thoracic and lumbar spine. Grade 1 anterolisthesis of L4 over L5 was noted. At L4-L5, a concentric disc bulge with moderate to severe canal stenosis and severe bilateral foraminal narrowing is noted. At the remaining levels, canal stenosis is mild/mild to moderate with concentric disc bulges and multilevel foraminal narrowing noted as well He was referred to and seen by Dr. Anderson for neurosurgery consultation and was advised againt surgery at all costs due to his increased risks and was recommended to only pursue conservative management (8) Lumbar degenerative disc disease: Code(s): M51.36 - Other intervertebral disc degeneration, lumbar region Category: Medical Qualifiers: Disc-related pain type: discogenic back pain only Qualified Code(s): M51.360 - Other intervertebral disc degeneration, lumbar region with discogenic back pain only Plan: S/P left L4-L5 decompression by Dr. Mark in October 2020 He was recently seen by Neurosurgery and was advised against surgical intervention and recommended to continue with conservative management alone Reinforced activity and weight lifting restrictions Continue Gabapentin 600 mg TID (9) Ocular myasthenia gravis: Code(s): G70.00 - Myasthenia gravis without (acute) exacerbation Category: Medical Plan: Continue Pyridostigmine 60 mg 2 tablets 3 times a day, Azathioprine 50 mg BID and Prednisone 5 mg 2 tablets once a day Follow-up with Neurology as scheduled (10) Vitamin D deficiency: Code(s): E55.9 - Vitamin D deficiency, unspecified Category: Medical Plan: Continue Vitamin D3 1000 units QD (11) Benign prostatic hyperplasia with urinary frequency: Code(s): N40.1 - Benign prostatic hyperplasia with lower urinary tract symptoms; R35.0 - Frequency of micturition Category: Medical Plan: Patient used to take Finasteride 5 mg QD and Tamsulosin 0.4 mg QD but he self-discontinued these at some point and is now only taking OTC Super Beta Prostate daily Cystoscopy done back in July 2022 revealed (+) bladder wall thickening with moderate trabeculation and cellular changes and enlargement of prostate but no suspicious bladder lesions visualized He was seeing urology here at [facility] [place] but requested for a referral to [facility] in [place] at his last visit in May 2023 - he is now seeing Urology regularly every few months for follow-up (12) Urinary frequency: Code(s): R35.0 - Frequency of micturition Category: Medical Plan: He appears to have both stress and urge incontinence and also has no awareness of his incontinence at times Has been wearing adult diapers for a while now Continue Toviaz 4 mg QD Follow up with urology as scheduled (13) Overweight (BMI 25.0-29.9): Code(s): E66.3 - Overweight Category: Medical Plan: Reinforced diet; exercise and weight loss are unrealistic in this patient due to his multiple physical issues and unsteadiness and comorbidities Plan Follow up in 4 months Orders: Orders Complete Blood Count Auto Diff 4 Months D64.9 - Anemia, unspecified Comprehensive Julian. Panel Fast 4 Months E78.00 - Pure hypercholesterolemia, unspecified Lipid Panel 4 Months E78.00 - Pure hypercholesterolemia, unspecified Microalbumin, Random (w Creat) 4 Months E11.9 - Type 2 diabetes mellitus without complications UA CC w/rflx Micro + Cult 4 Months R30.0 - Dysuria Hemoglobin A1c 4 Months E11.9 - Type 2 diabetes mellitus without complications TSH reflex Free T4 4 Months E78.00 - Pure hypercholesterolemia, unspecified Vitamin D 25-OH Total 4 Months E55.9 - Vitamin D deficiency, unspecified Vitamin B12 and Folate 4 Months E53.8 - Deficiency of other specified B group vitamins
[2024-10-23 11:35] VITALS: BP 100/60; PULSE 84; TEMP 36.2; O2SAT 98; BMI 28.1
--- OUTSIDE RECORDS SUMMARY | 2024-10-23 12:11 | XMS_ITS | Patient Health Record ---
Author Organization [facility] Address [address] [place] [address] Care Team Providers Care Meat Manager Name Role Phone Alan SHRESTHA, Cornelius Primary Care Provider Jay Grider Jr Unavailable Reason For Referral No Information Medications Medication SIG (Take, Route, Frequency, Duration) Notes Start Date End Date Status Eliquis Active MiraLax (colon prep) 8.3 ounce ((238) grams mixed with Gatorade or Crystal Light orally begin at 5:00 p.m. the day before the procedure for 1 day 09/17/2019 Active glipiZIDE ER Active Levothyroxine Sodium Active azaTHIOprine Active Lisinopril Active Simvastatin Active Gabapentin Active Vitamin D Active Garlique Active Januvia Active Pioglitazone HCl Act pat Finasteride Active glipiZIDE Active Famotidine Active metFORMIN HCl Active pyRIDostigmine [place] Active Immunizations Vaccine Route Administration Date Status Comme nts Influenza Unknown 11/17/2018 Administered Problems Problem Type SNOMED Code ICD Code Onset Dates Problem Status W/U Status Risk Notes Problem [id number] Anemia, unspecified type (D64.9) Active confirmed Plan Of Treatment Future Test Test Name Order Date COLONOSCOPY 08/28/2012 UPPER GI ENDOSCOPY 09/17/2019 COLONOSCOPY 09/17/2019 Insurance Providers Payer Name Payer Address Payer Phone Subscriber Number Group Number Insured Name Patient Relationship to Insured Coverage Start Date Coverage End Date MEDICARE OF [place] [address] [place] [id number] [phone] [id number] FALLON MENDENHALL Self - patient is the insured [facility] [employer] [address] [place] [address] [phone] [id number] TAISHA Arredondo EDCHRISTI Self - patient is the insured Medical (General) History Medical History History ICD Code colonoscopy 04/08/13, hyperpl astic polyps x2, prior history of tubular adenoma 2003 diverticulitis disc disease diabetes mellitus ocular myasthenia gravis HTN Hyperlipidemia hypothyroidism Chronic kidney disease Vit. D Def. Obesity Surgical History Surgery Date(Month/Year) hemorrhoid surgery decompression laminectomy of L3-L4 and L 4l-5 skin cancer 10/2016
--- OUTSIDE RECORDS SUMMARY | 2024-10-23 12:11 | XMS_ITS | Clinical Summary ---
Author Organization [facility] ity Address [address] [place] [address] Care Team Providers Care Hot Mill Supervisor Name Role Phone Cornelius Phillips MD Primary [...] - 1-dose 75+ series) 05/23/2014 COVID-19 Vaccine ( - 2023-2 5 season) 2023 Depression Screening 03/19/2024 Influenza Vaccine (#1) 2024 HIB Vaccines Aged Out No longer [...] age to complete this topic Meningococcal B Vaccine Aged Out No l onger eligible based on patient's age to complete this topic RSV Immunization Patients Un bentley 20 months Aged Out No longer eligible b ased on patient's age to complete this topic Varicella Vaccines Aged Out No longer eligible based on patient's age to complete this topic Advance Directives Documents on File Type Date Recorded 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
== END 2024-10-23 12:09 | disposition home or self-care (01) ==
LOC: HO.HMCH 11:31
PROVIDERS: PCP Internal Medicine; Visit Provider Internal Medicine
DX: I25.2 Old myocardial infarction (principal); I26.02 Saddle embolus of pulmonary artery with acute cor pulmonale; E11.9 Type 2 diabetes mellitus without complications; G70.00 Myasthenia gravis without (acute) exacerbation; E78.00 Pure hypercholesterolemia, unspecified; I10 Essential (primary) hypertension; E03.9 Hypothyroidism, unspecified; S32.050S Wedge compression fracture of fifth lumbar vertebra, sequela; M51.360 Other intervertebral disc degeneration, lumbar region with discogenic back pain only; E55.9 Vitamin D deficiency, unspecified; N40.1 Benign prostatic hyperplasia with lower urinary tract symptoms; R35.0 Frequency of micturition

== ENCOUNTER → 2024-10-23 11:30 | Outpatient (BNVA) | payer MEDICARE, SELFPAY | PROVIDERS: PCP Internal Medicine; Visit Provider Internal Medicine | DX: I21.4 Non-ST elevation (NSTEMI) myocardial infarction (principal); I26.02 Saddle embolus of pulmonary artery with acute cor pulmonale; E78.00 Pure hypercholesterolemia, unspecified; E11.9 Type 2 diabetes mellitus without complications; E03.9 Hypothyroidism, unspecified; I10 Essential (primary) hypertension; S32.050S Wedge compression fracture of fifth lumbar vertebra, sequela; M51.360 Other intervertebral disc degeneration, lumbar region with discogenic back pain only; E55.9 Vitamin D deficiency, unspecified; G70.00 Myasthenia gravis without (acute) exacerbation; N40.1 Benign prostatic hyperplasia with lower urinary tract symptoms; R35.0 Frequency of micturition; E66.3 Overweight; Z68.28 Body mass index [BMI] 28.0-28.9, adult; Z71.3 Dietary counseling and surveillance | CPT/HCPCS: 96127; 99212 ==

== ENCOUNTER 2024-12-09 11:10 | Outpatient (AMB) | payer MEDICARE, SELFPAY ==
--- NOTE | 2024-12-09 11:12 | A.OFFVIS_ITS ---
Intake Visit Reasons: MG Allergies No Known Allergies (No Known Allergies*) Allergy (Verified 12/09/24 11:16) Medication List - Last Reconciled 12/09/24 by Crystal Collier CNP apixaban (Eliquis) 5 mg PO BID azathioprine 50 mg PO DAILY blood sugar diagnostic (Accu-Chek Kezia Plus test strips) 1 strip miscellaneous DAILY blood sugar diagnostic (Contour Next Test Strips) As directed once a day blood-glucose meter (Accu-Chek Kezia Plus Meter) to check blood sugars twice a day - Dx Code: E11.9 cyanocobalamin (vitamin B-12) 100 mcg PO DAILY famotidine 20 mg PO DAILY 90 days ferrous sulfate 325 mg PO DAILY fesoterodine ER 4 mg PO DAILY flash glucose scanning reader ([employer] [address] [place]) As directed glipizide ER 10 mg PO DAILY lancets (Accu-Chek Fastclix Lancet Drum) to check blood sugars twice a day - Dx Code: E11.9 levothyroxine 75 mcg PO QAM lidocaine 5% 1 patch topical DAILY lisinopril 30 mg PO DAILY metformin ER 2,000 mg (4 x 500 mg) PO DAILY 90 days prednisone 2.5 mg PO DAILY pyridostigmine bromide 120 mg PO TID simvastatin 10 mg PO BEDTIME sitagliptin phosphate (Januvia) 100 mg PO DAILY HPI Comments Details: 84 y/o man with underlying h/o obesity, diabetes, HTN, renal insufficiency, and antibody positive Myasthenia Gravis. He was doing okay. MG was stable with current medications. Swallowing was okay. Breathing was okay. No double vision. No new or increased weakness. No falls. [facility] Medical History (Updated 12/09/24 @ 11:14 by Crystal Collier CNP) Compression fracture of L5 vertebra Rib fracture Dyspnea Pulmonary emboli Benign prostatic hyperplasia with urinary frequency Lumbar degenerative disc disease Ocular myasthenia gravis Diabetes mellitus Benign essential hypertension Vitamin D deficiency Pure hypercholesterolemia Acute respiratory failure with hypoxia Acute massive pulmonary embolism Myasthenia gravis Hyperkalemia Hypothyroidism BPH (benign prostatic hyperplasia) Anemia Melanoma Surgical History History of colonoscopy Status post surgical removal of malignant neoplasm of skin History of kyphoplasty Hx of decompressive lumbar laminectomy History of back surgery Previous back surgery Family History Father Medical history unknown Mother Cancer Social History Household Members: None Housing: House Do you presently have visiting nurse or other home services: No Alcohol intake: current Alcohol intake frequency: holidays/special occasions only Patient Tobacco Use Status: Former Tobacco user e-Cigarette/Vaping Use: Never Used Second Hand Smoke Exposure: Yes service: No Current occupational status: retired Cognitive needs: No Hearing needs: No Vision needs: Yes Review of Systems Const Denies chills, Denies daytime sleepiness, Denies difficulty sleeping, Denies fatigue, Denies fever(s), Denies frequent falls, Denies headache(s), Denies inc reased appetite, Denies poor appetite, Denies snoring, Denies weakness, Denies weight gain and Denies weight loss Eyes Denies loss of vision ENT Denies vertigo, Denies dizziness and Denies headache(s) Card Denies chest pain at rest, Denies chest pain with activity, Denies syncope, Denies leg edema and Denies palpitations Resp Denies snoring GI Denies constipation, Denies heartburn, Denies diarrhea and Denies nausea Denies urinary frequency, Denies urinary incontinence and Denies urinary urgency Musc Denies abnormal gait, Denies numbness and Denies tingling Skin/Breast Denies dry skin and Denies rash Neuro Denies abnormal gait, Denies vertigo, Denies dizziness, Denies syncope, Denies frequent falls, Denies headache(s), Denies lack of coordination, Denies loss of vision, Denies memory loss, Denies numbness, Denies restless legs, Denies seizure-like activity, Denies tingling, Denies paresthesias, Denies tremor(s) and Denies weakness Psych Denies anxiety, Denies depression, Denies auditory hallucinations, Denies memory loss, Denies visual hallucinations and Denies suicidal ideation Endo Denies fatigue and Denies palpitations Physical Exam Const Other: General Appearance:? normal, in no acute distress. Skin:? no rashes, no significant birthmarks. Heart:? S1, S2 normal, no murmurs. Lungs:? clear anteriorly and posteriorly. Extremities:? no edema. Psych:? alert, oriented, cognitive function intact, cooperative with exam. Neuro Other: Mental Status:?Normal attention, orientation, memory and affect.? Cranial Nerves:?Pupils are about 2-3 mm round reactive to light. EOM seem ok. Visual biggs are full in right eye, and vision in left eye is very limited. Face is symmetrical. Facial sensations are normal. Tongue is midline. Palate elevates symmetrically. Shoulder shrugging is normal. Hearing to bedside conversation is normal. Moderate to severe bilateral ptosis. Sensory Exam:?....? Coordination:?No ataxia,?no titubation.? Gait Exam: Within normal limits. Extrapyramidal System:?No tremor, rigidity with normal facial expressions.? Pronator Drift:?Not present.? Involuntary Movements:?No tremors seen.? Speech:?Normal.? Assessment & Plan Assessment & Plan (1) Myasthenia gravis: Comment: continue his regular medications Code(s): G70.00 - Myasthenia gravis without (acute) exacerbation Category: Medical Plan: Continue prednisone 2.5mg 1 tablet daily. Continue pyridostigmine bromide 60mg 2 tablets three times a day. Continue azathioprine 50mg 1 tablet daily. Coding Level of Care Code Est Pt Level 4 (65748) Diagnoses Myasthenia gravis G70.00
--- OUTSIDE RECORDS SUMMARY | 2024-12-09 14:01 | XMS_ITS | Patient Health Record ---
Author Organization [facility] Address [address] [place] [address] Care Team Providers Care Manager Garden Name Role Phone Alan SHRESTHA, Cornelius Primary Care Provider Jay Grider Jr Unavailable [phone] Reason For Referral No Information Medications Medication [...] Active Famotidine Active metFORMIN HCl Active pyRIDostigmine [place] Active Immunizations Vaccine Route Administration Date Status Comme nts Influenza Unknown 11/17/2018 Administered Problems Problem Type SNOMED Code ICD Code Onset Dates Problem Status W/U Status Risk Notes Problem [id number] Anemia, unspecified type (D64.9) Active confirmed Plan Of Treatment Future Test Test Name Order Date COLONOSCOPY 08/28/2012 UPPER GI ENDOSCOPY 09/17/2019 COLONOSCOPY 09/17/2019 Insurance Providers Payer Name Payer Address Payer Phone Subscriber Number Group Number Insured Name Patient Relationship to Insured Coverage Start Date Coverage End Date MEDICARE OF [place] [address] [place] [id number] FALLON MENDENHALL Self - patient is the insured [facility] [employer]AN [address] [place] [address] [id number] TAISHA Arredondo EDHCRISTI Self - patient is the insured Medical [...]
--- OUTSIDE RECORDS SUMMARY | 2024-12-09 14:02 | XMS_ITS | Clinical Summary ---
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 Name Role Phone Cornelius Phillips MD Primary Care Provider [phone] Social History Tobacco Use Types Packs/Day Years [...] nts (1 - 1-dose 75+ series) 05/23/2014 Depression Screening 03/19/2024 COVID-19 Vaccine (1 - 2023-2 5 season) 2024 Influenza Vaccine (#1) 2024 HIB Vaccines Aged [...] Documents on File Type Date Recorded Patient Pattern Carrier Expl anation Health Care Decision (hx) 06/20/2017 [...] (hx) 03/25/2013 AD ALEXANDER DIRECTIVE Care Teams [employer] Repairer Relationship Specialty Start Date End Date Cornelius Phillips MD [address] [place] [address] Dr [address] JOHN Boss PCP - General Internal Medicine 11/29/16
== END 2024-12-09 11:23 | disposition home or self-care (01) ==
LOC: HO.HSM 11:11
PROVIDERS: PCP Internal Medicine; Referring Provider Internal Medicine; Visit Provider Registered Nurse
DX: G70.00 Myasthenia gravis without (acute) exacerbation (principal)
CPT/HCPCS: 99214

== ENCOUNTER → 2024-12-09 11:10 | Outpatient (BNVA) | payer MEDICARE, SELFPAY | PROVIDERS: PCP Internal Medicine; Referring Provider Internal Medicine; Visit Provider Registered Nurse | DX: G70.00 Myasthenia gravis without (acute) exacerbation (principal) | CPT/HCPCS: 99212 ==

== ENCOUNTER 2025-02-25 08:15 | Outpatient (REF) | payer MEDICARE, SELFPAY ==
[2025-02-25 10:44] LABS: MANUAL DIFF FLAG NO
[2025-02-25 10:47] LABS: Hematocrit 42.8 % (42.0-52.0); Hemoglobin 13.9 g/dl (14.0-18.0); Imm Gran Abs Auto 0.01 X10*3/uL (0.00-0.03); Imm Gran Pct Auto 0.2 % (0.0-0.4); Lymphocytes Absolute Auto 1.2 X10*3/uL (1.2-4.9); Mean Corpuscular HGB Conc 32.5 g/dl (31.0-36.0); Mean Corpuscular Hemoglobin 31.9 pg (27.0-33.0); Mean Corpuscular Volume 98.2 fL (80.0-98.0); NRBC Abs Auto 0.000 X10*3/uL (0.0-0.012); NRBC Pct Auto 0.0 /100WBC (0.0-0.2); Platelet Count 180 X10*3/uL (160-400); Red Blood Count 4.36 X10*6/uL (4.60-5.80); White Blood Count 6.6 X10*3/uL (4.8-10.8)
[2025-02-25 11:00] LABS: Appearance Urine Clear; Glucose Urine UA Negative (Negative); PH 5.0 (5.0-9.0); Specific Gravity - Urine 1.020 (1.005-1.025)
[2025-02-25 11:10] LABS: Alanine Aminotransferase 11 U/L (0-40); Albumin Level 4.2 g/dL (3.5-5.0); Alkaline Phosphatase 59 U/L (39-117); Anion Gap 8 (12-20); Aspartate Amino Transferase 25 U/L (5-37); Blood Urea Nitrogen 16 mg/dL (9-16); Calcium 9.5 mg/dL (8.4-10.2); Carbon Dioxide 30 mmol/L (22-29); Chloride 109 mmol/L (96-108); Cholesterol 122 mg/dL (<200); Estimated Glomerular Filt Rate 58; HDL Cholesterol 62 mg/dL (>40); Potassium 4.0 mmol/L (3.3-5.1); Sodium 143 mmol/L (135-145); Total Protein 6.6 g/dL (6.5-8.0); Triglycerides 72 mg/dL (<150)
[2025-02-25 11:32] LABS: Folate 14.1 ng/mL (> or = 4.0); Microalbum/Creatinine Ratio Ur 10.5 ug/mg cr (<30); Vitamin B12 445 pg/mL (200-900)
[2025-02-25 13:19] LABS: Free T4 (Free Thyroxine) 0.97 ng/dL (0.71-1.85)
== END 2025-02-25 08:16 | disposition home or self-care (01) ==
LOC: HO.10HDL 08:15
PROVIDERS: Visit Provider Internal Medicine
DX: I10 Essential (primary) hypertension (principal); D64.9 Anemia, unspecified; E78.00 Pure hypercholesterolemia, unspecified; R30.0 Dysuria; E55.9 Vitamin D deficiency, unspecified; E11.9 Type 2 diabetes mellitus without complications; E53.8 Deficiency of other specified B group vitamins
CPT/HCPCS: 36415; 80053; 80061; 81003; 82043; 82306; 82570; 82607; 82746; 83036; 84439; 84443; 85025

== ENCOUNTER 2025-02-26 10:44 | Outpatient (AMB) | payer MEDICARE, SELFPAY ==
--- NOTE | 2025-02-26 10:48 | MHC.PC.OV ---
Vital Signs 02/26/25 10:50 Height 5 ft 4.5 in Weight 163 lb BMI 27.5 BP 116/64 Blood Pressure Location Lt brachial Position Sitting Pulse 71 Pulse Source Pulse Oximeter Pulse Oximetry (%) 95 Oxygen Delivery Method Room Air Intake Visit Reasons: 4 Months Cigar Head Holer Required: No Accompanied by: Self / Same As Patient Allergies No Known Allergies (No Known Allergies*) Allergy (Verified 02/26/25 11:33) Medication List - Last Reconciled 02/26/25 by Cornelius Phillips MD apixaban (Eliquis) 5 mg PO BID azathioprine 50 mg PO DAILY blood sugar diagnostic (Accu-Chek Kezia Plus test strips) 1 strip miscellaneous DAILY blood sugar diagnostic (Contour Next Test Strips) As directed once a day blood-glucose meter (Accu-Chek Kezia Plus Meter) to check blood sugars twice a day - Dx Code: E11.9 cyanocobalamin (vitamin B-12) 100 mcg PO DAILY famotidine 20 mg PO DAILY 90 days ferrous sulfate 325 mg PO DAILY fesoterodine ER 4 mg PO DAILY flash glucose scanning reader ([employer] [place] [address] [place]) As directed glipizide ER 10 mg PO DAILY lancets (Accu-Chek Fastclix Lancet Drum) to check blood sugars twice a day - Dx Code: E11.9 levothyroxine 75 mcg PO QAM lidocaine 5% 1 patch topical DAILY lisinopril 30 mg PO DAILY metformin ER 2,000 mg (4 x 500 mg) PO DAILY 90 days prednisone 2.5 mg PO DAILY pyridostigmine bromide 120 mg PO TID simvastatin 10 mg PO BEDTIME sitagliptin phosphate (Januvia) 100 mg PO DAILY Tobacco use date assessed: 02/26/25 Fall risk assessment: No Falls in past year Last assessed Fall Risk: 02/26/25 Dental Screening Dental Screen Date: 02/26/25 Did you have a dental visit in the last 12 months?: No Did you have a dental problem in the last 6 months where you did not have access to dental care?: No Was dental information given to patient?: No HPI 4 Months HPI Details Patient comes in today for his follow-up visit States that he feels okay He denies any headaches or dizziness Denies any chest pains, no increased shortness of breath No nausea/vomiting, no abdominal pain No change in bowel habits noted He had his follow-up labs done yesterday - to discuss his results [facility] Medical History Compression fracture of L5 vertebra Rib fracture Dyspnea Pulmonary emboli Benign prostatic hyperplasia with urinary frequency Lumbar degenerative disc disease Ocular myasthenia gravis Diabetes mellitus Benign essential hypertension Vitamin D deficiency Pure hypercholesterolemia Acute respiratory failure with hypoxia Acute massive pulmonary embolism Myasthenia gravis Hyperkalemia Hypothyroidism BPH (benign prostatic hyperplasia) Anemia Melanoma Surgical History History of colonoscopy Status post surgical removal of malignant neoplasm of skin History of kyphoplasty Hx of decompressive lumbar laminectomy History of back surgery Previous back surgery Family History Father Medical history unknown Mother Cancer Social History Household Members: None Housing: House Do you presently have visiting nurse or other home services: No Alcohol intake: current Alcohol intake frequency: holidays/special occasions only Patient Tobacco Use Status: Former Tobacco user e-Cigarette/Vaping Use: Never Used Second Hand Smoke Exposure: Yes service: No Current occupational status: retired Cognitive needs: No Hearing needs: No Vision needs: Yes Questionnaire PHQ-9 Over the last 2 weeks, how often have you been bothered by any of the following problems? 1. Little interest or pleasure in doing things: not at all 2. Feeling down, depressed, or hopeless: not at all 3. Trouble falling or staying asleep, or sleeping too much: not at all 4. Feeling tired or having little energy: several days 5. Poor appetite or overeating: several days 6. Feeling bad about yourself - or that you are a failure or have let yourself or your family down: several days 7. Trouble concentrating on things, such as reading the newspaper or watching television: not at all 8. Moving or speaking so slowly that other people could have noticed. Or the opposite - being so fidgety or restless that you have been moving around a lot more than usual: not at all 9. Thoughts that you would be better off or of hurting yourself in some way: not at all Total score: 3 Depression Screening Interpretation: Positive Depression Screening Follow-up: Follow-up Visit Requested Depression Screening Done: Yes 10164 - PHQ-9 Billing: Yes Source: Developed by Drs. Fredi Miranda, Ayaka Villeda, Andrea Hurley and colleagues, with an educational ten from [employer]. Thrive Questionnaire Date Thrive assessed: 02/26/25 I am a: Patient What is your living situation today?: I have a steady place to live Within the past 12 months, did the food you bought not last and you didn't have the money to get more?: Never true Within the past 12 months, did you worry whether your food would run out before you got money to buy more?: Never true Do you have trouble paying for medicines?: No Do you have trouble getting transportation to medical appointments?: No Do you have trouble paying your heating and electricity bill?: No Do you have trouble taking care of your child, family member or friend?: No Do you have trouble with day-to-day activities such as bathing, preparing meals, shopping, managing finances, etc.?: Yes Are you currently unemployed and looking for a job?: Yes Are you interested in more education?: No Please select the resources that you would like help with: None Currently or been in a relationship where the following occur: No concerns reported THRIVE Score: 0 AUDIT C Alcohol Use Questionnaire (AUDIT-C) 1. How often do you have a drink containing alcohol?: Never 3. How often do you have six or more drinks on one occasion?: Never Total Score: 0 Score Reviewed/Action Taken: Yes SHAWN-7 AMB Questionnaire SHAWN-7 Date SHAWN - 7 assessed: 02/26/25 Feeling nervous, anxious, or on edge: 0 = Not at all Not being able to stop or control worryin = Not at all Worrying too much about different things: 0 = Not at all Trouble relaxin = Not at all Being so restless that it is hard to sit still: 0 = Not at all Becoming easily annoyed or irritable: 0 = Not at all Feeling afraid as if something awful might happen: 0 = Not at all Total SHAWN-7 score (0-4 normal; 5-9 mild; 10-14 moderate; 15-21 severe): 0 Source: Developed by Drs. Fredi Miranda, Ayaka Villeda, Andrea Hurley and colleagues, with an educational ten from [employer]. Review of Systems Const Denies chills, Denies difficulty sleeping, Reports fatigue, Denies fever(s) and Denies headache(s) Eyes Denies diplopia ENT Denies dysphagia, Denies dizziness, Denies otalgia, Denies headache(s), Denies neck pain, Denies odynophagia and Denies sore throat Card Denies chest pain, Denies palpitations and Denies dyspnea Resp Denies chest congestion, Denies cough and Denies dyspnea GI Denies abdominal pain, Denies constipation, Denies dysphagia, Denies heartburn, Reports fecal incontinence (at times, usually occurs when he is urinating), Denies diarrhea, Denies nausea, Denies odynophagia and Denies vomiting Denies difficulty urinating, Denies dysuria, Denies nocturia, Denies urinary frequency and Reports urinary incontinence (at times) Musc Reports back pain (over the lower back - chronic; increasing lately), Reports arthralgias (in the right hip) and Denies neck pain Skin/Breast Denies rash Neuro Denies dizziness and Denies headache(s) Endo Reports fatigue and Denies palpitations Physical exam (Primary Care) Vital Signs: Last Vital Signs Pulse 71 02/26/25 10:50 BP 116/64 02/26/25 10:50 Pulse Ox 95 02/26/25 10:50 Oxygen Delivery Method Room Air 02/26/25 10:50 BMI result Body Mass Index 27.5 Tobacco/Smoking Status: Tobacco use Status Tobacco use date assessed 02/26/25 02/26/25 10:50 Patient Tobacco Use Status Former Tobacco user 02/26/25 10:50 e-Cigarette/Vaping Use Never Used 02/26/25 10:50 PHQ-9: PHQ-9 Score PHQ-9: Total score 3 02/26/25 11:43 Depression Screening Interpretation: Positive Depression Screening Follow-up: Follow-up Visit Requested Thrive Assessment: Date of Thrive Assessment Date Thrive assessed 02/26/25 02/26/25 10:50 Currently or been in a relationship where the following occur: No concerns reported Const General: no acute distress and alert HENMT Ears: TM's normal bilaterally and EAC's normal Throat: Yes posterior oropharynx normal and Yes tonsils normal (no TP congestion noted) Neck Neck: Yes supple and No lymphadenopathy Thyroid: Thyroid normal Resp Auscultation: clear to auscultation bilaterally, no rales and no wheezes Cardio Rate: regular rate Rhythm: regular rhythm Heart sounds: no murmurs GI Palpation (GI): Soft to palpation and nontender Auscultation: normal bowel sounds General: Yes no CVA tenderness Back/Spine/Pelvis Back: no CVA tenderness Thoracic/Lumbar Spine: lumbar spinal tenderness (chronic) Skin Rashes: no rashes Extrem General: Yes no clubbing, cyanosis or edema Results Reviewed Results Reviewed: Laboratory Tests 02/25/25 08:20 WBC 6.6 Hgb 13.9 L Hct 42.8 Plt Count 180 Sodium 143 Potassium 4.0 Creatinine 1.20 Estimated GFR 58 Fasting Glucose 67 Hemoglobin A1c % 5.5 Calcium 9.5 AST 25 ALT 11 Triglycerides 72 Cholesterol 122 LDL Cholesterol, Calc 46 HDL Cholesterol 62 Vitamin B12 445 25-OH Vitamin D Total 53.0 TSH 6.64 H Free T4 0.97 Ur Specific [place] 1.020 Urine Protein Negative Urine Glucose (UA) Negative Urine Blood Negative Urine Nitrite Negative Ur Leukocyte Esterase Negative Microalb/Creat Ratio 10.5 Coding Level of Care Code Est Pt Level 4 (74025) Diagnoses Non-ST elevation [place] (NSTEMI) I21.4 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 I26.02 Acute cor pulmonale presence: with acute cor pulmonale Chronicity: chronic Pulmonary embolism type: saddle Pure hypercholesterolemia E78.00 Type 2 diabetes mellitus without complication, without long-term current use of insulin E11.9 Diabetes mellitus complication status: without complication Diabetes mellitus stevedoring superintendent insulin use: without stevedoring superintendent use Diabetes mellitus type: type 2 Benign essential hypertension I10 Acquired hypothyroidism E03.9 Hypothyroidism type: acquired Compression fracture of L5 vertebra, sequela S32.050S Encounter type: sequela Degeneration of intervertebral disc of lumbar region with discogenic back pain M51.360 Disc-related pain type: discogenic back pain only Ocular myasthenia gravis G70.00 Vitamin D deficiency E55.9 Benign prostatic hyperplasia with urinary frequency N40.1; R35.0 Urinary frequency R35.0 Overweight (BMI 25.0-29.9) E66.3 Additional Codes PHQ-9 - 29667 - PHQ-9 Billing: Yes ([id number]) Assessment & Plan Assessment & Plan (1) Non-ST elevation [place] (NSTEMI): Code(s): I21.4 - Non-ST elevation (NSTEMI) myocardial infarction Category: Medical Plan: Patient's NSTEMI occurred mostly in conjunction with his pulmonary embolism and hypoxia back in December 2019; he had NO prior Hx of CAD Patient has not had any chest pains or increased SOB since Continue Apixaban 5 mg BID Echocardiogram done on 12/26/2019 revealed normal left ventricular systolic function, with the visually estimated ejection fraction between 60-65%. The right ventricle was not well visualized but appears moderately dilated on selected images. There is mild to moderate tricuspid valve regurgitation and the right ventricular systolic pressure is 65 mmHg. Severe pulmonary hypertension is present (2) Pulmonary emboli: Comment: Chest CT done in December 2019 revealed a large volume of bilateral pulmonary emboli, including saddle embolus Patient also had a subacute PE of the right lower lobe that was seen on routine chest CT back in June 2019 Code(s): I26.99 - Other pulmonary embolism without acute cor pulmonale Category: Medical Qualifiers: Acute cor pulmonale presence: with acute cor pulmonale Chronicity: chronic Pulmonary embolism type: saddle Qualified Code(s): I26.02 - Saddle embolus of pulmonary artery with acute cor pulmonale Plan: Continue Eliquis 5 mg BID - patient will require lifelong anticoagulation Follow up with hematology as scheduled (3) Pure hypercholesterolemia: Code(s): E78.00 - Pure hypercholesterolemia, unspecified Category: Medical Plan: Results of his labs done yesterday reviewed and discussed with patient Reinforced low cholesterol diet Continue Simvastatin 10 mg QD Will recheck his labs and fasting lipids in 4 months for follow up (4) Diabetes mellitus: Code(s): E11.9 - Type 2 diabetes mellitus without complications Category: Medical Qualifiers: Diabetes mellitus complication status: without complication Diabetes mellitus stevedoring superintendent insulin use: without stevedoring superintendent use Diabetes mellitus type: type 2 Qualified Code(s): E11.9 - Type 2 diabetes mellitus without complications Plan: His HgbA1c was at 5.5% on his labs done yesterday (was previously at 5.6% a few months ago) - goal is <7.0% Reinforced diabetic diet Continue Metformin ER 500 mg 4 tablets (2000 mg) once a day, Januvia 100 mg once a day and Glipizide ER 10 mg QD (5) Benign essential hypertension: Code(s): I10 - Essential (primary) hypertension Category: Medical Plan: Reinforced low sodium diet - goal is systolic BP of at least 140 to 150 mm or less Continue Lisinopril 30 mg QD (6) Hypothyroidism: Code(s): E03.9 - Hypothyroidism, unspecified Category: Medical Qualifiers: Hypothyroidism type: acquired Qualified Code(s): E03.9 - Hypothyroidism, unspecified Plan: His TSH level has again increased further from previous although his free T4 level remains (low) normal on his recent labs Will go ahead and increase his Levothyroxine dose slightly from 75 mcg to 88 mcg QD Will recheck his TFTs in a few months for follow up and continue to monitor his TFTs regularly (7) Compression fracture of L5 vertebra: Comment: S/P L5 kyphoplasty by Dr. Mark in October 2020 Code(s): S32.050A - Wedge compression fracture of fifth lumbar vertebra, initial encounter for closed fracture Category: Medical Qualifiers: Encounter type: sequela Qualified Code(s): S32.050S - Wedge compression fracture of fifth lumbar vertebra, sequela Plan: S/P kyphoplasty in the summer of [address] Mark Repeat MRI of the lumbar spine done back in September 2023 revealed (+) chronic compression fractures with vertebroplasty seen diffusely throughout the visualized lower thoracic and lumbar spine. Grade 1 anterolisthesis of L4 over L5 was noted. At L4-L5, a concentric disc bulge with moderate to severe canal stenosis and severe bilateral foraminal narrowing is noted. At the remaining levels, canal stenosis is mild/mild to moderate with concentric disc bulges and multilevel foraminal narrowing noted as well He was referred to and seen by Dr. Anderson for neurosurgery consultation and was advised againt surgery at all costs due to his increased risks and was recommended to only pursue conservative management (8) Lumbar degenerative disc disease: Code(s): M51.36 - Other intervertebral disc degeneration, lumbar region Category: Medical Qualifiers: Disc-related pain type: discogenic back pain only Qualified Code(s): M51.360 - Other intervertebral disc degeneration, lumbar region with discogenic back pain only Plan: S/P left L4-L5 decompression by Dr. Mark in October 2020 He was recently seen again by Neurosurgery and was advised against surgical intervention and recommended to continue with conservative management alone Reinforced activity and weight lifting restrictions Continue Gabapentin 600 mg TID (9) Ocular myasthenia gravis: Code(s): G70.00 - Myasthenia gravis without (acute) exacerbation Category: Medical Plan: Continue Pyridostigmine 60 mg 2 tablets 3 times a day, Azathioprine 50 mg BID and Prednisone 5 mg 2 tablets once a day Follow-up with Neurology as scheduled (10) Vitamin D deficiency: Code(s): E55.9 - Vitamin D deficiency, unspecified Category: Medical Plan: Continue Vitamin D3 1000 units QD (11) Benign prostatic hyperplasia with urinary frequency: Code(s): N40.1 - Benign prostatic hyperplasia with lower urinary tract symptoms; R35.0 - Frequency of micturition Category: Medical Plan: Patient used to take Finasteride 5 mg QD and Tamsulosin 0.4 mg QD but he self-discontinued these at some point and is now only taking OTC Super Beta Prostate daily Cystoscopy done back in July 2022 revealed (+) bladder wall thickening with moderate trabeculation and cellular changes and enlargement of prostate but no suspicious bladder lesions visualized He [place] [facility] [place] for a referral to [facility] in [place] at his last visit in May 2023 - he is now seeing Urology regularly every few months for follow-up (12) Urinary frequency: Code(s): R35.0 - Frequency of micturition Category: Medical Plan: He appears to have both stress and urge incontinence and also has no awareness of his incontinence at times Has been wearing adult diapers for a while now Continue Toviaz ER 4 mg QD Follow up with urology as scheduled (13) Overweight (BMI 25.0-29.9): Code(s): E66.3 - Overweight Category: Medical Plan: Reinforced diet; exercise and weight loss are unrealistic in this patient due to his multiple physical issues and unsteadiness and comorbidities Plan Follow up in 4 months Orders: Orders Hemoglobin A1c 4 Months E11.9 - Type 2 diabetes mellitus without complications Complete Blood Count Auto Diff 4 Months D64.9 - Anemia, unspecified Comprehensive [place]. Panel Fast 4 Months E78.00 - Pure hypercholesterolemia, unspecified Lipid Panel 4 Months E78.00 - Pure hypercholesterolemia, unspecified Thyroid Stimulating Hormone 4 Months E03.9 - Hypothyroidism, unspecified Microalbumin, Random (w Creat) 4 Months E11.9 - Type 2 diabetes mellitus without complications UA CC w/rflx Micro + Cult 4 Months R30.0 - Dysuria Vitamin B12 and Folate 4 Months E53.8 - Deficiency of other specified B group vitamins Vitamin D 25-OH Total 4 Months E55.9 - Vitamin D deficiency, unspecified Free T4 (Free Thyroxine) 4 Months E03.9 - Hypothyroidism, unspecified Medications: Changed From levothyroxine 75 mcg PO QAM 90 tabs 0RF To levothyroxine 88 mcg PO QAM 90 tabs 1RF 90 days
[2025-02-26 10:50] VITALS: BP 116/64; PULSE 71; O2SAT 95; BMI 27.5
== END 2025-02-26 11:51 | disposition home or self-care (01) ==
LOC: HO.HMCH 10:45
PROVIDERS: PCP Internal Medicine; Visit Provider Internal Medicine
DX: I26.02 Saddle embolus of pulmonary artery with acute cor pulmonale (principal); E11.9 Type 2 diabetes mellitus without complications; G70.00 Myasthenia gravis without (acute) exacerbation; I25.2 Old myocardial infarction; E78.00 Pure hypercholesterolemia, unspecified; I10 Essential (primary) hypertension; E03.9 Hypothyroidism, unspecified; S32.050S Wedge compression fracture of fifth lumbar vertebra, sequela; M51.360 Other intervertebral disc degeneration, lumbar region with discogenic back pain only; E55.9 Vitamin D deficiency, unspecified; N40.1 Benign prostatic hyperplasia with lower urinary tract symptoms; R35.0 Frequency of micturition; E66.3 Overweight

== ENCOUNTER → 2025-02-26 10:44 | Outpatient (BNVA) | payer MEDICARE, SELFPAY | PROVIDERS: PCP Internal Medicine; Visit Provider Internal Medicine | DX: Z71.2 Person consulting for explanation of examination or test findings (principal); I21.4 Non-ST elevation (NSTEMI) myocardial infarction; I26.02 Saddle embolus of pulmonary artery with acute cor pulmonale; E11.9 Type 2 diabetes mellitus without complications; E78.00 Pure hypercholesterolemia, unspecified; I10 Essential (primary) hypertension; E03.9 Hypothyroidism, unspecified; S32.050S Wedge compression fracture of fifth lumbar vertebra, sequela; M51.360 Other intervertebral disc degeneration, lumbar region with discogenic back pain only; G70.00 Myasthenia gravis without (acute) exacerbation; E55.9 Vitamin D deficiency, unspecified; N40.1 Benign prostatic hyperplasia with lower urinary tract symptoms; R35.0 Frequency of micturition; E66.3 Overweight; Z13.31 Encounter for screening for depression; Z13.39 Encounter for screening examination for other mental health and behavioral disorders | CPT/HCPCS: 96127; 99212 ==